=== PATIENT | female | born 1955 | race Caucasian/White ===

== ENCOUNTER 2016-08-24 17:21 | Inpatient (IN) ==
--- NOTE | 2016-08-24 17:34 | Emergency Department Note ---
Disposition Clinical Impression: Cellulitis Disposition: Admitted As Inpatient Condition: Fair Referrals: NO,PCP [Non-Partnered Physician] - Forms: ED Satisfaction Letter General Adult HPI - General Chief complaint: ED Extremity Injury, Lower Stated complaint: lower extremity pain Time Seen by Provider: 08/24/16 17:26 Source: patient Limitations: no limitations Nursing Notes Reviewed: Yes Vital Signs Reviewed: Yes - History of Present Illness HPI Narrative: Ms. Edmonds, a 60-year-old female, presents from home via EMS with chief complaint of increasing bilateral lower extremity with worsening cellulitis. Originally noted by home health nurse who is managing her bilateral lower extremities for the same. Home health nurse called the patient's aviation safety technician who advised she come into the emergency department. Patient is currently on Keflex states 6 for bilateral lower extremity cellulitis which is not improved her symptoms as well as acyclovir for shingles outbreak on patient's forehead. PMH: Hypertension, hyperlipidemia, diabetes, morbid obesity, previous MRSA cellulitis, bilateral lower extremity venous stasis. Cath Lab: Dr. Whitfield Pain Scale: 4 - Related Data Previous Rx's Medication Instructions Recorded Clindamycin HCl [Cleocin HCl] 300 mg PO Q6HR #56 capsule 11/24/14 Acyclovir [Zovirax] 400 mg PO TID #60 capsule 04/06/16 Erythromycin OPTH Oint 1 appl LEFT EYE Q6HR #1 tube 04/06/16 Allergies Allergy/AdvReac Type Severity Reaction Status Date / Time sulfamethoxazole Allergy Rash Verified 04/06/16 12:47 [From Bactrim] trimethoprim [From Bactrim] Allergy Rash Verified 04/06/16 12:47 celecoxib [From Celebrex] AdvReac Gastrointestinal Verified 04/06/16 12:47 Upset Penicillins AdvReac Swelling Verified 04/06/16 12:47 of the Eye trazodone AdvReac Fainting Verified 04/06/16 12:47 Serazone AdvReac Swelling Uncoded 11/24/14 06:39 of Lip/Tongue/Throat All systems ED: reviewed and negative except as stated. Constitutional: Denies: fever, chills Cardiovascular: Denies: chest pain, palpitations Respiratory: Denies: cough, dyspnea Gastrointestinal: Denies: abdominal pain, nausea, vomiting, diarrhea, constipation Genitourinary: Denies: dysuria Integumentary: Reports: rash, lesions. Denies: pruritus Past Medical History - Past Medical History Medical history: Reports: atrial fibrillation, diabetes, hyperlipidemia, hypertension, other Surgical history: Reports: appendectomy, cholecystectomy, hysterectomy Psychiatric history: Reports: depression, prior suicide attempt, previous psychiatric hospitalization - Social History Smoking Status: Never smoker Smokeless Tobacco Status: No Alcohol use: Reports: none Drug use: Reports: none Physical Exam Vital signs reviewed General: Patient is alert, oriented, and in no acute distress. HEENT: No facial asymmetry. Head is normocephalic and atraumatic. Cardiovascular: Heart regular rate and rhythm without clicks, rubs, gallops, or murmurs. No JVD. PMI nondisplaced. Respiratory: Symmetric chest rise with poor respiratory effort. Bilateral breath sounds are clear without wheezing, crackles, or rhonchi. Abdomen: Morbidly obese. Bowel sounds present normoactive x-4 quadrants. Abdomen is soft, nondistended, and nontender. Unable to assess organomegaly given patient's body habitus. Integument: Evidence of shingles patient's mid forehead. Psych: Patient's affect is appropriate for situation. - General Limitations: no limitations General appearance: alert, in no apparent distress Course Course Narrative: Patient failed outpatient antibiotics. We will begin him. Vancomycin. Vital signs stable and afebrile. Leukocytosis. Mild elevation in ESR. Patient has been accepted by Dr. Aly for continued IV antibiotics. Vital Signs Temperature 98.6 F 08/24/16 17:24 Pulse Rate 78 08/24/16 17:24 Respiratory Rate 22 08/24/16 17:24 Blood Pressure 129/57 08/24/16 17:24 O2 Sat by Pulse Oximetry 93 08/24/16 17:24 Temperature 98.6 F 08/24/16 17:24 Pulse Rate 70 08/24/16 18:25 Respiratory Rate 22 08/24/16 18:25 Blood Pressure 125/59 08/24/16 18:25 O2 Sat by Pulse Oximetry 90 08/24/16 18:42 Oxygen Delivery Oxygen Delivery Room Air Medical Decision Making - Lab Data Result diagrams: 08/24/16 18:10 08/24/16 18:10 Lab Results 08/24/16 08/24/16 08/24/16 Range/Units 18:10 18:10 18:10 WBC 10.7 (4.3-11.1) K/mcL RBC 4.51 (3.82-4.97) M/mcL Hgb 12.1 (11.5-15.4) g/dL Hct 39.7 (35.3-44.9) % MCV 88.0 (83.0-100.0) fL MCH 26.8 L (28.0-33.3) pg MCHC 30.5 L (31.6-35.5) g/dL RDW 14.1 (11.5-14.5) % Plt Count 204 (140-400) K/mcL MPV 11.8 (9.4-12.4) fL Immature Gran % 0.7 (0-4) % Seg Neutrophils % 81.0 % Lymphocytes % 10.5 % Monocytes % 5.5 % Eosinophils % 2.1 % Basophils % 0.2 % Neutrophils # 8.7 (1.6-8.9) K/mcL Lymphocytes # 1.1 (0.6-4.6) K/mcL Monocytes # 0.6 (0.0-1.3) K/mcL Eosinophils # 0.2 (0.0-0.6) K/mcL Basophils # 0.0 (0.0-0.2) K/mcL ESR 41 H (0-15) mm/hr Sodium 139 (136-145) mEq/L Potassium 4.0 (3.5-4.5) mEq/L Chloride 104 (98-109) mEq/L Carbon Dioxide 27 (19-29) mEq/L BUN 14 (7-20) mg/dL Creatinine 0.88 (0.57-1.11) mg/dL Est GFR ( Amer) > 60 (> 60) Est GFR (Non-Af Amer) > 60 (> 60) BUN/Creatinine Ratio 16 (6-26) Glucose 127 H (70-99) mg/dL Calculated Osmolality 290 (280-300) Calcium 9.1 (8.6-10.8) mg/dL
--- NOTE | 2016-08-24 17:34 | Emergency Department Note ---
Disposition Clinical Impression: Cellulitis Qualifiers: Site of cellulitis: extremity Site of cellulitis of extremity: lower extremity Laterality: unspecified laterality Qualified Code(s): L03.119 - Cellulitis of unspecified part of limb Disposition: Admitted As Inpatient Condition: Fair Referrals: NO,PCP [Non-Partnered Physician] - Forms: ED Satisfaction Letter General Adult HPI - General Chief complaint: ED Extremity Problem,Nontraumatic Stated complaint: lower extremity pain Time Seen by Provider: 08/24/16 17:26 Source: patient Limitations: no limitations Nursing Notes Reviewed: Yes Vital Signs Reviewed: Yes - History of Present Illness Pain Scale: 4 - Related Data Previous Rx's Medication Instructions Recorded Clindamycin HCl [Cleocin HCl] 300 mg PO Q6HR #56 capsule 11/24/14 Acyclovir [Zovirax] 400 mg PO TID #60 capsule 04/06/16 Erythromycin OPTH Oint 1 appl LEFT EYE Q6HR #1 tube 04/06/16 Allergies Allergy/AdvReac Type Severity Reaction Status Date / Time sulfamethoxazole Allergy Rash Verified 04/06/16 12:47 [From Bactrim] trimethoprim [From Bactrim] Allergy Rash Verified 04/06/16 12:47 celecoxib [From Celebrex] AdvReac Gastrointestinal Verified 04/06/16 12:47 Upset Penicillins AdvReac Swelling Verified 04/06/16 12:47 of the Eye trazodone AdvReac Fainting Verified 04/06/16 12:47 Serazone AdvReac Swelling Uncoded 11/24/14 06:39 of Lip/Tongue/Throat Past Medical History - Past Medical History Medical history: Reports: atrial fibrillation, diabetes, hyperlipidemia, hypertension, other Surgical history: Reports: appendectomy, cholecystectomy, hysterectomy Psychiatric history: Reports: depression, prior suicide attempt, previous psychiatric hospitalization - Social History Smoking Status: Never smoker Smokeless Tobacco Status: No Alcohol use: Reports: none Drug use: Reports: none Physical Exam - General Limitations: no limitations General appearance: alert, in no apparent distress Course Vital Signs Temperature 98.6 F 08/24/16 17:24 Pulse Rate 78 08/24/16 17:24 Respiratory Rate 22 08/24/16 17:24 Blood Pressure 129/57 08/24/16 17:24 O2 Sat by Pulse Oximetry 93 08/24/16 17:24 Temperature 98.6 F 08/24/16 17:24 Pulse Rate 70 08/24/16 18:25 Respiratory Rate 22 08/24/16 18:25 Blood Pressure 125/59 08/24/16 18:25 O2 Sat by Pulse Oximetry 94 08/24/16 18:25 Oxygen Delivery Oxygen Delivery Room Air Medical Decision Making - MDM Narrative Medical decision making narrative: I examined this patient and my medical decision-making was reviewed with the NUTRITION AIDES TEACHER/PA/Advanced Practice Nurse/Resident Physician. I agree with the documented findings, disposition and treatment plan as described except to the extent set forth below. The patient was seen and evaluated by myself and Dr. Arrington, I agree with his evaluation and management plan, I supervised the care of the patient doubts today. Patient presents with lower extremity cellulitis bilaterally. She started Keflex6. Without much change. She also been seen by dermatology. I do not see any biopsies from this area listed in the medical record at this point. No fevers at home. She has also had shingles above her left eye which is getting improved and does not involve the eye itself. Check labs sedimentation rate place an IV in her she may need IV antibiotics and admission. She is in agreement with this plan. 1835 hrs.: Patient's labs are back. She is tolerating the vancomycin well. Regarding get her admitted since she has failed outpatient therapy. She can be seen by hospitalist service if they need to consult dermatology they can that she seen dermatology here in the past. Patient's agreement with this plan. Impression is lower extremity cellulitis versus inflammatory dermatitis with history of same. Failed outpatient treatment of antibiotics. - Lab Data Result diagrams: 08/24/16 18:10 08/24/16 18:10 Lab Results 08/24/16 08/24/16 08/24/16 Range/Units 18:10 18:10 18:10 WBC 10.7 (4.3-11.1) K/mcL RBC 4.51 (3.82-4.97) M/mcL Hgb 12.1 (11.5-15.4) g/dL Hct 39.7 (35.3-44.9) % MCV 88.0 (83.0-100.0) fL MCH 26.8 L (28.0-33.3) pg MCHC 30.5 L (31.6-35.5) g/dL RDW 14.1 (11.5-14.5) % Plt Count 204 (140-400) K/mcL MPV 11.8 (9.4-12.4) fL Immature Gran % 0.7 (0-4) % Seg Neutrophils % 81.0 % Lymphocytes % 10.5 % Monocytes % 5.5 % Eosinophils % 2.1 % Basophils % 0.2 % Neutrophils # 8.7 (1.6-8.9) K/mcL Lymphocytes # 1.1 (0.6-4.6) K/mcL Monocytes # 0.6 (0.0-1.3) K/mcL Eosinophils # 0.2 (0.0-0.6) K/mcL Basophils # 0.0 (0.0-0.2) K/mcL ESR 41 H (0-15) mm/hr Sodium 139 (136-145) mEq/L Potassium 4.0 (3.5-4.5) mEq/L Chloride 104 (98-109) mEq/L Carbon Dioxide 27 (19-29) mEq/L BUN 14 (7-20) mg/dL Creatinine 0.88 (0.57-1.11) mg/dL Est GFR ( Amer) > 60 (> 60) Est GFR (Non-Af Amer) > 60 (> 60) BUN/Creatinine Ratio 16 (6-26) Glucose 127 H (70-99) mg/dL Calculated Osmolality 290 (280-300) Calcium 9.1 (8.6-10.8) mg/dL
[2016-08-24 18:22] LABS: Basophils % 0.2 %; Eosinophils # 0.2 K/mcL (0.0-0.6); Eosinophils % 2.1 %; Hematocrit 39.7 % (35.3-44.9); Hemoglobin 12.1 g/dL (11.5-15.4); Immature Granulocytes % 0.7 % (0-4); Lymphocytes # 1.1 K/mcL (0.6-4.6); Lymphocytes % 10.5 %; Mean Corpuscular HGB Conc 30.5 g/dL (31.6-35.5); Mean Corpuscular Hemoglobin 26.8 pg (28.0-33.3); Mean Platelet Volume 11.8 fL (9.4-12.4); Monocytes # 0.6 K/mcL (0.0-1.3); Monocytes % 5.5 %; Neutrophils # 8.7 K/mcL (1.6-8.9); Platelet Count 204 K/mcL (140-400); Red Blood Count 4.51 M/mcL (3.82-4.97); Red Cell Distribution Width 14.1 % (11.5-14.5)
[2016-08-24] MEDS ORDERED: Vancomycin 2,000 MG in D5% in Water 500 ML IVPB ONE (18:28)
[2016-08-24 18:30] LABS: BUN/Creatinine Ratio 16 (6-26); Blood Urea Nitrogen 14 mg/dL (7-20); Calcium 9.1 mg/dL (8.6-10.8); Carbon Dioxide 27 mEq/L (19-29); Chloride 104 mEq/L (98-109); Glucose 127 mg/dL (70-99); Osmolality,Calculated 290 (280-300); Sodium 139 mEq/L (136-145); eGFR For African Americans > 60 (> 60); eGFR For Non-African Americans > 60 (> 60)
[2016-08-24] MEDS ORDERED: Vancomycin 2,000 MG in D5% in Water 500 ML IVPB SCH (19:00)
--- NOTE | 2016-08-24 19:56 | Event Note ---
Date of Encounter: 08/24/16 Time of Encounter: 19:54 Patient seen and examined with biomedical equipment tech. Cellulitis of both lower extremities and panniculus with failed outpatient oral antibiotic therapy (6 days of Keflex). She has prior history of MRSA infection. Start vancomycin and Zosyn. Blood and wound cultures. She has cellulitis of the panniculus with notable induration. I will get a contrasted CT scan of the abdomen and pelvis to look for abscess formation
[2016-08-24] MEDS ORDERED: Naloxone 0.4 MG/ML INJ IVP PRN (20:23)
--- NOTE | 2016-08-24 20:34 | Internal Med History&Physical ---
Date of Encounter: 08/24/16 Time of Encounter: 20:27 Assessment and Plan (1) Cellulitis Current visit: Yes Status: Acute Patient has evidence of cellulitis on her bilateral upper extremities as well as her pannus. She failed outpatient therapy with a week of Keflex. We will outline her areas of cellulitis. Initiate antibiotic therapy with vancomycin and Zosyn. Does have a penicillin allergy but is listed as swelling of her right eye associated. Anaphylactic reaction. We will continue to monitor reaction. Blood cultures have been drawn. Qualifiers: Site of cellulitis: extremity Site of cellulitis of extremity: lower extremity Laterality: unspecified laterality Qualified Code(s): L03.119 - Cellulitis of unspecified part of limb (2) Panniculitis Current visit: Yes Status: Acute Patient has cellulitis with an overlying healing lesions on her pannus. There is no drainage or bleeding. Will treat with antibiotics as discussed above. We will obtain a CT scan of the abdomen to rule out abscess. (3) Type 2 diabetes mellitus Current visit: Yes Status: Acute Blood sugar slightly elevated on presentation. Hold oral antidiabetic medications. We will institute low-dose sliding scale and adjust based on sugars. Qualifiers: Diabetes mellitus complication status: with unspecified complications Diabetes mellitus intermediate designer insulin use: without fci use Qualified Code( s): E11.8 - Type 2 diabetes mellitus with unspecified complications (4) Bipolar disorder Current visit: Yes Status: Acute Stable to time. Continue lithium. Qualifiers: Active/Remission status: in full remission Most recent bipolar episode type : most recent episode unspecified type Qualified Code(s): F31.70 - Bipolar disorder, currently in remission, most recent episode unspecified (5) Depression Current visit: Yes Status: Acute Stable. Continue Zoloft. Qualifiers: Depression Type: unspecified Qualified Code(s): F32.9 - Major depressive disorder, single episode, unspecified (6) Hypothyroidism Current visit: Yes Status: Acute Stable. Continue Synthroid. 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 She is on acyclovir 800 mg 4 times a day. We will continue this. Patient is treated for postherpetic neuralgia with hydrocodone as well as gabapentin. Continue home medications. 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 Continue home blood pressure medications. Qualifiers: Hypertension type: essential hypertension Qualified Code(s): I10 - Essential (primary) hypertension (9) Chronic venous insufficiency Current visit: Yes Status: Acute Ongoing for years. No evidence of overlying cellulitis at the site of her chronic venous insufficiency. Continue pentoxifylline. (10) Hyperlipidemia Current visit: Yes Status: Acute Continue statin. Qualifiers: Hyperlipidemia type: unspecified Qualified Code(s): E78.5 - Hyperlipidemia , unspecified (11) DVT prophylaxis Current visit: Yes Status: Acute Heparin 5000 units subcutaneous twice a day. Internal Medicine - H&P: HPI Chief complaint: Lower extremity erythema Admitted From: Emergency Dept Plans for Post Hospital Care: Home History of present illness: Ms. Asif is a 60 year old female with history of chronic venous stasis and cellulitis presents with lower extremity erythema. Patient states she has had dark discoloration of her lower extremity for years but over the last several weeks she had a new onset of redness of her upper thighs and her pannus. Patient reports this is painful. She denies any discharge or bleeding from this area. She denies any trauma to the area or breaks in skin of her lower extremity. She does have a dry crusted lesion on her pannus. She reports subjective fevers and chills but has not measured. She denies any chest pain, shortness of breath, nausea, vomiting. Patient states that she has had loose stools for years, there is been no change in her bowel habits. Past Med Surg Social Fam HX - Past Medical History Medical history: atrial fibrillation, diabetes, hyperlipidemia, hypertension, other Psychiatric history: depression, prior suicide attempt, previous psychiatric hospitalization - Past Surgical History Surgical History: appendectomy, cholecystectomy, hysterectomy, thyroidectomy - Social History Smoking Status: Never smoker Smokeless Tobacco Status: No Alcohol use: none Drug use: none - Family History Father Hx Family Cardiac Disorders: Yes Hx Family Endocrine Disorder: Yes Internal Medicine - H&P: Meds Acyclovir [Zovirax] 800 mg PO QID 08/24/16 [History] Cholestyramine (with Sugar) [Cholestyramine Bulk Powder] 2 scoop PO DAILY [History] Gabapentin [Neurontin] 600 mg PO TID 08/24/16 [History] HYDROcodone/Acet 5/325 mg [Pinon 5-325 mg] 1 - 2 tab PO DAILY PRN 08/24/16 [ History] Levothyroxine Sodium 50 mcg PO DAILY 08/24/16 [History] Levothyroxine Sodium [Levo-T] 200 mcg PO DAILY 08/24/16 [History] [place] Carbonate 300 mg PO DAILY 08/24/16 [History] Losartan Potassium [Cozaar] 50 mg PO DAILY 08/24/16 [History] Naproxen Sodium [Aleve] 220 mg PO BID 08/24/16 [History] Nystatin POWDER [Nystop] 1 appl TP BID 08/24/16 [History] Pantoprazole Sodium 40 mg PO DAILY 08/24/16 [History] Pentoxifylline [TRENtal] 400 mg PO HS 08/24/16 [History] Pentoxifylline [TRENtal] 800 mg PO DAILY 08/24/16 [History] Pravastatin Sodium [Pravachol] 40 mg PO DAILY 08/24/16 [History] Saxagliptin HCl [Onglyza] 5 mg PO DAILY 08/24/16 [History] Sertraline [Zoloft] 200 mg PO DAILY 08/24/16 [History] Verapamil HCl [Verapamil ER] 240 mg PO DAILY 08/24/16 [History] cephALEXin [Cephalexin] 500 mg PO BID 08/24/16 [History] Allergies sulfamethoxazole [From Bactrim] Allergy (Verified 04/06/16 12:47) Rash trimethoprim [From Bactrim] Allergy (Verified 04/06/16 12:47) Rash celecoxib [From Celebrex] Adverse Reaction (Verified 04/06/16 12:47) Gastrointestinal Upset Penicillins Adverse Reaction (Verified 04/06/16 12:47) Swelling of the Eye trazodone Adverse Reaction (Verified 04/06/16 12:47) Fainting Serazone Adverse Reaction (Uncoded 11/24/14 06:39) Swelling of Lip/Tongue/Throat All Systems PM: A 10-system review of systems was performed and is negative for pertinent findings except as documented above in the HPI. - Constitutional Constitutional: chills, fever(s) - EENT Eyes: blurry vision Nose, mouth and throat: no sinus pain, no sinus pressure, no sore throat - Cardiovascular Cardiovascular ROS IM: no chest pain, no dyspnea, no syncope - Respiratory Respiratory: no cough, no chest congestion, no excessive phlegm production, no change in phlegm color - Gastrointestinal Gastrointestinal: loose stools, no abdominal pain, no change in bowel habits, no nausea, no vomiting - Genitourinary Genitourinary: breast skin changes, no dysuria, no urinary frequency, no urinary hesitancy, no urinary incontinence, no urinary urgency - Musculoskeletal Musculoskeletal ROS IM: no numbness, no tingling - Integumentary Integumentary IM: erythema, non-healing lesions, skin ulcer, sores - Neurological Neurological ROS: no dizziness, no frequent falls, no headache(s), no numbness, no tingling - Constitutional Vitals: Temp Pulse Resp BP Pulse Ox 98.2 F 66 18 120/56 92 08/24/16 20:08 08/24/16 20:08 08/24/16 20:08 08/24/16 20:08 08/24/16 20:08 General appearance: Present: A&O X 3, morbidly obese, pleasant, no acute distress - Head Head exam: Present: atraumatic, normal inspection, normocephalic - Eye Eye exam: Present: EOMI. Absent: PERRL Additional comments: Patient's left pupil is fixed and dilated. She states that this is been ongoing for the last several months and she has been diagnosed with shingles. The right pupil is not dilated, and reactive to light. - ENT ENT exam: Present: mucous membranes moist - Respiratory Respiratory exam: Present: CTAB. Absent: rales, rhonchi, wheezes - Cardiovascular Cardiovascular exam: Present: RRR. Absent: gallop, rubs, systolic murmur, tachycardia - GI/Abdominal GI/Abdominal exam: Present: normal bowel sounds, soft. Absent: distended, tenderness - Extremities Exam Extremities exam: Present: pedal edema (trace), warm. Absent: tenderness - Neurological Exam Neurological exam: Present: alert, CN II-XII intact, oriented X3, no focal deficits - Skin Additional comments: Patient has well demarcated erythema of the upper inner thighs. There are no breaks in the skin, drainage or bleeding noted. Patient also has erythema of her pannus as well as a dry healing lesion that is not weeping or draining. Patient also has dry healing lesions on her left breast. There is no underlying mass. Internal Med - H&P Results - Labs CBC & Chem 7: 08/24/16 18:10 08/24/16 18:10
[2016-08-24] MEDS ORDERED: Vancomycin 2,000 MG in D5% in Water 250 ML IVPB SCH (21:00)
[2016-08-24] MEDS ORDERED: 0.9 % Sodium Chloride 500 ML IVC ONE (21:51)
[2016-08-24] MEDS ORDERED: D5% in Water 1,000 ML IVC PRN (22:29)
[2016-08-24] MEDS ORDERED: Dextrose Gel 15 GM PO PRN ×2 (22:29)
[2016-08-24] MEDS ORDERED: *HR* Dextrose 50 % in Water (Syg) 50 ML SYRINGE IVP PRN (22:29)
[2016-08-24] MEDS: Acyclovir 200 MG CAPSULE PO SCH (23:06)
[2016-08-24] MEDS: Gabapentin 300 MG CAPSULE PO SCH (23:06)
[2016-08-24] MEDS ORDERED: Lithium Carbonate ER 300 MG TABLET.ER PO SCH (23:45)
[2016-08-25] MEDS: Lithium Oral Soln 300 MG/5 ML UDC PO SCH ×2 (00:29→21:06)
[2016-08-25] MEDS: Piperacillin/Tazobactam 3.375 GM in D5% in Water (Mini-Bag+) 100 ML IVPB SCH ×4 (00:29→23:29)
[2016-08-25] MEDS: Nystatin POWDER 30 GM BOTTLE TP SCH ×3 (00:30→21:07)
[2016-08-25 04:50] LABS: Basophils % 0.3 %; Eosinophils # 0.2 K/mcL (0.0-0.6); Eosinophils % 2.1 %; Hematocrit 37.4 % (35.3-44.9); Hemoglobin 11.3 g/dL (11.5-15.4); Immature Granulocytes % 1.2 % (0-4); Lymphocytes # 1.3 K/mcL (0.6-4.6); Lymphocytes % 11.9 %; Mean Corpuscular HGB Conc 30.2 g/dL (31.6-35.5); Mean Corpuscular Hemoglobin 26.4 pg (28.0-33.3); Mean Corpuscular Volume 87.4 fL (83.0-100.0); Mean Platelet Volume 11.7 fL (9.4-12.4); Monocytes # 0.8 K/mcL (0.0-1.3); Monocytes % 6.8 %; Neutrophils # 8.5 K/mcL (1.6-8.9); Platelet Count 198 K/mcL (140-400); Red Blood Count 4.28 M/mcL (3.82-4.97); Red Cell Distribution Width 14.3 % (11.5-14.5); Segmented Neutrophils % 77.7 %
[2016-08-25 04:56] LABS: INR 1.2; Prothrombin Time 12.7 Seconds (9.4-12.1)
[2016-08-25 05:07] LABS: BUN/Creatinine Ratio 15 (6-26); Blood Urea Nitrogen 13 mg/dL (7-20); Calcium 8.5 mg/dL (8.6-10.8); Carbon Dioxide 24 mEq/L (19-29); Chloride 105 mEq/L (98-109); Glucose 144 mg/dL (70-99); Magnesium 1.8 mg/dL (1.6-2.6); Osmolality,Calculated 287 (280-300); Potassium 3.9 mEq/L (3.5-4.5); Sodium 137 mEq/L (136-145); eGFR For African Americans > 60 (> 60); eGFR For Non-African Americans > 60 (> 60)
[2016-08-25] MEDS: Vancomycin 2,000 MG in D5% in Water 500 ML IVPB SCH ×2 (05:20→17:30)
[2016-08-25] MEDS: *HR* Heparin 5,000 UNIT/ML VIAL SQ SCH ×2 (05:21→17:41)
[2016-08-25] MEDS: Acyclovir 200 MG CAPSULE PO SCH ×4 (07:44→21:07)
[2016-08-25] MEDS: Gabapentin 300 MG CAPSULE PO SCH ×3 (07:44→21:06)
[2016-08-25] MEDS: Verapamil ER (24 HR) 240 MG TABLET.ER PO SCH (07:44)
[2016-08-25] MEDS: Insulin LISPRO 300 UNITS/3 ML VIAL SQ SCH ×4 (07:48→20:51)
[2016-08-25] MEDS: Cholestyramine 4 GM POWD.PACK PO SCH (07:49)
[2016-08-25] MEDS: *HR* HYDROcodone/Acet 5/325 mg TABLET PO PRN ×2 (09:56→23:01)
--- NOTE | 2016-08-25 12:07 | Internal Med Progress Note ---
Date of Encounter: 08/25/16 Time of Encounter: 09:30 - Assessment and plan (1) Cellulitis Current Visit: Yes Status: Acute Assessment and plan: Cellulitis noted to bilateral lower extremities and panniculus. Erythema has receded back from pen markings from yesterday. We will continue vancomycin and Zosyn. Abdominal CT unremarkable. Wound culture unremarkable. OT and PT have been brought on board. Wound is also on board. Clinically, she is improving, we will continue to monitor. Qualifiers: Site of cellulitis: extremity Site of cellulitis of extremity: lower extremity Laterality: unspecified laterality Qualified Code(s): L03.119 - Cellulitis of unspecified part of limb (2) Panniculitis Current Visit: Yes Status: Acute (3) Acute respiratory failure Current Visit: Yes Status: Acute Assessment and plan: Patient requiring supplemental oxygenation, is not on oxygen at home. She denies shortness of breath above her norm. Unclear reasoning as to why she is requiring oxygen, will obtain chest x-ray. Possible obesity hypoventilation syndrome, but will rule out acute processes (4) Generalized weakness Current Visit: Yes Status: Acute Assessment and plan: OT and PT have been brought on board. (5) Type 2 diabetes mellitus Current Visit: Yes Status: Chronic Assessment and plan: Controlled with a recent A1c of 5.8%. Continue sliding scale while admitted. 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 Contact precautions. 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 At home, patient is on verapamil 240 mg daily and 50 mg of losartan daily, have been continued. We will continue to trend Qualifiers: Hypertension type: essential hypertension Qualified Code(s): I10 - Essential (primary) hypertension (10) Chronic venous insufficiency Current Visit: Yes Status: Chronic (11) DVT prophylaxis Current Visit: Yes Status: Acute Assessment and plan: Subcutaneous heparin (12) Morbid obesity with BMI of 60.0-69.9, adult Current Visit: Yes Status: Chronic - Subjective Interval history: Patient seen and examined. On examination, patient is sitting upright in bed watching television. Patient stating she is feeling better however continues to have pain where her shingles is located on her left eye and left top part of her scalp. Patient stating her lower extremity pain has improved. She denies shortness of breath above her norm. She is endorsing a normal appetite. - Constitutional Vitals: Temp Pulse Resp BP Pulse Ox 98.6 F 55 16 144/60 94 08/25/16 11:25 08/25/16 11:25 08/25/16 11:25 08/25/16 11:25 08/25/16 11:25 General appearance: Present: A&O X 3, morbidly obese, pleasant, no acute distress, answers questions appropriately - Head Head exam: Present: atraumatic, normocephalic - Eye Eye exam: Present: PERRL, conjuntiva pink, sclera anicteric Pupils: Present: PERRL - Neck Neck exam general surgery: Present: supple, trachea midline. Absent: lymphadenopathy - Respiratory Respiratory exam: Present: decreased breath sounds. Absent: accessory muscle use, rales, respiratory distress, rhonchi, wheezes - Cardiovascular Cardiovascular exam: Present: RRR, +S1, +S2. Absent: diastolic murmur, gallop, rubs, systolic murmur - GI/Abdominal GI/Abdominal exam: Present: distended, normal bowel sounds, soft, no peritoneal signs. Absent: tenderness - Extremities Exam Extremities exam: Present: pedal edema, warm, radial pulses palpable and symetrical. Absent: calf tenderness, cyanotic - Neurological Exam Neurological exam: Present: alert, CN II-XII intact, oriented X3, no focal deficits, strengths equal and symetr throughout. Absent: pronater drift, facial droop, speech deficit - Skin Skin exam: Present: dry, intact, pallor, warm - Expanded Skin Exam Type of lesion: Present: abscess Distribution of rash: Present: abdomen Description of rash: Present: crusting, discharge, erythematous, indurated, swelling, tenderness. Absent: fluctuant - Other Additional findings: Vesicular lesion superior to left eye Internal Medicine: Result - Labs CBC & Chem 7: 08/25/16 04:27 08/25/16 04:27 - ABG Interpretation ABG results: PT/INR, D-dimer PT 12.7 Seconds (9.4-12.1) H 08/25/16 04:27 Consult Discharge Plan - Plan Referrals: Corina Lynch MD [Primary Care Provider] -
[2016-08-25] MEDS: Fluticasone Propionate Nasal 50 MCG/SPRAY BOTTLE NS SCH (23:01)
[2016-08-26 05:56] LABS: Basophils % 0.2 %; Eosinophils # 0.3 K/mcL (0.0-0.6); Eosinophils % 3.3 %; Hematocrit 34.9 % (35.3-44.9); Hemoglobin 10.5 g/dL (11.5-15.4); Immature Granulocytes % 0.3 % (0-4); Lymphocytes % 11.6 %; Mean Corpuscular HGB Conc 30.1 g/dL (31.6-35.5); Mean Corpuscular Hemoglobin 26.5 pg (28.0-33.3); Mean Corpuscular Volume 88.1 fL (83.0-100.0); Mean Platelet Volume 12.2 fL (9.4-12.4); Monocytes # 0.5 K/mcL (0.0-1.3); Monocytes % 6.1 %; Neutrophils # 6.7 K/mcL (1.6-8.9); Platelet Count 178 K/mcL (140-400); Red Blood Count 3.96 M/mcL (3.82-4.97); Red Cell Distribution Width 14.1 % (11.5-14.5); Segmented Neutrophils % 78.5 %
[2016-08-26 06:10] LABS: BUN/Creatinine Ratio 13 (6-26); Blood Urea Nitrogen 11 mg/dL (7-20); Calcium 8.4 mg/dL (8.6-10.8); Carbon Dioxide 27 mEq/L (19-29); Chloride 105 mEq/L (98-109); Glucose 143 mg/dL (70-99); Osmolality,Calculated 288 (280-300); Potassium 4.1 mEq/L (3.5-4.5); Sodium 138 mEq/L (136-145); eGFR For African Americans > 60 (> 60); eGFR For Non-African Americans > 60 (> 60)
[2016-08-26] MEDS: *HR* Heparin 5,000 UNIT/ML VIAL SQ SCH ×2 (06:41→18:40)
[2016-08-26] MEDS: Vancomycin 2,000 MG in D5% in Water 500 ML IVPB SCH (06:50)
[2016-08-26] MEDS: Acyclovir 200 MG CAPSULE PO SCH ×4 (08:50→20:09)
[2016-08-26] MEDS: Cholestyramine 4 GM POWD.PACK PO SCH (08:50)
[2016-08-26] MEDS: Gabapentin 300 MG CAPSULE PO SCH ×3 (08:51→20:09)
[2016-08-26] MEDS: Verapamil ER (24 HR) 240 MG TABLET.ER PO SCH (08:51)
[2016-08-26] MEDS: Furosemide 40 MG/4 ML VIAL IVP SCH ×2 (08:51→17:00)
[2016-08-26] MEDS: Piperacillin/Tazobactam 3.375 GM in D5% in Water (Mini-Bag+) 100 ML IVPB SCH ×3 (08:52→22:55)
[2016-08-26] MEDS: Nystatin POWDER 30 GM BOTTLE TP SCH ×2 (08:52→20:20)
[2016-08-26] MEDS: Fluticasone Propionate Nasal 50 MCG/SPRAY BOTTLE NS SCH (08:53)
[2016-08-26] MEDS: Insulin LISPRO 300 UNITS/3 ML VIAL SQ SCH ×4 (08:53→21:18)
[2016-08-26] MEDS: *HR* HYDROcodone/Acet 5/325 mg TABLET PO PRN ×2 (13:05→23:02)
--- NOTE | 2016-08-26 16:02 | Internal Med Progress Note ---
Date of Encounter: 08/26/16 Time of Encounter: 11:15 - Assessment and plan (1) Acute respiratory failure Current Visit: Yes Status: Acute Assessment and plan: secondary to pulmonary edema, OHS/PATRICIO. CXR shows pulmonary vascular congestion, low lung volumes and atelectasis. Patient is requiring 4L of oxygen via NC. she reports chronic shortness of breath at exertion. Continue IV lasix bid, nebuizations and fluid restriction. Qualifiers: Respiratory failure complication: unspecified whether with hypoxia or hypercapnia Qualified Code(s): J96.00 - Acute respiratory failure, unspecified whether with hypoxia or hypercapnia (2) Cellulitis Current Visit: Yes Status: Acute Assessment and plan: BLE Cellulitis and panniculus. CTAP shows no acute process. Wound culture growing GPC. Slowly improving. continue IV vancomycin and Zosyn. Qualifiers: Site of cellulitis: extremity Site of cellulitis of extremity: lower extremity Laterality: unspecified laterality Qualified Code(s): L03.119 - Cellulitis of unspecified part of limb (3) Generalized weakness Current Visit: Yes Status: Acute Assessment and plan: OT and PT consulted (4) Hypertension Current Visit: Yes Status: Chronic Assessment and plan: Controlled. At home, patient is on verapamil 240 mg daily and 50 mg of losartan daily, have been continued. Qualifiers: Hypertension type: essential hypertension Qualified Code(s): I10 - Essential (primary) hypertension (5) Hypothyroidism Current Visit: Yes Status: Chronic Assessment and plan: TSH elevated 2 months ago however free T4 was normal, follow-up outpatient Qualifiers: Hypothyroidism type: unspecified Qualified Code(s): E03.9 - Hypothyroidism , unspecified (6) Type 2 diabetes mellitus Current Visit: Yes Status: Chronic Assessment and plan: adequate accucheck. recent A1c of 5.8%. Continue diabetic diet and sliding scale while admitted. Qualifiers: Diabetes mellitus complication status: with unspecified complications Diabetes mellitus fdc insulin use: without fdc use Qualified Code( s): E11.8 - Type 2 diabetes mellitus with unspecified complications (7) Morbid obesity with BMI of 60.0-69.9, adult Current Visit: Yes Status: Chronic Assessment and plan: bmi 65. outpatient weight loss program. (8) Chronic venous insufficiency Current Visit: Yes Status: Chronic - Subjective Interval history: patient reports shortness of breath at minimal exertion. she also has mild pain in LE. - Constitutional Vitals: Temp Pulse Resp BP Pulse Ox 97.5 F L 64 17 115/70 95 08/26/16 15:16 08/26/16 15:16 08/26/16 15:16 08/26/16 15:16 08/26/16 15:16 General appearance: Present: cooperative, A&O X 3, morbidly obese, pleasant, no acute distress, answers questions appropriately - Respiratory Respiratory exam: Present: decreased breath sounds, rhonchi - Cardiovascular Cardiovascular exam: Present: distant heart sounds - GI/Abdominal GI/Abdominal exam: Present: normal bowel sounds, soft. Absent: distended, tenderness - Extremities Exam Extremities exam: Present: pedal edema (1+ Le edema) - Neurological Exam Neurological exam: Present: alert, oriented X3, no focal deficits. Absent: facial droop, speech deficit - Skin Skin exam: Present: rash (abdominal pannicultis) Internal Medicine: Result - Labs CBC & Chem 7: 08/26/16 05:13 08/26/16 05:13 Labs: Short CBC 08/26/16 Range/Units 05:13 WBC 8.6 (4.3-11.1) K/mcL Hgb 10.5 L (11.5-15.4) g/dL Hct 34.9 L (35.3-44.9) % Plt Count 178 (140-400) K/mcL Neutrophils # 6.7 (1.6-8.9) K/mcL BMP 08/26/16 05:13 Sodium 138 Potassium 4.1 Chloride 105 Carbon Dioxide 27 BUN 11 Creatinine 0.82 Glucose 143 H Calcium 8.4 L - ABG Interpretation ABG results: PT/INR, D-dimer PT 12.7 Seconds (9.4-12.1) H 08/25/16 04:27 - Impressions Impressions Chest X-Ray 08/25/16 12:14 IMPRESSION: Low lung volumes. Pulmonary vascular congestion and nonspecific opacities in the parahilar and lung bases bilaterally, atelectasis and/or edema. D/ / 08/25/2016 15:52:35 Glory Crowley MD / harpreet Interpreting Provider: Glory Crowley MD Consult Discharge Plan - Plan Referrals: Corina Lynch MD [Primary Care Provider] - 09/01/16 11:15 am
[2016-08-26] MEDS: Vancomycin 1,250 MG in D5% in Water 250 ML IVPB SCH (18:39)
[2016-08-26] MEDS: Lithium Oral Soln 300 MG/5 ML UDC PO SCH (20:09)
[2016-08-26] MEDS ORDERED: Perflutren Lipid Microsphere 1.3 ML in 0.9 % Sodium Chloride 8.7 ML IVP ONE (21:32)
[2016-08-27] MEDS: Vancomycin 1,250 MG in D5% in Water 250 ML IVPB SCH ×2 (05:26→18:10)
[2016-08-27] MEDS: *HR* Heparin 5,000 UNIT/ML VIAL SQ SCH ×2 (05:27→18:13)
[2016-08-27 06:53] LABS: Basophils % 0.3 %; Eosinophils # 0.3 K/mcL (0.0-0.6); Eosinophils % 2.9 %; Hematocrit 34.4 % (35.3-44.9); Hemoglobin 10.6 g/dL (11.5-15.4); Immature Granulocytes % 0.4 % (0-4); Lymphocytes # 0.9 K/mcL (0.6-4.6); Lymphocytes % 9.5 %; Mean Corpuscular HGB Conc 30.8 g/dL (31.6-35.5); Mean Corpuscular Volume 87.8 fL (83.0-100.0); Monocytes # 0.6 K/mcL (0.0-1.3); Monocytes % 6.5 %; Neutrophils # 7.7 K/mcL (1.6-8.9); Platelet Count 175 K/mcL (140-400); Red Blood Count 3.92 M/mcL (3.82-4.97); Red Cell Distribution Width 13.9 % (11.5-14.5); Segmented Neutrophils % 80.4 %
[2016-08-27 07:31] LABS: BUN/Creatinine Ratio 11 (6-26); Blood Urea Nitrogen 10 mg/dL (7-20); Calcium 8.3 mg/dL (8.6-10.8); Carbon Dioxide 31 mEq/L (19-29); Chloride 99 mEq/L (98-109); Glucose 171 mg/dL (70-99); Magnesium 1.9 mg/dL (1.6-2.6); Osmolality,Calculated 291 (280-300); Potassium 3.6 mEq/L (3.5-4.5); Sodium 139 mEq/L (136-145); eGFR For African Americans > 60 (> 60); eGFR For Non-African Americans > 60 (> 60)
[2016-08-27] MEDS: *HR* HYDROcodone/Acet 5/325 mg TABLET PO PRN ×2 (09:21→18:10)
[2016-08-27] MEDS: Verapamil ER (24 HR) 240 MG TABLET.ER PO SCH (09:22)
[2016-08-27] MEDS: Furosemide 40 MG/4 ML VIAL IVP SCH ×2 (09:22→18:10)
[2016-08-27] MEDS: Gabapentin 300 MG CAPSULE PO SCH ×3 (09:22→21:33)
[2016-08-27] MEDS: Fluticasone Propionate Nasal 50 MCG/SPRAY BOTTLE NS SCH (09:22)
[2016-08-27] MEDS: Acyclovir 200 MG CAPSULE PO SCH ×4 (09:22→21:33)
[2016-08-27] MEDS: Nystatin POWDER 30 GM BOTTLE TP SCH ×2 (09:22→21:33)
[2016-08-27] MEDS: Insulin LISPRO 300 UNITS/3 ML VIAL SQ SCH ×4 (09:23→21:33)
[2016-08-27] MEDS: Cholestyramine 4 GM POWD.PACK PO SCH (09:23)
[2016-08-27] MEDS: Piperacillin/Tazobactam 3.375 GM in D5% in Water (Mini-Bag+) 100 ML IVPB SCH (09:23)
--- NOTE | 2016-08-27 10:48 | ECHO - Doppler Report ---
Echo with Imaging Enhancement Agent Name: Jayne Asif Date of Study: 08/26/2016 Date: 1955 Ht: 66.0 in Medical Record#: [id number] Age: 60 Wt: 405.0 lb Gender: Female BSA: 2.7 Order #: [id number] Location: [facility] Room #: [id number] Reading Physician: Jessie Payne DO Program Aide: Abbie Paul Ordering Physician: Sanjuana Holt MD Primary Physician: Corina Lynch MD Indications: Pulmonary edema Impressions: LVEF 60%. Normal left ventricular size and systolic function. There is evidence of mild diastolic dysfunction of the left ventricle. Mildly dilated RV with normal function. Mild tricuspid regurgitation. At least mild pulmonary hypertension by TR gradient. IVC is not well visualized. Left Ventricular Wall Motion: Rest Echo Findings All wall segments showed normal motion. Findings: Study Quality * Technically sub-optimal due to body habitus. ECG Findings * Normal sinus rhythm. Left Ventricle * LVEF 60%. * Normal LV chamber size, wall thickness and function. * Mild left ventricular diastolic dysfunction. * Definity echo contrast was used. Aorta * Normally sized aortic root. Left Atrium * Normal left atrial size. Mitral Valve * Normal mitral valve structure. * No mitral stenosis. * No mitral regurgitation. Aortic Valve * No aortic regurgitation. * Trileaflet aortic valve. * Normal aortic valve structure. * No aortic stenosis. Tricuspid Valve * Tricuspid valve not well visualized. * Mild tricuspid regurgitation. Pulmonic Valve * Pulmonic valve is not well visualized. * No pulmonic stenosis. * No pulmonic regurgitation. Pulmonary Artery * Pulmonary artery not well visualized. Right Atrium * Normal right atrial size. Interatrial Septum * Interatrial septum not well evaluated. IVC * The IVC is not well evaluated. Pericardium * There is no pericardial effusion present. Right Ventricle * Mildly dilated with normal function. History Hypertension Diabetes Hypercholesteremia Family History of CAD 10/20/2011 a Previous Echo was performed. Contrast: Definity 1.3 ml in 8.7 ml of saline 2 ml. Measurements: BP: 121/ 54 2D Normal Values RVIDd: 4.00 cm <2.7 cm IVSd: 1.20 cm 0.6 - 1.0 cm LVIDd: 5.00 cm 3.7 - 5.6 cm LVPWd: 1.30 cm 0.6 - 1.1 cm LVIDs: 3.40 cm 1.5 - 3.6 cm AO: 2.80 cm < 4.0 cm LA: 4.00 cm 2.0 - 4.0cm %FS: 32.00 cm >25 % LA volume: 44 Mitral Valve Peak E:1.47 m/sec Peak A:1.12 m/sec E/A Ratio:1.3 Tricuspid Valve TV Regurg Peak Grad: 35.00mmHg TV Regurg Peak Javier: 2.97m/sec Updated by Jessie Payne on 08/27/2016 10:43:05 AM electronically signed on 08/27/2016 10:44:04 AM with status of Final Wall [employer] [place]: 1=Normal, 2=Hypokinesis, 3=Akinesis, 4=Dyskinesis, 5=Aneurysmal, 6=Hyperkinetic, X=Not Visualized (Blank)=Missing
--- NOTE | 2016-08-27 17:11 | Internal Med Progress Note ---
Date of Encounter: 08/27/16 Time of Encounter: 15:00 - Assessment and plan (1) Acute respiratory failure Current Visit: Yes Status: Acute Assessment and plan: secondary to pulmonary edema, OHS/PATRICIO. CXR shows pulmonary vascular congestion, low lung volumes and atelectasis. Patient is requiring 4L of oxygen via NC. she reports chronic shortness of breath at exertion. Slowly improving. Continue IV lasix bid, nebuizations and fluid restriction. Qualifiers: Respiratory failure complication: unspecified whether with hypoxia or hypercapnia Qualified Code(s): J96.00 - Acute respiratory failure, unspecified whether with hypoxia or hypercapnia (2) Cellulitis Current Visit: Yes Status: Acute Assessment and plan: BLE Cellulitis and panniculus. CTAP shows no acute process. Wound culture grew MRSA susceptible to vancomycin and tetracycline. Slowly improving. continue IV vancomycin. Qualifiers: Site of cellulitis: extremity Site of cellulitis of extremity: lower extremity Laterality: unspecified laterality Qualified Code(s): L03.119 - Cellulitis of unspecified part of limb (3) Generalized weakness Current Visit: Yes Status: Acute Assessment and plan: OT and PT consulted (4) Hypertension Current Visit: Yes Status: Chronic Assessment and plan: Controlled. At home, patient is on verapamil 240 mg daily and 50 mg of losartan daily, have been continued. Qualifiers: Hypertension type: essential hypertension Qualified Code(s): I10 - Essential (primary) hypertension (5) Hypothyroidism Current Visit: Yes Status: Chronic Assessment and plan: TSH elevated 2 months ago however free T4 was normal, follow-up outpatient Qualifiers: Hypothyroidism type: unspecified Qualified Code(s): E03.9 - Hypothyroidism , unspecified (6) Type 2 diabetes mellitus Current Visit: Yes Status: Chronic Assessment and plan: adequate accucheck. recent A1c of 5.8%. Continue diabetic diet and sliding scale while admitted. Qualifiers: Diabetes mellitus complication status: with unspecified complications Diabetes mellitus fpc insulin use: without fpc use Qualified Code( s): E11.8 - Type 2 diabetes mellitus with unspecified complications (7) Morbid obesity with BMI of 60.0-69.9, adult Current Visit: Yes Status: Chronic Assessment and plan: bmi 65. outpatient weight loss program. (8) Chronic venous insufficiency Current Visit: Yes Status: Chronic - Subjective Interval history: patient denies any suicidal ideation or attempt. she reports that she had suicidal thoughts in the past but not now. She was started on antidepressants and is doing well. - Constitutional Vitals: Temp Pulse Resp BP Pulse Ox 98.7 F 65 18 116/61 92 08/27/16 15:06 08/27/16 15:06 08/27/16 15:06 08/27/16 15:06 08/27/16 15:06 General appearance: Present: cooperative, A&O X 3, morbidly obese, pleasant, no acute distress, answers questions appropriately - Respiratory Respiratory exam: Present: decreased breath sounds, rhonchi - Cardiovascular Cardiovascular exam: Present: RRR - GI/Abdominal GI/Abdominal exam: Present: normal bowel sounds, soft. Absent: distended, tenderness - Extremities Exam Extremities exam: Present: pedal edema - Neurological Exam Neurological exam: Present: alert, oriented X3. Absent: facial droop, speech deficit Internal Medicine: Result - Labs CBC & Chem 7: 08/27/16 06:18 08/27/16 06:18 Labs: Short CBC 08/27/16 Range/Units 06:18 WBC 9.6 (4.3-11.1) K/mcL Hgb 10.6 L (11.5-15.4) g/dL Hct 34.4 L (35.3-44.9) % Plt Count 175 (140-400) K/mcL Neutrophils # 7.7 (1.6-8.9) K/mcL BMP 08/27/16 06:18 Sodium 139 Potassium 3.6 Chloride 99 Carbon Dioxide 31 H BUN 10 Creatinine 0.88 Glucose 171 H Calcium 8.3 L - ABG Interpretation ABG results: PT/INR, D-dimer PT 12.7 Seconds (9.4-12.1) H 08/25/16 04:27 Consult Discharge Plan - Plan Referrals: Corina Lynch MD [Primary Care Provider] - 09/01/16 11:15 am
[2016-08-27] MEDS: Lithium Oral Soln 300 MG/5 ML UDC PO SCH (21:33)
[2016-08-28] MEDS: *HR* HYDROcodone/Acet 5/325 mg TABLET PO PRN ×2 (01:35→22:29)
[2016-08-28] MEDS: Vancomycin 1,250 MG in D5% in Water 250 ML IVPB SCH ×2 (06:02→19:49)
[2016-08-28] MEDS: *HR* Heparin 5,000 UNIT/ML VIAL SQ SCH ×2 (06:02→18:00)
[2016-08-28 06:13] LABS: Basophils % 0.3 %; Eosinophils # 0.3 K/mcL (0.0-0.6); Hematocrit 36.6 % (35.3-44.9); Hemoglobin 11.4 g/dL (11.5-15.4); Immature Granulocytes % 0.2 % (0-4); Lymphocytes # 1.2 K/mcL (0.6-4.6); Lymphocytes % 13.3 %; Mean Corpuscular HGB Conc 31.1 g/dL (31.6-35.5); Mean Corpuscular Volume 86.7 fL (83.0-100.0); Mean Platelet Volume 11.6 fL (9.4-12.4); Monocytes # 0.6 K/mcL (0.0-1.3); Monocytes % 7.1 %; Neutrophils # 6.7 K/mcL (1.6-8.9); Platelet Count 175 K/mcL (140-400); Red Blood Count 4.22 M/mcL (3.82-4.97); Red Cell Distribution Width 13.8 % (11.5-14.5); Segmented Neutrophils % 76.1 %
[2016-08-28 06:28] LABS: BUN/Creatinine Ratio 10 (6-26); Blood Urea Nitrogen 8 mg/dL (7-20); Calcium 8.6 mg/dL (8.6-10.8); Carbon Dioxide 35 mEq/L (19-29); Chloride 98 mEq/L (98-109); Glucose 139 mg/dL (70-99); Magnesium 1.6 mg/dL (1.6-2.6); Osmolality,Calculated 295 (280-300); Potassium 2.9 mEq/L (3.5-4.5); Sodium 142 mEq/L (136-145); eGFR For African Americans > 60 (> 60); eGFR For Non-African Americans > 60 (> 60)
[2016-08-28] MEDS: Cholestyramine 4 GM POWD.PACK PO SCH (08:37)
[2016-08-28] MEDS: Acyclovir 200 MG CAPSULE PO SCH (08:38)
[2016-08-28] MEDS: Furosemide 40 MG/4 ML VIAL IVP SCH ×2 (08:39→16:49)
[2016-08-28] MEDS: Gabapentin 300 MG CAPSULE PO SCH ×3 (08:39→22:28)
[2016-08-28] MEDS: Fluticasone Propionate Nasal 50 MCG/SPRAY BOTTLE NS SCH (08:40)
[2016-08-28] MEDS: Nystatin POWDER 30 GM BOTTLE TP SCH ×2 (08:40→22:32)
[2016-08-28] MEDS: Verapamil ER (24 HR) 240 MG TABLET.ER PO SCH (08:40)
[2016-08-28] MEDS: Insulin LISPRO 300 UNITS/3 ML VIAL SQ SCH ×4 (08:48→22:32)
[2016-08-28] MEDS ORDERED: Potassium Chloride 40 MEQ, Lidocaine 1% 2 ML in D5% in Water 500 ML IVPB STA (15:47)
[2016-08-28] MEDS ORDERED: Magnesium Sulfate 1 GM in D5% in Water 100 ML IVPB ONE (15:51)
[2016-08-28] MEDS ORDERED: Potassium Chloride 20 MEQ, Lidocaine 1% 2 ML in D5% in Water 250 ML IVPB STA (15:52)
--- NOTE | 2016-08-28 17:10 | Discharge Summary ---
Date of Encounter: 08/28/16 Time of Encounter: 16:55 - Discharge Diagnosis (1) Acute respiratory failure Status: Acute Qualifiers: Respiratory failure complication: unspecified whether with hypoxia or hypercapnia Qualified Code(s): J96.00 - Acute respiratory failure, unspecified whether with hypoxia or hypercapnia (2) Cellulitis Status: Acute Qualifiers: Site of cellulitis: extremity Site of cellulitis of extremity: lower extremity Laterality: unspecified laterality Qualified Code(s): L03.119 - Cellulitis of unspecified part of limb (3) Generalized weakness Status: Acute (4) Hypertension Status: Chronic Qualifiers: Hypertension type: essential hypertension Qualified Code(s): I10 - Essential (primary) hypertension (5) Hypothyroidism Status: Chronic Qualifiers: Hypothyroidism type: unspecified Qualified Code(s): E03.9 - Hypothyroidism , unspecified (6) Type 2 diabetes mellitus Status: Chronic Qualifiers: Diabetes mellitus complication status: with unspecified complications Diabetes mellitus usp insulin use: without usp use Qualified Code( s): E11.8 - Type 2 diabetes mellitus with unspecified complications (7) Morbid obesity with BMI of 60.0-69.9, adult Status: Chronic (8) Chronic venous insufficiency Status: Chronic - Discharge Medications Prescriptions: HYDROcodone/Acet 5/325 mg [[place] 5-325 mg] 1 tab PO Q6HR PRN #14 tablet PRN Reason: Pain Vancomycin [Vancocin] 1,250 mg IV Q12HR 7 Days Furosemide [Lasix] 40 mg PO BID #60 tablet Home Medications: Cholestyramine (with Sugar) [Cholestyramine Bulk Powder] 2 scoop PO DAILY [History] Gabapentin [Neurontin] 600 mg PO TID 08/24/16 [History] HYDROcodone/Acet 5/325 mg [[place] 5-325 mg] 1 - 2 tab PO DAILY PRN 08/24/16 [ History] Levothyroxine Sodium 50 mcg PO DAILY 08/24/16 [History] Levothyroxine Sodium [Levo-T] 200 mcg PO DAILY 08/24/16 [History] [place] Carbonate 900 mg PO HS 08/24/16 [History] Nystatin POWDER [Nystop] 1 appl TP BID 08/24/16 [History] Pantoprazole Sodium 40 mg PO DAILY 08/24/16 [History] Saxagliptin HCl [Onglyza] 5 mg PO DAILY 08/24/16 [History] Sertraline [Zoloft] 200 mg PO DAILY 08/24/16 [History] Verapamil HCl [Verapamil ER] 240 mg PO DAILY 08/24/16 [History] Brimonidine 0.2% [Alphagan] 1 drop BOTH EYES TID 08/25/16 [History] Cyclopentolate 1 drop LEFT EYE DAILY 08/25/16 [History] L. Acidophilus/Pectin, [place] [Acidophilus [place]] 1 each PO DAILY 08/25/16 [ History] Ondansetron ODT [Zofran ODT] 4 mg SL Q8HR PRN 08/25/16 [History] hydrOXYzine HCl [Hydroxyzine HCl] 25 mg PO BID PRN 08/25/16 [History] Fluticasone Propionate Nasal [Flonase] 50 mcg NS DAILY bottle 08/28/16 [Rx] Furosemide [Lasix] 40 mg PO BID #60 tablet 08/28/16 [Rx] HYDROcodone/Acet 5/325 mg [[place] 5-325 mg] 1 tab PO Q6HR PRN #14 tablet [Rx] Losartan [Cozaar] 50 mg PO DAILY tablet 08/28/16 [Rx] Pentoxifylline [TRENtal] 400 mg PO TIDWM tablet.er 08/28/16 [Rx] Vancomycin [Vancocin] 1,250 mg IV Q12HR 7 Days 08/28/16 [Rx] Allergies/Adverse Reactions: Allergies sulfamethoxazole [From Bactrim] Allergy (Verified 08/25/16 09:36) Rash trimethoprim [From Bactrim] Allergy (Verified 08/25/16 09:36) Rash celecoxib [From Celebrex] Adverse Reaction (Verified 08/25/16 09:36) Gastrointestinal Upset Penicillins Adverse Reaction (Verified 08/25/16 09:36) Swelling of the Eye trazodone Adverse Reaction (Verified 08/25/16 09:36) Fainting Serazone Adverse Reaction (Uncoded 08/25/16 09:36) Swelling of Lip/Tongue/Throat Procedures/tests Complete & Pending: Procedures Performed prior 72 hours Category Date Time Status EV echocardiogram w enhance Routine Y 08/26/16 16:06 Completed Date of admission: 08/25/16 08:25 Primary care physician: Corina Lynch Consults: 08/25/16 11:59 Consult to Occupational Therapy [CONS] Routine Comment: Evaluate, develop and implement POC Reason for Consult: may need HH vs ECF- MO 65 Consult to Physical Therapy [CONS] Routine Comment: Evaluate, develop and implement POC Reason for Consult: may need HH vs ECF- MO 65 08/28/16 10:47 Consult to Invasive Line Access Team [CONS] Routine Reason for Consult: home antibiotics Line Type: EPIV - Patient Status Disposition: Transfer Inpatient Rehab Fac Condition: Good Functional capacity at discharge: uses cane/walker Overall status at discharge: patient is progressing back to baseline - Discharge Instructions Follow Up With: Corina Lynch MD [Primary Care Provider] - 09/01/16 11:15 am - Diet and Activity Activity: as per physical therapy, wear oxygen at all times (3 L NC) Diet: diabetic diet, low fat, low cholesterol, low salt diet Hospital course: Ms. Asif is a 60 year old female - Time Spent with Patient Total time spent providing and/or coordinating discharge services: - Constitutional Vitals: Temp Pulse Resp BP Pulse Ox 98.1 F 63 16 144/71 98 08/28/16 11:17 08/28/16 11:17 08/28/16 11:17 08/28/16 11:17 08/28/16 11:17 General appearance: Present: cooperative, A&O X 3, morbidly obese, pleasant, no acute distress, answers questions appropriately
--- NOTE | 2016-08-28 17:12 | Physician Discharge Referral ---
ExtendedCare Referral Info Transfer To: [facility] Provider in Charge: bryon Provider in Charge after Transfer: PCP Institutional Level of Care: Skilled - Diagnosis (1) Acute respiratory failure Status: Acute (2) Cellulitis Status: Acute (3) Generalized weakness Status: Acute (4) Hypertension Status: Chronic (5) Hypothyroidism Status: Chronic (6) Type 2 diabetes mellitus Status: Chronic (7) Morbid obesity with BMI of 60.0-69.9, adult Status: Chronic (8) Chronic venous insufficiency Status: Chronic - Transfer Medications Prescriptions: HYDROcodone/Acet 5/325 mg [[place] 5-325 mg] 1 tab PO Q6HR PRN #14 tablet PRN Reason: Pain Vancomycin [Vancocin] 1,250 mg IV Q12HR 7 Days Furosemide [Lasix] 40 mg PO BID #60 tablet Home Medications: Cholestyramine (with Sugar) [Cholestyramine Bulk Powder] 2 scoop PO DAILY [History] Gabapentin [Neurontin] 600 mg PO TID 08/24/16 [History] HYDROcodone/Acet 5/325 mg [[place] 5-325 mg] 1 - 2 tab PO DAILY PRN 08/24/16 [ History] Levothyroxine Sodium 50 mcg PO DAILY 08/24/16 [History] Levothyroxine Sodium [Levo-T] 200 mcg PO DAILY 08/24/16 [History] [place] Carbonate 900 mg PO HS 08/24/16 [History] Nystatin POWDER [Nystop] 1 appl TP BID 08/24/16 [History] Pantoprazole Sodium 40 mg PO DAILY 08/24/16 [History] Saxagliptin HCl [Onglyza] 5 mg PO DAILY 08/24/16 [History] Sertraline [Zoloft] 200 mg PO DAILY 08/24/16 [History] Verapamil HCl [Verapamil ER] 240 mg PO DAILY 08/24/16 [History] Brimonidine 0.2% [Alphagan] 1 drop BOTH EYES TID 08/25/16 [History] Cyclopentolate 1 drop LEFT EYE DAILY 08/25/16 [History] L. Acidophilus/Pectin, [place] [Acidophilus Caplet] 1 each PO DAILY 08/25/16 [ History] Ondansetron ODT [Zofran ODT] 4 mg SL Q8HR PRN 08/25/16 [History] hydrOXYzine HCl [Hydroxyzine HCl] 25 mg PO BID PRN 08/25/16 [History] Fluticasone Propionate Nasal [Flonase] 50 mcg NS DAILY bottle 08/28/16 [Rx] Furosemide [Lasix] 40 mg PO BID #60 tablet 08/28/16 [Rx] HYDROcodone/Acet 5/325 mg [[place] 5-325 mg] 1 tab PO Q6HR PRN #14 tablet [Rx] Losartan [Cozaar] 50 mg PO DAILY tablet 08/28/16 [Rx] Pentoxifylline [TRENtal] 400 mg PO TIDWM tablet.er 08/28/16 [Rx] Vancomycin [Vancocin] 1,250 mg IV Q12HR 7 Days 08/28/16 [Rx] Allergies/Adverse Reactions: Allergies sulfamethoxazole [From Bactrim] Allergy (Verified 08/25/16 09:36) Rash trimethoprim [From Bactrim] Allergy (Verified 08/25/16 09:36) Rash celecoxib [From Celebrex] Adverse Reaction (Verified 08/25/16 09:36) Gastrointestinal Upset Penicillins Adverse Reaction (Verified 08/25/16 09:36) Swelling of the Eye trazodone Adverse Reaction (Verified 08/25/16 09:36) Fainting Serazone Adverse Reaction (Uncoded 08/25/16 09:36) Swelling of Lip/Tongue/Throat - Respiratory Orders Oxygen / L per min (3 L NC) Smoking Cessation: Smoking cessation has been advised. For more information, call the [place] Tobacco Quit Line at 3-524-NQSO-NOW. - Lab Orders Lab Orders: Other (include drug levels w/frequency) (potassium and magnesium on 08/31/16) - Advance Directives Code Status: DNR-Arrest/Don't Intubate - Mobility Orders Ambulate - Rehabiliation Orders Rehab Potential: Fair Rehab Orders: Evaluation for Physical Therapy, Evaluation for Occupational Therapy - Diet Orders No Added Salt (CYNTHIA), Cardiac (fluid restriction 1.6 liters per day) CERTIFICATION: I certify that the transfer of the above named patient to an Extended Care Facility is necessary for the continuing treatment of the diagnosis listed. The above information is true and accurate reflection of patient's current condition. Confidential - Redisclosure prohibited without a patient's written consent.
--- NOTE | 2016-08-28 18:35 | Internal Med Progress Note ---
Date of Encounter: 08/28/16 Time of Encounter: 14:00 - Assessment and plan (1) Acute respiratory failure Current Visit: Yes Status: Acute Assessment and plan: secondary to pulmonary edema, OHS/PATRICIO. CXR shows pulmonary vascular congestion, low lung volumes and atelectasis. slowly improving, requiring 3L of oxygen via NC. Continue IV lasix bid, nebuizations and fluid restriction. Qualifiers: Respiratory failure complication: unspecified whether with hypoxia or hypercapnia Qualified Code(s): J96.00 - Acute respiratory failure, unspecified whether with hypoxia or hypercapnia (2) Cellulitis Current Visit: Yes Status: Acute Assessment and plan: BLE Cellulitis and panniculus. CTAP shows no acute process. Wound culture grew MRSA susceptible to vancomycin and tetracycline. Slowly improving. continue IV vancomycin. plan to dc to rehab when bed available. Qualifiers: Site of cellulitis: extremity Site of cellulitis of extremity: lower extremity Laterality: unspecified laterality Qualified Code(s): L03.119 - Cellulitis of unspecified part of limb (3) Generalized weakness Current Visit: Yes Status: Acute Assessment and plan: OT and PT consulted (4) Hypertension Current Visit: Yes Status: Chronic Assessment and plan: Controlled. At home, patient is on verapamil 240 mg daily and 50 mg of losartan daily, have been continued. Qualifiers: Hypertension type: essential hypertension Qualified Code(s): I10 - Essential (primary) hypertension (5) Hypothyroidism Current Visit: Yes Status: Chronic Assessment and plan: TSH elevated 2 months ago however free T4 was normal, follow-up outpatient Qualifiers: Hypothyroidism type: unspecified Qualified Code(s): E03.9 - Hypothyroidism , unspecified (6) Type 2 diabetes mellitus Current Visit: Yes Status: Chronic Assessment and plan: adequate accucheck. recent A1c of 5.8%. Continue diabetic diet and sliding scale while admitted. Qualifiers: Diabetes mellitus complication status: with unspecified complications Diabetes mellitus bed bug exterminator insulin use: without bed bug exterminator use Qualified Code( s): E11.8 - Type 2 diabetes mellitus with unspecified complications (7) Morbid obesity with BMI of 60.0-69.9, adult Current Visit: Yes Status: Chronic Assessment and plan: bmi 65. outpatient weight loss program. (8) Chronic venous insufficiency Current Visit: Yes Status: Chronic - Subjective Interval history: patient reports improved shortness of breath compared to admission. - Constitutional Vitals: Temp Pulse Resp BP Pulse Ox 98.1 F 63 16 144/71 98 08/28/16 11:17 08/28/16 11:17 08/28/16 11:17 08/28/16 11:17 08/28/16 11:17 General appearance: Present: cooperative, A&O X 3, morbidly obese, pleasant, no acute distress, answers questions appropriately - Respiratory Respiratory exam: Present: rhonchi - Cardiovascular Cardiovascular exam: Present: RRR - GI/Abdominal GI/Abdominal exam: Present: normal bowel sounds, soft. Absent: distended, tenderness - Neurological Exam Neurological exam: Present: alert, oriented X3. Absent: facial droop, speech deficit - Skin Skin exam: Present: erythema (LE erythmea bilaterally, improved compared to admission) Internal Medicine: Result - Labs CBC & Chem 7: 08/28/16 05:49 08/28/16 17:39 Labs: Short CBC 08/28/16 Range/Units 05:49 WBC 8.8 (4.3-11.1) K/mcL Hgb 11.4 L (11.5-15.4) g/dL Hct 36.6 (35.3-44.9) % Plt Count 175 (140-400) K/mcL Neutrophils # 6.7 (1.6-8.9) K/mcL BMP 08/28/16 08/28/16 05:49 17:39 Sodium 142 Potassium 2.9 L 3.2 L Chloride 98 Carbon Dioxide 35 H BUN 8 Creatinine 0.78 Glucose 139 H Calcium 8.6 - ABG Interpretation ABG results: PT/INR, D-dimer PT 12.7 Seconds (9.4-12.1) H 08/25/16 04:27 Consult Discharge Plan - Plan Referrals: Corina Lynch MD [Primary Care Provider] - 09/01/16 11:15 am Prescriptions: HYDROcodone/Acet 5/325 mg [[place] 5-325 mg] 1 tab PO Q6HR PRN #14 tablet PRN Reason: Pain Vancomycin [Vancocin] 1,250 mg IV Q12HR 7 Days Furosemide [Lasix] 40 mg PO BID #60 tablet
[2016-08-28] MEDS ORDERED: Ondansetron 4 MG/2 ML VIAL IVP ONE (19:37)
[2016-08-28] MEDS ORDERED: Ondansetron 4 MG/2 ML VIAL ONE (19:41)
[2016-08-28] MEDS ORDERED: Lithium Oral Soln 300 MG/5 ML UDC PO SCH (21:00)
[2016-08-29] MEDS: *HR* HYDROcodone/Acet 5/325 mg TABLET PO PRN (05:03)
[2016-08-29] MEDS: *HR* Heparin 5,000 UNIT/ML VIAL SQ SCH (05:04)
[2016-08-29] MEDS: Vancomycin 1,250 MG in D5% in Water 250 ML IVPB SCH (05:08)
[2016-08-29 06:49] VITALS: BP 137/66
[2016-08-29 08:45] LABS: BUN/Creatinine Ratio 10 (6-26); Blood Urea Nitrogen 8 mg/dL (7-20); Calcium 8.7 mg/dL (8.6-10.8); Carbon Dioxide 37 mEq/L (19-29); Chloride 98 mEq/L (98-109); Glucose 142 mg/dL (70-99); Magnesium 1.8 mg/dL (1.6-2.6); Osmolality,Calculated 295 (280-300); Potassium 3.3 mEq/L (3.5-4.5); Sodium 142 mEq/L (136-145); eGFR For African Americans > 60 (> 60); eGFR For Non-African Americans > 60 (> 60)
[2016-08-29] MEDS: Furosemide 40 MG/4 ML VIAL IVP SCH (08:57)
[2016-08-29] MEDS: Gabapentin 300 MG CAPSULE PO SCH (08:57)
[2016-08-29] MEDS: Verapamil ER (24 HR) 240 MG TABLET.ER PO SCH (08:57)
[2016-08-29] MEDS: Insulin LISPRO 300 UNITS/3 ML VIAL SQ SCH (08:58)
[2016-08-29] MEDS: Fluticasone Propionate Nasal 50 MCG/SPRAY BOTTLE NS SCH (08:58)
[2016-08-29] MEDS: Cholestyramine 4 GM POWD.PACK PO SCH (08:58)
[2016-08-29] MEDS: Nystatin POWDER 30 GM BOTTLE TP SCH (08:59)
--- NOTE | 2016-08-29 10:09 | Discharge Summary ---
Date of Encounter: 08/29/16 Time of Encounter: 10:07 - Discharge Diagnosis (1) Acute respiratory failure Priority: Primary Status: Acute Qualifiers: Respiratory failure complication: unspecified whether with hypoxia or hypercapnia Qualified Code(s): J96.00 - Acute respiratory failure, unspecified whether with hypoxia or hypercapnia (2) Cellulitis Priority: Primary Status: Acute Qualifiers: Site of cellulitis: extremity Site of cellulitis of extremity: lower extremity Laterality: unspecified laterality Qualified Code(s): L03.119 - Cellulitis of unspecified part of limb (3) Generalized weakness Priority: Primary Status: Acute (4) Hypertension Priority: Secondary Status: Chronic Qualifiers: Hypertension type: essential hypertension Qualified Code(s): I10 - Essential (primary) hypertension (5) Hypothyroidism Priority: Secondary Status: Chronic Qualifiers: Hypothyroidism type: unspecified Qualified Code(s): E03.9 - Hypothyroidism , unspecified (6) Type 2 diabetes mellitus Priority: Secondary Status: Chronic Qualifiers: Diabetes mellitus complication status: with unspecified complications Diabetes mellitus skilled nursing insulin use: without intermediate card tender use Qualified Code( s): E11.8 - Type 2 diabetes mellitus with unspecified complications (7) Morbid obesity with BMI of 60.0-69.9, adult Priority: Secondary Status: Chronic (8) Chronic venous insufficiency Priority: Secondary Status: Chronic - Discharge Medications Prescriptions: HYDROcodone/Acet 5/325 mg [[place] 5-325 mg] 1 tab PO Q6HR PRN #14 tablet PRN Reason: Pain Vancomycin [Vancocin] 1,250 mg IV Q12HR 7 Days Furosemide [Lasix] 40 mg PO BID #60 tablet Home Medications: Cholestyramine (with Sugar) [Cholestyramine Bulk Powder] 2 scoop PO DAILY [History] Gabapentin [Neurontin] 600 mg PO TID 08/24/16 [History] HYDROcodone/Acet 5/325 mg [[place] 5-325 mg] 1 - 2 tab PO DAILY PRN 08/24/16 [ History] Levothyroxine Sodium 50 mcg PO DAILY 08/24/16 [History] Levothyroxine Sodium [Levo-T] 200 mcg PO DAILY 08/24/16 [History] [place] Carbonate 900 mg PO HS 08/24/16 [History] Nystatin POWDER [Nystop] 1 appl TP BID 08/24/16 [History] Pantoprazole Sodium 40 mg PO DAILY 08/24/16 [History] Saxagliptin HCl [Onglyza] 5 mg PO DAILY 08/24/16 [History] Sertraline [Zoloft] 200 mg PO DAILY 08/24/16 [History] Verapamil HCl [Verapamil ER] 240 mg PO DAILY 08/24/16 [History] Brimonidine 0.2% [Alphagan] 1 drop BOTH EYES TID 08/25/16 [History] Cyclopentolate 1 drop LEFT EYE DAILY 08/25/16 [History] L. Acidophilus/Pectin, [place] [Acidophilus Caplet] 1 each PO DAILY 08/25/16 [ History] Ondansetron ODT [Zofran ODT] 4 mg SL Q8HR PRN 08/25/16 [History] hydrOXYzine HCl [Hydroxyzine HCl] 25 mg PO BID PRN 08/25/16 [History] Fluticasone Propionate Nasal [Flonase] 50 mcg NS DAILY bottle 08/28/16 [Rx] Furosemide [Lasix] 40 mg PO BID #60 tablet 08/28/16 [Rx] HYDROcodone/Acet 5/325 mg [[place] 5-325 mg] 1 tab PO Q6HR PRN #14 tablet [Rx] Losartan [Cozaar] 50 mg PO DAILY tablet 08/28/16 [Rx] Pentoxifylline [TRENtal] 400 mg PO TIDWM tablet.er 08/28/16 [Rx] Vancomycin [Vancocin] 1,250 mg IV Q12HR 7 Days 08/28/16 [Rx] Allergies/Adverse Reactions: Allergies sulfamethoxazole [From Bactrim] Allergy (Verified 08/25/16 09:36) Rash trimethoprim [From Bactrim] Allergy (Verified 08/25/16 09:36) Rash celecoxib [From Celebrex] Adverse Reaction (Verified 08/25/16 09:36) Gastrointestinal Upset Penicillins Adverse Reaction (Verified 08/25/16 09:36) Swelling of the Eye trazodone Adverse Reaction (Verified 08/25/16 09:36) Fainting Serazone Adverse Reaction (Uncoded 08/25/16 09:36) Swelling of Lip/Tongue/Throat Procedures/tests Complete & Pending: Procedures Performed prior 72 hours Category Date Time Status EV echocardiogram w enhance Routine Y 08/26/16 16:06 Completed Date of admission: 08/25/16 08:25 Primary care physician: Corina Lynch Consults: 08/25/16 11:59 Consult to Occupational Therapy [CONS] Routine Comment: Evaluate, develop and implement POC Reason for Consult: may need HH vs ECF- MO 65 Consult to Physical Therapy [CONS] Routine Comment: Evaluate, develop and implement POC Reason for Consult: may need HH vs ECF- MO 65 08/28/16 10:47 Consult to Invasive Line Access Team [CONS] Routine Reason for Consult: home antibiotics Line Type: EPIV - Patient Status Disposition: Transfer Inpatient Rehab Fac Condition: Good Functional capacity at discharge: uses cane/walker Overall status at discharge: patient is progressing back to baseline - Discharge Instructions Instructions: Cellulitis (DC), Hypothyroidism (DC), Chronic Hypertension (DC) Follow Up With: Corina Lynch MD [Primary Care Provider] - 09/01/16 11:15 am - Diet and Activity Activity: as per physical therapy, wear oxygen at all times (3L NC) Diet: diabetic diet, low fat, low cholesterol, low salt diet Interval History: Patient complains of mild pain on her toes. Hospital course: Ms. Asif is a 60 year old female with past medical history of hypertension, hypothyroidism, diabetes mellitus, morbid obesity, suspected OHS and PATRICIO who presented with a chief complaint of lower extremity erythema. She was admitted with diagnosis of bilateral lower extremity cellulitis and panniculitis and was started on empiric IV vancomycin. CT abdomen and pelvis shows no acute process. Wound culture grew MRSA susceptible to vancomycin and tetracycline. On admission, chest x-ray shows pulmonary vascular congestion and low lung volumes with atelectasis. She was started on IV Lasix, nebulizations and fluid restriction as well as oxygen supplementation. Patient was requiring 3 L of oxygen via nasal cannula. Patient improved clinically and she was doing physical therapy well. PLAN : IV vancomycin for 7 more days. Discharged to rehabilitation for physical therapy. - Time Spent with Patient Total time spent providing and/or coordinating discharge services: - Constitutional Vitals: Temp Pulse Resp BP Pulse Ox 98.1 F 70 16 137/66 94 08/29/16 06:40 08/29/16 06:40 08/29/16 06:40 08/29/16 06:40 08/29/16 09:23 General appearance: Present: cooperative, A&O X 3, morbidly obese, pleasant, no acute distress, answers questions appropriately
[2016-08-29] MEDS ORDERED: Aminoglycoside Consult 1 EACH MC ONE (10:45)
== END 2016-08-29 10:46 | DRG 602 ==
LOC: EMEROO 17:21 → 3BNU 17:21 → SUATTDRO 19:01 → 3BNU 19:21 → SUATTDRO 08-25 08:25 → 3BNU 08-27 19:54
PROVIDERS: ADMIT Hospitalist; ATTEND Internal Medicine

== ENCOUNTER 2017-09-02 16:07 | Inpatient (IN) ==
--- NOTE | 2017-09-02 17:52 | Emergency Department Note ---
Disposition Clinical Impression: Confusion, Weakness Pneumonia Qualifiers: Pneumonia type: due to unspecified organism Laterality: unspecified laterality Lung location: unspecified part of lung Qualified Code(s): J18.9 - Pneumonia, unspecified organism Disposition: Admitted As Inpatient Condition: Good Referrals: NONE,PCP [Non-Partnered Physician] - Forms: ED Satisfaction Letter, Work/School Release Time of Disposition: 20:34 Abdominal Pain HPI - General Chief Complaint: ED Abdominal Pain Stated Complaint: Weak, N/v Time Seen by Provider: 09/02/17 16:14 Source: patient, EMS Mode of arrival: EMS Limitations: no limitations Nursing Notes Reviewed: Yes Vital Signs Reviewed: Yes - History of Present Illness HPI Narrative: Patient presents emergency room for evaluation of generalized malaise, confusion , nausea and vomiting, abdominal pain. She was seen here earlier this morning and would not accommodate CT scan. She was discharged home in stable medical condition. The family is concerned and decided to bring her into the emergency room for evaluation. Patient has no new complaints or symptoms at this time. Pt Subjective Complaint: abdominal pain Onset (ago): day(s) Consistency: constant Location: diffuse Pain Severity: mild Pain Scale: 2 Quality: cramping Migration to: no migration Improves with: nothing Worsens with: nothing Associated symptoms: Reports: nausea, vomiting. Denies: diarrhea, fever, chills , constipation, dysuria, hematochezia, melena, hematuria Treatments prior to arrival: none - Related Data Home Medications Medication Instructions Recorded Confirmed Cholestyramine (with Sugar) 2 scoop PO DAILY 08/24/16 09/02/17 [Cholestyramine Bulk Powder] Gabapentin [Neurontin] 600 mg PO TID 08/24/16 09/02/17 Levothyroxine Sodium 50 mcg PO DAILY 08/24/16 09/02/17 Levothyroxine Sodium [Levo-T] 200 mcg PO DAILY 08/24/16 09/02/17 [place] Carbonate 900 mg PO HS 08/24/16 09/02/17 Nystatin POWDER [Nystop] 1 appl TP BID 08/24/16 09/02/17 Pantoprazole Sodium 40 mg PO DAILY 08/24/16 09/02/17 Saxagliptin HCl [Onglyza] 5 mg PO DAILY 08/24/16 09/02/17 Sertraline [Zoloft] 200 mg PO DAILY 08/24/16 09/02/17 Verapamil HCl [Verapamil ER] 240 mg PO DAILY 08/24/16 09/02/17 Brimonidine 0.2% [Alphagan] 1 drop BOTH EYES TID 08/25/16 09/02/17 Cyclopentolate 1 drop LEFT EYE DAILY 08/25/16 09/02/17 L. Acidophilus/Pectin, [place] 1 each PO DAILY 08/25/16 09/02/17 [Acidophilus Caplet] hydrOXYzine HCl [Hydroxyzine HCl] 25 mg PO BID PRN 08/25/16 09/02/17 ARIPiprazole [Abilify] 2 mg PO DAILY 09/02/17 09/02/17 Acyclovir [Zovirax] 800 mg PO BID 09/02/17 09/02/17 HYDROcodone/Acet 7.5/325 mg [[place] 1 tab PO Q6H 09/02/17 09/02/17 7.5-325 mg] Pravastatin Sodium [Pravachol] 40 mg PO HS 09/02/17 09/02/17 Repaglinide [Prandin] 1 mg PO DAILY 09/02/17 09/02/17 Previous Rx's Medication Instructions Recorded Fluticasone Propionate Nasal 50 mcg NS DAILY bottle 08/28/16 [Flonase] Furosemide [Lasix] 40 mg PO BID #60 tablet 08/28/16 Losartan [Cozaar] 50 mg PO DAILY tablet 08/28/16 Pentoxifylline [TRENtal] 400 mg PO TIDWM tablet.er 08/28/16 Dicyclomine [Bentyl] 10 mg PO QID #20 capsule 09/02/17 Ondansetron ODT [Zofran ODT] 4 mg SL Q6HR #20 tab.rapdis 09/02/17 Allergies Allergy/AdvReac Type Severity Reaction Status Date / Time sulfamethoxazole Allergy Rash Verified 09/02/17 20:27 [From Bactrim] trimethoprim [From Bactrim] Allergy Rash Verified 09/02/17 20:27 celecoxib [From Celebrex] AdvReac Gastrointestinal Verified 09/02/17 20:27 Upset Penicillins AdvReac Swelling Verified 09/02/17 20:27 of the Eye trazodone AdvReac Fainting Verified 09/02/17 20:27 Serazone AdvReac Swelling Uncoded 09/02/17 20:27 of Lip/Tongue/Throat All systems ED: reviewed and negative except as stated. Review of Systems: As Per HPI Constitutional: Reports: weakness. Denies: fever, chills Cardiovascular: Reports: dyspnea on exertion, orthopnea, edema. Denies: chest pain, palpitations Respiratory: Reports: dyspnea. Denies: cough, wheezes, hemoptysis, sputum production Gastrointestinal: Reports: abdominal pain, nausea, vomiting. Denies: diarrhea, constipation Genitourinary: Denies: dysuria, frequency Musculoskeletal: Denies: back pain, neck pain Neurological: Denies: headache Psychiatric: Denies: anxiety, depression Endocrine: Denies: fatigue Abdominal Pain PMH - Past Medical History Medical history: Reports: atrial fibrillation, diabetes, hyperlipidemia, hypertension, other Female Surgical History: Reports: other Psychiatric history: Reports: depression, prior suicide attempt, previous psychiatric hospitalization - Social History Smoking status: Never smoker Alcohol use: Reports: none Drug use: Reports: none Physical Exam - General Limitations: no limitations General appearance: alert - Head Head exam: atraumatic, normocephalic, normal inspection - ENT ENT exam: normal exam, normal oropharynx, mucous membranes moist - Neck Neck exam: Present: normal inspection. Absent: meningismus, lymphadenopathy - Chest Chest inspection: Present: normal inspection, symmetric chest wall rise. Absent : tenderness - Respiratory Respiratory exam: Present: respiratory distress, accessory muscle use. Absent: wheezes, stridor - Cardiovascular Cardiovascular exam: Present: regular rate, normal rhythm, normal heart sounds - Abdominal Exam Abdominal exam: Present: soft, Non-Tender, normal bowel sounds. Absent: distention, guarding, rebound, rigidity, Thacker's sign, Rovsing's sign, tenderness at McBurney's Point - Extremities Exam Extremities exam: Present: normal capillary refill, pedal edema. Absent: tenderness - Neurological Exam Neurological exam: Present: alert, oriented X3, CN II-XII intact - Skin Skin exam: Present: warm, dry, intact, normal color Course Course Narrative: Patient seen and examined the time of arrival by EMS. See history of present illness. 61-year-old female who is chronically disabled secondary to morbid obesity presents to the emergency room for evaluation of nausea vomiting and abdominal pain. Patient was just seen and evaluated this morning and referred on having CT imaging of the abdomen completed she said that she could not lie flat. She was symptomatically treated and discharged home. After arrival back to the house the family called and said the patient needed to be evaluated again and sent her back to the emergency room. After reviewing the chart from previous, the patient was sent here initially for nausea vomiting and a fever. Patient did not have any abnormal vital signs or findings on physical exam here. She does have a slightly elevated white blood cell count with neutrophilia based on the initial evaluation. The remainder the labs appear to be at baseline. Hemoglobin is slightly less than normal but she denies any active bleeding or other symptoms this time. Patient has not fallen or injured herself at this point. Currently she is denying chest pain shortness of breath headache vision changes. She has intermittent nausea and vomiting but no diarrhea. Denies any fevers or chills. Denies any trauma or injury. Denies any new medications or changes in her medication regimen at this time. Patient again is morbidly obese. Head is atraumatic pupils are equal and reactive oropharynx is patent lungs are diminished bilaterally most likely secondary to truncal obesity and dependent chest wall. Abdomen is soft she does have significant adipose tissue. She does not have any guarding or rigidity. Lower extremities are reviewed. Patient is unable to control the bed at this time review the posterior aspect of the back in about out. She does not have a visible signs of lesions on the extremities at this time. Pulses are intact in the bilateral lower extremities. Patient does move her extremities and the upper distribution with appropriate purpose. She answers questions appropriately and does not appear to be in any specific distress. She does appear to be slightly somnolent but denies any other complaints or issues at this time. Disposition will be completed. Review the labs shows findings discussed above. CT of the head chest and abdomen will be ordered at this time. Patient will be placed on BiPAP to help with her breathing issues when she lies flat. No other acute findings noted during the previous evaluation. Disposition pending the workup - Reevaluation(s) Reevaluation #1: CT imaging of the head chest and abdomen do not show any acute pathology. There is potential for pneumonia but the patient has not had any productive cough or sputum. Patient was brought in again today for confusion and acting differently for the family as well as the nursing staff that takes care of her. Patient will be admitted secondary to these complaints. Patient has been alert and following commands throughout the treatment course. Patient has had some increased work of breathing and requiring oxygen prior to coming in. Patient does use oxygen intermittently at home. Antibiotic regimen will be started here as a single dose of antibiotic to cover for potential pneumonia. One blood culture will be drawn. Patient will be admitted. See detailed documentation of these conversations. Hospitalist Dr. Sutherland and I reviewed the case. He understands the context the story and is accommodating for admission this time for observation and repeat evaluation. Patient otherwise is not having acute neurologic deficits visualized at this time. Patient has been slightly somnolent while here but does not show any acute signs of toxidrome decompensation or concern for neurologic deficits. She will be observed here in the emergency room until admission processes admitted Time: 20:32 Vital Signs Temperature 98.1 F 09/02/17 16:14 Pulse Rate 61 09/02/17 16:14 Respiratory Rate 16 09/02/17 16:14 Blood Pressure 169/87 09/02/17 16:14 O2 Sat by Pulse Oximetry 96 09/02/17 16:14 Temperature 98.1 F 09/02/17 16:14 Pulse Rate 67 09/02/17 20:08 Respiratory Rate 20 09/02/17 20:08 Blood Pressure 131/75 09/02/17 20:08 O2 Sat by Pulse Oximetry 98 09/02/17 20:08 Oxygen Delivery Oxygen Delivery Simple Mask Abdominal Pain - MDM Narrative Medical decision making narrative: Abdominal pain, nausea, vomiting - Medical Records Medical records reviewed: Yes I reviewed the patient's medical records. - Lab Data Lab results reviewed: Yes I reviewed the patient's lab results. Lab Results 09/02/17 09/02/17 09/02/17 Range/Units 16:39 18:06 18:06 Lactic Acid 1.2 (0.5-2.2) mmol/L Troponin I < 0.03 (< 0.04) ng/mL B-Natriuretic Peptide 139 H (Less than 100) pg/mL - Radiology Data Radiology results reviewed: Yes I reviewed the patient's radiology results. CT imaging of the head chest and abdomen have only pertinent positive finding of possible pneumonia versus low lung volumes - EKG Data EKG attestation: Yes I reviewed and interpreted this EKG. EKG results narrative: EKG shows sinus bradycardia. Ventricular rate of 59. [place] interval 1:30. QRS duration 106. QTC of 445. [place] appears to be slightly leftward deviated. No acute signs of WPW or Brugada syndrome. Amplitude is low in comparison to the patient's body habitus. Compared to EKG in 03/03/17 with no acute changes.
[2017-09-02] MEDS ORDERED: Levofloxacin 750 MG/150 ML 750 MG/150 ML BAG IVPB ONE (20:34)
[2017-09-02] MEDS ORDERED: Naloxone 0.4 MG/ML INJ IVP PRN (21:41)
[2017-09-02] MEDS ORDERED: Acetaminophen 325 MG TABLET PO PRN (21:41)
[2017-09-02] MEDS ORDERED: hydrOXYzine pamoate 25 MG CAPSULE PO PRN (21:51)
[2017-09-02] MEDS ORDERED: *HR* Dextrose 50 % in Water (Syg) 50 ML SYRINGE IVP PRN (21:57)
[2017-09-02] MEDS ORDERED: Dextrose Gel 15 GM/37.5 ML TUBE PO PRN ×2 (21:57)
[2017-09-02] MEDS ORDERED: D5% in Water 1,000 ML IVC PRN (21:57)
--- NOTE | 2017-09-02 23:03 | Internal Med History&Physical ---
Date of Encounter: 09/02/17 Time of Encounter: 20:00 Internal Medicine - H&P: HPI Chief complaint: Shortness of breath Admitted From: Home Plans for Post Hospital Care: Home History of present illness: Ms. Asif is a 61 year old female present to ER for shortness of breath, nausea , vomiting, and diarrhea for about 3 days. Past medical history is significant for morbid obesity on home BiPAP, diabetes, hypertension, hyperlipidemia, hypothyroidism. Patient said she started to have nausea, vomiting, and diarrhea for about 3 days. With mild abdominal pain. The vomiting are stomach content, no blood or coffee ground fluid in it. The diarrhea is watery, no blood in it. Patient denies a fever. He has a mild cough. Patient has increased the source of breath. The family send patient here because she is more lethargic and mild confused. In the emergency room, CT head, chest, and abdomen has been done. CT chest shows possible pulmonary edema or infiltrate. Otherwise, all the CT tests unremarkable. Patient was placed on BiPAP and started Levaquin for possible pneumonia by ER. Patient was admitted for further management. Past Med Surg Social Fam HX - Past Medical History Medical history: atrial fibrillation, diabetes, hyperlipidemia, hypertension, other Psychiatric history: depression, prior suicide attempt, previous psychiatric hospitalization - Past Surgical History Surgical History: appendectomy, cholecystectomy, hysterectomy, thyroidectomy - Social History Smoking Status: Never smoker Smokeless Tobacco Status: No Alcohol use: none Drug use: none - Family History Father Hx Family Cardiac Disorders: Yes Hx Family Endocrine Disorder: Yes Internal Medicine - H&P: Meds Cholestyramine (with Sugar) [Cholestyramine Bulk Powder] 2 scoop PO DAILY [History] Gabapentin [Neurontin] 600 mg PO TID 08/24/16 [History] Levothyroxine Sodium 50 mcg PO DAILY 08/24/16 [History] Levothyroxine Sodium [Levo-T] 200 mcg PO DAILY 08/24/16 [History] [place] Carbonate 900 mg PO HS 08/24/16 [History] Nystatin POWDER [Nystop] 1 appl TP BID 08/24/16 [History] Pantoprazole Sodium 40 mg PO DAILY 08/24/16 [History] Saxagliptin HCl [Onglyza] 5 mg PO DAILY 08/24/16 [History] Sertraline [Zoloft] 200 mg PO DAILY 08/24/16 [History] Verapamil HCl [Verapamil ER] 240 mg PO DAILY 08/24/16 [History] Brimonidine 0.2% [Alph[place]] 1 drop BOTH EYES TID 08/25/16 [History] Cyclopentolate 1 drop LEFT EYE DAILY 08/25/16 [History] L. Acidophilus/Pectin, [place] [Acidophilus Caplet] 1 each PO DAILY 08/25/16 [ History] hydrOXYzine HCl [Hydroxyzine HCl] 25 mg PO BID PRN 08/25/16 [History] Fluticasone Propionate Nasal [Flonase] 50 mcg NS DAILY bottle 08/28/16 [Rx] Furosemide [Lasix] 40 mg PO BID #60 tablet 08/28/16 [Rx] Losartan [Cozaar] 50 mg PO DAILY tablet 08/28/16 [Rx] Pentoxifylline [TRENtal] 400 mg PO TIDWM tablet.er 08/28/16 [Rx] ARIPiprazole [Abilify] 2 mg PO DAILY 09/02/17 [History] Acyclovir [Zovirax] 800 mg PO BID 09/02/17 [History] Dicyclomine [Bentyl] 10 mg PO QID #20 capsule 09/02/17 [Rx] HYDROcodone/Acet 7.5/325 mg [[place] 7.5-325 mg] 1 tab PO Q6H 09/02/17 [History] Ondansetron ODT [Zofran ODT] 4 mg SL Q6HR #20 tab.rapdis 09/02/17 [Rx] Pravastatin Sodium [Pravachol] 40 mg PO HS 09/02/17 [History] Repaglinide [Prandin] 1 mg PO DAILY 09/02/17 [History] 3 Allergy/AdvReac Type Severity Reaction Status Date / Time sulfamethoxazole Allergy Rash Verified 09/02/17 20:27 [From Bactrim] trimethoprim [From Bactrim] Allergy Rash Verified 09/02/17 20:27 celecoxib [From Celebrex] AdvReac Gastrointestinal Verified 09/02/17 20:27 Upset Penicillins AdvReac Swelling Verified 09/02/17 20:27 of the Eye trazodone AdvReac Fainting Verified 09/02/17 20:27 Serazone AdvReac Swelling Uncoded 09/02/17 20:27 of Lip/Tongue/Throat All Systems PM: A 10-system review of systems was performed and is negative for pertinent findings except as documented above in the HPI. - Constitutional Vitals: Temp Pulse Resp BP Pulse Ox 98.1 F 60 20 144/72 97 09/02/17 16:14 09/02/17 22:53 09/02/17 22:53 09/02/17 22:53 09/02/17 22:53 General appearance: Present: A&O X 3, morbidly obese, no acute distress, answers questions appropriately - Head Head exam: Present: atraumatic, normocephalic - Eye Eye exam: Present: PERRL, conjuntiva pink, sclera anicteric Pupils: Present: PERRL Additional comments: Left eye conjunctiva redness - Neck Neck exam general surgery: Present: supple, trachea midline. Absent: lymphadenopathy - Respiratory Respiratory exam: Present: CTAB. Absent: accessory muscle use, rales, rhonchi, wheezes - Cardiovascular Cardiovascular exam: Present: RRR, +S1, +S2. Absent: diastolic murmur, gallop, rubs, systolic murmur - GI/Abdominal GI/Abdominal exam: Present: normal bowel sounds, soft, no peritoneal signs. Absent: distended, tenderness - Extremities Exam Extremities exam: Present: warm, radial pulses palpable and symmetrical. Absent : calf tenderness, cyanotic, pedal edema - Neurological Exam Neurological exam: Present: CN II-XII intact, oriented X3, no focal deficits. Absent: pronater drift, facial droop, speech deficit - Skin Skin exam: Present: dry, intact - Assessment and plan (1) Type 2 diabetes mellitus Current Visit: No Status: Chronic Assessment and plan: We will cover patient with sliding scale insulin. 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 Check lithium level in a.m. Qualifiers: Active/Remission status: in full remission Most recent bipolar episode type : most recent episode unspecified type Qualified Code(s): F31.70 - Bipolar disorder, currently in remission, most recent episode unspecified (3) Hypothyroidism Current Visit: No Status: Chronic Assessment and plan: Continue home medications Qualifiers: Hypothyroidism type: unspecified Qualified Code(s): E03.9 - Hypothyroidism , unspecified (4) Hypertension Current Visit: No Status: Chronic Assessment and plan: Continue home medications and closely monitor BP Qualifiers: Hypertension type: essential hypertension Qualified Code(s): I10 - Essential (primary) hypertension (5) DVT prophylaxis Current Visit: No Status: Acute Assessment and plan: Heparin subcutaneously (6) Nausea & vomiting Current Visit: No Status: Acute Assessment and plan: Patient has nausea, vomiting, and diarrhea. Abdominal exam is benign. Abdominal CT is unremarkable. Consider viral gastroenteritis. - Symptomatic treatment as needed - GI stool panel - Clear liquid diet, Supportive treatment Qualifiers: Vomiting type: unspecified Vomiting Intractability: non-intractable Qualified Code(s): R11.2 - Nausea with vomiting, unspecified (7) Pneumonia Current Visit: Yes Status: Acute Assessment and plan: Suspected community acquired pneumonia as patient has mild leukocytosis, mild nonproductive cough, and CT shows possible pneumonia. - Levaquin IV started by ER, will continue - Follow up blood culture Qualifiers: Pneumonia type: due to Pneumococcus Laterality: unspecified laterality Lung location: unspecified part of lung Qualified Code(s): J13 - Pneumonia due to Streptococcus pneumoniae (8) Conjunctivitis Current Visit: Yes Status: Acute Assessment and plan: Left side conjunctivitis, probably bacterial, will start Cipro eye drop. Qualifiers: Conjunctivitis type: acute Acute conjunctivitis type: unspecified Laterality: left Qualified Code(s): H10.32 - Unspecified acute conjunctivitis , left eye (9) Morbid obesity Current Visit: Yes Status: Acute Assessment and plan: Need the lifestyle modification. Continue BiPAP during night. - Time Spent With Patient Total time spent is greater than 50% in coordination of care (as documented) at patient's floor/unit and/or counseling patient: 40 minutes Greater than 35 minutes
[2017-09-03] MEDS: Ciprofloxacin OPTH Soln 2.5 ML BOTTLE LEFT EYE SCH ×5 (00:03→19:05)
[2017-09-03] MEDS: Cyclopentolate 2 ML BOTTLE LEFT EYE SCH ×2 (00:05→10:49)
[2017-09-03] MEDS: Fluticasone Propionate Nasal 50 MCG/SPRAY BOTTLE NS SCH ×2 (00:07→10:53)
[2017-09-03] MEDS: *HR* Heparin 5,000 UNIT/ML VIAL SQ SCH ×3 (00:08→19:04)
[2017-09-03] MEDS: *HR* HYDROcodone/Acet 7.5/325 mg TABLET PO SCH ×3 (00:08→05:54)
[2017-09-03 05:34] LABS: Basophils % 0.2 %; Mean Corpuscular Volume 78.7 fL (83.0-100.0); Red Cell Distribution Width 17.2 % (11.5-14.5)
[2017-09-03 05:36] LABS: Eosinophils # 0.2 K/mcL (0.0-0.6); Eosinophils % 1.1 %; Hematocrit 33.3 % (35.3-44.9); Hemoglobin 10.1 g/dL (11.5-15.4); Immature Granulocytes % 0.4 % (0-4); Lymphocytes % 7.6 %; Mean Corpuscular HGB Conc 30.3 g/dL (31.6-35.5); Mean Corpuscular Hemoglobin 23.9 pg (28.0-33.3); Monocytes # 0.9 K/mcL (0.0-1.3); Monocytes % 6.4 %; Neutrophils # 11.4 K/mcL (1.6-8.9); Platelet Count 212 K/mcL (140-400); Red Blood Count 4.23 M/mcL (3.82-4.97); Segmented Neutrophils % 84.3 %
[2017-09-03 05:56] LABS: BUN/Creatinine Ratio 13 (6-26); Blood Urea Nitrogen 10 mg/dL (8-23); Carbon Dioxide 31 mEq/L (23-29); Chloride 103 mEq/L (98-107); Glucose 154 mg/dL (70-105); Magnesium 1.9 mg/dL (1.6-2.6); Osmolality,Calculated 292 (280-300); Potassium 3.8 mEq/L (3.5-5.1); Sodium 140 mEq/L (136-145); Troponin I < 0.03 ng/mL (< 0.04); eGFR For African Americans > 60 (> 60); eGFR For Non-African Americans > 60 (> 60)
[2017-09-03] MEDS: Ondansetron 4 MG/2 ML VIAL IVP PRN (06:18)
[2017-09-03] MEDS: Insulin LISPRO 300 UNITS/3 ML VIAL SQ SCH ×3 (07:30→18:24)
[2017-09-03] MEDS: Nystatin POWDER 30 GM BOTTLE TP SCH (07:30)
[2017-09-03] MEDS ORDERED: Furosemide 40 MG TABLET PO SCH (09:00)
[2017-09-03] MEDS: Gabapentin 300 MG CAPSULE PO SCH ×2 (10:47→19:04)
[2017-09-03] MEDS: ARIPiprazole 2 MG TABLET PO SCH (10:47)
[2017-09-03] MEDS: Lactobacillus 1 EACH CAP.SPRINK PO SCH (10:48)
[2017-09-03] MEDS: Furosemide 40 MG TABLET PO SCH ×2 (10:48→19:04)
[2017-09-03] MEDS: Verapamil ER (24 HR) 240 MG TABLET.ER PO SCH (10:57)
[2017-09-03] MEDS: *HR* HYDROcodone/Acet 7.5/325 mg TABLET PO PRN (10:59)
[2017-09-03 13:41] LABS: Adenovirus F 40/41 PCR Not detected (Not detect); Astrovirus PCR Not detected (Not detect); C.difficile Toxin A/B by PCR Not detected (Not detect); Campylobacter by PCR Not detected (Not detect); Cryptosporidium by PCR Not detected (Not detect); Cyclospora cayetanensis PCR Not detected (Not detect); E. coli O157 by PCR Not detected (Not detect); Entamoeba histolytica PCR Not detected (Not detect); Enteroaggregative E.coli(EAEC) Not detected (Not detect); Enteropathogenic E.coli(EPEC) Not detected (Not detect); Enterotoxigenic E.coli (ETEC) Not detected (Not detect); Giardia lamblia PCR Not detected (Not detect); Norovirus GI/GII PCR Not detected (Not detect); Plesiomonas shigelloides PCR Not detected (Not detect); Rotavirus A PCR Not detected (Not detect); Salmonella PCR Not detected (Not detect); Sapovirus PCR Not detected (Not detect); Shig/EnteroinvasiveE coli EIEC Not detected (Not detect); Shigalike tox-prod E coli STEC Not detected (Not detect); Vibrio PCR Not detected (Not detect); Vibrio cholerae PCR Not detected (Not detect); Yersinia enterocolitica PCR Not detected (Not detect)
[2017-09-03] MEDS ORDERED: Levofloxacin 750 MG/150 ML 750 MG/150 ML BAG IVPB SCH (18:00)
--- NOTE | 2017-09-03 19:17 | Internal Med Progress Note ---
Date of Encounter: 09/03/17 Time of Encounter: 11:00 - Assessment and plan (1) Pneumonia Current Visit: Yes Status: Ruled-out Assessment and plan: Imaging negative for any infiltrates and patient without any upper respiratory symptoms therefore IV Levaquin discontinued. Qualifiers: Pneumonia type: due to Pneumococcus Laterality: unspecified laterality Lung location: unspecified part of lung Qualified Code(s): J13 - Pneumonia due to Streptococcus pneumoniae (2) Type 2 diabetes mellitus Current Visit: No Status: Chronic Assessment and plan: We will cover patient with sliding scale insulin. 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 Check lithium level in a.m. Qualifiers: Active/Remission status: in full remission Most recent bipolar episode type : most recent episode unspecified type Qualified Code(s): F31.70 - Bipolar disorder, currently in remission, most recent episode unspecified (4) Hypothyroidism Current Visit: No Status: Chronic Assessment and plan: Continue home medications Qualifiers: Hypothyroidism type: unspecified Qualified Code(s): E03.9 - Hypothyroidism , unspecified (5) Hypertension Current Visit: No Status: Chronic Assessment and plan: Continue home medications and closely monitor BP Qualifiers: Hypertension type: essential hypertension Qualified Code(s): I10 - Essential (primary) hypertension (6) DVT prophylaxis Current Visit: No Status: Acute Assessment and plan: Heparin subcutaneously (7) Nausea & vomiting Current Visit: No Status: Inactive Assessment and plan: Patient has nausea, vomiting, and diarrhea. Abdominal CT is unremarkable. GI stool panel pending Qualifiers: Vomiting type: unspecified Vomiting Intractability: non-intractable Qualified Code(s): R11.2 - Nausea with vomiting, unspecified (8) Morbid obesity Current Visit: Yes Status: Acute Assessment and plan: Need the lifestyle modification. Continue BiPAP during night. - Time Spent With Patient Total time spent is greater than 50% in coordination of care (as documented) at patient's floor/unit and/or counseling patient: - Subjective Interval history: Patient alert and oriented 3 this morning - Constitutional Vitals: Temp Pulse Resp BP Pulse Ox 98.8 F 70 20 158/88 95 09/03/17 15:57 09/03/17 15:57 09/03/17 15:57 09/03/17 15:57 09/03/17 15:57 General appearance: Present: A&O X 3, morbidly obese, no acute distress, answers questions appropriately - Respiratory Respiratory exam: Present: CTAB. Absent: accessory muscle use, rales, rhonchi, wheezes - Cardiovascular Cardiovascular exam: Present: RRR, +S1, +S2. Absent: diastolic murmur, gallop, rubs, systolic murmur Internal Medicine: Result - Labs CBC & Chem 7: 09/03/17 05:06 09/03/17 05:06 Labs: Short CBC 09/03/17 Range/Units 05:06 WBC 13.5 H (4.3-11.1) K/mcL Hgb 10.1 L (11.5-15.4) g/dL Hct 33.3 L (35.3-44.9) % Plt Count 212 (140-400) K/mcL Neutrophils # 11.4 H (1.6-8.9) K/mcL BMP 09/03/17 05:06 Sodium 140 Potassium 3.8 Chloride 103 Carbon Dioxide 31 H BUN 10 Creatinine 0.78 Glucose 154 H Calcium 9.0 Cardiac Enzymes 09/03/17 Range/Units 05:06 Troponin I < 0.03 (< 0.04) ng/mL Consult Discharge Plan - Plan Referrals: Corina Lynch MD [Primary Care Provider] - 09/14/17 11:15 am (Please follow up as schedule...)
[2017-09-04] MEDS: Gabapentin 300 MG CAPSULE PO SCH ×4 (00:26→20:49)
[2017-09-04] MEDS: Lithium Carbonate 300 MG CAPSULE PO SCH ×2 (00:26→20:49)
[2017-09-04] MEDS: Insulin LISPRO 300 UNITS/3 ML VIAL SQ SCH ×5 (00:27→22:49)
[2017-09-04] MEDS: Ciprofloxacin OPTH Soln 2.5 ML BOTTLE LEFT EYE SCH ×7 (00:30→20:46)
[2017-09-04] MEDS: Nystatin POWDER 30 GM BOTTLE TP SCH ×3 (00:36→20:54)
[2017-09-04] MEDS: *HR* Heparin 5,000 UNIT/ML VIAL SQ SCH ×3 (00:43→16:43)
--- NOTE | 2017-09-04 08:18 | Electrocardiograph Report ---
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
[2017-09-04] MEDS: Lactobacillus 1 EACH CAP.SPRINK PO SCH (09:58)
[2017-09-04] MEDS: ARIPiprazole 2 MG TABLET PO SCH (09:58)
[2017-09-04] MEDS: Verapamil ER (24 HR) 240 MG TABLET.ER PO SCH (09:58)
[2017-09-04] MEDS: Furosemide 40 MG TABLET PO SCH ×2 (09:58→17:23)
[2017-09-04] MEDS: Fluticasone Propionate Nasal 50 MCG/SPRAY BOTTLE NS SCH (10:00)
[2017-09-04] MEDS: Cyclopentolate 2 ML BOTTLE LEFT EYE SCH (10:00)
[2017-09-04 10:01] LABS: Basophils % 0.2 %; Eosinophils # 0.4 K/mcL (0.0-0.6); Eosinophils % 3.4 %; Hematocrit 36.8 % (35.3-44.9); Immature Granulocytes % 0.5 % (0-4); Lymphocytes # 1.1 K/mcL (0.6-4.6); Lymphocytes % 8.3 %; Mean Corpuscular HGB Conc 29.9 g/dL (31.6-35.5); Mean Corpuscular Volume 80.2 fL (83.0-100.0); Mean Platelet Volume 11.2 fL (9.4-12.4); Monocytes # 0.7 K/mcL (0.0-1.3); Monocytes % 5.4 %; Neutrophils # 10.4 K/mcL (1.6-8.9); Platelet Count 192 K/mcL (140-400); Red Blood Count 4.59 M/mcL (3.82-4.97); Red Cell Distribution Width 17.1 % (11.5-14.5); Segmented Neutrophils % 82.2 %
[2017-09-04 10:16] LABS: BUN/Creatinine Ratio 9 (6-26); Blood Urea Nitrogen 9 mg/dL (8-23); Calcium 8.7 mg/dL (8.6-10.3); Carbon Dioxide 35 mEq/L (23-29); Chloride 101 mEq/L (98-107); Glucose 153 mg/dL (70-105); Osmolality,Calculated 296 (280-300); Potassium 3.4 mEq/L (3.5-5.1); Sodium 142 mEq/L (136-145); eGFR For African Americans > 60 (> 60); eGFR For Non-African Americans 59 (> 60)
[2017-09-04] MEDS: *HR* HYDROcodone/Acet 7.5/325 mg TABLET PO PRN (16:43)
--- NOTE | 2017-09-04 18:38 | Internal Med Progress Note ---
Date of Encounter: 09/04/17 Time of Encounter: 11:00 - Assessment and plan (1) Gastroenteritis Current Visit: Yes Status: Acute Assessment and plan: Patient still with some episodes of diarrhea secondary to viral gastroenteritis has GI panel negative Supportive care (2) Pneumonia Current Visit: Yes Status: Ruled-out Assessment and plan: Imaging negative for any infiltrates and patient without any upper respiratory symptoms therefore IV Levaquin discontinued. Qualifiers: Pneumonia type: due to Pneumococcus Laterality: unspecified laterality Lung location: unspecified part of lung Qualified Code(s): J13 - Pneumonia due to Streptococcus pneumoniae (3) Type 2 diabetes mellitus Current Visit: No Status: Chronic Assessment and plan: We will cover patient with sliding scale insulin. Qualifiers: Diabetes mellitus tank terminal gauger insulin use: without tank terminal gauger use Diabetes mellitus complication status: with unspecified complications Qualified Code(s) : E11.8 - Type 2 diabetes mellitus with unspecified complications (4) Bipolar disorder Current Visit: No Status: Chronic Assessment and plan: Continue home medications. Check lithium level in a.m. Qualifiers: Active/Remission status: in full remission Most recent bipolar episode type : most recent episode unspecified type Qualified Code(s): F31.70 - Bipolar disorder, currently in remission, most recent episode unspecified (5) Hypothyroidism Current Visit: No Status: Chronic Assessment and plan: Continue home medications Qualifiers: Hypothyroidism type: unspecified Qualified Code(s): E03.9 - Hypothyroidism , unspecified (6) Hypertension Current Visit: No Status: Chronic Assessment and plan: Continue home medications and closely monitor BP Qualifiers: Hypertension type: essential hypertension Qualified Code(s): I10 - Essential (primary) hypertension (7) DVT prophylaxis Current Visit: No Status: Acute Assessment and plan: Heparin subcutaneously (8) Morbid obesity Current Visit: Yes Status: Acute Assessment and plan: Need the lifestyle modification. Continue BiPAP during night. (9) Goals of care, counseling/discussion Current Visit: Yes Status: Acute Assessment and plan: Awaiting placement for correction facility per physical therapist recommendations - Time Spent With Patient Total time spent is greater than 50% in coordination of care (as documented) at patient's floor/unit and/or counseling patient: - Subjective Interval history: Patient with some episodes of diarrhea secondary to viral gastroenteritis; GI panel negative Awaiting placement for correction facility per physical therapist recommendations - Constitutional Vitals: Temp Pulse Resp BP Pulse Ox 98.9 F 57 18 145/53 94 09/04/17 15:15 09/04/17 15:15 09/04/17 15:15 09/04/17 15:15 09/04/17 15:15 General appearance: Present: A&O X 3, morbidly obese, no acute distress, answers questions appropriately - Respiratory Respiratory exam: Present: CTAB. Absent: accessory muscle use, rales, rhonchi, wheezes - Cardiovascular Cardiovascular exam: Present: RRR, +S1, +S2. Absent: diastolic murmur, gallop, rubs, systolic murmur Internal Medicine: Result - Labs CBC & Chem 7: 09/04/17 09:43 09/04/17 09:43 Labs: Short CBC 09/04/17 Range/Units 09:43 WBC 12.7 H (4.3-11.1) K/mcL Hgb 11.0 L (11.5-15.4) g/dL Hct 36.8 (35.3-44.9) % Plt Count 192 (140-400) K/mcL Neutrophils # 10.4 H (1.6-8.9) K/mcL BMP 09/04/17 09:43 Sodium 142 Potassium 3.4 L Chloride 101 Carbon Dioxide 35 H BUN 9 Creatinine 0.96 Glucose 153 H Calcium 8.7 Consult Discharge Plan - Plan Referrals: Corina Lynch MD [Primary Care Provider] - 09/14/17 11:15 am (Please follow up as schedule...)
[2017-09-05] MEDS: *HR* Heparin 5,000 UNIT/ML VIAL SQ SCH ×3 (00:36→17:11)
[2017-09-05] MEDS: Ciprofloxacin OPTH Soln 2.5 ML BOTTLE LEFT EYE SCH ×6 (00:36→22:42)
[2017-09-05] MEDS: *HR* HYDROcodone/Acet 7.5/325 mg TABLET PO PRN (00:36)
[2017-09-05 09:03] LABS: Basophils % 0.1 %; Eosinophils # 0.5 K/mcL (0.0-0.6); Eosinophils % 4.2 %; Hematocrit 35.2 % (35.3-44.9); Hemoglobin 10.4 g/dL (11.5-15.4); Immature Granulocytes % 0.5 % (0-4); Lymphocytes % 8.7 %; Mean Corpuscular HGB Conc 29.5 g/dL (31.6-35.5); Mean Corpuscular Hemoglobin 23.9 pg (28.0-33.3); Mean Corpuscular Volume 80.9 fL (83.0-100.0); Mean Platelet Volume 11.5 fL (9.4-12.4); Monocytes # 0.7 K/mcL (0.0-1.3); Monocytes % 6.5 %; Neutrophils # 8.7 K/mcL (1.6-8.9); Platelet Count 186 K/mcL (140-400); Red Blood Count 4.35 M/mcL (3.82-4.97); Red Cell Distribution Width 16.9 % (11.5-14.5)
[2017-09-05] MEDS: Gabapentin 300 MG CAPSULE PO SCH ×3 (09:23→22:43)
[2017-09-05] MEDS: Furosemide 40 MG TABLET PO SCH ×2 (09:23→17:11)
[2017-09-05] MEDS: Lactobacillus 1 EACH CAP.SPRINK PO SCH (09:23)
[2017-09-05] MEDS: ARIPiprazole 2 MG TABLET PO SCH (09:23)
[2017-09-05 09:24] LABS: BUN/Creatinine Ratio 10 (6-26); Blood Urea Nitrogen 10 mg/dL (8-23); Calcium 8.5 mg/dL (8.6-10.3); Carbon Dioxide 36 mEq/L (23-29); Chloride 101 mEq/L (98-107); Glucose 144 mg/dL (70-105); Osmolality,Calculated 294 (280-300); Sodium 141 mEq/L (136-145); eGFR For African Americans > 60 (> 60); eGFR For Non-African Americans 55 (> 60)
[2017-09-05] MEDS: Nystatin POWDER 30 GM BOTTLE TP SCH ×2 (09:24→22:44)
[2017-09-05] MEDS: Verapamil ER (24 HR) 240 MG TABLET.ER PO SCH (09:24)
[2017-09-05] MEDS: Fluticasone Propionate Nasal 50 MCG/SPRAY BOTTLE NS SCH (09:25)
[2017-09-05] MEDS: Cyclopentolate 2 ML BOTTLE LEFT EYE SCH (09:25)
[2017-09-05] MEDS: Insulin LISPRO 300 UNITS/3 ML VIAL SQ SCH ×4 (09:26→22:15)
[2017-09-05 09:28] LABS: Anisocytosis 2+ (Not Present); Hypochromasia Present (Not Present); Microcytosis Present (Not Present); Platelet Estimate Normal (Normal)
[2017-09-05 09:31] LABS: Potassium 3.3 mEq/L (3.5-5.1)
--- NOTE | 2017-09-05 17:50 | Internal Med Progress Note ---
Date of Encounter: 09/05/17 Time of Encounter: 11:00 - Assessment and plan (1) Gastroenteritis Current Visit: Yes Status: Acute Assessment and plan: Patient still with some episodes of diarrhea secondary to viral gastroenteritis has GI panel negative Supportive care (2) Pneumonia Current Visit: Yes Status: Ruled-out Assessment and plan: Imaging negative for any infiltrates and patient without any upper respiratory symptoms therefore IV Levaquin discontinued. Qualifiers: Pneumonia type: due to Pneumococcus Laterality: unspecified laterality Lung location: unspecified part of lung Qualified Code(s): J13 - Pneumonia due to Streptococcus pneumoniae (3) Type 2 diabetes mellitus Current Visit: No Status: Chronic Assessment and plan: We will cover patient with sliding scale insulin. Qualifiers: Diabetes mellitus computer terminal operator insulin use: without computer terminal operator use Diabetes mellitus complication status: with unspecified complications Qualified Code(s) : E11.8 - Type 2 diabetes mellitus with unspecified complications (4) Bipolar disorder Current Visit: No Status: Chronic Assessment and plan: Continue home medications. Check lithium level in a.m. Qualifiers: Active/Remission status: in full remission Most recent bipolar episode type : most recent episode unspecified type Qualified Code(s): F31.70 - Bipolar disorder, currently in remission, most recent episode unspecified (5) Hypothyroidism Current Visit: No Status: Chronic Assessment and plan: Continue home medications Qualifiers: Hypothyroidism type: unspecified Qualified Code(s): E03.9 - Hypothyroidism , unspecified (6) Hypertension Current Visit: No Status: Chronic Assessment and plan: Continue home medications and closely monitor BP Qualifiers: Hypertension type: essential hypertension Qualified Code(s): I10 - Essential (primary) hypertension (7) DVT prophylaxis Current Visit: No Status: Acute (8) Morbid obesity Current Visit: Yes Status: Acute Assessment and plan: Need the lifestyle modification. Continue BiPAP during night. (9) Goals of care, counseling/discussion Current Visit: Yes Status: Acute Assessment and plan: Awaiting placement for snf facility per physical therapist recommendations - Time Spent With Patient Total time spent is greater than 50% in coordination of care (as documented) at patient's floor/unit and/or counseling patient: - Subjective Interval history: Patient with some episodes of diarrhea secondary to viral gastroenteritis; GI panel negative Awaiting placement for snf facility per physical therapist recommendations - Constitutional Vitals: Temp Pulse Resp BP Pulse Ox 98.3 F 57 17 120/66 96 09/05/17 16:19 09/05/17 16:19 09/05/17 16:19 09/05/17 16:19 09/05/17 16:19 General appearance: Present: A&O X 3, morbidly obese, no acute distress, answers questions appropriately - Respiratory Respiratory exam: Present: CTAB. Absent: accessory muscle use, rales, rhonchi, wheezes - Cardiovascular Cardiovascular exam: Present: RRR, +S1, +S2. Absent: diastolic murmur, gallop, rubs, systolic murmur Internal Medicine: Result - Labs CBC & Chem 7: 09/05/17 08:31 09/05/17 08:31 Labs: Short CBC 09/05/17 Range/Units 08:31 WBC 10.9 (4.3-11.1) K/mcL Hgb 10.4 L (11.5-15.4) g/dL Hct 35.2 L (35.3-44.9) % Plt Count 186 (140-400) K/mcL Neutrophils # 8.7 (1.6-8.9) K/mcL BMP 09/05/17 08:31 Sodium 141 Potassium 3.3 L Chloride 101 Carbon Dioxide 36 H BUN 10 Creatinine 1.02 Glucose 144 H Calcium 8.5 L Consult Discharge Plan - Plan Referrals: Corina Lynch MD [Primary Care Provider] - 09/14/17 11:15 am (Please follow up as schedule...)
[2017-09-05] MEDS: Lithium Carbonate 300 MG CAPSULE PO SCH (22:44)
[2017-09-06] MEDS: *HR* Heparin 5,000 UNIT/ML VIAL SQ SCH ×3 (00:59→16:53)
[2017-09-06] MEDS: Ciprofloxacin OPTH Soln 2.5 ML BOTTLE LEFT EYE SCH ×6 (01:00→22:04)
[2017-09-06 09:10] LABS: Basophils % 0.2 %; Immature Granulocytes % 0.5 % (0-4)
[2017-09-06 09:11] LABS: Eosinophils # 0.4 K/mcL (0.0-0.6); Eosinophils % 3.9 %; Hematocrit 37.7 % (35.3-44.9); Hemoglobin 10.6 g/dL (11.5-15.4); Lymphocytes # 0.9 K/mcL (0.6-4.6); Lymphocytes % 8.9 %; Mean Corpuscular HGB Conc 28.1 g/dL (31.6-35.5); Mean Corpuscular Hemoglobin 22.8 pg (28.0-33.3); Mean Corpuscular Volume 81.3 fL (83.0-100.0); Mean Platelet Volume 12.5 fL (9.4-12.4); Monocytes # 0.6 K/mcL (0.0-1.3); Monocytes % 6.3 %; Neutrophils # 8.1 K/mcL (1.6-8.9); Platelet Count 186 K/mcL (140-400); Red Blood Count 4.64 M/mcL (3.82-4.97); Red Cell Distribution Width 17.2 % (11.5-14.5); Segmented Neutrophils % 80.2 %
[2017-09-06] MEDS: Insulin LISPRO 300 UNITS/3 ML VIAL SQ SCH ×4 (09:17→22:01)
[2017-09-06] MEDS: Verapamil ER (24 HR) 240 MG TABLET.ER PO SCH (09:23)
[2017-09-06] MEDS: ARIPiprazole 2 MG TABLET PO SCH (09:23)
[2017-09-06] MEDS: Lactobacillus 1 EACH CAP.SPRINK PO SCH (09:23)
[2017-09-06] MEDS: Gabapentin 300 MG CAPSULE PO SCH ×3 (09:23→21:59)
[2017-09-06] MEDS: Furosemide 40 MG TABLET PO SCH ×2 (09:24→16:53)
[2017-09-06] MEDS: Cyclopentolate 2 ML BOTTLE LEFT EYE SCH (09:25)
[2017-09-06] MEDS: Nystatin POWDER 30 GM BOTTLE TP SCH ×2 (09:25→22:02)
[2017-09-06] MEDS: Fluticasone Propionate Nasal 50 MCG/SPRAY BOTTLE NS SCH (09:25)
[2017-09-06 09:37] LABS: Hypochromasia Present (Not Present); Platelet Estimate Normal (Normal)
[2017-09-06 09:57] LABS: BUN/Creatinine Ratio 10 (6-26); Blood Urea Nitrogen 9 mg/dL (8-23); Calcium 8.5 mg/dL (8.6-10.3); Carbon Dioxide 39 mEq/L (23-29); Chloride 98 mEq/L (98-107); Glucose 129 mg/dL (70-105); Osmolality,Calculated 296 (280-300); Potassium 3.3 mEq/L (3.5-5.1); Sodium 143 mEq/L (136-145); eGFR For African Americans > 60 (> 60); eGFR For Non-African Americans > 60 (> 60)
[2017-09-06] MEDS ORDERED: Methyl Salicylate/Menthol 28 GM TUBE TP PRN (14:19)
--- NOTE | 2017-09-06 18:27 | Internal Med Progress Note ---
Date of Encounter: 09/06/17 Time of Encounter: 11:00 - Assessment and plan (1) Gastroenteritis Current Visit: Yes Status: Acute Assessment and plan: Patient still with some episodes of diarrhea secondary to viral gastroenteritis has GI panel negative Imodium given today; supportive care (2) Pneumonia Current Visit: Yes Status: Ruled-out Assessment and plan: Imaging negative for any infiltrates and patient without any upper respiratory symptoms therefore IV Levaquin discontinued. Qualifiers: Pneumonia type: due to Pneumococcus Laterality: unspecified laterality Lung location: unspecified part of lung Qualified Code(s): J13 - Pneumonia due to Streptococcus pneumoniae (3) Type 2 diabetes mellitus Current Visit: No Status: Chronic Assessment and plan: We will cover patient with sliding scale insulin. Qualifiers: Diabetes mellitus longterm insulin use: without long term care administrator use Diabetes mellitus complication status: with unspecified complications Qualified Code(s) : E11.8 - Type 2 diabetes mellitus with unspecified complications (4) Bipolar disorder Current Visit: No Status: Chronic Assessment and plan: Continue home medications. Check lithium level in a.m. Qualifiers: Active/Remission status: in full remission Most recent bipolar episode type : most recent episode unspecified type Qualified Code(s): F31.70 - Bipolar disorder, currently in remission, most recent episode unspecified (5) Hypothyroidism Current Visit: No Status: Chronic Assessment and plan: Continue home medications Qualifiers: Hypothyroidism type: unspecified Qualified Code(s): E03.9 - Hypothyroidism , unspecified (6) Hypertension Current Visit: No Status: Chronic Assessment and plan: Continue home medications and closely monitor BP Qualifiers: Hypertension type: essential hypertension Qualified Code(s): I10 - Essential (primary) hypertension (7) DVT prophylaxis Current Visit: No Status: Acute Assessment and plan: Heparin subcutaneously (8) Morbid obesity Current Visit: Yes Status: Acute Assessment and plan: Need the lifestyle modification. Continue BiPAP during night. (9) Goals of care, counseling/discussion Current Visit: Yes Status: Acute Assessment and plan: Awaiting placement for snf facility per physical therapist recommendations - Time Spent With Patient Total time spent is greater than 50% in coordination of care (as documented) at patient's floor/unit and/or counseling patient: - Subjective Interval history: Patient with some episodes of diarrhea secondary to viral gastroenteritis; GI panel negative Awaiting placement for snf facility per physical therapist recommendations - Constitutional Vitals: Temp Pulse Resp BP Pulse Ox 99.2 F 64 20 118/60 95 09/06/17 16:38 09/06/17 16:38 09/06/17 16:38 09/06/17 16:38 09/06/17 16:38 General appearance: Present: A&O X 3, morbidly obese, no acute distress, answers questions appropriately - Cardiovascular Cardiovascular exam: Present: RRR, +S1, +S2. Absent: diastolic murmur, gallop, rubs, systolic murmur - GI/Abdominal GI/Abdominal exam: Present: normal bowel sounds, soft, no peritoneal signs. Absent: distended, tenderness Internal Medicine: Result - Labs CBC & Chem 7: 09/06/17 08:20 09/06/17 08:20 Labs: Short CBC 09/06/17 Range/Units 08:20 WBC 10.1 (4.3-11.1) K/mcL Hgb 10.6 L (11.5-15.4) g/dL Hct 37.7 (35.3-44.9) % Plt Count 186 (140-400) K/mcL Neutrophils # 8.1 (1.6-8.9) K/mcL BMP 09/06/17 08:20 Sodium 143 Potassium 3.3 L Chloride 98 Carbon Dioxide 39 H BUN 9 Creatinine 0.92 Glucose 129 H Calcium 8.5 L Consult Discharge Plan - Plan Referrals: Corina Lynch MD [Primary Care Provider] - 09/14/17 11:15 am (Please follow up as schedule...)
[2017-09-06] MEDS: Loperamide 1 MG/5 ML UDC PO PRN (21:59)
[2017-09-06] MEDS: Lithium Carbonate 300 MG CAPSULE PO SCH (21:59)
[2017-09-07] MEDS: Ciprofloxacin OPTH Soln 2.5 ML BOTTLE LEFT EYE SCH ×5 (00:36→15:13)
[2017-09-07] MEDS: *HR* Heparin 5,000 UNIT/ML VIAL SQ SCH ×3 (00:37→15:15)
[2017-09-07] MEDS: Insulin LISPRO 300 UNITS/3 ML VIAL SQ SCH ×3 (08:34→16:11)
[2017-09-07] MEDS: Furosemide 40 MG TABLET PO SCH ×2 (08:52→16:11)
[2017-09-07] MEDS: Verapamil ER (24 HR) 240 MG TABLET.ER PO SCH (08:52)
[2017-09-07] MEDS: Gabapentin 300 MG CAPSULE PO SCH ×2 (08:52→15:13)
[2017-09-07] MEDS: ARIPiprazole 2 MG TABLET PO SCH (08:53)
[2017-09-07] MEDS: Lactobacillus 1 EACH CAP.SPRINK PO SCH (08:53)
[2017-09-07] MEDS: Nystatin POWDER 30 GM BOTTLE TP SCH (08:56)
[2017-09-07] MEDS: Cyclopentolate 2 ML BOTTLE LEFT EYE SCH (09:00)
[2017-09-07] MEDS: Fluticasone Propionate Nasal 50 MCG/SPRAY BOTTLE NS SCH (09:00)
[2017-09-07] MEDS: Ondansetron 4 MG/2 ML VIAL IVP PRN ×2 (09:19→15:13)
[2017-09-07] MEDS: Loperamide 1 MG/5 ML UDC PO PRN (09:19)
--- NOTE | 2017-09-07 12:26 | Physician Discharge Referral ---
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 (6) Hypertension Priority: Secondary Status: Chronic (7) Chronic venous insufficiency Priority: Secondary Status: Chronic (8) Hyperlipidemia Status: Chronic (9) DVT prophylaxis Priority: Primary Status: Acute (10) Morbid obesity with BMI of 60.0-69.9, adult Priority: Secondary Status: Chronic (11) Conjunctivitis Priority: Secondary Status: Acute (12) Gastroenteritis Priority: Primary Status: Resolved (13) Goals of care, counseling/discussion Priority: Secondary Status: Acute - Transfer Medications Prescriptions: Loperamide [Imodium] 2 mg PO Q4HR PRN #10 capsule PRN Reason: Diarrhea Home Medications: Cholestyramine (with Sugar) [Cholestyramine Bulk Powder] 2 scoop PO DAILY [History] Gabapentin [Neurontin] 600 mg PO TID 08/24/16 [History] Levothyroxine Sodium 50 mcg PO DAILY 08/24/16 [History] Levothyroxine Sodium [Levo-T] 200 mcg PO DAILY 08/24/16 [History] [place] Carbonate 900 mg PO HS 08/24/16 [History] Nystatin POWDER [Nystop] 1 appl TP BID 08/24/16 [History] Pantoprazole Sodium 40 mg PO DAILY 08/24/16 [History] Saxagliptin HCl [Onglyza] 5 mg PO DAILY 08/24/16 [History] Sertraline [Zoloft] 200 mg PO DAILY 08/24/16 [History] Verapamil HCl [Verapamil ER] 240 mg PO DAILY 08/24/16 [History] Brimonidine 0.2% [Alphagan] 1 drop BOTH EYES TID 08/25/16 [History] Cyclopentolate 1 drop LEFT EYE DAILY 08/25/16 [History] L. Acidophilus/Pectin, [place] [Acidophilus Caplet] 1 each PO DAILY 08/25/16 [ History] hydrOXYzine HCl [Hydroxyzine HCl] 25 mg PO BID PRN 08/25/16 [History] Fluticasone Propionate Nasal [Flonase] 50 mcg NS DAILY bottle 08/28/16 [Rx] Furosemide [Lasix] 40 mg PO BID #60 tablet 08/28/16 [Rx] Losartan [Cozaar] 50 mg PO DAILY tablet 08/28/16 [Rx] Pentoxifylline [TRENtal] 400 mg PO TIDWM tablet.er 08/28/16 [Rx] ARIPiprazole [Abilify] 2 mg PO DAILY 09/02/17 [History] Acyclovir [Zovirax] 800 mg PO BID 09/02/17 [History] Dicyclomine [Bentyl] 10 mg PO QID #20 capsule 09/02/17 [Rx] HYDROcodone/Acet 7.5/325 mg [[place] 7.5-325 mg] 1 tab PO Q6H 09/02/17 [History] Ondansetron ODT [Zofran ODT] 4 mg SL Q6HR #20 tab.rapdis 09/02/17 [Rx] Pravastatin Sodium [Pravachol] 40 mg PO HS 09/02/17 [History] Repaglinide [Prandin] 1 mg PO DAILY 09/02/17 [History] Loperamide [Imodium] 1 mg PO QID PRN udc 09/07/17 [Rx] Loperamide [Imodium] 2 mg PO Q4HR PRN #10 capsule 09/07/17 [Rx] Allergies/Adverse Reactions: 3 Allergy/AdvReac Type Severity Reaction Status Date / Time sulfamethoxazole Allergy Rash Verified 09/02/17 20:27 [From Bactrim] trimethoprim [From Bactrim] Allergy Rash Verified 09/02/17 20:27 celecoxib [From Celebrex] AdvReac Gastrointestinal Verified 09/02/17 20:27 Upset Penicillins AdvReac Swelling Verified 09/02/17 20:27 of the Eye trazodone AdvReac Fainting Verified 09/02/17 20:27 Serazone AdvReac Swelling Uncoded 09/02/17 20:27 of Lip/Tongue/Throat - Respiratory Orders Smoking Cessation: Smoking cessation has been advised. For more information, call the [place] Tobacco Quit Line at 5-139-DJZO-NOW. - Advance Directives Code Status: Full Code - Diet Orders No Concentrated Sweets, Cardiac CERTIFICATION: I certify that the transfer of the above named patient to an Extended Care Facility is necessary for the continuing treatment of the diagnosis listed. The above information is true and accurate reflection of patient's current condition. Confidential - Redisclosure prohibited without a patient's written consent.
--- NOTE | 2017-09-07 12:30 | Discharge Summary ---
- NOTES TO OUTPATIENT PROVIDER Notes to Outpatient Provider: Imodium for gastroenteritis, supportive care Date of Encounter: 09/07/17 Time of Encounter: 12:27 - Discharge Diagnosis (1) Type 2 diabetes mellitus Priority: Secondary Status: Chronic Qualifiers: Diabetes mellitus [facility] insulin use: without superintendent terminal use Diabetes mellitus complication status: with unspecified complications Qualified Code(s) : E11.8 - Type 2 diabetes mellitus with unspecified complications (2) Bipolar disorder Priority: Secondary Status: Chronic Qualifiers: Active/Remission status: in full remission Most recent bipolar episode type : most recent episode unspecified type Qualified Code(s): F31.70 - Bipolar disorder, currently in remission, most recent episode unspecified (3) Depression Priority: Secondary Status: Chronic Qualifiers: Depression Type: unspecified Qualified Code(s): F32.9 - Major depressive disorder, single episode, unspecified (4) Hypothyroidism Priority: Secondary Status: Chronic Qualifiers: Hypothyroidism type: unspecified Qualified Code(s): E03.9 - Hypothyroidism , unspecified (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 Qualifiers: Herpes zoster complications: with ocular involvement Herpes zoster ocular complication detail: unspecified herpes zoster eye disease Qualified Code(s): 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, unspecified (6) Hypertension Priority: Secondary Status: Chronic Qualifiers: Hypertension type: essential hypertension Qualified Code(s): I10 - Essential (primary) hypertension (7) Chronic venous insufficiency Priority: Secondary Status: Chronic (8) Hyperlipidemia Priority: Secondary Status: Chronic Qualifiers: Hyperlipidemia type: unspecified Qualified Code(s): E78.5 - Hyperlipidemia , unspecified (9) DVT prophylaxis Priority: Primary Status: Resolved (10) Morbid obesity with BMI of 60.0-69.9, adult Priority: Secondary Status: Chronic (11) Conjunctivitis Priority: Secondary Status: Acute Qualifiers: Conjunctivitis type: acute Acute conjunctivitis type: unspecified Laterality: left Qualified Code(s): H10.32 - Unspecified acute conjunctivitis , left eye (12) Gastroenteritis Priority: Primary Status: Resolved (13) Goals of care, counseling/discussion Priority: Secondary Status: Acute Hospital course: Ms. Asif is a 61 year old female with multiple medical comorbidities was admitted for gastroenteritis, with mild hypokalemia. Stool workup was negative. There was an initial concern for possible pneumonia on admission this has been ruled out. Serial chest x-rays. Her chronic medical complaints and problems of diabetes mellitus, bipolar disorder, hypothyroidism and hypertension stable. She has been started on loperamide and supportive care, continued at the care home facility. Has no new complaints this morning and physical examination is unremarkable. 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 Discharge discussed with: patient, nurse, social work, case management - Time Spent with Patient Total time spent providing and/or coordinating discharge services: Greater than 30 minutes - Discharge Medications Prescriptions: Loperamide [Imodium] 2 mg PO Q4HR PRN #10 capsule PRN Reason: Diarrhea Home Medications: Cholestyramine (with Sugar) [Cholestyramine Bulk Powder] 2 scoop PO DAILY [History] Gabapentin [Neurontin] 600 mg PO TID 08/24/16 [History] Levothyroxine Sodium 50 mcg PO DAILY 08/24/16 [History] Levothyroxine Sodium [Levo-T] 200 mcg PO DAILY 08/24/16 [History] [place] Carbonate 900 mg PO HS 08/24/16 [History] Nystatin POWDER [Nystop] 1 appl TP BID 08/24/16 [History] Pantoprazole Sodium 40 mg PO DAILY 08/24/16 [History] Saxagliptin HCl [Onglyza] 5 mg PO DAILY 08/24/16 [History] Sertraline [Zoloft] 200 mg PO DAILY 08/24/16 [History] Verapamil HCl [Verapamil ER] 240 mg PO DAILY 08/24/16 [History] Brimonidine 0.2% [Alphagan] 1 drop BOTH EYES TID 08/25/16 [History] Cyclopentolate 1 drop LEFT EYE DAILY 08/25/16 [History] L. Acidophilus/Pectin, [place] [Acidophilus Caplet] 1 each PO DAILY 08/25/16 [ History] hydrOXYzine HCl [Hydroxyzine HCl] 25 mg PO BID PRN 08/25/16 [History] Fluticasone Propionate Nasal [Flonase] 50 mcg NS DAILY bottle 08/28/16 [Rx] Furosemide [Lasix] 40 mg PO BID #60 tablet 08/28/16 [Rx] Losartan [Cozaar] 50 mg PO DAILY tablet 08/28/16 [Rx] Pentoxifylline [TRENtal] 400 mg PO TIDWM tablet.er 08/28/16 [Rx] ARIPiprazole [Abilify] 2 mg PO DAILY 09/02/17 [History] Acyclovir [Zovirax] 800 mg PO BID 09/02/17 [History] Dicyclomine [Bentyl] 10 mg PO QID #20 capsule 09/02/17 [Rx] HYDROcodone/Acet 7.5/325 mg [[place] 7.5-325 mg] 1 tab PO Q6H 09/02/17 [History] Ondansetron ODT [Zofran ODT] 4 mg SL Q6HR #20 tab.rapdis 09/02/17 [Rx] Pravastatin Sodium [Pravachol] 40 mg PO HS 09/02/17 [History] Repaglinide [Prandin] 1 mg PO DAILY 09/02/17 [History] Loperamide [Imodium] 1 mg PO QID PRN udc 09/07/17 [Rx] Loperamide [Imodium] 2 mg PO Q4HR PRN #10 capsule 09/07/17 [Rx] Allergies/Adverse Reactions: 3 Allergy/AdvReac Type Severity Reaction Status Date / Time sulfamethoxazole Allergy Rash Verified 09/02/17 20:27 [From Bactrim] trimethoprim [From Bactrim] Allergy Rash Verified 09/02/17 20:27 celecoxib [From Celebrex] AdvReac Gastrointestinal Verified 09/02/17 20:27 Upset Penicillins AdvReac Swelling Verified 09/02/17 20:27 of the Eye trazodone AdvReac Fainting Verified 09/02/17 20:27 Serazone AdvReac Swelling Uncoded 09/02/17 20:27 of Lip/Tongue/Throat Date of admission: 09/02/17 22:19 Primary care physician: Corina Lynch Consults: 09/03/17 00:46 Consult to Scenery Builder [CONS] Routine Reason for SW Consult: lives at home alone, has home health, pt states no one has seen her in days 09/03/17 12:35 Consult to Occupational Therapy [CONS] Routine Comment: Evaluate, develop and implement POC Reason for Consult: poss need for ecf Does patient have active BEDREST order?: No Is patient medically & hemodynamically stable?: Yes Consult to Physical Therapy [CONS] Routine Comment: Evaluate, develop and implement POC Reason for Consult: poss need for ecf Does patient have active BEDREST order?: No Is patient medically & hemodynamically stable?: Yes 09/07/17 08:01 Consult to Scenery Builder [CONS] Routine Reason for SW Consult: Placement Discharging clinician: Andi Bryan Anticipated date of discharge: 09/07/17 - Constitutional Vitals: Temp Pulse Resp BP Pulse Ox 98.0 F 62 16 105/51 95 09/07/17 11:07 09/07/17 11:07 09/07/17 11:07 09/07/17 11:07 09/07/17 11:07 General appearance: Present: A&O X 3, morbidly obese, no acute distress, answers questions appropriately - Head Head exam: Present: atraumatic, normocephalic - Eye Additional comments: L eye with corneal ulcer, sequelae of herpes zooster - Neck Neck exam general surgery: Present: supple, trachea midline. Absent: lymphadenopathy - Respiratory Respiratory exam: Present: CTAB. Absent: accessory muscle use, rales, rhonchi, wheezes - Cardiovascular Cardiovascular exam: Present: RRR, +S1, +S2. Absent: diastolic murmur, gallop, rubs, systolic murmur - GI/Abdominal GI/Abdominal exam: Present: normal bowel sounds, soft, no peritoneal signs. Absent: distended, tenderness - Extremities Exam Additional comments: chronic venous stasis changes - Neurological Exam Neurological exam: Present: alert, CN II-XII intact, oriented X3, no focal deficits. Absent: pronater drift, facial droop, speech deficit - Skin Skin exam: Present: dry, intact - Patient Status Disposition: Transfer SNF Condition: Good Functional capacity at discharge: independent ambulation Overall status at discharge: patient is progressing back to baseline - Discharge Instructions Follow Up With: Corina Lynch MD [Primary Care Provider] - 09/14/17 11:15 am (Please follow up as schedule...) - Diet and Activity Activity: resume usual activities as tolerated Diet: low fat, low cholesterol, low salt diet
[2017-09-07 15:50] VITALS: BP 125/52
== END 2017-09-07 18:40 | DRG 392 ==
LOC: EMEROO 16:07 → 2ANU 16:07 → SUATTDRO 22:19 → 2ANU 23:10
PROVIDERS: ADMIT Internal Medicine; ATTEND Internal Medicine

== ENCOUNTER 2017-09-22 05:29 | Inpatient (IN) ==
--- NOTE | 2017-09-22 05:37 | Emergency Department Note ---
Disposition Clinical Impression: Shortness of breath Disposition: Still a Patient Condition: Good Referrals: Corina Lynch MD [Primary Care Provider] - Forms: ED Satisfaction Letter Time of Disposition: 06:41 SOB HPI - General Stated Complaint: SoB Time Seen by Provider: 09/22/17 05:32 Nursing Notes Reviewed: Yes Vital Signs Reviewed: Yes - History of Present Illness Pt Subjective Complaint: shortness of breath Onset (ago): minute(s) (90) Consistency/Duration: constant Associated symptoms: Denies: chest pain, fever, cough, wheezing, sputum production, lower extremity pain, diaphoresis, nausea/vomiting, abdominal pain Treatment prior to arrival: oxygen (via EMS) Cough present: No - Related Data Home Medications Medication Instructions Recorded Confirmed Cholestyramine (with Sugar) 2 scoop PO DAILY 08/24/16 09/02/17 [Cholestyramine Bulk Powder] Gabapentin [Neurontin] 600 mg PO TID 08/24/16 09/02/17 Levothyroxine Sodium 50 mcg PO DAILY 08/24/16 09/02/17 Levothyroxine Sodium [Levo-T] 200 mcg PO DAILY 08/24/16 09/02/17 [place] Carbonate 900 mg PO HS 08/24/16 09/02/17 Nystatin POWDER [Nystop] 1 appl TP BID 08/24/16 09/02/17 Pantoprazole Sodium 40 mg PO DAILY 08/24/16 09/02/17 Saxagliptin HCl [Onglyza] 5 mg PO DAILY 08/24/16 09/02/17 Sertraline [Zoloft] 200 mg PO DAILY 08/24/16 09/02/17 Verapamil HCl [Verapamil ER] 240 mg PO DAILY 08/24/16 09/02/17 Brimonidine 0.2% [Alphagan] 1 drop BOTH EYES TID 08/25/16 09/02/17 Cyclopentolate 1 drop LEFT EYE DAILY 08/25/16 09/02/17 L. Acidophilus/Pectin, Kelly 1 each PO DAILY 08/25/16 09/02/17 [Acidophilus Caplet] hydrOXYzine HCl [Hydroxyzine HCl] 25 mg PO BID PRN 08/25/16 09/02/17 ARIPiprazole [Abilify] 2 mg PO DAILY 09/02/17 09/02/17 Acyclovir [Zovirax] 800 mg PO BID 09/02/17 09/02/17 HYDROcodone/Acet 7.5/325 mg [Export 1 tab PO Q6H 09/02/17 09/02/17 7.5-325 mg] Pravastatin Sodium [Pravachol] 40 mg PO HS 09/02/17 09/02/17 Repaglinide [Prandin] 1 mg PO DAILY 09/02/17 09/02/17 Previous Rx's Medication Instructions Recorded Fluticasone Propionate Nasal 50 mcg NS DAILY bottle 08/28/16 [Flonase] Furosemide [Lasix] 40 mg PO BID #60 tablet 08/28/16 Losartan [Cozaar] 50 mg PO DAILY tablet 08/28/16 Pentoxifylline [TRENtal] 400 mg PO TIDWM tablet.er 08/28/16 Dicyclomine [Bentyl] 10 mg PO QID #20 capsule 09/02/17 Ondansetron ODT [Zofran ODT] 4 mg SL Q6HR #20 tab.rapdis 09/02/17 Ciprofloxacin OPTH Soln [Ciloxan 2 drop LEFT EYE Q4HR bottle 09/07/17 OPTH Soln] Loperamide [Imodium] 1 mg PO QID PRN udc 09/07/17 Loperamide [Imodium] 2 mg PO Q4HR PRN #10 capsule 09/07/17 Allergies Allergy/AdvReac Type Severity Reaction Status Date / Time sulfamethoxazole Allergy Rash Verified 09/02/17 20:27 [From Bactrim] trimethoprim [From Bactrim] Allergy Rash Verified 09/02/17 20:27 celecoxib [From Celebrex] AdvReac Gastrointestinal Verified 09/02/17 20:27 Upset Penicillins AdvReac Swelling Verified 09/02/17 20:27 of the Eye trazodone AdvReac Fainting Verified 09/02/17 20:27 Serazone AdvReac Swelling Uncoded 09/02/17 20:27 of Lip/Tongue/Throat All systems ED: reviewed and negative except as stated. Review of Systems: As Per HPI Constitutional: Denies: fever, chills Eyes: Denies: vision change ENT ED: Denies: throat pain Cardiovascular: Denies: chest pain, palpitations Respiratory: Reports: as per HPI. Denies: cough Gastrointestinal: Denies: abdominal pain Genitourinary: Denies: dysuria Musculoskeletal: Denies: back pain Integumentary: Denies: rash Neurological: Denies: headache Endocrine: Denies: fatigue Hematological/Lymphatic: Denies: easy bleeding Allergic/Immunologic: Denies: facial swelling Past Medical History - Past Medical History Medical history: Reports: atrial fibrillation, COPD, diabetes, hyperlipidemia, hypertension, other Surgical history: Reports: appendectomy, cholecystectomy, hysterectomy, thyroidectomy Psychiatric history: Reports: depression, prior suicide attempt, previous psychiatric hospitalization - Social History Smoking Status: Never smoker Smokeless Tobacco Status: No Alcohol use: Reports: none Drug use: Reports: none Physical Exam - General Limitations: no limitations General appearance: alert - Head Head exam: atraumatic, normocephalic - Eye Eye exam: Present: EOMI, conjunctival injection (left) - ENT ENT exam: normal oropharynx - Neck Neck exam: Present: full ROM - Chest Chest inspection: Present: symmetric chest wall rise - Respiratory Respiratory exam: Absent: respiratory distress, wheezes - Cardiovascular Cardiovascular exam: Present: regular rate, normal rhythm - Abdominal Exam Abdominal exam: Present: soft, Non-Tender - Extremities Exam Extremities exam: Absent: tenderness - Back Exam Back exam: Present: full ROM - Neurological Exam Neurological exam: Present: alert - Psychiatric Psychiatric exam: Present: normal affect, normal mood - Skin Skin exam: Present: warm, dry, intact, normal color. Absent: rash, cyanosis, diaphoresis Course Course Narrative: 61-year-old female nonsmoker who arrives via squad from [facility] with complaint of shortness of breath. [facility] reports that staff patient became short of breath approximately 90 minutes prior to her arrival here. Apparently there is a reported rolling out of bed as well, however patient denies any injury, pain, loss of consciousness or prolonged downtime. She describes being assisted back into her bed. [facility] reports that patient was placed on home O2 oxygen approximately 15 days ago, 3 L. Upon her arrival O2 sat was 90%, increased to 96% on 6 L mask oxygen. Patient denies any chest pain , fever, cough. - Reevaluation(s) Reevaluation #1: Due to shift change, care of this patient will be transferred to day shift provider Jesus Alberto Barth CNP, and likely daytime attending. Please see their documentation for additional details. Time: 06:26 Vital Signs Temperature 97.9 F 09/22/17 05:33 Pulse Rate 69 09/22/17 05:33 Respiratory Rate 20 09/22/17 05:33 Blood Pressure 131/75 09/22/17 05:33 O2 Sat by Pulse Oximetry 95 09/22/17 05:33 Temperature 97.9 F 09/22/17 05:33 Pulse Rate 69 09/22/17 05:33 Respiratory Rate 20 09/22/17 05:33 Blood Pressure 131/75 09/22/17 05:33 O2 Sat by Pulse Oximetry 95 09/22/17 05:33 Oxygen Delivery Oxygen Delivery Simple Mask Shortness of Breath/Dyspnea - Lab Data Lab results reviewed: Yes I reviewed the patient's lab results. Result diagrams: 09/22/17 05:58 09/22/17 05:58 Lab Results 09/22/17 09/22/17 09/22/17 Range/Units 05:58 05:58 05:58 WBC 10.8 (4.3-11.1) K/mcL RBC 4.77 (3.82-4.97) M/mcL Hgb 11.4 L (11.5-15.4) g/dL Hct 39.2 (35.3-44.9) % MCV 82.2 L (83.0-100.0) fL MCH 23.9 L (28.0-33.3) pg MCHC 29.1 L (31.6-35.5) g/dL RDW 18.2 H (11.5-14.5) % Plt Count 211 (140-400) K/mcL MPV 12.3 (9.4-12.4) fL Immature Gran % 0.4 (0-4) % Seg Neutrophils % 84.6 % Lymphocytes % 7.1 % Monocytes % 5.7 % Eosinophils % 2.0 % Basophils % 0.2 % Neutrophils # 9.1 H (1.6-8.9) K/mcL Lymphocytes # 0.8 (0.6-4.6) K/mcL Monocytes # 0.6 (0.0-1.3) K/mcL Eosinophils # 0.2 (0.0-0.6) K/mcL Basophils # 0.0 (0.0-0.2) K/mcL PT 12.0 (9.4-12.1) Seconds INR 1.1 Sample Site ABG pH (7.32-7.45) pH Units ABG pCO2 (35-45) mmHg ABG pO2 (85-104) mmHg ABG HCO3 (21-27) mEq/L ABG Total CO2 (20-26) mEq/L ABG O2 Saturation (95-98) % ABG Base Excess (-2 to 3) mEq/L Frederick Test O2 Delivery Device Inspired O2 (1-15=lpm [id number]=%) Sodium 141 (136-145) mEq/L Potassium 3.5 (3.5-5.1) mEq/L Chloride 103 (98-107) mEq/L Carbon Dioxide 32 H (23-29) mEq/L BUN 11 (8-23) mg/dL Creatinine 1.03 (0.60-1.20) mg/dL Est GFR ( Amer) > 60 (> 60) Est GFR (Non-Af Amer) 54 L (> 60) BUN/Creatinine Ratio 11 (6-26) Glucose 155 H (70-105) mg/dL Calculated Osmolality 295 (280-300) Lactic Acid (0.5-2.2) mmol/L Calcium 9.1 (8.6-10.3) mg/dL Total Bilirubin 0.4 (0.3-1.0) mg/dL Direct Bilirubin 0.1 (0.0-0.2) mg/dL Indirect Bilirubin 0.3 (0.0-1.2) mg/dL AST 12 L (13-39) Units/L ALT 13 (7-52) Units/L Alkaline Phosphatase 77 (34-104) Units/L Troponin I < 0.03 (< 0.04) ng/mL Serum Total Protein 6.5 (6.4-8.9) g/dL Albumin 4.0 (3.5-5.7) g/dL Globulin 2.5 (2.4-3.5) g/dL Albumin/Globulin Ratio 1.6 (1.1-2.2) 09/22/17 09/22/17 Range/Units 05:58 05:59 WBC (4.3-11.1) K/mcL RBC (3.82-4.97) M/mcL Hgb (11.5-15.4) g/dL Hct (35.3-44.9) % MCV (83.0-100.0) fL MCH (28.0-33.3) pg MCHC (31.6-35.5) g/dL RDW (11.5-14.5) % Plt Count (140-400) K/mcL MPV (9.4-12.4) fL Immature Gran % (0-4) % Seg Neutrophils % % Lymphocytes % % Monocytes % % Eosinophils % % Basophils % % Neutrophils # (1.6-8.9) K/mcL Lymphocytes # (0.6-4.6) K/mcL Monocytes # (0.0-1.3) K/mcL Eosinophils # (0.0-0.6) K/mcL Basophils # (0.0-0.2) K/mcL PT (9.4-12.1) Seconds INR Sample Site L Radial ABG pH 7.34 (7.32-7.45) pH Units ABG pCO2 66 H (35-45) mmHg ABG pO2 55 L (85-104) mmHg ABG HCO3 35 H (21-27) mEq/L ABG Total CO2 38 H (20-26) mEq/L ABG O2 Saturation 85 L (95-98) % ABG Base Excess 7 H (-2 to 3) mEq/L Frederick Test Positive O2 Delivery Device Cannula Inspired O2 3.0 (1-15=lpm [id number]=%) Sodium (136-145) mEq/L Potassium (3.5-5.1) mEq/L Chloride (98-107) mEq/L Carbon Dioxide (23-29) mEq/L BUN (8-23) mg/dL Creatinine (0.60-1.20) mg/dL Est GFR ( Amer) (> 60) Est GFR (Non-Af Amer) (> 60) BUN/Creatinine Ratio (6-26) Glucose (70-105) mg/dL Calculated Osmolality (280-300) Lactic Acid 1.2 (0.5-2.2) mmol/L Calcium (8.6-10.3) mg/dL Total Bilirubin (0.3-1.0) mg/dL Direct Bilirubin (0.0-0.2) mg/dL Indirect Bilirubin (0.0-1.2) mg/dL AST (13-39) Units/L ALT (7-52) Units/L Alkaline Phosphatase (34-104) Units/L Troponin I (< 0.04) ng/mL Serum Total Protein (6.4-8.9) g/dL Albumin (3.5-5.7) g/dL Globulin (2.4-3.5) g/dL Albumin/Globulin Ratio (1.1-2.2) - Radiology Data Radiology results reviewed: Yes I reviewed the patient's radiology results. - EKG Data EKG attestation: Yes I reviewed and interpreted this EKG. Attestation Statement - Attestation Attestation: I examined this patient and my medical decision-making was reviewed with the Resident Physician. I agree with the documented findings, disposition and treatment plan as described except to the extent set forth below. Findings consistent with fall and dyspnea. We will obtain trauma imaging as well as basic laboratory analyses and [place] as well as chest x-ray to rule out underlying pulmonary dysfunction. I do suspect there is a component of obesity hypoventilation syndrome but I do want exclude traumatic pathology as worsening her respiratory distress. She is not on anticoagulation. Final disposition will be pending results of blood gas, metabolic analyses as well as advanced imaging.
[2017-09-22 06:04] LABS: ABG Base Excess 7 mEq/L (-2 to 3); ABG HCO3 35 mEq/L (21-27); ABG Oxygen Saturation 85 % (95-98); ABG PCO2 66 mmHg (35-45); ABG PH 7.34 pH Units (7.32-7.45); ABG PO2 55 mmHg (85-104); ABG TCO2 38 mEq/L (20-26)
[2017-09-22 06:09] LABS: Basophils % 0.2 %; Eosinophils # 0.2 K/mcL (0.0-0.6); Hematocrit 39.2 % (35.3-44.9); Hemoglobin 11.4 g/dL (11.5-15.4); Immature Granulocytes % 0.4 % (0-4); Lymphocytes # 0.8 K/mcL (0.6-4.6); Lymphocytes % 7.1 %; Mean Corpuscular HGB Conc 29.1 g/dL (31.6-35.5); Mean Corpuscular Hemoglobin 23.9 pg (28.0-33.3); Mean Corpuscular Volume 82.2 fL (83.0-100.0); Mean Platelet Volume 12.3 fL (9.4-12.4); Monocytes # 0.6 K/mcL (0.0-1.3); Monocytes % 5.7 %; Neutrophils # 9.1 K/mcL (1.6-8.9); Platelet Count 211 K/mcL (140-400); Red Blood Count 4.77 M/mcL (3.82-4.97); Red Cell Distribution Width 18.2 % (11.5-14.5); Segmented Neutrophils % 84.6 %
[2017-09-22 06:28] LABS: INR 1.1
--- NOTE | 2017-09-22 06:34 | Emergency Department Note ---
Disposition Clinical Impression: COPD exacerbation Disposition: Admitted As Inpatient Condition: Fair Time of Disposition: 09:10 SOB HPI - General Chief Complaint: ED Fall Stated Complaint: SoB Time Seen by Provider: 09/22/17 05:32 Source: patient, EMS Limitations: no limitations Nursing Notes Reviewed: Yes Vital Signs Reviewed: Yes - History of Present Illness Pt Subjective Complaint: shortness of breath Associated symptoms: Denies: chest pain, fever, cough, wheezing, sputum production, lower extremity pain, diaphoresis, nausea/vomiting, abdominal pain Treatment prior to arrival: oxygen (via EMS) - Related Data Home Medications Medication Instructions Recorded Confirmed Cholestyramine (with Sugar) 2 scoop PO DAILY 08/24/16 09/22/17 [Cholestyramine Bulk Powder] Gabapentin [Neurontin] 600 mg PO TID 08/24/16 09/22/17 Drumright Carbonate 900 mg PO HS 08/24/16 09/22/17 Pantoprazole Sodium 40 mg PO DAILY 08/24/16 09/22/17 Saxagliptin HCl [Onglyza] 5 mg PO DAILY 08/24/16 09/22/17 Sertraline [Zoloft] 200 mg PO DAILY 08/24/16 09/22/17 Verapamil HCl [Verapamil ER] 240 mg PO DAILY 08/24/16 09/22/17 Brimonidine 0.2% [Alphagan] 1 drop BOTH EYES TID 08/25/16 09/22/17 L. Acidophilus/Pectin, [place] 1 each PO DAILY 08/25/16 09/22/17 [Acidophilus Caplet] hydrOXYzine HCl [Hydroxyzine HCl] 25 mg PO BID PRN 08/25/16 09/22/17 ARIPiprazole [Abilify] 2 mg PO DAILY 09/02/17 09/22/17 Acyclovir [Zovirax] 800 mg PO BID 09/02/17 09/22/17 Pravastatin Sodium [Pravachol] 40 mg PO HS 09/02/17 09/22/17 Repaglinide [Prandin] 1 mg PO DAILY 09/02/17 09/22/17 Hydrocodone/Acetaminophen 1 tab PO Q6H PRN 09/22/17 09/22/17 [Hydrocodone-Acetamin 7.5-300] Levothyroxine Sodium [Synthroid] 300 mcg PO DAILY 09/22/17 09/22/17 Loperamide [Imodium] 2 mg PO QID PRN 09/22/17 09/22/17 Previous Rx's Medication Instructions Recorded Fluticasone Propionate Nasal 50 mcg NS DAILY bottle 08/28/16 [Flonase] Furosemide [Lasix] 40 mg PO BID #60 tablet 08/28/16 Losartan [Cozaar] 50 mg PO DAILY tablet 08/28/16 Pentoxifylline [TRENtal] 400 mg PO TIDWM tablet.er 08/28/16 Dicyclomine [Bentyl] 10 mg PO QID #20 capsule 09/02/17 Ondansetron ODT [Zofran ODT] 4 mg SL Q6HR #20 tab.rapdis 09/02/17 Allergies Allergy/AdvReac Type Severity Reaction Status Date / Time sulfamethoxazole Allergy Rash Verified 09/22/17 08:16 [From Bactrim] trimethoprim [From Bactrim] Allergy Rash Verified 09/22/17 08:16 celecoxib [From Celebrex] AdvReac Gastrointestinal Verified 09/22/17 08:16 Upset Penicillins AdvReac Swelling Verified 09/22/17 08:16 of the Eye trazodone AdvReac Fainting Verified 09/22/17 08:16 Serazone AdvReac Swelling Uncoded 09/22/17 08:16 of Lip/Tongue/Throat Constitutional: Denies: fever, chills Eyes: Denies: vision change ENT ED: Denies: throat pain Cardiovascular: Denies: chest pain, palpitations Respiratory: Reports: as per HPI. Denies: cough Gastrointestinal: Denies: abdominal pain Genitourinary: Denies: dysuria Musculoskeletal: Denies: back pain Integumentary: Denies: rash Neurological: Denies: headache Endocrine: Denies: fatigue Hematological/Lymphatic: Denies: easy bleeding Allergic/Immunologic: Denies: facial swelling Past Medical History - Past Medical History Medical history: Reports: atrial fibrillation, COPD, diabetes, hyperlipidemia, hypertension, other Surgical history: Reports: appendectomy, cholecystectomy, hysterectomy, thyroidectomy Psychiatric history: Reports: depression, prior suicide attempt, previous psychiatric hospitalization - Social History Smoking Status: Never smoker Smokeless Tobacco Status: No Alcohol use: Reports: none Drug use: Reports: none Physical Exam - General Limitations: no limitations General appearance: alert Course Course Narrative: 0600: I have assumed care of this patient from [facility]UN[facility] Landon due to mid-level shift change. Please see Dipesh's documentation for care performed prior to my arrival. Briefly, this 61-year-old female arrives by EMS from an outside extended care facility with complaints of shortness of breath. Symptoms began approximately 90 minutes prior to arrival here. It was also reported that she rolled out of bed earlier this morning but denied any injury. The patient was noted to be saturating 90% on 3 L by nasal cannula. This increased to 96% on 6 L mask oxygen. Laboratory and CT workup pending at this time. 0850: I spoken with Dr. Marshall of the hospitalist services accepted the patient for admission for further observation and treatment. Vital Signs Temperature 97.9 F 09/22/17 05:33 Pulse Rate 69 09/22/17 05:33 Respiratory Rate 20 09/22/17 05:33 Blood Pressure 131/75 09/22/17 05:33 O2 Sat by Pulse Oximetry 95 09/22/17 05:33 Temperature 97.9 F 09/22/17 05:33 Pulse Rate 64 09/22/17 08:55 Respiratory Rate 18 09/22/17 08:55 Blood Pressure 153/77 09/22/17 08:55 O2 Sat by Pulse Oximetry 98 09/22/17 08:55 Oxygen Delivery Oxygen Delivery Room Air Shortness of Breath/Dyspnea - Medical Records Medical records reviewed: Yes I reviewed the patient's medical records. - Lab Data Lab results reviewed: Yes I reviewed the patient's lab results. Lab results narrative: Laboratory Last Values WBC 10.8 K/mcL (4.3-11.1) 09/22/17 05:58 RBC 4.77 M/mcL (3.82-4.97) 09/22/17 05:58 Hgb 11.4 g/dL (11.5-15.4) L 09/22/17 05:58 Hct 39.2 % (35.3-44.9) 09/22/17 05:58 MCV 82.2 fL (83.0-100.0) L 09/22/17 05:58 MCH 23.9 pg (28.0-33.3) L 09/22/17 05:58 MCHC 29.1 g/dL (31.6-35.5) L 09/22/17 05:58 RDW 18.2 % (11.5-14.5) H 09/22/17 05:58 Plt Count 211 K/mcL (140-400) 09/22/17 05:58 MPV 12.3 fL (9.4-12.4) 09/22/17 05:58 Immature Gran % 0.4 % (0-4) 09/22/17 05:58 Seg Neutrophils % 84.6 % 09/22/17 05:58 Lymphocytes % 7.1 % 09/22/17 05:58 Monocytes % 5.7 % 09/22/17 05:58 Eosinophils % 2.0 % 09/22/17 05:58 Basophils % 0.2 % 09/22/17 05:58 Neutrophils # 9.1 K/mcL (1.6-8.9) H 09/22/17 05:58 Lymphocytes # 0.8 K/mcL (0.6-4.6) 09/22/17 05:58 Monocytes # 0.6 K/mcL (0.0-1.3) 09/22/17 05:58 Eosinophils # 0.2 K/mcL (0.0-0.6) 09/22/17 05:58 Basophils # 0.0 K/mcL (0.0-0.2) 09/22/17 05:58 PT 12.0 Seconds (9.4-12.1) 09/22/17 05:58 INR 1.1 09/22/17 05:58 Sample Site L Radial 09/22/17 05:59 ABG pH 7.34 pH Units (7.32-7.45) 09/22/17 05:59 ABG pCO2 66 mmHg (35-45) H 09/22/17 05:59 ABG pO2 55 mmHg (85-104) L 09/22/17 05:59 ABG HCO3 35 mEq/L (21-27) H 09/22/17 05:59 ABG Total CO2 38 mEq/L (20-26) H 09/22/17 05:59 ABG O2 Saturation 85 % (95-98) L 09/22/17 05:59 ABG Base Excess 7 mEq/L (-2 to 3) H 09/22/17 05:59 Frederick Test Positive 09/22/17 05:59 O2 Delivery Device Cannula 09/22/17 05:59 Inspired O2 3.0 (1-15=lpm [id number]=%) 09/22/17 05:59 Sodium 141 mEq/L (136-145) 09/22/17 05:58 Potassium 3.5 mEq/L (3.5-5.1) 09/22/17 05:58 Chloride 103 mEq/L (98-107) 09/22/17 05:58 Carbon Dioxide 32 mEq/L (23-29) H 09/22/17 05:58 BUN 11 mg/dL (8-23) 09/22/17 05:58 Creatinine 1.03 mg/dL (0.60-1.20) 09/22/17 05:58 Est GFR ( Amer) > 60 (> 60) 09/22/17 05:58 Est GFR (Non-Af Amer) 54 (> 60) L 09/22/17 05:58 BUN/Creatinine Ratio 11 (6-26) 09/22/17 05:58 Glucose 155 mg/dL (70-105) H 09/22/17 05:58 Calculated Osmolality 295 (280-300) 09/22/17 05:58 Lactic Acid 1.3 mmol/L (0.5-2.2) 09/22/17 07:08 Calcium 9.1 mg/dL (8.6-10.3) 09/22/17 05:58 Total Bilirubin 0.4 mg/dL (0.3-1.0) 09/22/17 05:58 Direct Bilirubin 0.1 mg/dL (0.0-0.2) 09/22/17 05:58 Indirect Bilirubin 0.3 mg/dL (0.0-1.2) 09/22/17 05:58 AST 12 Units/L (13-39) L 09/22/17 05:58 ALT 13 Units/L (7-52) 09/22/17 05:58 Alkaline Phosphatase 77 Units/L (34-104) 09/22/17 05:58 Troponin I < 0.03 ng/mL (< 0.04) 09/22/17 05:58 B-Natriuretic Peptide 35 pg/mL (Less than 100) 09/22/17 05:58 Serum Total Protein 6.5 g/dL (6.4-8.9) 09/22/17 05:58 Albumin 4.0 g/dL (3.5-5.7) 09/22/17 05:58 Globulin 2.5 g/dL (2.4-3.5) 09/22/17 05:58 Albumin/Globulin Ratio 1.6 (1.1-2.2) 09/22/17 05:58 Result diagrams: 09/22/17 05:58 09/22/17 05:58 Lab Results 09/22/17 09/22/17 09/22/17 Range/Units 05:58 05:58 05:58 WBC 10.8 (4.3-11.1) K/mcL RBC 4.77 (3.82-4.97) M/mcL Hgb 11.4 L (11.5-15.4) g/dL Hct 39.2 (35.3-44.9) % MCV 82.2 L (83.0-100.0) fL MCH 23.9 L (28.0-33.3) pg MCHC 29.1 L (31.6-35.5) g/dL RDW 18.2 H (11.5-14.5) % Plt Count 211 (140-400) K/mcL MPV 12.3 (9.4-12.4) fL Immature Gran % 0.4 (0-4) % Seg Neutrophils % 84.6 % Lymphocytes % 7.1 % Monocytes % 5.7 % Eosinophils % 2.0 % Basophils % 0.2 % Neutrophils # 9.1 H (1.6-8.9) K/mcL Lymphocytes # 0.8 (0.6-4.6) K/mcL Monocytes # 0.6 (0.0-1.3) K/mcL Eosinophils # 0.2 (0.0-0.6) K/mcL Basophils # 0.0 (0.0-0.2) K/mcL PT 12.0 (9.4-12.1) Seconds INR 1.1 Sample Site ABG pH (7.32-7.45) pH Units ABG pCO2 (35-45) mmHg ABG pO2 (85-104) mmHg ABG HCO3 (21-27) mEq/L ABG Total CO2 (20-26) mEq/L ABG O2 Saturation (95-98) % ABG Base Excess (-2 to 3) mEq/L Frederick Test O2 Delivery Device Inspired O2 (1-15=lpm [id number]=%) Sodium 141 (136-145) mEq/L Potassium 3.5 (3.5-5.1) mEq/L Chloride 103 (98-107) mEq/L Carbon Dioxide 32 H (23-29) mEq/L BUN 11 (8-23) mg/dL Creatinine 1.03 (0.60-1.20) mg/dL Est GFR ( Amer) > 60 (> 60) Est GFR (Non-Af Amer) 54 L (> 60) BUN/Creatinine Ratio 11 (6-26) Glucose 155 H (70-105) mg/dL Calculated Osmolality 295 (280-300) Lactic Acid (0.5-2.2) mmol/L Calcium 9.1 (8.6-10.3) mg/dL Total Bilirubin 0.4 (0.3-1.0) mg/dL Direct Bilirubin 0.1 (0.0-0.2) mg/dL Indirect Bilirubin 0.3 (0.0-1.2) mg/dL AST 12 L (13-39) Units/L ALT 13 (7-52) Units/L Alkaline Phosphatase 77 (34-104) Units/L Troponin I < 0.03 (< 0.04) ng/mL B-Natriuretic Peptide (Less than 100) pg/mL Serum Total Protein 6.5 (6.4-8.9) g/dL Albumin 4.0 (3.5-5.7) g/dL Globulin 2.5 (2.4-3.5) g/dL Albumin/Globulin Ratio 1.6 (1.1-2.2) 09/22/17 09/22/17 09/22/17 Range/Units 05:58 05:58 05:59 WBC (4.3-11.1) K/mcL RBC (3.82-4.97) M/mcL Hgb (11.5-15.4) g/dL Hct (35.3-44.9) % MCV (83.0-100.0) fL MCH (28.0-33.3) pg MCHC (31.6-35.5) g/dL RDW (11.5-14.5) % Plt Count (140-400) K/mcL MPV (9.4-12.4) fL Immature Gran % (0-4) % Seg Neutrophils % % Lymphocytes % % Monocytes % % Eosinophils % % Basophils % % Neutrophils # (1.6-8.9) K/mcL Lymphocytes # (0.6-4.6) K/mcL Monocytes # (0.0-1.3) K/mcL Eosinophils # (0.0-0.6) K/mcL Basophils # (0.0-0.2) K/mcL PT (9.4-12.1) Seconds INR Sample Site L Radial ABG pH 7.34 (7.32-7.45) pH Units ABG pCO2 66 H (35-45) mmHg ABG pO2 55 L (85-104) mmHg ABG HCO3 35 H (21-27) mEq/L ABG Total CO2 38 H (20-26) mEq/L ABG O2 Saturation 85 L (95-98) % ABG Base Excess 7 H (-2 to 3) mEq/L [place] Test Positive O2 Delivery Device Cannula Inspired O2 3.0 (1-15=lpm be63-277=%) Sodium (136-145) mEq/L Potassium (3.5-5.1) mEq/L Chloride (98-107) mEq/L Carbon Dioxide (23-29) mEq/L BUN (8-23) mg/dL Creatinine (0.60-1.20) mg/dL Est GFR ( Amer) (> 60) Est GFR (Non-Af Amer) (> 60) BUN/Creatinine Ratio (6-26) Glucose (70-105) mg/dL Calculated Osmolality (280-300) Lactic Acid 1.2 (0.5-2.2) mmol/L Calcium (8.6-10.3) mg/dL Total Bilirubin (0.3-1.0) mg/dL Direct Bilirubin (0.0-0.2) mg/dL Indirect Bilirubin (0.0-1.2) mg/dL AST (13-39) Units/L ALT (7-52) Units/L Alkaline Phosphatase (34-104) Units/L Troponin I (< 0.04) ng/mL B-Natriuretic Peptide 35 (Less than 100) pg/mL Serum Total Protein (6.4-8.9) g/dL Albumin (3.5-5.7) g/dL Globulin (2.4-3.5) g/dL Albumin/Globulin Ratio (1.1-2.2) 09/22/17 Range/Units 07:08 WBC (4.3-11.1) K/mcL RBC (3.82-4.97) M/mcL Hgb (11.5-15.4) g/dL Hct (35.3-44.9) % MCV (83.0-100.0) fL MCH (28.0-33.3) pg MCHC (31.6-35.5) g/dL RDW (11.5-14.5) % Plt Count (140-400) K/mcL MPV (9.4-12.4) fL Immature Gran % (0-4) % Seg Neutrophils % % Lymphocytes % % Monocytes % % Eosinophils % % Basophils % % Neutrophils # (1.6-8.9) K/mcL Lymphocytes # (0.6-4.6) K/mcL Monocytes # (0.0-1.3) K/mcL Eosinophils # (0.0-0.6) K/mcL Basophils # (0.0-0.2) K/mcL PT (9.4-12.1) Seconds INR Sample Site ABG pH (7.32-7.45) pH Units ABG pCO2 (35-45) mmHg ABG pO2 (85-104) mmHg ABG HCO3 (21-27) mEq/L ABG Total CO2 (20-26) mEq/L ABG O2 Saturation (95-98) % ABG Base Excess (-2 to 3) mEq/L Frederick Test O2 Delivery Device Inspired O2 (1-15=lpm fs94-097=%) Sodium (136-145) mEq/L Potassium (3.5-5.1) mEq/L Chloride (98-107) mEq/L Carbon Dioxide (23-29) mEq/L BUN (8-23) mg/dL Creatinine (0.60-1.20) mg/dL Est GFR ( Amer) (> 60) Est GFR (Non-Af Amer) (> 60) BUN/Creatinine Ratio (6-26) Glucose (70-105) mg/dL Calculated Osmolality (280-300) Lactic Acid 1.3 (0.5-2.2) mmol/L Calcium (8.6-10.3) mg/dL Total Bilirubin (0.3-1.0) mg/dL Direct Bilirubin (0.0-0.2) mg/dL Indirect Bilirubin (0.0-1.2) mg/dL AST (13-39) Units/L ALT (7-52) Units/L Alkaline Phosphatase (34-104) Units/L Troponin I (< 0.04) ng/mL B-Natriuretic Peptide (Less than 100) pg/mL Serum Total Protein (6.4-8.9) g/dL Albumin (3.5-5.7) g/dL Globulin (2.4-3.5) g/dL Albumin/Globulin Ratio (1.1-2.2) - Radiology Data Radiology results reviewed: Yes I reviewed the patient's radiology results. Chest X-Ray 09/22/17 05:33 IMPRESSION: No acute disease. D/ / Tim Joaquin MD / Tim Joaquin MD Interpreting Provider: Tim Joaquin MD Head CT 09/22/17 05:33 IMPRESSION: Stable appearance of the brain with no acute intracranial abnormality. D/ / Onesimo Doss MD / Onesimo Doss MD Interpreting Provider: Onesimo Doss MD Cervical Spine CT 09/22/17 05:34 IMPRESSION: No acute abnormality of the cervical spine. D/ / Onesimo Doss MD / Onesimo Doss MD Interpreting Provider: Onesimo Doss MD Lumbar Spine CT 09/22/17 05:34 IMPRESSION: No acute traumatic injury of the thoracic or lumbar spine. Multilevel [id number] disc degenerative changes throughout the thoracic and lumbar spine. Grade 1 anterolisthesis of L5 on S1 likely secondary to hypertrophic facet arthritis. D/ : / 09/22/2017 07:35:50 Sukhjinder Pace MD / jean Interpreting Provider: Sukhjinder Pace MD Thoracic Spine CT 09/22/17 05:34 IMPRESSION: No acute traumatic injury of the thoracic or lumbar spine. Multilevel [id number] disc degenerative changes throughout the thoracic and lumbar spine. Grade 1 anterolisthesis of L5 on S1 likely secondary to hypertrophic facet arthritis. D/ : / 09/22/2017 07:35:50 Sukhjinder Pace MD / jean Interpreting Provider: Sukhjinder Pace MD
[2017-09-22 06:35] LABS: Alanine Aminotransferase 13 Units/L (7-52); Albumin/Globulin Ratio 1.6 (1.1-2.2); Alkaline Phosphatase 77 Units/L (34-104); Aspartate Amino Transferase 12 Units/L (13-39); BUN/Creatinine Ratio 11 (6-26); Bilirubin,Direct 0.1 mg/dL (0.0-0.2); Bilirubin,Indirect 0.3 mg/dL (0.0-1.2); Bilirubin,Total 0.4 mg/dL (0.3-1.0); Blood Urea Nitrogen 11 mg/dL (8-23); Calcium 9.1 mg/dL (8.6-10.3); Carbon Dioxide 32 mEq/L (23-29); Chloride 103 mEq/L (98-107); Globulin 2.5 g/dL (2.4-3.5); Glucose 155 mg/dL (70-105); Osmolality,Calculated 295 (280-300); Potassium 3.5 mEq/L (3.5-5.1); Sodium 141 mEq/L (136-145); Total Protein 6.5 g/dL (6.4-8.9); Troponin I < 0.03 ng/mL (< 0.04); eGFR For African Americans > 60 (> 60); eGFR For Non-African Americans 54 (> 60)
[2017-09-22] MEDS ORDERED: Ipratropium/Albuterol Neb 3 ML IH ONE (08:59)
[2017-09-22] MEDS ORDERED: methylPREDNISolone 125 MG/2 ML VIAL IVP ONE (08:59)
[2017-09-22] MEDS ORDERED: Albuterol 2.5 MG/3 ML NEBULIZER IH PRN (09:24)
[2017-09-22] MEDS ORDERED: D5% in Water 1,000 ML IVC PRN (09:35)
[2017-09-22] MEDS ORDERED: Dextrose Gel 15 GM/37.5 ML TUBE PO PRN ×2 (09:35)
[2017-09-22] MEDS ORDERED: *HR* Dextrose 50 % in Water (Syg) 50 ML SYRINGE IVP PRN (09:35)
[2017-09-22] MEDS ORDERED: Naloxone 0.4 MG/ML INJ IVP PRN (09:53)
[2017-09-22 10:36] LABS: Estimated Average Glucose 140 mg/dl; Hemoglobin A1C 6.5 %
[2017-09-22] MEDS: Ipratropium/Albuterol Neb 3 ML IH SCH ×3 (10:41→21:38)
[2017-09-22] MEDS: Loratadine 10 MG TABLET PO SCH (11:05)
[2017-09-22] MEDS: ARIPiprazole 2 MG TABLET PO SCH (11:05)
[2017-09-22] MEDS: Verapamil ER (24 HR) 240 MG TABLET.ER PO SCH (11:56)
[2017-09-22] MEDS: Furosemide 40 MG TABLET PO SCH ×2 (11:56→16:58)
[2017-09-22] MEDS: *HR* HYDROcodone/Acet 5/325 mg TABLET PO PRN (11:56)
[2017-09-22] MEDS: Lactobacillus 1 EACH CAP.SPRINK PO SCH (11:57)
[2017-09-22] MEDS: Gabapentin 300 MG CAPSULE PO SCH ×2 (11:57→20:09)
[2017-09-22] MEDS: Insulin LISPRO 300 UNITS/3 ML VIAL SQ SCH ×3 (12:00→20:35)
[2017-09-22] MEDS: Cholestyramine 4 GM POWD.PACK PO SCH (12:09)
[2017-09-22] MEDS: Fluticasone Propionate Nasal 50 MCG/SPRAY BOTTLE NS SCH (13:04)
--- NOTE | 2017-09-22 14:00 | Internal Med History&Physical ---
Date of Encounter: 09/22/17 Time of Encounter: 09:17 Internal Medicine - H&P: HPI Chief complaint: "Difficulty breathing" Admitted From: Emergency Dept Plans for Post Hospital Care: Transfer Alf Facility History of present illness: Ms. Asif is a 61 year old female who presented to ED from [facility] after a fall. Her chief complaint was "difficulty breathing." She states that she was placed on supplemental oxygen about 3 months ago by her PCP, but she does not know why. She was experiencing intermittent SOB during this time. She does have PATRICIO and wears CPAP at night. She state that lately she was on continuous 3L by NC at [facility]. She denies any history of asthma, COPD, or CHF. ED physician and chart review shows diagnosis of COPD in chart. She is a non-smoker. She was recently hospitalized here 2 weeks ago for gastroenteritis and herpetic conjunctivitis. She states that she does not take any breathing medications at home. She denies any fever, chills, chest pain, nausea, vomiting, abdominal pain, changes in bladder, or changes in bowels. Upon arrival to ED, she was placed on 6L by oxymask. By the time of my interview, she was down to 4L by NC. Initial ABG showed pH 7.34, pCO@ of 66, and pO2 of 55. She was not in any respiratory distress. She states that SOB was improved. She wants something to eat. CXR showed no acute cardiopulmonary process. All other imaging was negative for fractures or other injuries from her fall. She was given 1 dose of solumedrol 125 mg IV and 1 duoneb treatment. Past Med Surg Social Fam HX - Past Medical History Attestation: Yes The following information was validated with the patient. Source: patient Medical history: atrial fibrillation, COPD, diabetes, hyperlipidemia, hypertension, other Additional medical history: diverticulosts pulmonary edema chronic small airway disease cardiomegaly Psychiatric history: depression, prior suicide attempt, previous psychiatric hospitalization - Past Surgical History Surgical History: appendectomy, cholecystectomy, hysterectomy, thyroidectomy Additional surgical history: tennis elbow - Social History Smoking Status: Never smoker Smokeless Tobacco Status: No Alcohol use: none Drug use: none - Family History Father Hx Family Cardiac Disorders: Yes Hx Family Endocrine Disorder: Yes - Additional Family History Additional family history: Family history reviewed with patient. Internal Medicine - H&P: Meds Cholestyramine (with Sugar) [Cholestyramine Bulk Powder] 2 scoop PO DAILY [History] Gabapentin [Neurontin] 600 mg PO TID 08/24/16 [History] Catharine Carbonate 900 mg PO HS 08/24/16 [History] Pantoprazole Sodium 40 mg PO DAILY 08/24/16 [History] Saxagliptin HCl [Onglyza] 5 mg PO DAILY 08/24/16 [History] Sertraline [Zoloft] 200 mg PO DAILY 08/24/16 [History] Verapamil HCl [Verapamil ER] 240 mg PO DAILY 08/24/16 [History] Brimonidine 0.2% [Alphagan] 1 drop BOTH EYES TID 08/25/16 [History] L. Acidophilus/Pectin, [place] [Acidophilus Caplet] 1 each PO DAILY 08/25/16 [ History] hydrOXYzine HCl [Hydroxyzine HCl] 25 mg PO BID PRN 08/25/16 [History] Fluticasone Propionate Nasal [Flonase] 50 mcg NS DAILY bottle 08/28/16 [Rx] Furosemide [Lasix] 40 mg PO BID #60 tablet 08/28/16 [Rx] Losartan [Cozaar] 50 mg PO DAILY tablet 08/28/16 [Rx] Pentoxifylline [TRENtal] 400 mg PO TIDWM tablet.er 08/28/16 [Rx] ARIPiprazole [Abilify] 2 mg PO DAILY 09/02/17 [History] Acyclovir [Zovirax] 800 mg PO BID 09/02/17 [History] Dicyclomine [Bentyl] 10 mg PO QID #20 capsule 09/02/17 [Rx] Ondansetron ODT [Zofran ODT] 4 mg SL Q6HR #20 tab.rapdis 09/02/17 [Rx] Pravastatin Sodium [Pravachol] 40 mg PO HS 09/02/17 [History] Repaglinide [Prandin] 1 mg PO DAILY 09/02/17 [History] Hydrocodone/Acetaminophen [Hydrocodone-Acetamin 7.5-300] 1 tab PO Q6H PRN [History] Levothyroxine Sodium [Synthroid] 300 mcg PO DAILY 09/22/17 [History] Loperamide [Imodium] 2 mg PO QID PRN 09/22/17 [History] 3 Allergy/AdvReac Type Severity Reaction Status Date / Time sulfamethoxazole Allergy Rash Verified 09/22/17 08:16 [From Bactrim] trimethoprim [From Bactrim] Allergy Rash Verified 09/22/17 08:16 celecoxib [From Celebrex] AdvReac Gastrointestinal Verified 09/22/17 08:16 Upset Penicillins AdvReac Swelling Verified 09/22/17 08:16 of the Eye trazodone AdvReac Fainting Verified 09/22/17 08:16 Serazone AdvReac Swelling Uncoded 09/22/17 08:16 of Lip/Tongue/Throat All Systems PM: A 10-system review of systems was performed and is negative for pertinent findings except as documented above in the HPI. - Constitutional Vitals: Temp Pulse Resp BP Pulse Ox 98.8 F 74 20 116/63 94 09/22/17 11:52 09/22/17 11:52 09/22/17 11:52 09/22/17 11:52 09/22/17 11:52 General appearance: Present: cooperative, A&O X 3, morbidly obese, pleasant, no acute distress, answers questions appropriately - Head Head exam: Present: atraumatic, normal inspection, normocephalic - Eye Eye exam: Present: EOMI, PERRL. Absent: conjunctival injection, nystagmus, scleral icterus - ENT ENT exam: Present: mucous membranes moist, normal external ear exam, normal oropharynx - Neck Neck exam general surgery: Present: supple, trachea midline. Absent: lymphadenopathy, tenderness, thyromegaly - Respiratory Respiratory exam: Present: CTAB. Absent: accessory muscle use, rales, rhonchi, wheezes Additional comments: Normal WOB - Cardiovascular Cardiovascular exam: Present: RRR, +S1, +S2. Absent: diastolic murmur, gallop, rubs, systolic murmur Additional comments: Trace BLE edema with chronic venous insufficiency skin changes - GI/Abdominal GI/Abdominal exam: Present: normal bowel sounds, soft. Absent: distended, hepatomegaly, mass, splenomegaly, tenderness - Neurological Exam Neurological exam: Present: alert, CN II-XII intact, oriented X3, no focal deficits, strengths equal and symetr throughout. Absent: motor sensory deficit , facial droop, speech deficit - Psychiatric Psychiatric exam: Present: normal affect, normal mood. Absent: agitated, anxious, depressed - Skin Skin exam: Present: dry, intact, warm. Absent: cyanosis, rash Internal Med - H&P Results - Labs CBC & Chem 7: 09/22/17 05:58 09/22/17 05:58 - Assessment and plan (1) COPD exacerbation Current Visit: Yes Status: Acute Assessment and plan: Admit as inpatient with telemetry. Continue supplemental O2 and wean to home 3L NC as tolerated. Continue scheduled duonebs and albuterol nebs PRN SOB. Continue solumedrol 40 mg IV Q8H; taper with improvement. (2) Acute respiratory failure Current Visit: Yes Status: Acute Assessment and plan: Management as per above. Qualifiers: Respiratory failure complication: unspecified whether with hypoxia or hypercapnia Qualified Code(s): J96.00 - Acute respiratory failure, unspecified whether with hypoxia or hypercapnia (3) Bipolar disorder Current Visit: Yes Status: Chronic Assessment and plan: Continue home medications. Qualifiers: Active/Remission status: in full remission Most recent bipolar episode type : most recent episode unspecified type Qualified Code(s): F31.70 - Bipolar disorder, currently in remission, most recent episode unspecified (4) Chronic venous insufficiency Current Visit: Yes Status: Chronic Assessment and plan: Continue home medications. (5) Herpes zoster Current Visit: Yes Status: Chronic Assessment and plan: Recent hospitalization with herpetic conjunctivitis. Complete outpatient course of acyclovir. 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 Qualifiers: Hyperlipidemia type: unspecified Qualified Code(s): E78.5 - Hyperlipidemia , unspecified (7) Hypertension Current Visit: Yes Status: Chronic Assessment and plan: Continue home medications. Qualifiers: Hypertension type: essential hypertension Qualified Code(s): I10 - Essential (primary) hypertension (8) Hypothyroidism Current Visit: Yes Status: Chronic Assessment and plan: Continue home medications. Qualifiers: Hypothyroidism type: unspecified Qualified Code(s): E03.9 - Hypothyroidism , unspecified (9) Morbid obesity with BMI of 60.0-69.9, adult Current Visit: No Status: Chronic Assessment and plan: Counselled on lifestyle modifications. (10) Type 2 diabetes mellitus Current Visit: Yes Status: Chronic Assessment and plan: Start accuchecks and SSI QID AC/HS. Qualifiers: Diabetes mellitus manager long term care insulin use: without chcf use Diabetes mellitus complication status: with unspecified complications Qualified Code(s) : E11.8 - Type 2 diabetes mellitus with unspecified complications (11) Obesity hypoventilation syndrome Current Visit: Yes Status: Chronic Assessment and plan: Counselled on lifestyle modifications. (12) PATRICIO (obstructive sleep apnea) Current Visit: Yes Status: Chronic Assessment and plan: Continue CPAP at home settings QHS. (13) DVT prophylaxis Current Visit: Yes Status: Acute Assessment and plan: Start lovenox 40 mg SQ QD and SCDs. - Time Spent With Patient Total time spent is greater than 50% in coordination of care (as documented) at patient's floor/unit and/or counseling patient: less than 15 minutes
--- NOTE | 2017-09-22 16:44 | Electrocardiograph Report ---
[facility] Test Date: 2017-09-22 Pat Name: Jayne Asif Department: 103 Room: 3B36 Gender: F A R Collections Rep: DAVID : [id number] Requested By: Felix Feng Order Number: [id number] Reading MD: Benjamin Guerra Measurements Intervals [place] Rate: 65 P: 35 NV: 185 QRS: -6 QRSD: 97 T: 70 QT: 412 QTc: 423 Interpretive Statements SINUS RHYTHM Electronically Signed On 09-22-2017 16:43:17 EDT by Benjamin Guerra
[2017-09-22] MEDS: MethylPREDNISolone 40 MG/ML VIAL IVP SCH (16:57)
[2017-09-22] MEDS: Lithium Carbonate 300 MG CAPSULE PO SCH (20:09)
[2017-09-22] MEDS: Ondansetron 4 MG/2 ML VIAL IVP PRN (21:23)
[2017-09-23] MEDS: MethylPREDNISolone 40 MG/ML VIAL IVP SCH ×3 (00:03→16:03)
[2017-09-23] MEDS: Ipratropium/Albuterol Neb 3 ML IH SCH ×4 (03:34→22:16)
[2017-09-23] MEDS: Acetaminophen 325 MG TABLET PO PRN (05:18)
[2017-09-23] MEDS: *HR* Enoxaparin 40 MG/0.4 ML SYRINGE SQ SCH (05:20)
[2017-09-23 07:18] LABS: Basophils % 0.1 %; Hematocrit 37.1 % (35.3-44.9); Hemoglobin 10.8 g/dL (11.5-15.4); Immature Granulocytes % 0.9 % (0-4); Lymphocytes # 0.3 K/mcL (0.6-4.6); Lymphocytes % 3.2 %; Mean Corpuscular HGB Conc 29.1 g/dL (31.6-35.5); Mean Corpuscular Hemoglobin 23.6 pg (28.0-33.3); Mean Corpuscular Volume 81.2 fL (83.0-100.0); Mean Platelet Volume 12.6 fL (9.4-12.4); Monocytes # 0.2 K/mcL (0.0-1.3); Monocytes % 2.7 %; Neutrophils # 7.9 K/mcL (1.6-8.9); Platelet Count 224 K/mcL (140-400); Red Blood Count 4.57 M/mcL (3.82-4.97); Red Cell Distribution Width 18.2 % (11.5-14.5); Segmented Neutrophils % 93.1 %
[2017-09-23 07:32] LABS: BUN/Creatinine Ratio 13 (6-26); Blood Urea Nitrogen 14 mg/dL (8-23); Calcium 9.3 mg/dL (8.6-10.3); Carbon Dioxide 30 mEq/L (23-29); Chloride 102 mEq/L (98-107); Glucose 256 mg/dL (70-105); Osmolality,Calculated 299 (280-300); Potassium 3.7 mEq/L (3.5-5.1); Sodium 140 mEq/L (136-145); eGFR For African Americans > 60 (> 60); eGFR For Non-African Americans 52 (> 60)
[2017-09-23] MEDS: Cholestyramine 4 GM POWD.PACK PO SCH (08:49)
[2017-09-23] MEDS: Fluticasone Propionate Nasal 50 MCG/SPRAY BOTTLE NS SCH (08:49)
[2017-09-23] MEDS: Lactobacillus 1 EACH CAP.SPRINK PO SCH (08:50)
[2017-09-23] MEDS: Furosemide 40 MG TABLET PO SCH ×2 (08:50→17:32)
[2017-09-23] MEDS: Verapamil ER (24 HR) 240 MG TABLET.ER PO SCH (08:50)
[2017-09-23] MEDS: ARIPiprazole 2 MG TABLET PO SCH (08:50)
[2017-09-23] MEDS: Insulin LISPRO 300 UNITS/3 ML VIAL SQ SCH ×4 (08:50→21:15)
[2017-09-23] MEDS: Gabapentin 300 MG CAPSULE PO SCH ×3 (08:50→21:14)
[2017-09-23] MEDS: Loratadine 10 MG TABLET PO SCH (08:50)
--- NOTE | 2017-09-23 09:15 | Internal Med Progress Note ---
Date of Encounter: 09/23/17 Time of Encounter: 09:13 - Assessment and plan (1) COPD exacerbation Current Visit: Yes Status: Acute Assessment and plan: Presented with cc of difficulty breathing History of chronic respiratory failure, dependent on oxygen supplementation at 3 L NC Had an increased and O2 support requirements due to dyspnea, ABG shows hypercapnia and hypoxia, acute exacerbation of COPD Reports respiratory distress is improving this morning however is still having exertional dyspnea above baseline Continue respiratory support, goal is to titrate oxygen to baseline 3 L NC; maintain SPO2 greater than 90% Continue IV steroids and bronchodilators Consider changing to oral steroids tomorrow depending on patient's respiratory status History of PATRICIO, patient wears BiPAP at night, continue BiPAP at at bedtime (2) Acute respiratory failure Current Visit: Yes Status: Acute Assessment and plan: Acute on chronic respiratory failure Management as per above. Qualifiers: Respiratory failure complication: unspecified whether with hypoxia or hypercapnia Qualified Code(s): J96.00 - Acute respiratory failure, unspecified whether with hypoxia or hypercapnia (3) Obesity hypoventilation syndrome Current Visit: Yes Status: Chronic Assessment and plan: Discussed lifestyle modifications and weight loss (4) PATRICIO (obstructive sleep apnea) Current Visit: Yes Status: Chronic Assessment and plan: See above (5) Type 2 diabetes mellitus Current Visit: Yes Status: Chronic Assessment and plan: History of DM 2, today's hemoglobin A1c 6.5 takes prandin and onglyza at home; on hold while inpatient On [facility], remains hyperglycemic add prandial coverage Qualifiers: Diabetes mellitus shelter insulin use: without shelter use Diabetes mellitus complication status: with unspecified complications Qualified Code(s) : E11.8 - Type 2 diabetes mellitus with unspecified complications (6) Bipolar disorder Current Visit: Yes Status: Chronic Assessment and plan: Continue bipolar meds Qualifiers: Active/Remission status: in full remission Most recent bipolar episode type : most recent episode unspecified type Qualified Code(s): F31.70 - Bipolar disorder, currently in remission, most recent episode unspecified (7) Hypothyroidism Current Visit: Yes Status: Chronic Assessment and plan: Continue synthroid Qualifiers: Hypothyroidism type: unspecified Qualified Code(s): E03.9 - Hypothyroidism , unspecified (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, unspecified (9) Hypertension Current Visit: Yes Status: Chronic Assessment and plan: stable, anti-HTN meds Qualifiers: Hypertension type: essential hypertension Qualified Code(s): I10 - Essential (primary) hypertension (10) Hyperlipidemia Current Visit: Yes Status: Chronic Assessment and plan: Continue lipitor Qualifiers: Hyperlipidemia type: unspecified Qualified Code(s): E78.5 - Hyperlipidemia , unspecified (11) Morbid obesity with BMI of 60.0-69.9, adult Current Visit: No Status: Chronic Assessment and plan: see above (12) DVT prophylaxis Current Visit: Yes Status: Acute Assessment and plan: lovenox, SCDs. - Time Spent With Patient Total time spent is greater than 50% in coordination of care (as documented) at patient's floor/unit and/or counseling patient: Greater than 35 minutes - Subjective Interval history: Patient seen and examined at bedside today. No acute changes overnight. Reports that her breathing is improving but she still remains a little more short of breath with exertion than at her baseline. - Constitutional Vitals: Temp Pulse Resp BP Pulse Ox 98.8 F 59 17 132/67 94 09/23/17 08:09 09/23/17 08:09 09/23/17 08:09 09/23/17 08:09 09/23/17 08:09 General appearance: Present: cooperative, A&O X 3, morbidly obese, pleasant, no acute distress, answers questions appropriately - Head Head exam: Present: atraumatic, normocephalic - Eye Eye exam: Present: PERRL, conjuntiva pink, sclera anicteric Pupils: Present: PERRL - Neck Neck exam general surgery: Present: supple, trachea midline. Absent: lymphadenopathy - Respiratory Respiratory exam: Present: decreased breath sounds, CTAB, wheezes (Fine expiratory wheezes). Absent: accessory muscle use, rales, rhonchi - Cardiovascular Cardiovascular exam: Present: RRR, +S1, +S2. Absent: diastolic murmur, gallop, rubs, systolic murmur - GI/Abdominal GI/Abdominal exam: Present: normal bowel sounds, soft, no peritoneal signs. Absent: distended, tenderness - Extremities Exam Extremities exam: Present: warm, radial pulses palpable and symmetrical. Absent : calf tenderness, cyanotic, pedal edema - Neurological Exam Neurological exam: Present: CN II-XII intact, oriented X3, no focal deficits. Absent: pronater drift, facial droop, speech deficit - Skin Skin exam: Present: dry, intact Internal Medicine: Result - Labs CBC & Chem 7: 09/23/17 06:36 09/23/17 06:36 Labs: Short CBC 09/23/17 Range/Units 06:36 WBC 8.5 (4.3-11.1) K/mcL Hgb 10.8 L (11.5-15.4) g/dL Hct 37.1 (35.3-44.9) % Plt Count 224 (140-400) K/mcL Neutrophils # 7.9 (1.6-8.9) K/mcL BMP 09/23/17 06:36 Sodium 140 Potassium 3.7 Chloride 102 Carbon Dioxide 30 H BUN 14 Creatinine 1.08 Glucose 256 H Calcium 9.3 - ABG Interpretation ABG results: ABG ABG pH 7.34 pH Units (7.32-7.45) 09/22/17 05:59 ABG pCO2 66 mmHg (35-45) H 09/22/17 05:59 ABG pO2 55 mmHg (85-104) L 09/22/17 05:59 ABG O2 Saturation 85 % (95-98) L 09/22/17 05:59 PT/INR, D-dimer PT 12.0 Seconds (9.4-12.1) 09/22/17 05:58 Consult Discharge Plan - Plan Referrals: Corina Lynch MD [Primary Care Provider] -
[2017-09-23] MEDS: *HR* HYDROcodone/Acet 5/325 mg TABLET PO PRN (15:26)
[2017-09-23] MEDS ORDERED: Insulin DETEMIR 100 UNIT/ML X5UNITS SQ SCH (21:00)
[2017-09-23] MEDS: Lithium Carbonate 300 MG CAPSULE PO SCH (21:13)
[2017-09-23] MEDS: Ondansetron 4 MG/2 ML VIAL IVP PRN (22:26)
[2017-09-24] MEDS: MethylPREDNISolone 40 MG/ML VIAL IVP SCH ×2 (02:33→08:52)
[2017-09-24] MEDS: Acetaminophen 325 MG TABLET PO PRN (02:37)
[2017-09-24] MEDS: Ipratropium/Albuterol Neb 3 ML IH SCH ×2 (03:59→10:29)
[2017-09-24] MEDS: *HR* Enoxaparin 40 MG/0.4 ML SYRINGE SQ SCH (05:49)
[2017-09-24 07:46] VITALS: BP 121/67
[2017-09-24] MEDS: Loratadine 10 MG TABLET PO SCH (08:51)
[2017-09-24] MEDS: Furosemide 40 MG TABLET PO SCH (08:51)
[2017-09-24] MEDS: ARIPiprazole 2 MG TABLET PO SCH (08:51)
[2017-09-24] MEDS: Lactobacillus 1 EACH CAP.SPRINK PO SCH (08:51)
[2017-09-24] MEDS: Verapamil ER (24 HR) 240 MG TABLET.ER PO SCH (08:51)
[2017-09-24] MEDS: Fluticasone Propionate Nasal 50 MCG/SPRAY BOTTLE NS SCH (08:52)
[2017-09-24] MEDS: Cholestyramine 4 GM POWD.PACK PO SCH (08:52)
[2017-09-24] MEDS: Gabapentin 300 MG CAPSULE PO SCH (08:52)
[2017-09-24] MEDS: Insulin LISPRO 300 UNITS/3 ML VIAL SQ SCH ×2 (08:53→12:24)
--- NOTE | 2017-09-24 09:56 | Discharge Summary ---
Date of Encounter: 09/24/17 Time of Encounter: 09:54 - Discharge Diagnosis (1) COPD exacerbation Priority: Primary Status: Acute Assessment and Plan: Presented with CC of difficulty breathing, 2/2 acute exacerbation of COPD Acute on chronic respiratory failure with hypoxia and hypercapnia History of chronic respiratory failure, dependent on oxygen supplementation at 2 L NC; CPAP at at bedtime Patient is at [facility] and has not been wearing her CPAP at night which likely caused the acute on chronic respiratory failure with hypoxia and hypercapnia Respiratory status has continued to improve, patient now on baseline oxygen and tolerating well without dyspnea Lungs are clear/diminished AP and L Oral steroid burst at d/c x5 days History of PATRICIO, patient wears BiPAP at night, continue BiPAP at at bedtime Patient will be discharged today, in stable condition. [facility]. She has been instructed to follow-up with PCP within 1 week of discharge. Also, she is instructed to return to the ED should shortness of breath return or worsen. Additionally, she has been informed that it is imperative she wears her CPAP at night. She has been given a prescription for CPAP based off prior settings. [facility] aware of need for CPAP at night. (2) Acute respiratory failure Priority: Secondary Status: Acute Assessment and Plan: Acute on chronic respiratory failure Management as per above 08/24/17 Qualifiers: Respiratory failure complication: unspecified whether with hypoxia or hypercapnia Qualified Code(s): J96.00 - Acute respiratory failure, unspecified whether with hypoxia or hypercapnia (3) Obesity hypoventilation syndrome Priority: Secondary Status: Chronic Assessment and Plan: Discussed lifestyle modifications and weight loss verbailizes understanding, denies any further needs or questions (4) PATRICIO (obstructive sleep apnea) Priority: Secondary Status: Chronic Assessment and Plan: h/o PATRICIO, suppsed to wear CPAP at HS CPAP machine has not been available at [facility] resume CPAP at , Rx given prior to d/c (5) Type 2 diabetes mellitus Priority: Secondary Status: Chronic Assessment and Plan: History of DM 2,hemoglobin A1c 6.5 takes prandin and onglyza at home; cont. 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 Diabetes mellitus complication status: with unspecified complications Qualified Code(s) : E11.8 - Type 2 diabetes mellitus with unspecified complications (6) Bipolar disorder Priority: Secondary Status: Chronic Assessment and Plan: Continue bipolar meds bat dc Qualifiers: Active/Remission status: in full remission Most recent bipolar episode type : most recent episode unspecified type Qualified Code(s): F31.70 - Bipolar disorder, currently in remission, most recent episode unspecified (7) Hypothyroidism Priority: Secondary Status: Chronic Assessment and Plan: Continue synthroid at dc Qualifiers: Hypothyroidism type: unspecified Qualified Code(s): E03.9 - Hypothyroidism , unspecified (8) Herpes zoster Priority: Secondary Status: Chronic Assessment and Plan: Recent hospitalization with herpetic conjunctivitis. 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 anti-HTN meds Qualifiers: Hypertension type: essential hypertension Qualified Code(s): I10 - Essential (primary) hypertension (10) Hyperlipidemia Priority: Secondary Status: Chronic Assessment and Plan: Continue lipitor 09/24/17 Qualifiers: Hyperlipidemia type: unspecified Qualified Code(s): E78.5 - Hyperlipidemia , unspecified (11) Morbid obesity with BMI of 60.0-69.9, adult Priority: Secondary Status: Chronic Assessment and Plan: see above Hospital course: Ms. Asif is a 61 year old female Please see assessment and plan for hospital course Discharge discussed with: patient, family, nurse, case management - Time Spent with Patient Total time spent providing and/or coordinating discharge services: Less than 30 minutes - Discharge Medications Home Medications: Cholestyramine (with Sugar) [Cholestyramine Bulk Powder] 2 scoop PO DAILY [History] Gabapentin [Neurontin] 600 mg PO TID 08/24/16 [History] [place] Carbonate 900 mg PO HS 08/24/16 [History] Pantoprazole Sodium 40 mg PO DAILY 08/24/16 [History] Saxagliptin HCl [Onglyza] 5 mg PO DAILY 08/24/16 [History] Sertraline [Zoloft] 200 mg PO DAILY 08/24/16 [History] Verapamil HCl [Verapamil ER] 240 mg PO DAILY 08/24/16 [History] Brimonidine 0.2% [Alphagan] 1 drop BOTH EYES TID 08/25/16 [History] L. Acidophilus/Pectin, [place] [Acidophilus Caplet] 1 each PO DAILY 08/25/16 [ History] hydrOXYzine HCl [Hydroxyzine HCl] 25 mg PO BID PRN 08/25/16 [History] Fluticasone Propionate Nasal [Flonase] 50 mcg NS DAILY bottle 08/28/16 [Rx] Furosemide [Lasix] 40 mg PO BID #60 tablet 08/28/16 [Rx] Losartan [Cozaar] 50 mg PO DAILY tablet 08/28/16 [Rx] Pentoxifylline [TRENtal] 400 mg PO TIDWM tablet.er 08/28/16 [Rx] ARIPiprazole [Abilify] 2 mg PO DAILY 09/02/17 [History] Acyclovir [Zovirax] 800 mg PO BID 09/02/17 [History] Dicyclomine [Bentyl] 10 mg PO QID #20 capsule 09/02/17 [Rx] Ondansetron ODT [Zofran ODT] 4 mg SL Q6HR #20 tab.rapdis 09/02/17 [Rx] Pravastatin Sodium [Pravachol] 40 mg PO HS 09/02/17 [History] Repaglinide [Prandin] 1 mg PO DAILY 09/02/17 [History] Hydrocodone/Acetaminophen [Hydrocodone-Acetamin 7.5-300] 1 tab PO Q6H PRN [History] Levothyroxine Sodium [Synthroid] 300 mcg PO DAILY 09/22/17 [History] Loperamide [Imodium] 2 mg PO QID PRN 09/22/17 [History] Albuterol Sulfate [Albuterol Inhaler] 2 puff IH Q4HR PRN 30 Days #1 hfa.aer.ad 09/24/17 [Rx] predniSONE [PredniSONE] 40 mg PO DAILY 5 Days #5 tablet 09/24/17 [Rx] Allergies/Adverse Reactions: 3 Allergy/AdvReac Type Severity Reaction Status Date / Time sulfamethoxazole Allergy Rash Verified 09/22/17 08:16 [From Bactrim] trimethoprim [From Bactrim] Allergy Rash Verified 09/22/17 08:16 celecoxib [From Celebrex] AdvReac Gastrointestinal Verified 09/22/17 08:16 Upset Penicillins AdvReac Swelling Verified 09/22/17 08:16 of the Eye trazodone AdvReac Fainting Verified 09/22/17 08:16 Serazone AdvReac Swelling Uncoded 09/22/17 08:16 of Lip/Tongue/Throat Date of admission: 09/22/17 12:42 Primary care physician: Corina Lynch Consults: 09/23/17 08:12 Consult to Nurse Navigator [CONS] Routine Comment: COPD Discharging clinician: Gopal Jung Anticipated date of discharge: 09/24/17 - Constitutional Vitals: Temp Pulse Resp BP Pulse Ox 98.8 F 76 20 121/67 93 09/24/17 07:45 09/24/17 07:45 09/24/17 07:45 09/24/17 07:45 09/24/17 07:45 General appearance: Present: cooperative, A&O X 3, morbidly obese, pleasant, no acute distress, answers questions appropriately - Head Head exam: Present: atraumatic, normocephalic - Eye Eye exam: Present: PERRL, conjuntiva pink, sclera anicteric Pupils: Present: PERRL - Neck Neck exam general surgery: Present: supple, trachea midline. Absent: lymphadenopathy - Respiratory Respiratory exam: Present: CTAB. Absent: accessory muscle use, rales, rhonchi, wheezes - Cardiovascular Cardiovascular exam: Present: RRR, +S1, +S2. Absent: diastolic murmur, gallop, rubs, systolic murmur - GI/Abdominal GI/Abdominal exam: Present: normal bowel sounds, soft, no peritoneal signs. Absent: distended, tenderness - Extremities Exam Extremities exam: Present: warm, radial pulses palpable and symmetrical. Absent : calf tenderness, cyanotic, pedal edema - Neurological Exam Neurological exam: Present: CN II-XII intact, oriented X3, no focal deficits. Absent: pronater drift, facial droop, speech deficit - Skin Skin exam: Present: dry, intact - Patient Status Disposition: Transfer SNF Condition: Fair Functional capacity at discharge: uses cane/walker Overall status at discharge: patient is progressing back to baseline - Discharge Instructions Instructions: Chronic Obstructive Pulmonary Disease (DC), Acute Respiratory Distress Syndrome (DC) Follow Up With: Corina Lynch MD [Primary Care Provider] - (our office will call you with an appointment ) - Diet and Activity Activity: ambulate only with your walker, increase activity as tolerated, resume usual activities as tolerated, wear oxygen at all times, wear oxygen at night Diet: advance to your usual diet, diabetic diet, low fat, low cholesterol, other (calorie restricted [phone] [place] diabetic/heart healthy diet) - VTE Documentation of Mechanical Device: Intermittent pneumatic compression device
--- NOTE | 2017-09-24 10:22 | Physician Discharge Referral ---
ExtendedCare Referral Info Transfer To: [facility] Provider in Charge after Transfer: PCP, Other (facility provider) Institutional Level of Care: Skilled - Diagnosis (1) COPD exacerbation Priority: Primary Status: Acute (2) Acute respiratory failure Priority: Primary Status: Acute (3) Obesity hypoventilation syndrome Priority: Secondary Status: Chronic (4) PATRICIO (obstructive sleep apnea) Priority: Secondary Status: Chronic (5) Type 2 diabetes mellitus Priority: Secondary Status: Chronic (6) Bipolar disorder Priority: Secondary Status: Chronic (7) Hypothyroidism Priority: Secondary Status: Chronic (8) Herpes zoster Priority: Secondary Status: Chronic (9) Hypertension Priority: Secondary Status: Chronic (10) Hyperlipidemia Priority: Secondary Status: Chronic (11) Morbid obesity with BMI of 60.0-69.9, adult Priority: Secondary Status: Chronic Prognosis: Fair Aware of Diagnosis: Patient, Family Aware of Prognosis: Patient, Family - Transfer Medications Prescriptions: Albuterol Sulfate [Albuterol Inhaler] 2 puff IH Q4HR PRN 30 Days #1 hfa.aer.ad PRN Reason: Shortness Of Breath predniSONE [PredniSONE] 40 mg PO DAILY 5 Days #5 tablet Home Medications: Cholestyramine (with Sugar) [Cholestyramine Bulk Powder] 2 scoop PO DAILY [History] Gabapentin [Neurontin] 600 mg PO TID 08/24/16 [History] [place] Carbonate 900 mg PO HS 08/24/16 [History] Pantoprazole Sodium 40 mg PO DAILY 08/24/16 [History] Saxagliptin HCl [Onglyza] 5 mg PO DAILY 08/24/16 [History] Sertraline [Zoloft] 200 mg PO DAILY 08/24/16 [History] Verapamil HCl [Verapamil ER] 240 mg PO DAILY 08/24/16 [History] Brimonidine 0.2% [Alphagan] 1 drop BOTH EYES TID 08/25/16 [History] L. Acidophilus/Pectin, [place] [Acidophilus Caplet] 1 each PO DAILY 08/25/16 [ History] hydrOXYzine HCl [Hydroxyzine HCl] 25 mg PO BID PRN 08/25/16 [History] Fluticasone Propionate Nasal [Flonase] 50 mcg NS DAILY bottle 08/28/16 [Rx] Furosemide [Lasix] 40 mg PO BID #60 tablet 08/28/16 [Rx] Losartan [Cozaar] 50 mg PO DAILY tablet 08/28/16 [Rx] Pentoxifylline [TRENtal] 400 mg PO TIDWM tablet.er 08/28/16 [Rx] ARIPiprazole [Abilify] 2 mg PO DAILY 09/02/17 [History] Acyclovir [Zovirax] 800 mg PO BID 09/02/17 [History] Dicyclomine [Bentyl] 10 mg PO QID #20 capsule 09/02/17 [Rx] Ondansetron ODT [Zofran ODT] 4 mg SL Q6HR #20 tab.rapdis 09/02/17 [Rx] Pravastatin Sodium [Pravachol] 40 mg PO HS 09/02/17 [History] Repaglinide [Prandin] 1 mg PO DAILY 09/02/17 [History] Hydrocodone/Acetaminophen [Hydrocodone-Acetamin 7.5-300] 1 tab PO Q6H PRN [History] Levothyroxine Sodium [Synthroid] 300 mcg PO DAILY 09/22/17 [History] Loperamide [Imodium] 2 mg PO QID PRN 09/22/17 [History] Albuterol Sulfate [Albuterol Inhaler] 2 puff IH Q4HR PRN 30 Days #1 hfa.aer.ad 09/24/17 [Rx] predniSONE [PredniSONE] 40 mg PO DAILY 5 Days #5 tablet 09/24/17 [Rx] Allergies/Adverse Reactions: 3 Allergy/AdvReac Type Severity Reaction Status Date / Time sulfamethoxazole Allergy Rash Verified 09/22/17 08:16 [From Bactrim] trimethoprim [From Bactrim] Allergy Rash Verified 09/22/17 08:16 celecoxib [From Celebrex] AdvReac Gastrointestinal Verified 09/22/17 08:16 Upset Penicillins AdvReac Swelling Verified 09/22/17 08:16 of the Eye trazodone AdvReac Fainting Verified 09/22/17 08:16 Serazone AdvReac Swelling Uncoded 09/22/17 08:16 of Lip/Tongue/Throat - Respiratory Orders Oxygen / L per min (2.5-3 LPM continuous O2 support) Smoking Cessation: Smoking cessation has been advised. For more information, call the [place] Tobacco Quit Line at 1-096-IYJP-NOW. - Advance Directives Code Status: Full Code - Mobility Orders Ambulate (Assistive devices with walker and) - Rehabiliation Orders Rehab Potential: Fair Rehab Orders: Evaluation for Physical Therapy, Evaluation for Occupational Therapy - Diet Orders Cardiac (/diabetic diet) CERTIFICATION: I certify that the transfer of the above named patient to an Extended Care Facility is necessary for the continuing treatment of the diagnosis listed. The above information is true and accurate reflection of patient's current condition. Confidential - Redisclosure prohibited without a patient's written consent.
== END 2017-09-24 13:27 | DRG 190 ==
LOC: 2SOUTHHOLD 05:29 → EMEROO 05:29 → 2SOUTHHOLD 09:00 → 3BNU 11:35
PROVIDERS: ADMIT Family Medicine; ATTEND Family Medicine

== ENCOUNTER 2017-10-22 06:10 | Inpatient (IN) ==
[2017-10-22] MEDS ORDERED: Isovue-370 500 ML INFUS..BTL IV ONE (06:17)
--- NOTE | 2017-10-22 06:20 | Emergency Department Note ---
START Narrative - START START: I examined this patient and my medical decision-making was reviewed with the Resident Physician. I agree with the documented findings, disposition and treatment plan as described except to the extent set forth below. Patient presents with concern for hypoxia and poor tolerance for BiPAP. Patient is actually tolerating nasal cannula and is following commands and is appropriate as well as hemodynamically stable on arrival. No obvious wheezing. We will obtain blood gas, CT scan of the chest given new hypoxic respiratory failure. Disposition will be pending advanced imaging and laboratory analyses.
--- NOTE | 2017-10-22 06:30 | Emergency Department Note ---
Disposition Clinical Impression: Hypercapnic respiratory failure Qualifiers: Chronicity: acute Qualified Code(s): J96.02 - Acute respiratory failure with hypercapnia Disposition: Still a Patient Condition: Fair Forms: ED Satisfaction Letter SOB HPI - General Chief Complaint: ED Shortness of Breath/Dyspnea Stated Complaint: resp distress Time Seen by Provider: 10/22/17 06:17 Source: patient Mode of arrival: EMS Limitations: no limitations Nursing Notes Reviewed: Yes Vital Signs Reviewed: Yes - History of Present Illness 62-year-old female history of COPD who presents to the ER from nursing facility with a chief complaint of shortness of breath. Patient reports her shortness of breath started a few weeks ago. She does not wear oxygen usually but has been wearing it rather continuously over the last day. States that she was on 2 L there. EMS reports when they arrived that she was hypoxic into the mid 80s. The patient was placed on BiPAP but did not tolerate that well. She presents on 4 L nasal cannula satting in the mid 90s. She denies any recent illnesses. No fevers, cough, chest pain. No nausea vomiting or diarrhea. She is currently being treated via a PICC line for cellulitis. Pt Subjective Complaint: shortness of breath Onset (ago): week(s) Severity: moderate Consistency/Duration: constant Improves with: oxygen Worsens with: nothing Known history of: COPD Associated symptoms: Reports: denies other symptoms Treatment prior to arrival: oxygen Cough present: No Sputum production: No - Related Data Home oxygen amount: 2 liters Home Medications Medication Instructions Recorded Confirmed Cholestyramine (with Sugar) 2 scoop PO DAILY 08/24/16 09/22/17 [Cholestyramine Bulk Powder] Gabapentin [Neurontin] 600 mg PO TID 08/24/16 09/22/17 [place] Carbonate 900 mg PO HS 08/24/16 09/22/17 Pantoprazole Sodium 40 mg PO DAILY 08/24/16 09/22/17 Saxagliptin HCl [Onglyza] 5 mg PO DAILY 08/24/16 09/22/17 Sertraline [Zoloft] 200 mg PO DAILY 08/24/16 09/22/17 Verapamil HCl [Verapamil ER] 240 mg PO DAILY 08/24/16 09/22/17 Brimonidine 0.2% [Alphagan] 1 drop BOTH EYES TID 08/25/16 09/22/17 L. Acidophilus/Pectin, Naplate 1 each PO DAILY 08/25/16 09/22/17 [Acidophilus Caplet] hydrOXYzine HCl [Hydroxyzine HCl] 25 mg PO BID PRN 08/25/16 09/22/17 ARIPiprazole [Abilify] 2 mg PO DAILY 09/02/17 09/22/17 Acyclovir [Zovirax] 800 mg PO BID 09/02/17 09/22/17 Pravastatin Sodium [Pravachol] 40 mg PO HS 09/02/17 09/22/17 Repaglinide [Prandin] 1 mg PO DAILY 09/02/17 09/22/17 Hydrocodone/Acetaminophen 1 tab PO Q6H PRN 09/22/17 09/22/17 [Hydrocodone-Acetamin 7.5-300] Levothyroxine Sodium [Synthroid] 300 mcg PO DAILY 09/22/17 09/22/17 Loperamide [Imodium] 2 mg PO QID PRN 09/22/17 09/22/17 Previous Rx's Medication Instructions Recorded Fluticasone Propionate Nasal 50 mcg NS DAILY bottle 08/28/16 [Flonase] Furosemide [Lasix] 40 mg PO BID #60 tablet 08/28/16 Losartan [Cozaar] 50 mg PO DAILY tablet 08/28/16 Pentoxifylline [TRENtal] 400 mg PO TIDWM tablet.er 08/28/16 Dicyclomine [Bentyl] 10 mg PO QID #20 capsule 09/02/17 Ondansetron ODT [Zofran ODT] 4 mg SL Q6HR #20 tab.rapdis 09/02/17 Albuterol Sulfate [Albuterol 2 puff IH Q4HR PRN 30 Days #1 09/24/17 Inhaler] hfa.aer.ad predniSONE [PredniSONE] 40 mg PO DAILY 5 Days #5 tablet 09/24/17 Allergies Allergy/AdvReac Type Severity Reaction Status Date / Time sulfamethoxazole Allergy Rash Verified 09/22/17 08:16 [From Bactrim] trimethoprim [From Bactrim] Allergy Rash Verified 09/22/17 08:16 celecoxib [From Celebrex] AdvReac Gastrointestinal Verified 09/22/17 08:16 Upset Penicillins AdvReac Swelling Verified 09/22/17 08:16 of the Eye trazodone AdvReac Fainting Verified 09/22/17 08:16 Serazone AdvReac Swelling Uncoded 09/22/17 08:16 of Lip/Tongue/Throat All systems ED: reviewed and negative except as stated. Constitutional: Denies: fever Cardiovascular: Denies: chest pain Respiratory: Reports: dyspnea. Denies: cough Gastrointestinal: Denies: abdominal pain, nausea, vomiting, diarrhea Past Medical History - Past Medical History Attestation: Yes The following information was validated with the patient. Source: patient Medical history: Reports: atrial fibrillation, COPD, diabetes, hyperlipidemia, hypertension, other Surgical history: Reports: appendectomy, cholecystectomy, hysterectomy, thyroidectomy Psychiatric history: Reports: depression, prior suicide attempt, previous psychiatric hospitalization - Social History Smoking Status: Never smoker Smokeless Tobacco Status: No Alcohol use: Reports: none Drug use: Reports: none Physical Exam - General Limitations: no limitations General appearance: alert, in no apparent distress - Head Head exam: atraumatic, normocephalic - Eye Eye exam: Present: normal appearance - ENT ENT exam: normal exam - Neck Neck exam: Present: normal inspection - Chest Chest inspection: Present: normal inspection, symmetric chest wall rise - Respiratory Respiratory exam: Present: other (Diminished breath sounds bilaterally) - Cardiovascular Cardiovascular exam: Present: regular rate, normal rhythm, normal heart sounds - Abdominal Exam Abdominal exam: Present: soft, Non-Tender. Absent: tenderness, distention, guarding, rigidity - Extremities Exam Extremities exam: Present: normal inspection, full ROM - Expanded Upper Extremity Exam Shoulder exam: Present: normal inspection, full ROM Arm exam: Present: normal inspection, full ROM Elbow exam: Present: normal inspection, full ROM Forearm/Wrist exam: Present: normal inspection, full ROM Hand exam: Present: normal inspection, full ROM - Expanded Lower Extremity Exam Hip/Pelvis exam: Present: normal inspection, full ROM Upper leg exam: Present: normal inspection, full ROM Knee exam: Present: normal inspection, full ROM Lower leg exam: Present: normal inspection, full ROM, swelling, other (Venous stasis changes to the bilateral lower extremities) Ankle exam: Present: normal inspection, full ROM Foot/toe exam: Present: normal inspection, full ROM - Neurological Exam Neurological exam: Present: other (Alert, mentating appropriately. Answers questions appropriate.) - Skin Skin exam: Present: warm, dry Course Course Narrative: Patient seen and examined. Satting in the 90s on 4 L. Appears in no distress. Plan for EKG as well as CTA of the chest, labs and likely admission for acute on chronic respiratory failure. - Reevaluation(s) Reevaluation #1: ABG demonstrates hypercapnic respiratory acidosis. Plan to attempt BiPAP again. Vital Signs Temperature 98.1 F 10/22/17 06:14 Pulse Rate 69 10/22/17 06:14 Respiratory Rate 28 10/22/17 06:14 Blood Pressure 119/64 10/22/17 06:14 O2 Sat by Pulse Oximetry 96 10/22/17 06:14 Temperature 98.1 F 10/22/17 06:14 Pulse Rate 69 10/22/17 06:14 Respiratory Rate 28 10/22/17 06:14 Blood Pressure 119/64 10/22/17 06:14 O2 Sat by Pulse Oximetry 96 10/22/17 06:14 Oxygen Delivery Oxygen Delivery Nasal Cannula Shortness of Breath/Dyspnea - MDM Narrative Medical decision making narrative: 62-year-old female with hypercapnic respiratory failure requiring BiPAP intervention. EKG without ischemic findings. Initially hypoxic improved on [address] angiography ordered at time of sign out today shift team. - Lab Data Lab results reviewed: Yes I reviewed the patient's lab results. Lab Results 10/22/17 Range/Units 06:32 VBG pH 7.28 L (7.32-7.42) pH Units VBG pCO2 71 H* (41-51) mmHg VBG pO2 91 H (25-50) mmHg VBG HCO3 34 H (21-27) mEq/L Person Notif of Gillian IBARRA - EKG Data EKG attestation: Yes I reviewed and interpreted this EKG. EKG results narrative: EKG demonstrates sinus rhythm with rate of 62 bpm. Normal axis. IVCD with QRS duration of 121. Normal R-wave progression. No gross ST elevations or depressions. No acute ischemic findings. S.B.A.R. - S.B.A.R. Situation: Demographics, MOA Background: Presenting Complaint, Relevant PMH, Meds, & Allergies Assessment: Vital Signs, Course and respsone to treatment, Exam Concerns, Patient/Family Expectation, Pertinant Lab Results Recommendation: Barrier(s) to disposition, Recommendation based on pending studies, treatments, or consults S.B.A.R. Report Given to: Dr. Yoon
[2017-10-22 06:36] LABS: VBG HCO3 34 mEq/L (21-27); VBG PCO2 71 mmHg (41-51); VBG PH 7.28 pH Units (7.32-7.42); VBG PO2 91 mmHg (25-50)
[2017-10-22 06:47] LABS: Basophils % 0.2 %; Eosinophils # 0.3 K/mcL (0.0-0.6); Eosinophils % 2.1 %; Hematocrit 34.1 % (35.3-44.9); Hemoglobin 10.3 g/dL (11.5-15.4); Lymphocytes # 0.7 K/mcL (0.6-4.6); Lymphocytes % 5.1 %; Mean Corpuscular HGB Conc 30.2 g/dL (31.6-35.5); Mean Corpuscular Volume 82.8 fL (83.0-100.0); Mean Platelet Volume 12.5 fL (9.4-12.4); Monocytes # 0.6 K/mcL (0.0-1.3); Monocytes % 4.8 %; Neutrophils # 11.5 K/mcL (1.6-8.9); Platelet Count 192 K/mcL (140-400); Red Blood Count 4.12 M/mcL (3.82-4.97); Red Cell Distribution Width 19.3 % (11.5-14.5); Segmented Neutrophils % 86.8 %
[2017-10-22 06:54] LABS: INR 1.2
[2017-10-22 06:55] LABS: BUN/Creatinine Ratio 8 (6-26); Blood Urea Nitrogen 10 mg/dL (8-23); Calcium 9.4 mg/dL (8.6-10.3); Carbon Dioxide 31 mEq/L (23-29); Chloride 103 mEq/L (98-107); Glucose 175 mg/dL (70-105); Osmolality,Calculated 291 (280-300); Potassium 3.3 mEq/L (3.5-5.1); Sodium 139 mEq/L (136-145); Troponin I < 0.03 ng/mL (< 0.04); eGFR For African Americans 50 (> 60); eGFR For Non-African Americans 41 (> 60)
[2017-10-22] MEDS ORDERED: 0.9 % Sodium Chloride 500 ML IVC ONE ×2 (07:10→12:09)
--- NOTE | 2017-10-22 07:27 | Emergency Department Note ---
Disposition Clinical Impression: Obesity hypoventilation syndrome, COPD exacerbation Hypercapnic respiratory failure Qualifiers: Chronicity: acute Qualified Code(s): J96.02 - Acute respiratory failure with hypercapnia Disposition: Admitted As Inpatient Condition: Fair Referrals: Corina Lynch MD [Primary Care Provider] - Forms: ED Satisfaction Letter Time of Disposition: 09:52 General Adult HPI - General Chief complaint: ED Shortness of Breath/Dyspnea Stated complaint: resp distress Time Seen by Provider: 10/22/17 06:17 Source: patient Mode of arrival: EMS Limitations: no limitations - History of Present Illness Pain Scale: 0 - Related Data Home Medications Medication Instructions Recorded Confirmed Cholestyramine (with Sugar) 2 scoop PO DAILY 08/24/16 10/22/17 [Cholestyramine Bulk Powder] Gabapentin [Neurontin] 600 mg PO TID 08/24/16 10/22/17 [place] Carbonate 900 mg PO HS 08/24/16 10/22/17 Pantoprazole Sodium 40 mg PO DAILY 08/24/16 10/22/17 Saxagliptin HCl [Onglyza] 5 mg PO DAILY 08/24/16 10/22/17 Sertraline [Zoloft] 200 mg PO DAILY 08/24/16 10/22/17 Verapamil HCl [Verapamil ER] 240 mg PO DAILY 08/24/16 10/22/17 Brimonidine 0.2% [Alphagan] 1 drop BOTH EYES TID 08/25/16 10/22/17 L. Acidophilus/Pectin, [place] 1 each PO DAILY 08/25/16 10/22/17 [Acidophilus Caplet] ARIPiprazole [Abilify] 2 mg PO DAILY 09/02/17 10/22/17 Acyclovir [Zovirax] 800 mg PO BID 09/02/17 10/22/17 Pravastatin Sodium [Pravachol] 40 mg PO HS 09/02/17 10/22/17 Repaglinide [Prandin] 1 mg PO DAILY 09/02/17 10/22/17 Levothyroxine Sodium [Synthroid] 300 mcg PO DAILY 09/22/17 10/22/17 Loperamide [Imodium] 2 mg PO QID PRN 09/22/17 10/22/17 Fluticasone/Vilanterol [Breo 1 puff IH DAILY 10/22/17 10/22/17 Ellipta 200-25 Mcg INH] Levofloxacin 750 MG/150 ML 750 mg IVPB DAILY 10/22/17 10/22/17 [Levaquin Premix 750mg/150 mL] Melatonin [Melatin] 3 mg PO DAILY 10/22/17 10/22/17 Meloxicam [Mobic] 7.5 mg PO DAILY 10/22/17 10/22/17 Oxycodone HCl [Oxaydo] 5 - 10 mg PO Q4H PRN 10/22/17 10/22/17 Previous Rx's Medication Instructions Recorded Fluticasone Propionate Nasal 50 mcg NS DAILY bottle 08/28/16 [Flonase] Furosemide [Lasix] 40 mg PO BID #60 tablet 08/28/16 Losartan [Cozaar] 50 mg PO DAILY tablet 08/28/16 Pentoxifylline [TRENtal] 400 mg PO TIDWM tablet.er 08/28/16 Dicyclomine [Bentyl] 10 mg PO QID #20 capsule 09/02/17 Ondansetron ODT [Zofran ODT] 4 mg SL Q6HR #20 tab.rapdis 09/02/17 Albuterol Sulfate [Albuterol 2 puff IH Q4HR PRN 30 Days #1 09/24/17 Inhaler] hfa.aer.ad Allergies Allergy/AdvReac Type Severity Reaction Status Date / Time sulfamethoxazole Allergy Rash Verified 09/22/17 08:16 [From Bactrim] trimethoprim [From Bactrim] Allergy Rash Verified 09/22/17 08:16 celecoxib [From Celebrex] AdvReac Gastrointestinal Verified 09/22/17 08:16 Upset Penicillins AdvReac Swelling Verified 09/22/17 08:16 of the Eye trazodone AdvReac Fainting Verified 09/22/17 08:16 Serazone AdvReac Swelling Uncoded 09/22/17 08:16 of Lip/Tongue/Throat Constitutional: Denies: fever Cardiovascular: Denies: chest pain Respiratory: Reports: dyspnea. Denies: cough Gastrointestinal: Denies: abdominal pain, nausea, vomiting, diarrhea Past Medical History - Past Medical History Medical history: Reports: atrial fibrillation, COPD, diabetes, hyperlipidemia, hypertension, other Surgical history: Reports: appendectomy, cholecystectomy, hysterectomy, thyroidectomy Psychiatric history: Reports: depression, prior suicide attempt, previous psychiatric hospitalization - Social History Smoking Status: Never smoker Smokeless Tobacco Status: No Alcohol use: Reports: none Drug use: Reports: none Physical Exam - General Limitations: no limitations General appearance: alert, in no apparent distress Course - Reevaluation(s) Reevaluation #1: patient signed out from the nighttime team. presenting with shortness of breath and hypoxia. CT head and CTA Chest to r/o PE pending. Will also add on lactic acid. Time: 07:24 Reevaluation #2: Patient accepted for admission by Dr. Bryan. Patient's is here and states patient does have severe COPD and is on oxygen at all times. Would explain her hypercapnia. We had already given her a dose of steroids. She is more awake and alert and talking now. No PE or pneumonia on her chest CT. Suspecting she is probably chronically hypercapnic, but we will admit her to 2 N for continued therapy. Stable to admission. Time: 09:51 Vital Signs Temperature 98.1 F 10/22/17 06:14 Pulse Rate 69 10/22/17 06:14 Respiratory Rate 28 10/22/17 06:14 Blood Pressure 119/64 10/22/17 06:14 O2 Sat by Pulse Oximetry 96 10/22/17 06:14 Temperature 98.1 F 10/22/17 06:14 Pulse Rate 96 10/22/17 10:00 Respiratory Rate 18 10/22/17 10:00 Blood Pressure 85/43 10/22/17 10:00 O2 Sat by Pulse Oximetry 98 10/22/17 10:00 Oxygen Delivery Oxygen Delivery Room Air Medical Decision Making - Lab Data Result diagrams: 10/22/17 06:15 10/22/17 06:15 Lab Results 10/22/17 10/22/17 10/22/17 Range/Units 06:15 06:15 06:15 WBC 13.2 H (4.3-11.1) K/mcL RBC 4.12 (3.82-4.97) M/mcL Hgb 10.3 L (11.5-15.4) g/dL Hct 34.1 L (35.3-44.9) % MCV 82.8 L (83.0-100.0) fL MCH 25.0 L (28.0-33.3) pg MCHC 30.2 L (31.6-35.5) g/dL RDW 19.3 H (11.5-14.5) % Plt Count 192 (140-400) K/mcL MPV 12.5 H (9.4-12.4) fL Immature Gran % 1.0 (0-4) % Seg Neutrophils % 86.8 % Lymphocytes % 5.1 % Monocytes % 4.8 % Eosinophils % 2.1 % Basophils % 0.2 % Neutrophils # 11.5 H (1.6-8.9) K/mcL Lymphocytes # 0.7 (0.6-4.6) K/mcL Monocytes # 0.6 (0.0-1.3) K/mcL Eosinophils # 0.3 (0.0-0.6) K/mcL Basophils # 0.0 (0.0-0.2) K/mcL PT (9.4-12.1) Seconds INR VBG pH (7.32-7.42) pH Units VBG pCO2 (41-51) mmHg VBG pO2 (25-50) mmHg VBG HCO3 (21-27) mEq/L Sodium 139 (136-145) mEq/L Potassium 3.3 L (3.5-5.1) mEq/L Chloride 103 (98-107) mEq/L Carbon Dioxide 31 H (23-29) mEq/L BUN 10 (8-23) mg/dL Creatinine 1.31 H (0.60-1.20) mg/dL Est GFR ( Amer) 50 L (> 60) Est GFR (Non-Af Amer) 41 L (> 60) BUN/Creatinine Ratio 8 (6-26) Glucose 175 H (70-105) mg/dL Calculated Osmolality 291 (280-300) Lactic Acid (0.5-2.2) mmol/L Calcium 9.4 (8.6-10.3) mg/dL Troponin I < 0.03 (< 0.04) ng/mL B-Natriuretic Peptide 76 (Less than 100) pg/mL Urine Color (Yellow) Urine Clarity (Clear) Urine pH (5.0-8.0) pH Units Ur Specific [place] (1.010-1.025) Urine Protein (Neg-Trace) mg/dL Urine Glucose (UA) (Normal) mg/dL Urine Ketones (Negative) mg/dL Urine Blood (Negative) Urine Nitrite (Negative) Urine Bilirubin (Negative) Urine Urobilinogen (Normal) mg/dL Ur Leukocyte Esterase (Negative) Urine Microscopic RBC (0-3) per hpf Urine Microscopic WBC (0-3) per hpf Ur Squamous Epith Cells (None-Few) per lpf Urine Bacteria (None-Few) per hpf Hyaline Casts (None-Few) per lpf Ur Culture Indicated? (NO) Person Notif of Crit 10/22/17 10/22/17 10/22/17 Range/Units 06:15 06:32 08:06 WBC (4.3-11.1) K/mcL RBC (3.82-4.97) M/mcL Hgb (11.5-15.4) g/dL Hct (35.3-44.9) % MCV (83.0-100.0) fL MCH (28.0-33.3) pg MCHC (31.6-35.5) g/dL RDW (11.5-14.5) % Plt Count (140-400) K/mcL MPV (9.4-12.4) fL Immature Gran % (0-4) % Seg Neutrophils % % Lymphocytes % % Monocytes % % Eosinophils % % Basophils % % Neutrophils # (1.6-8.9) K/mcL Lymphocytes # (0.6-4.6) K/mcL Monocytes # (0.0-1.3) K/mcL Eosinophils # (0.0-0.6) K/mcL Basophils # (0.0-0.2) K/mcL PT 14.0 H (9.4-12.1) Seconds INR 1.2 VBG pH 7.28 L (7.32-7.42) pH Units VBG pCO2 71 H* (41-51) mmHg VBG pO2 91 H (25-50) mmHg VBG HCO3 34 H (21-27) mEq/L Sodium (136-145) mEq/L Potassium (3.5-5.1) mEq/L Chloride (98-107) mEq/L Carbon Dioxide (23-29) mEq/L BUN (8-23) mg/dL Creatinine (0.60-1.20) mg/dL Est GFR ( Amer) (> 60) Est GFR (Non-Af Amer) (> 60) BUN/Creatinine Ratio (6-26) Glucose (70-105) mg/dL Calculated Osmolality (280-300) Lactic Acid 1.1 (0.5-2.2) mmol/L Calcium (8.6-10.3) mg/dL Troponin I (< 0.04) ng/mL B-Natriuretic Peptide (Less than 100) pg/mL Urine Color (Yellow) Urine Clarity (Clear) Urine pH (5.0-8.0) pH Units Ur Specific [place] (1.010-1.025) Urine Protein (Neg-Trace) mg/dL Urine Glucose (UA) (Normal) mg/dL Urine Ketones (Negative) mg/dL Urine Blood (Negative) Urine Nitrite (Negative) Urine Bilirubin (Negative) Urine Urobilinogen (Normal) mg/dL Ur Leukocyte Esterase (Negative) Urine Microscopic RBC (0-3) per hpf Urine Microscopic WBC (0-3) per hpf Ur Squamous Epith Cells (None-Few) per lpf Urine Bacteria (None-Few) per hpf Hyaline Casts (None-Few) per lpf Ur Culture Indicated? (NO) Person Notif of Gillian IBARRA 10/22/17 10/22/17 Range/Units 09:10 09:15 WBC (4.3-11.1) K/mcL RBC (3.82-4.97) M/mcL Hgb (11.5-15.4) g/dL Hct (35.3-44.9) % MCV (83.0-100.0) fL MCH (28.0-33.3) pg MCHC (31.6-35.5) g/dL RDW (11.5-14.5) % Plt Count (140-400) K/mcL MPV (9.4-12.4) fL Immature Gran % (0-4) % Seg Neutrophils % % Lymphocytes % % Monocytes % % Eosinophils % % Basophils % % Neutrophils # (1.6-8.9) K/mcL Lymphocytes # (0.6-4.6) K/mcL Monocytes # (0.0-1.3) K/mcL Eosinophils # (0.0-0.6) K/mcL Basophils # (0.0-0.2) K/mcL PT (9.4-12.1) Seconds INR VBG pH 7.28 L (7.32-7.42) pH Units VBG pCO2 70 H* (41-51) mmHg VBG pO2 95 H (25-50) mmHg VBG HCO3 33 H (21-27) mEq/L Sodium (136-145) mEq/L Potassium (3.5-5.1) mEq/L Chloride (98-107) mEq/L Carbon Dioxide (23-29) mEq/L BUN (8-23) mg/dL Creatinine (0.60-1.20) mg/dL Est GFR ( Amer) (> 60) Est GFR (Non-Af Amer) (> 60) BUN/Creatinine Ratio (6-26) Glucose (70-105) mg/dL Calculated Osmolality (280-300) Lactic Acid (0.5-2.2) mmol/L Calcium (8.6-10.3) mg/dL Troponin I (< 0.04) ng/mL B-Natriuretic Peptide (Less than 100) pg/mL Urine Color Yellow (Yellow) Urine Clarity Clear (Clear) Urine pH 6.5 (5.0-8.0) pH Units Ur Specific [place] > 1.030 H (1.010-1.025) Urine Protein Trace (Neg-Trace) mg/dL Urine Glucose (UA) Normal (Normal) mg/dL Urine Ketones Negative (Negative) mg/dL Urine Blood Negative (Negative) Urine Nitrite Negative (Negative) Urine Bilirubin Negative (Negative) Urine Urobilinogen Normal (Normal) mg/dL Ur Leukocyte Esterase Negative (Negative) Urine Microscopic RBC 3-5 H (0-3) per hpf Urine Microscopic WBC 0-3 (0-3) per hpf Ur Squamous Epith Cells Moderate H (None-Few) per lpf Urine Bacteria None Seen (None-Few) per hpf Hyaline Casts None Seen (None-Few) per lpf Ur Culture Indicated? NO (NO) Person Notif of Crit dr yoon Attestation Statement - Attestation Attestation: I, Ubaldo Wells DO, examined this patient [id number] and my medical decision-making was reviewed with Dr. Celestino Yoon, Resident Physician. I agree with the documented findings, disposition and treatment plan as described except to the extent set forth below. Please see my progress notes for details.
[2017-10-22] MEDS ORDERED: methylPREDNISolone 125 MG/2 ML VIAL IVP ONE (08:10)
--- NOTE | 2017-10-22 08:31 | Emergency Department Note ---
Disposition Clinical Impression: Obesity hypoventilation syndrome, COPD exacerbation Hypercapnic respiratory failure Qualifiers: Chronicity: acute Qualified Code(s): J96.02 - Acute respiratory failure with hypercapnia Disposition: Admitted As Inpatient Condition: Fair Referrals: Corina Lynch MD [Primary Care Provider] - Forms: ED Satisfaction Letter Time of Disposition: 10:03 General Adult HPI - General Chief complaint: ED Shortness of Breath/Dyspnea Stated complaint: resp distress Time Seen by Provider: 10/22/17 06:17 Source: patient Mode of arrival: EMS Limitations: no limitations - History of Present Illness Pain Scale: 0 - Related Data Home Medications Medication Instructions Recorded Confirmed Cholestyramine (with Sugar) 2 scoop PO DAILY 08/24/16 10/22/17 [Cholestyramine Bulk Powder] Gabapentin [Neurontin] 600 mg PO TID 08/24/16 10/22/17 [place] Carbonate 900 mg PO HS 08/24/16 10/22/17 Pantoprazole Sodium 40 mg PO DAILY 08/24/16 10/22/17 Saxagliptin HCl [Onglyza] 5 mg PO DAILY 08/24/16 10/22/17 Sertraline [Zoloft] 200 mg PO DAILY 08/24/16 10/22/17 Verapamil HCl [Verapamil ER] 240 mg PO DAILY 08/24/16 10/22/17 Brimonidine 0.2% [Alphagan] 1 drop BOTH EYES TID 08/25/16 10/22/17 L. Acidophilus/Pectin, [place] 1 each PO DAILY 08/25/16 10/22/17 [Acidophilus Caplet] ARIPiprazole [Abilify] 2 mg PO DAILY 09/02/17 10/22/17 Acyclovir [Zovirax] 800 mg PO BID 09/02/17 10/22/17 Pravastatin Sodium [Pravachol] 40 mg PO HS 09/02/17 10/22/17 Repaglinide [Prandin] 1 mg PO DAILY 09/02/17 10/22/17 Levothyroxine Sodium [Synthroid] 300 mcg PO DAILY 09/22/17 10/22/17 Loperamide [Imodium] 2 mg PO QID PRN 09/22/17 10/22/17 Fluticasone/Vilanterol [Breo 1 puff IH DAILY 10/22/17 10/22/17 Ellipta 200-25 Mcg INH] Levofloxacin 750 MG/150 ML 750 mg IVPB DAILY 10/22/17 10/22/17 [Levaquin Premix 750mg/150 mL] Melatonin [Melatin] 3 mg PO DAILY 10/22/17 10/22/17 Meloxicam [Mobic] 7.5 mg PO DAILY 10/22/17 10/22/17 Oxycodone HCl [Oxaydo] 5 - 10 mg PO Q4H PRN 10/22/17 10/22/17 Previous Rx's Medication Instructions Recorded Fluticasone Propionate Nasal 50 mcg NS DAILY bottle 08/28/16 [Flonase] Furosemide [Lasix] 40 mg PO BID #60 tablet 08/28/16 Losartan [Cozaar] 50 mg PO DAILY tablet 08/28/16 Pentoxifylline [TRENtal] 400 mg PO TIDWM tablet.er 08/28/16 Dicyclomine [Bentyl] 10 mg PO QID #20 capsule 09/02/17 Ondansetron ODT [Zofran ODT] 4 mg SL Q6HR #20 tab.rapdis 09/02/17 Albuterol Sulfate [Albuterol 2 puff IH Q4HR PRN 30 Days #1 09/24/17 Inhaler] hfa.aer.ad Allergies Allergy/AdvReac Type Severity Reaction Status Date / Time sulfamethoxazole Allergy Rash Verified 09/22/17 08:16 [From Bactrim] trimethoprim [From Bactrim] Allergy Rash Verified 09/22/17 08:16 celecoxib [From Celebrex] AdvReac Gastrointestinal Verified 09/22/17 08:16 Upset Penicillins AdvReac Swelling Verified 09/22/17 08:16 of the Eye trazodone AdvReac Fainting Verified 09/22/17 08:16 Serazone AdvReac Swelling Uncoded 09/22/17 08:16 of Lip/Tongue/Throat Constitutional: Denies: fever Cardiovascular: Denies: chest pain Respiratory: Reports: dyspnea. Denies: cough Gastrointestinal: Denies: abdominal pain, nausea, vomiting, diarrhea Past Medical History - Past Medical History Medical history: Reports: atrial fibrillation, COPD, diabetes, hyperlipidemia, hypertension, other Surgical history: Reports: appendectomy, cholecystectomy, hysterectomy, thyroidectomy Psychiatric history: Reports: depression, prior suicide attempt, previous psychiatric hospitalization - Social History Smoking Status: Never smoker Smokeless Tobacco Status: No Alcohol use: Reports: none Drug use: Reports: none Physical Exam - General Limitations: no limitations General appearance: alert, in no apparent distress Course Vital Signs Temperature 98.1 F 10/22/17 06:14 Pulse Rate 69 10/22/17 06:14 Respiratory Rate 28 10/22/17 06:14 Blood Pressure 119/64 10/22/17 06:14 O2 Sat by Pulse Oximetry 96 10/22/17 06:14 Temperature 98.1 F 10/22/17 06:14 Pulse Rate 73 10/22/17 09:28 Respiratory Rate 13 10/22/17 09:28 Blood Pressure 113/49 10/22/17 09:28 O2 Sat by Pulse Oximetry 100 10/22/17 09:28 Oxygen Delivery Oxygen Delivery Bipap Medical Decision Making - Lab Data Result diagrams: 10/22/17 06:15 10/22/17 06:15 Lab Results 10/22/17 10/22/17 10/22/17 Range/Units 06:15 06:15 06:15 WBC 13.2 H (4.3-11.1) K/mcL RBC 4.12 (3.82-4.97) M/mcL Hgb 10.3 L (11.5-15.4) g/dL Hct 34.1 L (35.3-44.9) % MCV 82.8 L (83.0-100.0) fL MCH 25.0 L (28.0-33.3) pg MCHC 30.2 L (31.6-35.5) g/dL RDW 19.3 H (11.5-14.5) % Plt Count 192 (140-400) K/mcL MPV 12.5 H (9.4-12.4) fL Immature Gran % 1.0 (0-4) % Seg Neutrophils % 86.8 % Lymphocytes % 5.1 % Monocytes % 4.8 % Eosinophils % 2.1 % Basophils % 0.2 % Neutrophils # 11.5 H (1.6-8.9) K/mcL Lymphocytes # 0.7 (0.6-4.6) K/mcL Monocytes # 0.6 (0.0-1.3) K/mcL Eosinophils # 0.3 (0.0-0.6) K/mcL Basophils # 0.0 (0.0-0.2) K/mcL PT (9.4-12.1) Seconds INR VBG pH (7.32-7.42) pH Units VBG pCO2 (41-51) mmHg VBG pO2 (25-50) mmHg VBG HCO3 (21-27) mEq/L Sodium 139 (136-145) mEq/L Potassium 3.3 L (3.5-5.1) mEq/L Chloride 103 (98-107) mEq/L Carbon Dioxide 31 H (23-29) mEq/L BUN 10 (8-23) mg/dL Creatinine 1.31 H (0.60-1.20) mg/dL Est GFR ( Amer) 50 L (> 60) Est GFR (Non-Af Amer) 41 L (> 60) BUN/Creatinine Ratio 8 (6-26) Glucose 175 H (70-105) mg/dL Calculated Osmolality 291 (280-300) Lactic Acid (0.5-2.2) mmol/L Calcium 9.4 (8.6-10.3) mg/dL Troponin I < 0.03 (< 0.04) ng/mL B-Natriuretic Peptide 76 (Less than 100) pg/mL Urine Color (Yellow) Urine Clarity (Clear) Urine pH (5.0-8.0) pH Units Ur Specific [place] (1.010-1.025) Urine Protein (Neg-Trace) mg/dL Urine Glucose (UA) (Normal) mg/dL Urine Ketones (Negative) mg/dL Urine Blood (Negative) Urine Nitrite (Negative) Urine Bilirubin (Negative) Urine Urobilinogen (Normal) mg/dL Ur Leukocyte Esterase (Negative) Urine Microscopic RBC (0-3) per hpf Urine Microscopic WBC (0-3) per hpf Ur Squamous Epith Cells (None-Few) per lpf Urine Bacteria (None-Few) per hpf Hyaline Casts (None-Few) per lpf Ur Culture Indicated? (NO) Person Notif of Crit 10/22/17 10/22/17 10/22/17 Range/Units 06:15 06:32 08:06 WBC (4.3-11.1) K/mcL RBC (3.82-4.97) M/mcL Hgb (11.5-15.4) g/dL Hct (35.3-44.9) % MCV (83.0-100.0) fL MCH (28.0-33.3) pg MCHC (31.6-35.5) g/dL RDW (11.5-14.5) % Plt Count (140-400) K/mcL MPV (9.4-12.4) fL Immature Gran % (0-4) % Seg Neutrophils % % Lymphocytes % % Monocytes % % Eosinophils % % Basophils % % Neutrophils # (1.6-8.9) K/mcL Lymphocytes # (0.6-4.6) K/mcL Monocytes # (0.0-1.3) K/mcL Eosinophils # (0.0-0.6) K/mcL Basophils # (0.0-0.2) K/mcL PT 14.0 H (9.4-12.1) Seconds INR 1.2 VBG pH 7.28 L (7.32-7.42) pH Units VBG pCO2 71 H* (41-51) mmHg VBG pO2 91 H (25-50) mmHg VBG HCO3 34 H (21-27) mEq/L Sodium (136-145) mEq/L Potassium (3.5-5.1) mEq/L Chloride (98-107) mEq/L Carbon Dioxide (23-29) mEq/L BUN (8-23) mg/dL Creatinine (0.60-1.20) mg/dL Est GFR ( Amer) (> 60) Est GFR (Non-Af Amer) (> 60) BUN/Creatinine Ratio (6-26) Glucose (70-105) mg/dL Calculated Osmolality (280-300) Lactic Acid 1.1 (0.5-2.2) mmol/L Calcium (8.6-10.3) mg/dL Troponin I (< 0.04) ng/mL B-Natriuretic Peptide (Less than 100) pg/mL Urine Color (Yellow) Urine Clarity (Clear) Urine pH (5.0-8.0) pH Units Ur Specific [place] (1.010-1.025) Urine Protein (Neg-Trace) mg/dL Urine Glucose (UA) (Normal) mg/dL Urine Ketones (Negative) mg/dL Urine Blood (Negative) Urine Nitrite (Negative) Urine Bilirubin (Negative) Urine Urobilinogen (Normal) mg/dL Ur Leukocyte Esterase (Negative) Urine Microscopic RBC (0-3) per hpf Urine Microscopic WBC (0-3) per hpf Ur Squamous Epith Cells (None-Few) per lpf Urine Bacteria (None-Few) per hpf Hyaline Casts (None-Few) per lpf Ur Culture Indicated? (NO) Person Notif of Gillian IBARRA 10/22/17 10/22/17 Range/Units 09:10 09:15 WBC (4.3-11.1) K/mcL RBC (3.82-4.97) M/mcL Hgb (11.5-15.4) g/dL Hct (35.3-44.9) % MCV (83.0-100.0) fL MCH (28.0-33.3) pg MCHC (31.6-35.5) g/dL RDW (11.5-14.5) % Plt Count (140-400) K/mcL MPV (9.4-12.4) fL Immature Gran % (0-4) % Seg Neutrophils % % Lymphocytes % % Monocytes % % Eosinophils % % Basophils % % Neutrophils # (1.6-8.9) K/mcL Lymphocytes # (0.6-4.6) K/mcL Monocytes # (0.0-1.3) K/mcL Eosinophils # (0.0-0.6) K/mcL Basophils # (0.0-0.2) K/mcL PT (9.4-12.1) Seconds INR VBG pH 7.28 L (7.32-7.42) pH Units VBG pCO2 70 H* (41-51) mmHg VBG pO2 95 H (25-50) mmHg VBG HCO3 33 H (21-27) mEq/L Sodium (136-145) mEq/L Potassium (3.5-5.1) mEq/L Chloride (98-107) mEq/L Carbon Dioxide (23-29) mEq/L BUN (8-23) mg/dL Creatinine (0.60-1.20) mg/dL Est GFR ( Amer) (> 60) Est GFR (Non-Af Amer) (> 60) BUN/Creatinine Ratio (6-26) Glucose (70-105) mg/dL Calculated Osmolality (280-300) Lactic Acid (0.5-2.2) mmol/L Calcium (8.6-10.3) mg/dL Troponin I (< 0.04) ng/mL B-Natriuretic Peptide (Less than 100) pg/mL Urine Color Yellow (Yellow) Urine Clarity Clear (Clear) Urine pH 6.5 (5.0-8.0) pH Units Ur Specific [place] > 1.030 H (1.010-1.025) Urine Protein Trace (Neg-Trace) mg/dL Urine Glucose (UA) Normal (Normal) mg/dL Urine Ketones Negative (Negative) mg/dL Urine Blood Negative (Negative) Urine Nitrite Negative (Negative) Urine Bilirubin Negative (Negative) Urine Urobilinogen Normal (Normal) mg/dL Ur Leukocyte Esterase Negative (Negative) Urine Microscopic RBC 3-5 H (0-3) per hpf Urine Microscopic WBC 0-3 (0-3) per hpf Ur Squamous Epith Cells Moderate H (None-Few) per lpf Urine Bacteria None Seen (None-Few) per hpf Hyaline Casts None Seen (None-Few) per lpf Ur Culture Indicated? NO (NO) Person Notif of Crit dr yoon Attestation Statement - Attestation Attestation: I, Ubaldo Wells DO, examined this patient [id number] and my medical decision-making was reviewed with (Dr. Celestino Yoon, Resident Physician. I agree with the documented findings, disposition and treatment plan as described except to the extent set forth below. Please see my progress notes for details. 62-year-old female presents to the emergency room for evaluation of increased work of breathing shortness of breath and hypoxia. Patient is a [facility] resident. She therefore other chronic disabilities. She has never had respiratory related issues before. Patient signed out from the nighttime physicians after initial evaluation the medical intervention were started. Patient labs ABG and BiPAP applied immediately on arrival. When in and reevaluated based on presentation her lungs do appear to be clear. She is awake and follows commands appropriately and does answer questions. She says that she feels better after the BiPAP was applied. She denies any recent illnesses fevers or chills chest pain headache vision changes nausea vomiting or diarrhea. Her main complaint is the shortness of breath that woke her from sleep. Patient's ABG does show slight acidemia with what appears to be compensated respiratory acidosis. Patient will have detailed workup looking for infectious etiology as well as pulmonary emboli considering her history. EKG and labs reviewed from the initial workup. Disposition will mostly be admission for symptomatic hypoxia and respiratory distress. We will continue to monitor his treatment course is established and completed. See detailed documentation of previous physical exam as well as a repeat physical exam here in the emergency room. Otherwise patient is stable despite having complaints respiratory related illness in distress. See detailed documentation of the physical exam, medical intervention, medical decision-making and disposition in the resident physician's note. No critical care provider the patient's treatment course at this time. 0900 No focal consolidations noted on the CT angiography the chest. CT the head is unremarkable this time. Patient does have an elevated white blood cell count with stable hemoglobin. Platelet count is also stable at this time. A lecture light appear to be within the normal range for this patient. Symptomatic control is being completed this time repeat VBG and admission process will be established. 1000 Patient was discussed with the hospitals. No other recommendations issues at this time. Patient will be admitted for hypercapnic respiratory related issues consistent with COPD and truncal obesity. Patient is otherwise comfortable following commands the bedside answering questions appropriately. We will continue to monitor in emergency room until about established.
[2017-10-22 09:19] LABS: VBG HCO3 33 mEq/L (21-27); VBG PCO2 70 mmHg (41-51); VBG PH 7.28 pH Units (7.32-7.42); VBG PO2 95 mmHg (25-50)
[2017-10-22 09:21] LABS: Bilirubin,Urine Negative (Negative); Blood,Urine Negative (Negative); Clarity,Urine Clear (Clear); Color,Urine Yellow (Yellow); Glucose,Urine (UA) Normal (Normal); Ketones,Urine Negative (Negative); Leukocyte Esterase,Urine Negative (Negative); Nitrite,Urine Negative (Negative); PH,Urine 6.5 pH Units (5.0-8.0); Protein,Urine Trace mg/dL (Neg-Trace); Specific Gravity,Urine > 1.030 (1.010-1.025); Urobilinogen,Urine Normal (Normal)
[2017-10-22 09:24] LABS: Bacteria,Urine None Seen per hpf (None-Few); Hyaline Casts,Urine None Seen per lpf (None-Few); Squamous Epithelial Cell,Urine Moderate per lpf (None-Few); WBC,Urine 0-3 per hpf (0-3)
[2017-10-22] MEDS ORDERED: Naloxone 0.4 MG/ML INJ IVP PRN (10:07)
[2017-10-22] MEDS ORDERED: *HR* Dextrose 50 % in Water (Syg) 50 ML SYRINGE IVP PRN (10:12)
[2017-10-22] MEDS ORDERED: Dextrose Gel 15 GM/37.5 ML TUBE PO PRN ×2 (10:12)
[2017-10-22] MEDS ORDERED: D5% in Water 1,000 ML IVC PRN (10:12)
[2017-10-22] MEDS ORDERED: Furosemide 40 MG TABLET PO SCH (10:15)
--- NOTE | 2017-10-22 10:15 | Internal Med History&Physical ---
Date of Encounter: 10/22/17 Time of Encounter: 10:30 Internal Medicine - H&P: HPI Chief complaint: Shortness of breath Admitted From: Long-term Nursing Facility Plans for Post Hospital Care: Transfer Detention Facility History of present illness: Ms. Asif is a 62 year old female with past medical history of COPD, chronic hypoxic and hypercapnic respiratory failure was recently discharged earlier in the month after being managed for COPD exacerbation. At that time, social work evaluation showed BiPAP was made available at the correction facility. She represented to the ER with complaints of one week history of shortness of breath. She also reports she has been needing O2 more than during the nighttime as prescribed. She denies cough, fever, chills. She denies chest pain or palpitations. She denies nausea vomiting or diarrhea. She denies any sick contacts at [facility], or recent travels. She does endorse not wearing her BiPAP or CPAP every night due to issues with her mask. On presentation to the emergency room, she was found to be hypercapnic, with PCO2 and venous gas 71. She was placed on BiPAP and presented for admission to the hospital. On evaluation, she is awake alert and oriented, in no form of distress. She has additional medical history of PATRICIO/OHS, type 2 diabetes mellitus, bipolar disorder, depression, hypothryoidism, chronic venous stasis, herpes zoster She is also being currentlt managed for RLE cellulitis with levaquin from SNF, due to complete treatment 10/24. She is full code Work up in ER significant for leukocytosis and hypercapnea, renal function showed dehydration with worsening of cr compared to previous value during last admission chest imaging including CTA is unremarkable Past Med Surg Social Fam HX - Past Medical History Medical history: atrial fibrillation, COPD, diabetes, hyperlipidemia, hypertension, other Additional medical history: diverticulosts pulmonary edema chronic small airway disease cardiomegaly Psychiatric history: depression, prior suicide attempt, previous psychiatric hospitalization - Past Surgical History Surgical History: appendectomy, cholecystectomy, hysterectomy, thyroidectomy Additional surgical history: tennis elbow - Social History Smoking Status: Never smoker Smokeless Tobacco Status: No Alcohol use: none Drug use: none - Family History Father Hx Family Cardiac Disorders: Yes Hx Family Endocrine Disorder: Yes Internal Medicine - H&P: Meds Cholestyramine (with Sugar) [Cholestyramine Bulk Powder] 2 scoop PO DAILY [History] Gabapentin [Neurontin] 600 mg PO TID 08/24/16 [History] [place] Carbonate 900 mg PO HS 08/24/16 [History] Pantoprazole Sodium 40 mg PO DAILY 08/24/16 [History] Saxagliptin HCl [Onglyza] 5 mg PO DAILY 08/24/16 [History] Sertraline [Zoloft] 200 mg PO DAILY 08/24/16 [History] Verapamil HCl [Verapamil ER] 240 mg PO DAILY 08/24/16 [History] Brimonidine 0.2% [Alphagan] 1 drop BOTH EYES TID 08/25/16 [History] L. Acidophilus/Pectin, [place] [Acidophilus Caplet] 1 each PO DAILY 08/25/16 [ History] Fluticasone Propionate Nasal [Flonase] 50 mcg NS DAILY bottle 08/28/16 [Rx] Furosemide [Lasix] 40 mg PO BID #60 tablet 08/28/16 [Rx] Losartan [Cozaar] 50 mg PO DAILY tablet 08/28/16 [Rx] Pentoxifylline [TRENtal] 400 mg PO TIDWM tablet.er 08/28/16 [Rx] ARIPiprazole [Abilify] 2 mg PO DAILY 09/02/17 [History] Acyclovir [Zovirax] 800 mg PO BID 09/02/17 [History] Dicyclomine [Bentyl] 10 mg PO QID #20 capsule 09/02/17 [Rx] Ondansetron ODT [Zofran ODT] 4 mg SL Q6HR #20 tab.rapdis 09/02/17 [Rx] Pravastatin Sodium [Pravachol] 40 mg PO HS 09/02/17 [History] Repaglinide [Prandin] 1 mg PO DAILY 09/02/17 [History] Levothyroxine Sodium [Synthroid] 300 mcg PO DAILY 09/22/17 [History] Loperamide [Imodium] 2 mg PO QID PRN 09/22/17 [History] Albuterol Sulfate [Albuterol Inhaler] 2 puff IH Q4HR PRN 30 Days #1 hfa.aer.ad 09/24/17 [Rx] Fluticasone/Vilanterol [Breo Ellipta 200-25 Mcg INH] 1 puff IH DAILY 10/22/17 [ History] Levofloxacin 750 MG/150 ML [Levaquin Premix 750mg/150 mL] 750 mg IVPB DAILY [History] Melatonin [Melatin] 3 mg PO DAILY 10/22/17 [History] Meloxicam [Mobic] 7.5 mg PO DAILY 10/22/17 [History] Oxycodone HCl [Oxaydo] 5 - 10 mg PO Q4H PRN 10/22/17 [History] 3 Allergy/AdvReac Type Severity Reaction Status Date / Time sulfamethoxazole Allergy Rash Verified 09/22/17 08:16 [From Bactrim] trimethoprim [From Bactrim] Allergy Rash Verified 09/22/17 08:16 celecoxib [From Celebrex] AdvReac Gastrointestinal Verified 09/22/17 08:16 Upset Penicillins AdvReac Swelling Verified 09/22/17 08:16 of the Eye trazodone AdvReac Fainting Verified 09/22/17 08:16 Serazone AdvReac Swelling Uncoded 09/22/17 08:16 of Lip/Tongue/Throat All Systems PM: A 10-system review of systems was performed and is negative for pertinent findings except as documented above in the HPI. - Constitutional Constitutional: as per HPI - EENT Eyes: as per HPI Ears: as per HPI Nose, mouth and throat: as per HPI - Cardiovascular Cardiovascular ROS IM: as per HPI - Respiratory Respiratory: as per HPI - Gastrointestinal Gastrointestinal: as per HPI - Genitourinary Genitourinary: as per HPI - Musculoskeletal Musculoskeletal ROS IM: as per HPI - Integumentary Integumentary IM: as per HPI - Neurological Neurological ROS: as per HPI - Hematologic/Lymphatic Hematologic/Lymphatic: as per HPI - Constitutional Vitals: Temp Pulse Resp BP Pulse Ox 98.1 F 73 13 113/49 100 10/22/17 06:14 10/22/17 09:28 10/22/17 09:28 10/22/17 09:28 10/22/17 09:28 General appearance: Present: A&O X 3, morbidly obese, pleasant, no acute distress - Head Head exam: Present: atraumatic, normocephalic - Eye Eye exam: Present: PERRL, conjuntiva pink, sclera anicteric Pupils: Present: PERRL - Neck Neck exam general surgery: Present: supple, trachea midline. Absent: lymphadenopathy - Respiratory Respiratory exam: Present: CTAB. Absent: accessory muscle use, rales, rhonchi, wheezes - Cardiovascular Cardiovascular exam: Present: RRR, +S1, +S2. Absent: diastolic murmur, gallop, rubs, systolic murmur - GI/Abdominal GI/Abdominal exam: Present: normal bowel sounds, soft, no peritoneal signs. Absent: distended, tenderness Additional comments: morbidly obese, slighlty inflammed pannus - Extremities Exam Extremities exam: Present: pedal edema, warm, radial pulses palpable and symmetrical. Absent: calf tenderness, cyanotic Additional comments: chronic venous stasis with superimposed cellulitis on RLE, RLE >>>LLE, piting pedal edema - Neurological Exam Neurological exam: Present: alert, CN II-XII intact, oriented X3, no focal deficits. Absent: pronater drift, facial droop, speech deficit - Skin Skin exam: Present: dry Internal Med - H&P Results - Labs CBC & Chem 7: 10/22/17 06:15 10/22/17 06:15 - Assessment and plan (1) Acute on chronic respiratory failure with hypoxia and hypercapnia Current Visit: Yes Status: Acute Assessment and plan: continue support with BIPAP Check VBG in 4 hrs and a.m Compliance reinforced (2) COPD exacerbation Current Visit: Yes Status: Acute Assessment and plan: continue duonebs, prednisone, BiPAP Chest imaging with no PNA or PE has been on IV levaquin for cellulitis, continue same (3) Bipolar disorder Current Visit: Yes Status: Chronic Assessment and plan: continue home meds Qualifiers: Active/Remission status: remission status unspecified Qualified Code(s): F31.9 - Bipolar disorder, unspecified (4) Cellulitis Current Visit: Yes Status: Acute Assessment and plan: continue levaquin through 10/24 Qualifiers: Site of cellulitis: extremity Site of cellulitis of extremity: lower extremity Laterality: unspecified laterality Qualified Code(s): L03.119 - Cellulitis of unspecified part of limb (5) Chronic venous insufficiency Current Visit: Yes Status: Chronic Assessment and plan: chronic, stable (6) Herpes zoster Current Visit: Yes Status: Chronic Assessment and plan: continue home meds Qualifiers: Herpes zoster complications: without complications Qualified Code(s): B02.9 - Zoster without complications (7) Hyperlipidemia Current Visit: Yes Status: Chronic Assessment and plan: continue home meds Qualifiers: Hyperlipidemia type: unspecified Qualified Code(s): E78.5 - Hyperlipidemia , unspecified (8) Hypertension Current Visit: Yes Status: Chronic Assessment and plan: continue home meds Qualifiers: Hypertension type: essential hypertension Qualified Code(s): I10 - Essential (primary) hypertension (9) Hypothyroidism Current Visit: Yes Status: Chronic Assessment and plan: continue synthroid Qualifiers: Hypothyroidism type: unspecified Qualified Code(s): E03.9 - Hypothyroidism , unspecified (10) Morbid obesity Current Visit: Yes Status: Chronic Assessment and plan: encourage weight loss (11) Obesity hypoventilation syndrome Current Visit: Yes Status: Chronic (12) PATRICIO (obstructive sleep apnea) Current Visit: Yes Status: Chronic Assessment and plan: BiPAP for now CPAP at night upon discharge (13) Type 2 diabetes mellitus Current Visit: Yes Status: Chronic Assessment and plan: basal and sliding scale insulin FS ACHS ADA diet 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: 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
[2017-10-22 13:19] LABS: VBG HCO3 35 mEq/L (21-27); VBG PCO2 78 mmHg (41-51); VBG PH 7.26 pH Units (7.32-7.42); VBG PO2 75 mmHg (25-50)
[2017-10-22] MEDS: Ondansetron ODT 4 MG TAB.RAPDIS SL SCH ×3 (13:47→23:51)
[2017-10-22] MEDS: Verapamil ER (24 HR) 240 MG TABLET.ER PO SCH (13:49)
[2017-10-22] MEDS: ARIPiprazole 2 MG TABLET PO SCH (13:50)
[2017-10-22] MEDS: Cholestyramine 4 GM POWD.PACK PO SCH ×2 (13:53→15:39)
[2017-10-22] MEDS: Ipratropium/Albuterol Neb 3 ML IH SCH ×2 (15:30→22:46)
[2017-10-22] MEDS: Gabapentin 300 MG CAPSULE PO SCH ×2 (15:39→20:16)
[2017-10-22] MEDS: Insulin LISPRO 300 UNITS/3 ML VIAL SQ SCH ×2 (15:50→18:05)
--- NOTE | 2017-10-22 18:16 | Electrocardiograph Report ---
[place] [id number] Test Date: 2017-10-22 Pat Name: Jayne Asif Department: 104 Room: 2N10 Gender: F Security Control Room Officer: : 1955 Requested By: Aidan Salcedo Order Number: [id number] Reading MD: Garfield Cheng Measurements Intervals [place] Rate: 63 P: 44 AK: 184 QRS: -20 QRSD: 121 T: 44 QT: 462 QTc: 470 Interpretive Statements SINUS RHYTHM MODERATE INTRAVENTRICULAR CONDUCTION DELAY Electronically Signed On 10-22-2017 18:14:45 EDT by Garfield Cheng
[2017-10-22] MEDS: Insulin DETEMIR 100 UNIT/ML X5UNITS SQ SCH (20:18)
[2017-10-22] MEDS: Lithium Carbonate ER 300 MG TABLET.ER PO SCH (20:19)
[2017-10-22] MEDS: *HR* OxyCODONE Immed Rel 5 MG TABLET PO PRN (23:51)
[2017-10-23] MEDS: Melatonin 3 MG TABLET PO SCH ×2 (00:53→20:36)
[2017-10-23 01:32] LABS: VBG HCO3 33 mEq/L (21-27); VBG PCO2 59 mmHg (41-51); VBG PH 7.36 pH Units (7.32-7.42); VBG PO2 189 mmHg (25-50)
[2017-10-23 01:32] LABS: Basophils % 0.2 %; Hemoglobin 10.1 g/dL (11.5-15.4); Immature Granulocytes % 1.1 % (0-4); Lymphocytes # 0.5 K/mcL (0.6-4.6); Lymphocytes % 4.4 %; Mean Corpuscular HGB Conc 30.6 g/dL (31.6-35.5); Mean Corpuscular Hemoglobin 25.1 pg (28.0-33.3); Mean Corpuscular Volume 81.9 fL (83.0-100.0); Mean Platelet Volume 12.3 fL (9.4-12.4); Monocytes # 0.5 K/mcL (0.0-1.3); Neutrophils # 11.2 K/mcL (1.6-8.9); Platelet Count 212 K/mcL (140-400); Red Blood Count 4.03 M/mcL (3.82-4.97); Red Cell Distribution Width 19.3 % (11.5-14.5); Segmented Neutrophils % 90.3 %
[2017-10-23 01:54] LABS: Calcium 9.4 mg/dL (8.6-10.3); Potassium 3.6 mEq/L (3.5-5.1)
[2017-10-23] MEDS ORDERED: Haloperidol Lactate 5 MG/ML VIAL IVP ONE ×2 (02:33→21:15)
[2017-10-23 03:43] LABS: Magnesium 2.5 mg/dL (1.6-2.6)
[2017-10-23] MEDS: Ipratropium/Albuterol Neb 3 ML IH SCH ×4 (04:11→21:33)
[2017-10-23] MEDS ORDERED: *HR* Enoxaparin 30 MG/0.3 ML SYRINGE SQ SCH (06:00)
[2017-10-23] MEDS: Lactobacillus 1 EACH CAP.SPRINK PO SCH (09:20)
[2017-10-23] MEDS: predniSONE 20 MG TABLET PO SCH (09:20)
[2017-10-23] MEDS: Ondansetron ODT 4 MG TAB.RAPDIS SL SCH ×3 (09:20→17:18)
[2017-10-23] MEDS: ARIPiprazole 2 MG TABLET PO SCH (09:20)
[2017-10-23] MEDS: Verapamil ER (24 HR) 240 MG TABLET.ER PO SCH (09:21)
[2017-10-23] MEDS: Gabapentin 300 MG CAPSULE PO SCH ×3 (09:21→20:35)
[2017-10-23] MEDS: Fluticasone Propionate Nasal 50 MCG/SPRAY BOTTLE NS SCH (09:22)
[2017-10-23] MEDS: Insulin LISPRO 300 UNITS/3 ML VIAL SQ SCH ×5 (09:22→17:19)
[2017-10-23] MEDS ORDERED: Albuterol 2.5 MG/3 ML NEBULIZER IH PRN (10:34)
[2017-10-23] MEDS: Acetylcysteine 10% 2 ML INHSOL IH SCH ×3 (11:00→21:33)
--- NOTE | 2017-10-23 11:03 | Internal Med Progress Note ---
Date of Encounter: 10/23/17 Time of Encounter: 11:01 - Assessment and plan (1) Acute on chronic respiratory failure with hypoxia and hypercapnia Current Visit: Yes Status: Acute Assessment and plan: Improving. Likely secondary to BiPAP non-compliance and mild COPD exacerbation. Currently on 2L NC, which is home rate. Continue BiPAP QHS. Recheck ABG tomorrow AM. If respiratory status remains stable today, plan for discharge back to [facility] tomorrow. Will transfer out of step down unit as patient is stable at this time. (2) COPD exacerbation Current Visit: Yes Status: Acute Assessment and plan: Continue duonebs, prednisone, and supplemental oxygen. Continue BiPAP QHS. Continue levaquin as per below. Add claritin, guaifenesin, mucomyst inhaled, and chest PT. Turn/cough/deep breathe. Up to chair TID with assistance. Incentive spirometer. (3) Dehydration Current Visit: Yes Status: Acute Assessment and plan: Unchanged. Does not currently meet criteria for LILY given last BMP. Continue to hold home lasix. Hydrate very gently with IV NS at 50 ml/hr today. Recheck BMP in AM. (4) Cellulitis Current Visit: Yes Status: Acute Assessment and plan: Continue levaquin through 10/24/17. Qualifiers: Site of cellulitis: extremity Site of cellulitis of extremity: lower extremity Laterality: unspecified laterality Qualified Code(s): L03.119 - Cellulitis of unspecified part of limb (5) Type 2 diabetes mellitus Current Visit: Yes Status: Chronic Assessment and plan: Continue accuchecks and low dose SSI QID AC/HS. Continue home basal bolus regimen. 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 Qualifiers: Active/Remission status: remission status unspecified Qualified Code(s): F31.9 - Bipolar disorder, unspecified (7) Hypothyroidism Current Visit: Yes Status: Chronic Assessment and plan: Continue home medications. Qualifiers: Hypothyroidism type: unspecified Qualified Code(s): E03.9 - Hypothyroidism , unspecified (8) Herpes zoster Current Visit: Yes Status: Chronic Assessment and plan: Continue home medications. Qualifiers: Herpes zoster complications: without complications Qualified Code(s): B02.9 - Zoster without complications (9) Hypertension Current Visit: Yes Status: Chronic Assessment and plan: Continue home medications. Qualifiers: Hypertension type: essential hypertension Qualified Code(s): I10 - Essential (primary) hypertension (10) Chronic venous insufficiency Current Visit: Yes Status: Chronic Assessment and plan: Chronic and stable. Treating superimposed cellulitis as per above. (11) Hyperlipidemia Current Visit: Yes Status: Chronic Assessment and plan: Continue home medications. Qualifiers: Hyperlipidemia type: unspecified Qualified Code(s): E78.5 - Hyperlipidemia , unspecified (12) Morbid obesity Current Visit: Yes Status: Chronic Assessment and plan: Counselled on lifestyle modifications. (13) Obesity hypoventilation syndrome Current Visit: Yes Status: Chronic (14) PATRICIO (obstructive sleep apnea) Current Visit: Yes Status: Chronic Assessment and plan: Continue BiPAP QHS. (15) DVT prophylaxis Current Visit: Yes Status: Acute Assessment and plan: Continue SQ lovenox. - Time Spent With Patient Total time spent is greater than 50% in coordination of care (as documented) at patient's floor/unit and/or counseling patient: less than 15 minutes - Subjective Interval history: Patient required haldol last night for some agitation. She is doing "ok" this morning. She states that she is "scared." She states that breathing is "better." She denies fever, chills, chest pain, nausea, vomiting, or abdominal pain. She has no other complaints at this time. - Constitutional Vitals: Temp Pulse Resp BP Pulse Ox 98.9 F 84 18 123/56 95 10/23/17 07:04 10/23/17 05:05 10/23/17 10:21 10/23/17 07:04 10/23/17 10:21 General appearance: Present: cooperative, A&O X 3, morbidly obese, pleasant, no acute distress - Respiratory Respiratory exam: Absent: accessory muscle use, rales, rhonchi, wheezes Additional comments: Normal WOB, coarse breath sounds bilaterally - Cardiovascular Cardiovascular exam: Present: RRR, +S1, +S2. Absent: diastolic murmur, gallop, rubs, systolic murmur Additional comments: 1+ BLE edema - GI/Abdominal GI/Abdominal exam: Present: normal bowel sounds, soft. Absent: distended, hepatomegaly, mass, splenomegaly, tenderness - Psychiatric Psychiatric exam: Present: normal affect, normal mood. Absent: agitated, anxious, depressed - Skin Skin exam: Present: dry, intact, warm. Absent: cyanosis Additional comments: Chronic venous stasis changes on BLE, with superimposed erythema on RLE Internal Medicine: Result - Labs CBC & Chem 7: 10/23/17 01:00 10/23/17 01:00 Labs: Short CBC 10/23/17 Range/Units 01:00 WBC 12.4 H (4.3-11.1) K/mcL Hgb 10.1 L (11.5-15.4) g/dL Hct 33.0 L (35.3-44.9) % Plt Count 212 (140-400) K/mcL Neutrophils # 11.2 H (1.6-8.9) K/mcL BMP 10/23/17 01:00 Sodium 140 Potassium 3.6 Chloride 104 Carbon Dioxide 31 H BUN 10 Creatinine 1.29 H Glucose 180 H Calcium 9.4 - ABG Interpretation ABG results: PT/INR, D-dimer PT 14.0 Seconds (9.4-12.1) H 10/22/17 06:15 Consult Discharge Plan - Plan Referrals: Corina Lynch MD [Primary Care Provider] - (Patient is from [facility] no PCP appointment needed)
[2017-10-23] MEDS ORDERED: 0.9 % Sodium Chloride 500 ML IVC ONE (11:04)
[2017-10-23] MEDS: 0.9 % Sodium Chloride 1,000 ML IVC SCH (12:48)
[2017-10-23] MEDS: *HR* OxyCODONE Immed Rel 5 MG TABLET PO PRN (12:48)
[2017-10-23] MEDS: Loratadine 10 MG TABLET PO SCH (12:48)
[2017-10-23] MEDS: Lithium Carbonate ER 300 MG TABLET.ER PO SCH (20:36)
[2017-10-23] MEDS: Insulin DETEMIR 100 UNIT/ML X5UNITS SQ SCH (20:38)
[2017-10-23] MEDS ORDERED: Insulin LISPRO 300 UNITS/3 ML VIAL SQ SCH (21:00)
[2017-10-24] MEDS: Ondansetron ODT 4 MG TAB.RAPDIS SL SCH ×3 (01:33→13:58)
[2017-10-24] MEDS: Ipratropium/Albuterol Neb 3 ML IH SCH ×2 (04:15→09:46)
[2017-10-24] MEDS: Acetylcysteine 10% 2 ML INHSOL IH SCH ×2 (04:15→09:46)
[2017-10-24 05:04] LABS: ABG Base Excess 8 mEq/L (-2 to 3); ABG HCO3 36 mEq/L (21-27); ABG Oxygen Saturation 99 % (95-98); ABG PCO2 63 mmHg (35-45); ABG PH 7.36 pH Units (7.32-7.45); ABG PO2 133 mmHg (85-104); ABG TCO2 38 mEq/L (20-26)
[2017-10-24] MEDS ORDERED: *HR* Enoxaparin 40 MG/0.4 ML SYRINGE SQ SCH (06:00)
[2017-10-24] MEDS: ARIPiprazole 2 MG TABLET PO SCH (06:34)
[2017-10-24] MEDS: predniSONE 20 MG TABLET PO SCH (06:35)
[2017-10-24] MEDS: Gabapentin 300 MG CAPSULE PO SCH (06:36)
[2017-10-24] MEDS: Lactobacillus 1 EACH CAP.SPRINK PO SCH (06:36)
[2017-10-24] MEDS: Loratadine 10 MG TABLET PO SCH (06:38)
[2017-10-24] MEDS: Verapamil ER (24 HR) 240 MG TABLET.ER PO SCH (06:39)
[2017-10-24] MEDS: Cholestyramine 4 GM POWD.PACK PO SCH (06:40)
[2017-10-24 08:08] LABS: Basophils % 0.1 %; Eosinophils # 0.1 K/mcL (0.0-0.6); Eosinophils % 0.4 %; Hematocrit 32.2 % (35.3-44.9); Hemoglobin 9.6 g/dL (11.5-15.4); Immature Granulocytes % 0.8 % (0-4); Lymphocytes % 7.2 %; Mean Corpuscular HGB Conc 29.8 g/dL (31.6-35.5); Mean Corpuscular Hemoglobin 24.9 pg (28.0-33.3); Mean Corpuscular Volume 83.4 fL (83.0-100.0); Monocytes # 0.9 K/mcL (0.0-1.3); Monocytes % 6.7 %; Neutrophils # 11.8 K/mcL (1.6-8.9); Platelet Count 179 K/mcL (140-400); Red Blood Count 3.86 M/mcL (3.82-4.97); Red Cell Distribution Width 19.7 % (11.5-14.5); Segmented Neutrophils % 84.8 %
[2017-10-24 08:22] LABS: Calcium 9.3 mg/dL (8.6-10.3); Potassium 3.6 mEq/L (3.5-5.1)
[2017-10-24] MEDS: Fluticasone Propionate Nasal 50 MCG/SPRAY BOTTLE NS SCH (08:55)
[2017-10-24] MEDS: Insulin LISPRO 300 UNITS/3 ML VIAL SQ SCH ×4 (08:57→14:03)
[2017-10-24] MEDS: 0.9 % Sodium Chloride 1,000 ML IVC SCH (08:58)
--- NOTE | 2017-10-24 09:59 | Discharge Summary ---
- NOTES TO OUTPATIENT PROVIDER Notes to Outpatient Provider: Follow up with ECF physician in 2-3 days after discharge. Recheck BMP and CBC at that time. Date of Encounter: 10/24/17 Time of Encounter: 09:52 - Discharge Diagnosis (1) Acute on chronic respiratory failure with hypoxia and hypercapnia Priority: Primary Status: Acute (2) COPD exacerbation Priority: Secondary Status: Acute (3) Dehydration Priority: Secondary Status: Acute (4) Cellulitis Priority: Secondary Status: Resolved Qualifiers: Site of cellulitis: extremity Site of cellulitis of extremity: lower extremity Laterality: unspecified laterality Qualified Code(s): L03.119 - Cellulitis of unspecified part of limb (5) Type 2 diabetes mellitus Priority: Secondary Status: Chronic Qualifiers: Diabetes mellitus group home insulin use: without equipment coordinator use Diabetes mellitus complication status: with unspecified complications Qualified Code(s) : E11.8 - Type 2 diabetes mellitus with unspecified complications (6) Bipolar disorder Priority: Secondary Status: Chronic Qualifiers: Active/Remission status: remission status unspecified Qualified Code(s): F31.9 - Bipolar disorder, unspecified (7) Hypothyroidism Priority: Secondary Status: Chronic Qualifiers: Hypothyroidism type: unspecified Qualified Code(s): E03.9 - Hypothyroidism , unspecified (8) Herpes zoster Priority: Secondary Status: Chronic Qualifiers: Herpes zoster complications: without complications Qualified Code(s): B02.9 - Zoster without complications (9) Hypertension Priority: Secondary Status: Chronic Qualifiers: Hypertension type: essential hypertension Qualified Code(s): I10 - Essential (primary) hypertension (10) Chronic venous insufficiency Priority: Secondary Status: Chronic (11) Hyperlipidemia Priority: Secondary Status: Chronic Qualifiers: Hyperlipidemia type: unspecified Qualified Code(s): E78.5 - Hyperlipidemia , unspecified (12) Morbid obesity Priority: Secondary Status: Chronic (13) Obesity hypoventilation syndrome Priority: Secondary Status: Chronic (14) PATRICIO (obstructive sleep apnea) Priority: Secondary Status: Chronic (15) DVT prophylaxis Priority: Secondary Status: Acute Hospital course: Ms. Asif is a 62 year old female admitted for acute on chronic respiratory failure likely secondary to BiPAP non-compliance and acute exacerbation of COPD. She was admitted to step down unit with telemetry. She was started on BiPAP QHS. She was started on scheduled duonebs and prednisone for acute exacerbation of COPD. She was continued on home levaquin for RLE cellulities ( last dose on day of discharge). Respiratory status improved and she was weaned to home 2L NC. Her respirations are back to her baseline today. She wants to go back to [facility] today. I counselled her on the importance of BiPAP compliance at night at [facility]. She voiced understanding. She will be discharged with a prednisone taper. She has completed full course of levaquin for RLE cellulitis, so this will be discontinued on discharge. She had mild dehydration and received IVF here; did not meet LILY criteria and creatinine improved. She will follow up with ECF physician in 2-3 days after discharge. Repeat BMP and CBC can be checked at that time. Patient has met maximum benefit of this hospitalization and will be discharged to [facility] in stable condition. Discharge discussed with: patient, nurse - Time Spent with Patient Total time spent providing and/or coordinating discharge services: Greater than 30 minutes - Discharge Medications Prescriptions: Gabapentin [Neurontin] 600 mg PO TID 4 Days #12 tablet Oxycodone HCl [Oxaydo] 5 mg PO Q4H PRN 4 Days #24 tablet.orl PRN Reason: Pain predniSONE [PredniSONE] See Taper PO DAILY 12 Days #30 tablet Home Medications: Cholestyramine (with Sugar) [Cholestyramine Bulk Powder] 2 scoop PO DAILY [History] [place] Carbonate 900 mg PO HS 08/24/16 [History] Pantoprazole Sodium 40 mg PO DAILY 08/24/16 [History] Saxagliptin HCl [Onglyza] 5 mg PO DAILY 08/24/16 [History] Sertraline [Zoloft] 200 mg PO DAILY 08/24/16 [History] Verapamil HCl [Verapamil ER] 240 mg PO DAILY 08/24/16 [History] Brimonidine 0.2% [Alphagan] 1 drop BOTH EYES TID 08/25/16 [History] L. Acidophilus/Pectin, [place] [Acidophilus Caplet] 1 each PO DAILY 08/25/16 [ History] Fluticasone Propionate Nasal [Flonase] 50 mcg NS DAILY bottle 08/28/16 [Rx] Furosemide [Lasix] 40 mg PO BID #60 tablet 08/28/16 [Rx] Losartan [Cozaar] 50 mg PO DAILY tablet 08/28/16 [Rx] Pentoxifylline [TRENtal] 400 mg PO TIDWM tablet.er 08/28/16 [Rx] ARIPiprazole [Abilify] 2 mg PO DAILY 09/02/17 [History] Acyclovir [Zovirax] 800 mg PO BID 09/02/17 [History] Dicyclomine [Bentyl] 10 mg PO QID #20 capsule 09/02/17 [Rx] Ondansetron ODT [Zofran ODT] 4 mg SL Q6HR #20 tab.rapdis 09/02/17 [Rx] Pravastatin Sodium [Pravachol] 40 mg PO HS 09/02/17 [History] Repaglinide [Prandin] 1 mg PO DAILY 09/02/17 [History] Levothyroxine Sodium [Synthroid] 300 mcg PO DAILY 09/22/17 [History] Loperamide [Imodium] 2 mg PO QID PRN 09/22/17 [History] Albuterol Sulfate [Albuterol Inhaler] 2 puff IH Q4HR PRN 30 Days #1 hfa.aer.ad 09/24/17 [Rx] Fluticasone/Vilanterol [Breo Ellipta 200-25 Mcg INH] 1 puff IH DAILY 10/22/17 [ History] Melatonin [Melatin] 3 mg PO DAILY 10/22/17 [History] Gabapentin [Neurontin] 600 mg PO TID 4 Days #12 tablet 10/24/17 [Rx] Oxycodone HCl [Oxaydo] 5 mg PO Q4H PRN 4 Days #24 tablet.orl 10/24/17 [Rx] predniSONE [PredniSONE] See Taper PO DAILY 12 Days #30 tablet 10/24/17 [Rx] Allergies/Adverse Reactions: 3 Allergy/AdvReac Type Severity Reaction Status Date / Time sulfamethoxazole Allergy Rash Verified 09/22/17 08:16 [From Bactrim] trimethoprim [From Bactrim] Allergy Rash Verified 09/22/17 08:16 celecoxib [From Celebrex] AdvReac Gastrointestinal Verified 09/22/17 08:16 Upset Penicillins AdvReac Swelling Verified 09/22/17 08:16 of the Eye trazodone AdvReac Fainting Verified 09/22/17 08:16 Serazone AdvReac Swelling Uncoded 09/22/17 08:16 of Lip/Tongue/Throat Date of admission: 10/23/17 07:43 Primary care physician: Corina Lynch Consults: 10/23/17 10:37 Consult to Respiratory Therapy [CONS] Routine Reason for Consult: Acute on Chronic Respiratory Failure, COPD Exacerbation Call Completed: No Discharging clinician: Colton Parada Anticipated date of discharge: 10/24/17 - Constitutional Vitals: Temp Pulse Resp BP Pulse Ox 98.5 F 70 20 122/62 95 10/24/17 07:04 10/24/17 07:04 10/24/17 07:04 10/24/17 07:04 10/24/17 07:04 General appearance: Present: cooperative, A&O X 3, morbidly obese, pleasant, no acute distress, answers questions appropriately - Respiratory Respiratory exam: Absent: accessory muscle use, rales, rhonchi, wheezes Additional comments: Normal WOB, coarse breath sounds bilaterally - Cardiovascular Cardiovascular exam: Present: RRR, +S1, +S2. Absent: diastolic murmur, gallop, rubs, systolic murmur Additional comments: Trace BLE edema - GI/Abdominal GI/Abdominal exam: Present: normal bowel sounds, soft. Absent: distended, hepatomegaly, mass, splenomegaly, tenderness - Psychiatric Psychiatric exam: Present: normal affect, normal mood. Absent: agitated, anxious, depressed - Skin Skin exam: Present: dry, intact, warm. Absent: cyanosis, rash Additional comments: Chronic venous stasis changes on BLE, minimal erythema of RLE - Patient Status Disposition: Transfer SNF Condition: Good Overall status at discharge: patient is progressing back to baseline - Discharge Instructions Follow Up With: Corina Lynch MD [Primary Care Provider] - (Patient is from [facility] no PCP appointment needed) Additional Instructions: Follow up with F physician in 2-3 days after discharge. Recheck BMP and CBC at that time. - Diet and Activity Activity: as per physical therapy, resume usual activities as tolerated, wear oxygen at all times, other (BiPAP QHS) Diet: diabetic diet, low fat, low cholesterol, low salt diet, other (Cardiac Diet)
--- NOTE | 2017-10-24 10:11 | Physician Discharge Referral ---
ExtendedCare Referral Info Transfer To: [facility] Provider in Charge after Transfer: Other (F Physician) Institutional Level of Care: Skilled - Diagnosis (1) Acute on chronic respiratory failure with hypoxia and hypercapnia Priority: Primary Status: Acute (2) COPD exacerbation Priority: Secondary Status: Acute (3) Dehydration Priority: Secondary Status: Acute (4) Cellulitis Priority: Secondary Status: Resolved (5) Type 2 diabetes mellitus Priority: Secondary Status: Chronic (6) Bipolar disorder Priority: Secondary Status: Chronic (7) Hypothyroidism Priority: Secondary Status: Chronic (8) Herpes zoster Priority: Secondary Status: Chronic (9) Hypertension Priority: Secondary Status: Chronic (10) Chronic venous insufficiency Priority: Secondary Status: Chronic (11) Hyperlipidemia Priority: Secondary Status: Chronic (12) Morbid obesity Priority: Secondary Status: Chronic (13) Obesity hypoventilation syndrome Priority: Secondary Status: Chronic (14) PATRICIO (obstructive sleep apnea) Priority: Secondary Status: Chronic (15) DVT prophylaxis Priority: Secondary Status: Acute Prognosis: Fair Aware of Diagnosis: Patient Aware of Prognosis: Patient - Transfer Medications Prescriptions: Gabapentin [Neurontin] 600 mg PO TID 4 Days #12 tablet Oxycodone HCl [Oxaydo] 5 mg PO Q4H PRN 4 Days #24 tablet.orl PRN Reason: Pain predniSONE [PredniSONE] See Taper PO DAILY 12 Days #30 tablet Home Medications: Cholestyramine (with Sugar) [Cholestyramine Bulk Powder] 2 scoop PO DAILY [History] [place] Carbonate 900 mg PO HS 08/24/16 [History] Pantoprazole Sodium 40 mg PO DAILY 08/24/16 [History] Saxagliptin HCl [Onglyza] 5 mg PO DAILY 08/24/16 [History] Sertraline [Zoloft] 200 mg PO DAILY 08/24/16 [History] Verapamil HCl [Verapamil ER] 240 mg PO DAILY 08/24/16 [History] Brimonidine 0.2% [Alphagan] 1 drop BOTH EYES TID 08/25/16 [History] L. Acidophilus/Pectin, [place] [Acidophilus Caplet] 1 each PO DAILY 08/25/16 [ History] Fluticasone Propionate Nasal [Flonase] 50 mcg NS DAILY bottle 08/28/16 [Rx] Furosemide [Lasix] 40 mg PO BID #60 tablet 08/28/16 [Rx] Losartan [Cozaar] 50 mg PO DAILY tablet 08/28/16 [Rx] Pentoxifylline [TRENtal] 400 mg PO TIDWM tablet.er 08/28/16 [Rx] ARIPiprazole [Abilify] 2 mg PO DAILY 09/02/17 [History] Acyclovir [Zovirax] 800 mg PO BID 09/02/17 [History] Dicyclomine [Bentyl] 10 mg PO QID #20 capsule 09/02/17 [Rx] Ondansetron ODT [Zofran ODT] 4 mg SL Q6HR #20 tab.rapdis 09/02/17 [Rx] Pravastatin Sodium [Pravachol] 40 mg PO HS 09/02/17 [History] Repaglinide [Prandin] 1 mg PO DAILY 09/02/17 [History] Levothyroxine Sodium [Synthroid] 300 mcg PO DAILY 09/22/17 [History] Loperamide [Imodium] 2 mg PO QID PRN 09/22/17 [History] Albuterol Sulfate [Albuterol Inhaler] 2 puff IH Q4HR PRN 30 Days #1 hfa.aer.ad 09/24/17 [Rx] Fluticasone/Vilanterol [Breo Ellipta 200-25 Mcg INH] 1 puff IH DAILY 10/22/17 [ History] Melatonin [Melatin] 3 mg PO DAILY 10/22/17 [History] Gabapentin [Neurontin] 600 mg PO TID 4 Days #12 tablet 10/24/17 [Rx] Oxycodone HCl [Oxaydo] 5 mg PO Q4H PRN 4 Days #24 tablet.orl 10/24/17 [Rx] predniSONE [PredniSONE] See Taper PO DAILY 12 Days #30 tablet 10/24/17 [Rx] Allergies/Adverse Reactions: 3 Allergy/AdvReac Type Severity Reaction Status Date / Time sulfamethoxazole Allergy Rash Verified 09/22/17 08:16 [From Bactrim] trimethoprim [From Bactrim] Allergy Rash Verified 09/22/17 08:16 celecoxib [From Celebrex] AdvReac Gastrointestinal Verified 09/22/17 08:16 Upset Penicillins AdvReac Swelling Verified 09/22/17 08:16 of the Eye trazodone AdvReac Fainting Verified 09/22/17 08:16 Serazone AdvReac Swelling Uncoded 09/22/17 08:16 of Lip/Tongue/Throat - Respiratory Orders Oxygen / L per min (2L NC Continuous) Smoking Cessation: Smoking cessation has been advised. For more information, call the [place] Tobacco Quit Line at 7-016-HULF-NOW. - Lab Orders Lab Orders: CBC (in 2-3 days after discharge), Other (include drug levels w/ frequency) (BMP in 2-3 days after discharge) - Advance Directives Code Status: Full Code - Mobility Orders Other (Per physical therapy) - Rehabiliation Orders Rehab Potential: Fair Rehab Orders: Evaluation for Physical Therapy, Evaluation for Occupational Therapy - Diet Orders No Added Salt (CYNTHIA), No Concentrated Sweets (Diabetic Diet), Cardiac CERTIFICATION: I certify that the transfer of the above named patient to an Extended Care Facility is necessary for the continuing treatment of the diagnosis listed. The above information is true and accurate reflection of patient's current condition. Confidential - Redisclosure prohibited without a patient's written consent.
[2017-10-24 11:30] VITALS: BP 112/62
== END 2017-10-24 14:18 | DRG 189 ==
LOC: EMEROO 06:10 → INTOOBSV 10:07 → 2NNU 10:07
PROVIDERS: ADMIT Internal Medicine; ATTEND Internal Medicine

== ENCOUNTER 2017-11-26 08:31 | Inpatient (IN) ==
[2017-11-26] MEDS ORDERED: 0.9 % Sodium Chloride 1,000 ML IVC ONE (08:47)
--- NOTE | 2017-11-26 08:50 | Emergency Department Note ---
Disposition Clinical Impression: Sepsis Qualifiers: Sepsis type: sepsis due to unspecified organism Qualified Code(s): A41.9 - Sepsis, unspecified organism Cellulitis Qualifiers: Site of cellulitis: extremity Site of cellulitis of extremity: lower extremity Laterality: left Qualified Code(s): L03.116 - Cellulitis of left lower limb Altered mental status Qualifiers: Altered mental status type: unspecified Qualified Code(s): R41.82 - Altered mental status, unspecified Diarrhea Qualifiers: Diarrhea type: unspecified type Qualified Code(s): R19.7 - Diarrhea, unspecified Disposition: Admitted As Inpatient General Adult HPI - General Stated complaint: Fall Time Seen by Provider: 11/26/17 08:32 Source: EMS Mode of arrival: EMS Limitations: no limitations Nursing Notes Reviewed: Yes Vital Signs Reviewed: Yes - History of Present Illness HPI Narrative: 62-year-old female with history of A. fib, diabetes, hypertension, COPD presents for evaluation for a fall. Patient was at a nursing facility when the patient was found face down on the ground. This appeared to be an unwitnessed fall. Patient states that she possibly did fall out of bed. Nursing staff noted the patient was difficult to arouse and was concerned that they could not find a pulse. When EMS arrived the patient was responsive. Patient does have some slurred speech which is not at her baseline. Unknown if the patient is on any blood thinning medications. Patient notes pain primarily in the bilateral knees. Denies any chest pain or shortness of breath. Denies any fevers or cough. EMS states the patient is typically on a couple liters of oxygen due to her COPD. Patient's prehospital glucose was unremarkable. Pain Scale: 10 - Related Data Home Medications Medication Instructions Recorded Confirmed Cholestyramine (with Sugar) 2 scoop PO DAILY 08/24/16 11/26/17 [Cholestyramine Bulk Powder] [place] Carbonate 900 mg PO HS 08/24/16 11/26/17 Pantoprazole Sodium 40 mg PO DAILY 08/24/16 11/26/17 Saxagliptin HCl [Onglyza] 5 mg PO DAILY 08/24/16 11/26/17 Sertraline [Zoloft] 200 mg PO DAILY 08/24/16 11/26/17 Verapamil HCl [Verapamil ER] 240 mg PO DAILY 08/24/16 11/26/17 Brimonidine 0.2% [Alphagan] 1 drop BOTH EYES TID 08/25/16 11/26/17 L. Acidophilus/Pectin, Jay 1 each PO DAILY 08/25/16 11/26/17 [Acidophilus Caplet] ARIPiprazole [Abilify] 2 mg PO DAILY 09/02/17 11/26/17 Acyclovir [Zovirax] 800 mg PO BID 09/02/17 11/26/17 Pravastatin Sodium [Pravachol] 40 mg PO HS 09/02/17 11/26/17 Repaglinide [Prandin] 1 mg PO DAILY 09/02/17 11/26/17 Levothyroxine Sodium [Synthroid] 300 mcg PO DAILY@0630 09/22/17 11/26/17 Loperamide [Imodium] 2 mg PO QID PRN 09/22/17 11/26/17 Fluticasone/Vilanterol [Breo 1 puff IH DAILY 10/22/17 11/26/17 Ellipta 200-25 Mcg INH] Melatonin [Melatin] 3 mg PO DAILY 10/22/17 11/26/17 Previous Rx's Medication Instructions Recorded Fluticasone Propionate Nasal 50 mcg NS DAILY bottle 08/28/16 [Flonase] Furosemide [Lasix] 40 mg PO BID #60 tablet 08/28/16 Losartan [Cozaar] 50 mg PO DAILY tablet 08/28/16 Pentoxifylline [TRENtal] 400 mg PO TIDWM tablet.er 08/28/16 Dicyclomine [Bentyl] 10 mg PO QID #20 capsule 09/02/17 Ondansetron ODT [Zofran ODT] 4 mg SL Q6HR #20 tab.rapdis 09/02/17 Albuterol Sulfate [Albuterol 2 puff IH Q4HR PRN 30 Days #1 09/24/17 Inhaler] hfa.[email or web address] Gabapentin [Neurontin] 600 mg PO TID 4 Days #12 tablet 10/24/17 Allergies Allergy/AdvReac Type Severity Reaction Status Date / Time sulfamethoxazole Allergy Rash Verified 09/22/17 08:16 [From Bactrim] trimethoprim [From Bactrim] Allergy Rash Verified 09/22/17 08:16 celecoxib [From Celebrex] AdvReac Gastrointestinal Verified 09/22/17 08:16 Upset Penicillins AdvReac Swelling Verified 09/22/17 08:16 of the Eye trazodone AdvReac Fainting Verified 09/22/17 08:16 Serazone AdvReac Swelling Uncoded 09/22/17 08:16 of Lip/Tongue/Throat All systems ED: reviewed and negative except as stated. Constitutional: Denies: fever Cardiovascular: Denies: chest pain Respiratory: Denies: cough, dyspnea Gastrointestinal: Denies: abdominal pain, nausea, vomiting Past Medical History - Past Medical History Source: patient, old records reviewed Medical history: Reports: atrial fibrillation, COPD, diabetes, hyperlipidemia, hypertension, other Surgical history: Reports: appendectomy, cholecystectomy, hysterectomy, thyroidectomy Psychiatric history: Reports: depression, prior suicide attempt, previous psychiatric hospitalization - Social History Smoking Status: Never smoker Smokeless Tobacco Status: No Alcohol use: Reports: none Drug use: Reports: none Physical Exam - General Limitations: no limitations General appearance: alert, in no apparent distress - Head Head exam: atraumatic, normocephalic, normal inspection - Eye Eye exam: Present: normal appearance, EOMI - ENT ENT exam: normal exam, mucous membranes moist, other (Lesion on the left nasal bridge) - Neck Neck exam: Present: normal inspection - Chest Chest inspection: Present: normal inspection, symmetric chest wall rise - Respiratory Respiratory exam: Present: other (Diffusely diminished lung sounds throughout). Absent: respiratory distress - Cardiovascular Cardiovascular exam: Present: regular rate, normal rhythm. Absent: systolic murmur - Abdominal Exam Abdominal exam: Present: soft, Non-Tender. Absent: guarding, rebound - Expanded Upper Extremity Exam Shoulder exam: Present: normal inspection Arm exam: Present: normal inspection Elbow exam: Present: normal inspection Forearm/Wrist exam: Present: normal inspection - Expanded Lower Extremity Exam Hip/Pelvis exam: Present: normal inspection. Absent: tenderness Lower leg exam: Present: other (Left lower extremity asymmetric swelling with mild erythema. Warmth. Neurovascular intact distally. Patient did have the right lower moya but he with Adaptic and pressure wrapped) Neurovascular/Tendon exam: Present: normal capillary refill. Absent: pulse deficit - Back Exam Back exam: Present: normal inspection - Neurological Exam Neurological exam: Present: alert, CN II-XII intact - Skin Skin exam: Present: warm, dry, intact, normal color Course Course Narrative: Patient seen and examined. Patient will get CT of the head and cervical spine to rule out any intracranial abnormality. Following that patient will get a septic workup concerns for possible cellulitis of the lower extremity. Disposition likely admission. - Reevaluation(s) Reevaluation #1: Patient's vitals are stable. Patient does have 1 loose bowel movement and did appear to be C. difficile. We will send for laboratory confirmation. CT scan abdomen pelvis pending. Patient does meet SIRS criteria likely sepsis. Patient was started on most appropriate antibiotics. Source could possibly be in the abdomen, chest or in the skin with evidence of cellulitis. Patient's lactate is normal. Patient does not require a 30 mL/kg bolus of fluid. Time: 11:00 Reevaluation #2: Patient is refusing to be cast. Instructions were given to the patient that we do need a urine sample and let us know when she has to use the urine. Time: 11:23 Vital Signs Temperature 98.6 F 11/26/17 08:38 Pulse Rate 62 11/26/17 08:38 Respiratory Rate 20 11/26/17 08:38 Blood Pressure 106/53 11/26/17 08:38 O2 Sat by Pulse Oximetry 94 11/26/17 08:38 Temperature 98.6 F 11/26/17 08:38 Pulse Rate 80 11/26/17 13:45 Respiratory Rate 16 11/26/17 13:45 Blood Pressure 116/63 11/26/17 13:45 O2 Sat by Pulse Oximetry 100 11/26/17 13:45 Oxygen Delivery Oxygen Delivery Nasal Cannula Medical Decision Making - [facility] Narrative Medical decision making narrative: 62-year-old female from nursing facility since for evaluation of unresponsiveness. Patient possibly had a fall was unwitnessed. Patient was found on the ground from her bed. On exam the patient does appear altered and slightly confused. Does have some mumbling of speech which is due per EMS. Patient glucose was unremarkable. Initial concerns for intracranial versus infectious etiology. Patient had a chest x-ray which showed mild cardiomegaly however patient was started on broad-spectrum antibiotics for initial concerns of possible pneumonia. Patient also has evidence of cellulitis of the left lower extremity with asymmetric swelling. Patient did get venous Dopplers of the lower moya is due to the asymmetric swelling and hx of immobility. Patient kidney function appears to be slightly worse. Patient did have a loose bowel movement in the ED with concern for C. difficile. Patient has have risk factors and C. difficile was sent. Patient will be admitted to the hospital service for further evaluation and monitoring. - Lab Data Lab results reviewed: Yes I reviewed the patient's lab results. Result diagrams: 11/26/17 09:15 18 09:15 Lab Results 11/26/17 11/26/17 11/26/17 Range/Units 09:15 09:15 09:15 WBC 16.7 H (4.3-11.1) K/mcL RBC 4.20 (3.82-4.97) M/mcL Hgb 10.7 L (11.5-15.4) g/dL Hct 34.9 L (35.3-44.9) % MCV 83.1 (83.0-100.0) fL MCH 25.5 L (28.0-33.3) pg MCHC 30.7 L (31.6-35.5) g/dL RDW 17.6 H (11.5-14.5) % Plt Count 235 (140-400) K/mcL MPV 11.4 (9.4-12.4) fL Immature Gran % 1.0 (0-4) % Seg Neutrophils % 88.2 % Lymphocytes % 5.3 % Monocytes % 4.3 % Eosinophils % 1.0 % Basophils % 0.2 % Neutrophils # 14.7 H (1.6-8.9) K/mcL Lymphocytes # 0.9 (0.6-4.6) K/mcL Monocytes # 0.7 (0.0-1.3) K/mcL Eosinophils # 0.2 (0.0-0.6) K/mcL Basophils # 0.0 (0.0-0.2) K/mcL PT 13.9 H (9.4-12.1) Seconds INR 1.2 APTT 27.4 (26.0-36.0) Seconds VBG pH (7.32-7.42) pH Units VBG pCO2 (41-51) mmHg VBG pO2 (25-50) mmHg VBG HCO3 (21-27) mEq/L Sodium 139 (136-145) mEq/L Potassium 2.9 L (3.5-5.1) mEq/L Chloride 104 (98-107) mEq/L Carbon Dioxide 29 (23-29) mEq/L BUN 16 (8-23) mg/dL Creatinine 1.38 H (0.60-1.20) mg/dL Est GFR ( Amer) 47 L (> 60) Est GFR (Non-Af Amer) 39 L (> 60) BUN/Creatinine Ratio 12 (6-26) Glucose 147 H (70-105) mg/dL Calculated Osmolality 292 (280-300) Lactic Acid (0.5-2.2) mmol/L Calcium 9.3 (8.6-10.3) mg/dL Phosphorus 4.0 (2.7-4.5) mg/dL Magnesium 2.3 (1.6-2.6) mg/dL Total Bilirubin 0.3 (0.3-1.0) mg/dL Direct Bilirubin 0.0 (0.0-0.2) mg/dL Indirect Bilirubin 0.3 (0.0-1.2) mg/dL AST 11 L (13-39) Units/L ALT 10 (7-52) Units/L Alkaline Phosphatase 90 (34-104) Units/L Troponin I < 0.03 (< 0.04) ng/mL B-Natriuretic Peptide (Less than 100) pg/mL Serum Total Protein 6.3 L (6.4-8.9) g/dL Albumin 3.6 (3.5-5.7) g/dL Globulin 2.7 (2.4-3.5) g/dL Albumin/Globulin Ratio 1.3 (1.1-2.2) Lipase 26 (11-82) Units/L 11/26/17 11/26/17 11/26/17 Range/Units 09:15 09:15 09:31 WBC (4.3-11.1) K/mcL RBC (3.82-4.97) M/mcL Hgb (11.5-15.4) g/dL Hct (35.3-44.9) % MCV (83.0-100.0) fL MCH (28.0-33.3) pg MCHC (31.6-35.5) g/dL RDW (11.5-14.5) % Plt Count (140-400) K/mcL MPV (9.4-12.4) fL Immature Gran % (0-4) % Seg Neutrophils % % Lymphocytes % % Monocytes % % Eosinophils % % Basophils % % Neutrophils # (1.6-8.9) K/mcL Lymphocytes # (0.6-4.6) K/mcL Monocytes # (0.0-1.3) K/mcL Eosinophils # (0.0-0.6) K/mcL Basophils # (0.0-0.2) K/mcL PT (9.4-12.1) Seconds INR APTT (26.0-36.0) Seconds VBG pH 7.31 L (7.32-7.42) pH Units VBG pCO2 62 H (41-51) mmHg VBG pO2 52 H (25-50) mmHg VBG HCO3 31 H (21-27) mEq/L Sodium (136-145) mEq/L Potassium (3.5-5.1) mEq/L Chloride (98-107) mEq/L Carbon Dioxide (23-29) mEq/L BUN (8-23) mg/dL Creatinine (0.60-1.20) mg/dL Est GFR ( Amer) (> 60) Est GFR (Non-Af Amer) (> 60) BUN/Creatinine Ratio (6-26) Glucose (70-105) mg/dL Calculated Osmolality (280-300) Lactic Acid 0.9 (0.5-2.2) mmol/L Calcium (8.6-10.3) mg/dL Phosphorus (2.7-4.5) mg/dL Magnesium (1.6-2.6) mg/dL Total Bilirubin (0.3-1.0) mg/dL Direct Bilirubin (0.0-0.2) mg/dL Indirect Bilirubin (0.0-1.2) mg/dL AST (13-39) Units/L ALT (7-52) Units/L Alkaline Phosphatase (34-104) Units/L Troponin I (< 0.04) ng/mL B-Natriuretic Peptide 52 (Less than 100) pg/mL Serum Total Protein (6.4-8.9) g/dL Albumin (3.5-5.7) g/dL Globulin (2.4-3.5) g/dL Albumin/Globulin Ratio (1.1-2.2) Lipase (11-82) Units/L - Radiology Data Radiology results reviewed: Yes I reviewed the patient's radiology results. Cervical Spine CT 11/26/17 08:46 IMPRESSION: 1. No acute fracture or subluxation. 2. Reversal of the cervical lordosis may be due to patient positioning muscle spasm. D/ / Bret Ontiveros MD / Bret Ontiveros MD Interpreting Provider: Bret Ontiveros MD Chest X-Ray 11/26/17 08:46 IMPRESSION: Mild congestive heart failure. D/ / 11/26/2017 09:35:01 Kamaljit Bridges MD / harpreet Interpreting Provider: Kamaljit Bridges MD Head CT 11/26/17 08:46 IMPRESSION: No acute intracranial abnormality. Motion artifact-limited exam. D/ / 11/26/2017 09:53:13 Ga Tamez MD / jean Interpreting Provider: Ga Tamez MD Knee X-Ray 11/26/17 08:46 IMPRESSION: No acute osseous abnormality. Significant osteoarthrosis. Small right knee joint effusion. D/ / Ga Tamez MD / Ga Tamez MD Interpreting Provider: Ga Tamez MD Cervical Spine CT 11/26/17 08:46 IMPRESSION: 1. No acute fracture or subluxation. 2. Reversal of the cervical lordosis may be due to patient positioning muscle spasm. D/ / Bret Ontiveros MD / Bret Ontiveros MD Interpreting Provider: Bret Ontiveros MD Chest X-Ray 11/26/17 08:46 IMPRESSION: Mild congestive heart failure. D/ / 11/26/2017 09:35:01 Kamaljit Bridges MD / harpreet Interpreting Provider: Kamaljit Bridges MD Head CT 11/26/17 08:46 IMPRESSION: No acute intracranial abnormality. Motion artifact-limited exam. D/ / 11/26/2017 09:53:13 Ga Tamez MD / jean Interpreting Provider: Ga Tamez MD Knee X-Ray 11/26/17 08:46 IMPRESSION: No acute osseous abnormality. Significant osteoarthrosis. Small right knee joint effusion. D/ / Ga Tamez MD / Ga Tamez MD Interpreting Provider: Ga Tamez MD Abdomen/Pelvis CT 11/26/17 10:06 IMPRESSION: 1. No acute abnormality seen in the abdomen or pelvis. 2. Status post cholecystectomy. 3. Status post appendectomy. 4. Again noted is infiltration of the fat within the pannus overlying the pelvis. No abnormal fluid collections. 5. Colonic diverticulosis without evidence for diverticulitis. No significant bowel wall thickening. D/ / 11/26/2017 13:55:45 Mateo Wallace MD / bcadebbie Interpreting Provider: Mateo Wallace MD - EKG Data EKG #1 EKG attestation: Yes I reviewed and interpreted this EKG. EKG shows normal: sinus rhythm Rate: normal Rhythm: NSR [place]/QRS: normal Interpretation: no acute changes, nonspecific ST-T wave changes S.B.A.R. - S.B.A.R. Situation: Demographics Background: Presenting Complaint Assessment: Vital Signs Recommendation: Barrier(s) to disposition, Recommendation based on pending studies, treatments, or consults [id number].[id number] Report Given to: Dr. Kishore Galdamez Repor Time: 13:30 Attestation Statement - Attestation Attestation: I, Ubaldo Wells DO, examined this patient [id number] and my medical decision-making was reviewed with Dr. Chris Zapata, Resident Physician. I agree with the documented findings, disposition and treatment plan as described except to the extent set forth below. Please see my progress notes for details.
[2017-11-26] MEDS ORDERED: Cefepime HCl 1,000 MG in Water for inj. (sterile) 20 ML 10 ML IVP ONE (09:30)
[2017-11-26 09:31] LABS: Basophils % 0.2 %; Eosinophils # 0.2 K/mcL (0.0-0.6); Hematocrit 34.9 % (35.3-44.9); Hemoglobin 10.7 g/dL (11.5-15.4); Lymphocytes # 0.9 K/mcL (0.6-4.6); Lymphocytes % 5.3 %; Mean Corpuscular HGB Conc 30.7 g/dL (31.6-35.5); Mean Corpuscular Hemoglobin 25.5 pg (28.0-33.3); Mean Corpuscular Volume 83.1 fL (83.0-100.0); Mean Platelet Volume 11.4 fL (9.4-12.4); Monocytes # 0.7 K/mcL (0.0-1.3); Monocytes % 4.3 %; Neutrophils # 14.7 K/mcL (1.6-8.9); Platelet Count 235 K/mcL (140-400); Red Cell Distribution Width 17.6 % (11.5-14.5); Segmented Neutrophils % 88.2 %
[2017-11-26 09:35] LABS: VBG HCO3 31 mEq/L (21-27); VBG PCO2 62 mmHg (41-51); VBG PH 7.31 pH Units (7.32-7.42); VBG PO2 52 mmHg (25-50)
[2017-11-26 09:37] LABS: INR 1.2; Prothrombin Time 13.9 Seconds (9.4-12.1)
[2017-11-26 09:39] LABS: Activated Partial Thrombo Time 27.4 Seconds (26.0-36.0)
[2017-11-26 09:49] LABS: Troponin I < 0.03 ng/mL (< 0.04)
[2017-11-26 09:54] LABS: Alanine Aminotransferase 10 Units/L (7-52); Albumin 3.6 g/dL (3.5-5.7); Albumin/Globulin Ratio 1.3 (1.1-2.2); Alkaline Phosphatase 90 Units/L (34-104); Aspartate Amino Transferase 11 Units/L (13-39); BUN/Creatinine Ratio 12 (6-26); Bilirubin,Indirect 0.3 mg/dL (0.0-1.2); Bilirubin,Total 0.3 mg/dL (0.3-1.0); Blood Urea Nitrogen 16 mg/dL (8-23); Calcium 9.3 mg/dL (8.6-10.3); Carbon Dioxide 29 mEq/L (23-29); Chloride 104 mEq/L (98-107); Globulin 2.7 g/dL (2.4-3.5); Glucose 147 mg/dL (70-105); Lipase 26 Units/L (11-82); Magnesium 2.3 mg/dL (1.6-2.6); Osmolality,Calculated 292 (280-300); Potassium 2.9 mEq/L (3.5-5.1); Sodium 139 mEq/L (136-145); Total Protein 6.3 g/dL (6.4-8.9); eGFR For Non-African Americans 39 (> 60)
[2017-11-26] MEDS ORDERED: Potassium Chloride 20 MEQ, Lidocaine 1% 2 ML in D5% in Water 250 ML IVPB ONE (10:17)
--- NOTE | 2017-11-26 10:58 | Emergency Department Note ---
Disposition Clinical Impression: Sepsis, Cellulitis, Altered mental status, Diarrhea Disposition: Admitted As Inpatient Condition: Fair Time of Disposition: 14:26 General Adult HPI - General Chief complaint: ED Fall Stated complaint: Fall Time Seen by Provider: 11/26/17 08:32 Source: EMS Mode of arrival: EMS Limitations: no limitations - History of Present Illness Pain Scale: 10 - Related Data Home Medications Medication Instructions Recorded Confirmed Cholestyramine (with Sugar) 2 scoop PO DAILY 08/24/16 11/26/17 [Cholestyramine Bulk Powder] [place] Carbonate 900 mg PO HS 08/24/16 11/26/17 Pantoprazole Sodium 40 mg PO DAILY 08/24/16 11/26/17 Saxagliptin HCl [Onglyza] 5 mg PO DAILY 08/24/16 11/26/17 Sertraline [Zoloft] 200 mg PO DAILY 08/24/16 11/26/17 Verapamil HCl [Verapamil ER] 240 mg PO DAILY 08/24/16 11/26/17 Brimonidine 0.2% [Alphagan] 1 drop BOTH EYES TID 08/25/16 11/26/17 L. Acidophilus/Pectin, [place] 1 each PO DAILY 08/25/16 11/26/17 [Acidophilus Caplet] ARIPiprazole [Abilify] 2 mg PO DAILY 09/02/17 11/26/17 Acyclovir [Zovirax] 800 mg PO BID 09/02/17 11/26/17 Pravastatin Sodium [Pravachol] 40 mg PO HS 09/02/17 11/26/17 Repaglinide [Prandin] 1 mg PO DAILY 09/02/17 11/26/17 Levothyroxine Sodium [Synthroid] 300 mcg PO DAILY 09/22/17 11/26/17 Loperamide [Imodium] 2 mg PO QID PRN 09/22/17 11/26/17 Fluticasone/Vilanterol [Breo 1 puff IH DAILY 10/22/17 11/26/17 Ellipta 200-25 Mcg INH] Melatonin [Melatin] 3 mg PO DAILY 10/22/17 11/26/17 Previous Rx's Medication Instructions Recorded Fluticasone Propionate Nasal 50 mcg NS DAILY bottle 08/28/16 [Flonase] Furosemide [Lasix] 40 mg PO BID #60 tablet 08/28/16 Losartan [Cozaar] 50 mg PO DAILY tablet 08/28/16 Pentoxifylline [TRENtal] 400 mg PO TIDWM tablet.er 08/28/16 Dicyclomine [Bentyl] 10 mg PO QID #20 capsule 09/02/17 Ondansetron ODT [Zofran ODT] 4 mg SL Q6HR #20 tab.rapdis 09/02/17 Albuterol Sulfate [Albuterol 2 puff IH Q4HR PRN 30 Days #1 09/24/17 Inhaler] hfa.aer.ad Gabapentin [Neurontin] 600 mg PO TID 4 Days #12 tablet 10/24/17 Allergies Allergy/AdvReac Type Severity Reaction Status Date / Time sulfamethoxazole Allergy Rash Verified 09/22/17 08:16 [From Bactrim] trimethoprim [From Bactrim] Allergy Rash Verified 09/22/17 08:16 celecoxib [From Celebrex] AdvReac Gastrointestinal Verified 09/22/17 08:16 Upset Penicillins AdvReac Swelling Verified 09/22/17 08:16 of the Eye trazodone AdvReac Fainting Verified 09/22/17 08:16 Serazone AdvReac Swelling Uncoded 09/22/17 08:16 of Lip/Tongue/Throat Constitutional: Denies: fever Cardiovascular: Denies: chest pain Respiratory: Denies: cough, dyspnea Gastrointestinal: Denies: abdominal pain, nausea, vomiting Past Medical History - Past Medical History Medical history: Reports: atrial fibrillation, COPD, diabetes, hyperlipidemia, hypertension, other Surgical history: Reports: appendectomy, cholecystectomy, hysterectomy, thyroidectomy Psychiatric history: Reports: depression, prior suicide attempt, previous psychiatric hospitalization - Social History Smoking Status: Never smoker Smokeless Tobacco Status: No Alcohol use: Reports: none Drug use: Reports: none Physical Exam - General Limitations: no limitations General appearance: alert, in no apparent distress Course Vital Signs Temperature 98.6 F 11/26/17 08:38 Pulse Rate 62 11/26/17 08:38 Respiratory Rate 20 11/26/17 08:38 Blood Pressure 106/53 11/26/17 08:38 O2 Sat by Pulse Oximetry 94 11/26/17 08:38 Temperature 98.6 F 11/26/17 08:38 Pulse Rate 80 11/26/17 13:45 Respiratory Rate 16 11/26/17 13:45 Blood Pressure 116/63 11/26/17 13:45 O2 Sat by Pulse Oximetry 100 11/26/17 13:45 Oxygen Delivery Oxygen Delivery Nasal Cannula Medical Decision Making - Lab Data Result diagrams: 11/26/17 09:15 11/26/17 09:15 Lab Results 11/26/17 11/26/17 11/26/17 Range/Units 09:15 09:15 09:15 WBC 16.7 H (4.3-11.1) K/mcL RBC 4.20 (3.82-4.97) M/mcL Hgb 10.7 L (11.5-15.4) g/dL Hct 34.9 L (35.3-44.9) % MCV 83.1 (83.0-100.0) fL MCH 25.5 L (28.0-33.3) pg MCHC 30.7 L (31.6-35.5) g/dL RDW 17.6 H (11.5-14.5) % Plt Count 235 (140-400) K/mcL MPV 11.4 (9.4-12.4) fL Immature Gran % 1.0 (0-4) % Seg Neutrophils % 88.2 % Lymphocytes % 5.3 % Monocytes % 4.3 % Eosinophils % 1.0 % Basophils % 0.2 % Neutrophils # 14.7 H (1.6-8.9) K/mcL Lymphocytes # 0.9 (0.6-4.6) K/mcL Monocytes # 0.7 (0.0-1.3) K/mcL Eosinophils # 0.2 (0.0-0.6) K/mcL Basophils # 0.0 (0.0-0.2) K/mcL PT 13.9 H (9.4-12.1) Seconds INR 1.2 APTT 27.4 (26.0-36.0) Seconds VBG pH (7.32-7.42) pH Units VBG pCO2 (41-51) mmHg VBG pO2 (25-50) mmHg VBG HCO3 (21-27) mEq/L Sodium 139 (136-145) mEq/L Potassium 2.9 L (3.5-5.1) mEq/L Chloride 104 (98-107) mEq/L Carbon Dioxide 29 (23-29) mEq/L BUN 16 (8-23) mg/dL Creatinine 1.38 H (0.60-1.20) mg/dL Est GFR ( Amer) 47 L (> 60) Est GFR (Non-Af Amer) 39 L (> 60) BUN/Creatinine Ratio 12 (6-26) Glucose 147 H (70-105) mg/dL Calculated Osmolality 292 (280-300) Lactic Acid (0.5-2.2) mmol/L Calcium 9.3 (8.6-10.3) mg/dL Phosphorus 4.0 (2.7-4.5) mg/dL Magnesium 2.3 (1.6-2.6) mg/dL Total Bilirubin 0.3 (0.3-1.0) mg/dL Direct Bilirubin 0.0 (0.0-0.2) mg/dL Indirect Bilirubin 0.3 (0.0-1.2) mg/dL AST 11 L (13-39) Units/L ALT 10 (7-52) Units/L Alkaline Phosphatase 90 (34-104) Units/L Troponin I < 0.03 (< 0.04) ng/mL B-Natriuretic Peptide (Less than 100) pg/mL Serum Total Protein 6.3 L (6.4-8.9) g/dL Albumin 3.6 (3.5-5.7) g/dL Globulin 2.7 (2.4-3.5) g/dL Albumin/Globulin Ratio 1.3 (1.1-2.2) Lipase 26 (11-82) Units/L 11/26/1718 11/26/17 Range/Units 09:15 09:15 09:31 WBC (4.3-11.1) K/mcL RBC (3.82-4.97) M/mcL Hgb (11.5-15.4) g/dL Hct (35.3-44.9) % MCV (83.0-100.0) fL MCH (28.0-33.3) pg MCHC (31.6-35.5) g/dL RDW (11.5-14.5) % Plt Count (140-400) K/mcL MPV (9.4-12.4) fL Immature Gran % (0-4) % Seg Neutrophils % % Lymphocytes % % Monocytes % % Eosinophils % % Basophils % % Neutrophils # (1.6-8.9) K/mcL Lymphocytes # (0.6-4.6) K/mcL Monocytes # (0.0-1.3) K/mcL Eosinophils # (0.0-0.6) K/mcL Basophils # (0.0-0.2) K/mcL PT (9.4-12.1) Seconds INR APTT (26.0-36.0) Seconds VBG pH 7.31 L (7.32-7.42) pH Units VBG pCO2 62 H (41-51) mmHg VBG pO2 52 H (25-50) mmHg VBG HCO3 31 H (21-27) mEq/L Sodium (136-145) mEq/L Potassium (3.5-5.1) mEq/L Chloride (98-107) mEq/L Carbon Dioxide (23-29) mEq/L BUN (8-23) mg/dL Creatinine (0.60-1.20) mg/dL Est GFR ( Amer) (> 60) Est GFR (Non-Af Amer) (> 60) BUN/Creatinine Ratio (6-26) Glucose (70-105) mg/dL Calculated Osmolality (280-300) Lactic Acid 0.9 (0.5-2.2) mmol/L Calcium (8.6-10.3) mg/dL Phosphorus (2.7-4.5) mg/dL Magnesium (1.6-2.6) mg/dL Total Bilirubin (0.3-1.0) mg/dL Direct Bilirubin (0.0-0.2) mg/dL Indirect Bilirubin (0.0-1.2) mg/dL AST (13-39) Units/L ALT (7-52) Units/L Alkaline Phosphatase (34-104) Units/L Troponin I (< 0.04) ng/mL B-Natriuretic Peptide 52 (Less than 100) pg/mL Serum Total Protein (6.4-8.9) g/dL Albumin (3.5-5.7) g/dL Globulin (2.4-3.5) g/dL Albumin/Globulin Ratio (1.1-2.2) Lipase (11-82) Units/L Attestation Statement - Attestation Attestation: I, Ubaldo Russell DO, examined this patient [id number] and my medical decision-making was reviewed with Dr. Chris Zapata, Resident Physician. I agree with the documented findings, disposition and treatment plan as described except to the extent set forth below. Please see my progress notes for details. 62-year-old female presents emergency room with complaint of confusion or altered mentation possible fall to halfway. Patient is sent in by the halfway staff. She initially refused transport to the local EMS providers and then the contracted providers were contacted [facility] emergency room. The patient was transported by that team to our facility for evaluation. On arrival here the patient is alert she is answering questions she was a little slow to respond to have some slurred speech. No visible signs of trauma to the head. She is denying chest pain shortness of breath headache vision changes nausea vomiting or diarrhea. Denies any fevers or chills. She does have a wound her right lower extremity based on the evaluation of the dressings are applied. She is morbidly obese appears to be bedbound. Patient does appear to answer questions appropriately and knows the time place and dates but does have some slurred speech. Because of the nature of the fall with an unknown etiology to the slurred speech patient is concerning for sepsis versus intracranial pathology including bleed versus stroke. CT the head will be ordered along with screening labs including blood cultures chest x-ray CBC chemistry troponin and lactic acid urinalysis BNP and then imaging modalities of the abdomen and lower extremities will be added on in conjunction. First dose of antibiotics will be started with concern for age And then disposition will be determined. Patient is stable at this time and does require further intervention management. Her lungs do appear to be diminished most likely secondary to body habitus per heart is regular. She has not had any course crackles or consolidation is noted on exam her abdomen is large with tenderness described diffusely on any aspect of palpation to the abdominal wall but does not appear to be distended or tympanic. Patient does have edema in the lower extremities as well as redness and what appears to be venous stasis presentation with concern for cellulitis in the right lower leg. Antibiotic regimen started blood cultures collected symptomatic control to be completed and admission process will be established. See detailed documentation of the physical exam, medical intervention, medical decision-making and disposition the resident physician's note. No critical care applied the patient's treatment course this time 1025 Patient does have an elevated white blood cell count neutrophilia. Her lactic acid is normal. The remainder of her labs appear to be at baseline. We are still waiting for urinalysis to be completed. Antibiotic regimen covering for being acquired pneumonia and urine were started at this time. Patient does meet sepsis criteria but does not appear to have septic shock. She does not require aggressive fluid resuscitation were trending of her lactic acid at this time. Sepsis was determined at 1025. Patient will have completion of the evaluation a CT imaging of the abdomen and expect to be admitted. 1125 Patient has stable labs. Antibiotic have given. CT imaging is pending of the abdomen. Patient is refusing to have urinalysis completed. Doppler studies have also been ordered. Admission process to be completed. 1300 Patient has been ready for admission since 1130. Hospitalist is been in a meeting and that timeframe and unable to call us back. We will continue to wait for admission process. Patient was reviewed and discussed with Dr. Novak. No other recommendations or concerns at this time. CT imaging abdomen is still pending. Urinalysis is been unable to be collected secondary to noncompliance from the patient. She does not want a catheter. Patient will be admitted to the hospital for definitive management. CT was resulted as negative for intra-abdominal pathology. Patient be admitted at this time.
[2017-11-26] MEDS ORDERED: MetroNIDAZOLE 500 MG/100 ML 500 MG/100 ML BAG IVPB ONE (11:11)
[2017-11-26] MEDS ORDERED: Naloxone 0.4 MG/ML INJ IVP PRN (13:51)
[2017-11-26] MEDS ORDERED: 0.9 % Sodium Chloride 1,000 ML IVC SCH (14:00)
[2017-11-26] MEDS ORDERED: *HR* Dextrose 50 % in Water (Syg) 50 ML SYRINGE IVP PRN (14:09)
[2017-11-26] MEDS ORDERED: Dextrose Gel 15 GM/37.5 ML TUBE PO PRN ×2 (14:09)
[2017-11-26] MEDS ORDERED: D5% in Water 1,000 ML IVC PRN (14:09)
[2017-11-26 15:06] LABS: Thyroid Stimulating Hormone 2.246 mcIU/mL (0.340-5.600)
--- NOTE | 2017-11-26 16:26 | Internal Med History&Physical ---
Date of Encounter: 11/26/17 Time of Encounter: 16:20 Internal Medicine - H&P: HPI Chief complaint: Altered mental status, lethargy and difficulty arousing today History of present illness: Ms. Asif is a 62 year old female with a pmh of diastolic cHF, diabetes, COPD , bipolar disorder presenting from the shelter today with complaints of fall, altered mental status and slurred speech today. Per family, patient has been a shelter resident for about 70 days due to recurrent falls. Per nursing facility patient was found face down on the ground and very difficult to arouse. When they were able to wake her up, they noted she had some slurred speech. Patient herself denies having flling down but notes she was very difficult to arouse today. she also complains of feeling lethargic , along with some coughing and shortness of breath. Admits to occasional slurred speech, denies fever or chills. She admits to some redness of her left leg In the ER, she was assessed with acute CVA vs infection and got a CT scan of her head and abdomen were done as well as she was started on antibiotics. Her labs came back with leukocytosis of 16. [place] levels were also elevated at 1.6 She is being admitted for further management for a possible CVA vs sepsis Past Med Surg Social Fam HX - Past Medical History Medical history: atrial fibrillation, COPD, diabetes, hyperlipidemia, hypertension, other Additional medical history: diverticulosts pulmonary edema chronic small airway disease cardiomegaly Psychiatric history: depression, prior suicide attempt, previous psychiatric hospitalization - Past Surgical History Surgical History: appendectomy, cholecystectomy, hysterectomy, thyroidectomy Additional surgical history: tennis elbow - Social History Smoking Status: Never smoker Smokeless Tobacco Status: No Alcohol use: none Drug use: none - Family History Father Hx Family Cardiac Disorders: Yes Hx Family Endocrine Disorder: Yes Internal Medicine - H&P: Meds Cholestyramine (with Sugar) [Cholestyramine Bulk Powder] 2 scoop PO DAILY [History] [place] Carbonate 900 mg PO HS 08/24/16 [History] Pantoprazole Sodium 40 mg PO DAILY 08/24/16 [History] Saxagliptin HCl [Onglyza] 5 mg PO DAILY 08/24/16 [History] Sertraline [Zoloft] 200 mg PO DAILY 08/24/16 [History] Verapamil HCl [Verapamil ER] 240 mg PO DAILY 08/24/16 [History] Brimonidine 0.2% [Alphagan] 1 drop BOTH EYES TID 08/25/16 [History] L. Acidophilus/Pectin, [place] [Acidophilus [place]] 1 each PO DAILY 08/25/16 [ History] Fluticasone Propionate Nasal [Flonase] 50 mcg NS DAILY bottle 08/28/16 [Rx] Furosemide [Lasix] 40 mg PO BID #60 tablet 08/28/16 [Rx] Losartan [Cozaar] 50 mg PO DAILY tablet 08/28/16 [Rx] Pentoxifylline [TRENtal] 400 mg PO TIDWM tablet.er 08/28/16 [Rx] ARIPiprazole [Abilify] 2 mg PO DAILY 09/02/17 [History] Acyclovir [Zovirax] 800 mg PO BID 09/02/17 [History] Dicyclomine [Bentyl] 10 mg PO QID #20 capsule 09/02/17 [Rx] Ondansetron ODT [Zofran ODT] 4 mg SL Q6HR #20 tab.rapdis 09/02/17 [Rx] Pravastatin Sodium [Pravachol] 40 mg PO HS 09/02/17 [History] Repaglinide [Prandin] 1 mg PO DAILY 09/02/17 [History] Levothyroxine Sodium [Synthroid] 300 mcg PO DAILY@0630 09/22/17 [History] Loperamide [Imodium] 2 mg PO QID PRN 09/22/17 [History] Albuterol Sulfate [Albuterol Inhaler] 2 puff IH Q4HR PRN 30 Days #1 hfa.aer.ad 09/24/17 [Rx] Fluticasone/Vilanterol [Breo Ellipta 200-25 Mcg INH] 1 puff IH DAILY 10/22/17 [ History] Melatonin [Melatin] 3 mg PO DAILY 10/22/17 [History] Gabapentin [Neurontin] 600 mg PO TID 4 Days #12 tablet 10/24/17 [Rx] 3 Allergy/AdvReac Type Severity Reaction Status Date / Time sulfamethoxazole Allergy Rash Verified 09/22/17 08:16 [From Bactrim] trimethoprim [From Bactrim] Allergy Rash Verified 09/22/17 08:16 celecoxib [From Celebrex] AdvReac Gastrointestinal Verified 09/22/17 08:16 Upset Penicillins AdvReac Swelling Verified 09/22/17 08:16 of the Eye trazodone AdvReac Fainting Verified 09/22/17 08:16 Serazone AdvReac Swelling Uncoded 09/22/17 08:16 of Lip/Tongue/Throat All Systems PM: A 10-system review of systems was performed and is negative for pertinent findings except as documented above in the HPI. - Constitutional Constitutional: no chills, no fever(s), no night sweats - EENT Eyes: no change in vision, no discharge, no pain, no photophobia Ears: no ear discharge, no ear pain, no tinnitus Nose, mouth and throat: no dysphagia, no nasal discharge, no neck pain, no sore throat - Cardiovascular Cardiovascular ROS IM: dyspnea, dyspnea on exertion, no chest pain, no diaphoresis, no lightheadedness, no palpitations, no syncope - Respiratory Respiratory: dyspnea, no cough, no wheezing, no excessive phlegm production - Gastrointestinal Gastrointestinal: no abdominal pain, no diarrhea, no hematemesis, no hematochezia, no melena, no nausea, no vomiting - Genitourinary Genitourinary: no change in urinary stream, no dysuria, no flank pain, no hematuria - Musculoskeletal Musculoskeletal ROS IM: no numbness, no tingling - Integumentary Integumentary IM: no rash, no unusual bruising - Neurological Neurological ROS: abnormal speech, confusion, no convulsions, no focal weakness , no numbness, no tingling, no tremor(s) - Hematologic/Lymphatic Hematologic/Lymphatic: no easy bruising - Constitutional Vitals: Temp Pulse Resp BP Pulse Ox 98.6 F 88 18 119/72 96 11/26/17 15:01 11/26/17 15:01 11/26/17 15:01 11/26/17 15:01 11/26/17 15:01 Exam: Morbidly obese, no acute distress. Alert and oriented. Lethargic and slow to respond to questions - Head Head exam: Present: atraumatic, normocephalic - Eye Eye exam: Present: PERRL, conjuntiva pink, sclera anicteric Pupils: Present: PERRL - Neck Neck exam general surgery: Present: supple, trachea midline. Absent: lymphadenopathy - Respiratory Respiratory exam: Present: CTAB. Absent: accessory muscle use, rales, rhonchi, wheezes - Cardiovascular Cardiovascular exam: Present: RRR, +S1, +S2. Absent: diastolic murmur, gallop, rubs, systolic murmur - GI/Abdominal GI/Abdominal exam: Present: normal bowel sounds, soft, no peritoneal signs. Absent: distended, tenderness - Extremities Exam Extremities exam: Present: warm, radial pulses palpable and symmetrical. Absent : calf tenderness, cyanotic, pedal edema Additional comments: redness and warmth of left lower extremity - Neurological Exam Neurological exam: Present: alert, CN II-XII intact, oriented X3, no focal deficits. Absent: pronater drift, facial droop, speech deficit - Skin Skin exam: Present: dry, intact Internal Med - H&P Results - Labs CBC & Chem 7: 11/26/17 09:15 11/26/17 09:15 - Assessment and plan (1) Acute metabolic encephalopathy Current Visit: Yes Status: Acute Assessment and plan: Acute metabolic encephalopathy with confusion at the shelter today. Differentials include acute CVA with slurred speech, infection from UTI vs Cellulitis and [place] toxicity. We will obtain MRI brain, start on aspirin and statin, CT head came back negative. Obtain blood cultures and urine studies to rule out UTI, WBC was 16.7, start on vanc and levaquin to cover UTI vs cellulitis. CXR showed mild vascular congestion Patient has been on high dose lithium for about 5 years. [place] levels came back at 1.6 with prolonged QRS. Will give IV fluids and Sodium bicarb and repeat lithium levels in 4hrs. Poison control contacted (2) Acute CVA (cerebrovascular accident) Current Visit: Yes Status: Acute Assessment and plan: See #1. Obtain MRI brain, continue aspirin and statin (3) [place] poisoning Current Visit: Yes Status: Acute Assessment and plan: See 31. Posion control contacted. IV fluids and sodium bicarb. Repeat lithium Qualifiers: Encounter type: initial encounter Qualified Code(s): T56.891A - Toxic effect of other metals, accidental (unintentional), initial encounter (4) Cellulitis Current Visit: Yes Status: Acute Assessment and plan: On vanc and levaquin Qualifiers: Site of cellulitis: extremity Site of cellulitis of extremity: lower extremity Laterality: left Qualified Code(s): L03.116 - Cellulitis of left lower limb (5) Sepsis Current Visit: Yes Status: Acute Assessment and plan: See #1 > WBC was 16.7. Will give IV fluids, obtain lactic acid. Continue antibiotics. Obtain blood cultures and urine cultures Qualifiers: Sepsis type: sepsis due to unspecified organism Qualified Code(s): A41.9 - Sepsis, unspecified organism (6) Bipolar disorder Current Visit: No Status: Chronic Assessment and plan: [place] on hold Qualifiers: Active/Remission status: remission status unspecified Qualified Code(s): F31.9 - Bipolar disorder, unspecified (7) Herpes zoster Current Visit: No Status: Chronic Assessment and plan: Continue acyclovir Qualifiers: Herpes zoster complications: without complications Qualified Code(s): B02.9 - Zoster without complications (8) Hypertension Current Visit: No Status: Chronic Assessment and plan: Continue verapamil Qualifiers: Hypertension type: essential hypertension Qualified Code(s): I10 - Essential (primary) hypertension (9) Hypothyroidism Current Visit: No Status: Chronic Assessment and plan: Continue levothyroxine Qualifiers: Hypothyroidism type: unspecified Qualified Code(s): E03.9 - Hypothyroidism , unspecified (10) Morbid obesity with BMI of 60.0-69.9, adult Current Visit: No Status: Chronic Assessment and plan: Diet and exercise (11) Type 2 diabetes mellitus Current Visit: No Status: Chronic Assessment and plan: Insulin as needed and oral hyperglycemic agents Qualifiers: Diabetes mellitus [facility]p insulin use: without intermediate school teacher use Diabetes mellitus complication status: with unspecified complications Qualified Code(s) : E11.8 - Type 2 diabetes mellitus with unspecified complications (12) Hypokalemia Current Visit: Yes Status: Acute Assessment and plan: Replaced (13) Acute kidney injury Current Visit: Yes Status: Acute Assessment and plan: Iv fluids (14) DVT prophylaxis Current Visit: No Status: Acute Assessment and plan: Heparin sc - Time Spent With Patient Total time spent is greater than 50% in coordination of care (as documented) at patient's floor/unit and/or counseling patient:
[2017-11-26] MEDS: Potassium Chloride Elixir 20 MEQ/15 ML UDC PO SCH ×2 (16:28→16:52)
[2017-11-26 16:30] LABS: Bilirubin,Urine Negative (Negative); Blood,Urine Negative (Negative); Clarity,Urine Cloudy (Clear); Color,Urine Yellow (Yellow); Glucose,Urine (UA) Normal (Normal); Ketones,Urine Negative (Negative); Leukocyte Esterase,Urine Negative (Negative); Nitrite,Urine Negative (Negative); PH,Urine 6.5 pH Units (5.0-8.0); Protein,Urine Negative (Neg-Trace); Specific Gravity,Urine 1.006 (1.010-1.025); Urobilinogen,Urine Normal (Normal)
[2017-11-26 16:34] LABS: Bacteria,Urine None Seen per hpf (None-Few); Hyaline Casts,Urine None Seen per lpf (None-Few); Squamous Epithelial Cell,Urine Many per lpf (None-Few); WBC,Urine 0-3 per hpf (0-3)
[2017-11-26] MEDS ORDERED: Aspirin 325 MG TABLET PO ONE (16:44)
[2017-11-26] MEDS: Insulin LISPRO 300 UNITS/3 ML VIAL SQ SCH (16:52)
[2017-11-26] MEDS: 0.9 % Sodium Chloride 1,000 ML IVC SCH (17:02)
[2017-11-26 17:32] LABS: Acetaminophen < 10 mcg/mL (10-20); Salicylate < 2.5 mg/dL (15.0-30.0)
[2017-11-26] MEDS ORDERED: Lithium Carbonate 300 MG CAPSULE PO SCH (21:00)
[2017-11-26] MEDS ORDERED: *HR* Promethazine 25 MG/ML VIAL IVP PRN (21:02)
[2017-11-26] MEDS ORDERED: *HR* LORazepam 2 MG/ML VIAL IVP ONE (22:30)
[2017-11-26] MEDS: Budesonide/Formoterol 160/4.5 1 PUFF INH IH SCH (22:57)
[2017-11-27] MEDS ORDERED: *HR* LORazepam 2 MG/ML VIAL IVP ONE ×3 (02:11→22:57)
[2017-11-27 05:45] LABS: ABG Base Excess 3 mEq/L (-2 to 3); ABG HCO3 29 mEq/L (21-27); ABG Oxygen Saturation 94 % (95-98); ABG PCO2 49 mmHg (35-45); ABG PH 7.38 pH Units (7.32-7.45); ABG PO2 74 mmHg (85-104); ABG TCO2 30 mEq/L (20-26)
[2017-11-27 06:09] LABS: Basophils % 0.3 %; Eosinophils # 0.2 K/mcL (0.0-0.6); Eosinophils % 1.2 %; Hematocrit 35.5 % (35.3-44.9); Hemoglobin 10.6 g/dL (11.5-15.4); Immature Granulocytes % 0.9 % (0-4); Lymphocytes # 0.8 K/mcL (0.6-4.6); Lymphocytes % 5.4 %; Mean Corpuscular HGB Conc 29.9 g/dL (31.6-35.5); Mean Corpuscular Hemoglobin 24.8 pg (28.0-33.3); Mean Corpuscular Volume 82.9 fL (83.0-100.0); Monocytes # 0.7 K/mcL (0.0-1.3); Neutrophils # 12.1 K/mcL (1.6-8.9); Platelet Count 236 K/mcL (140-400); Red Blood Count 4.28 M/mcL (3.82-4.97); Red Cell Distribution Width 17.7 % (11.5-14.5); Segmented Neutrophils % 87.2 %
[2017-11-27] MEDS: 0.9 % Sodium Chloride 1,000 ML IVC SCH ×2 (06:26→16:39)
[2017-11-27 06:32] LABS: BUN/Creatinine Ratio 10 (6-26); Blood Urea Nitrogen 10 mg/dL (8-23); Carbon Dioxide 26 mEq/L (23-29); Chloride 110 mEq/L (98-107); Glucose 163 mg/dL (70-105); Magnesium 2.2 mg/dL (1.6-2.6); Osmolality,Calculated 301 (280-300); Potassium 3.1 mEq/L (3.5-5.1); Sodium 144 mEq/L (136-145); eGFR For Non-African Americans 54 (> 60)
[2017-11-27] MEDS ORDERED: (Saxagliptin Hcl [Onglyza] 5 MG) PO SCH (09:00)
[2017-11-27] MEDS ORDERED: NON-FORMULARY MEDICATION 1 EACH EACH (Fluticasone/Vilanterol [Breo Ellipta 200-25 Mcg Inh] IH SCH (09:00)
[2017-11-27] MEDS ORDERED: Melatonin 3 MG TABLET PO SCH (09:00)
--- NOTE | 2017-11-27 09:05 | Internal Med Progress Note ---
Hospitalist Progress Note - Encounter Date of Encounter: 11/27/17 Time of Encounter: 09:00 - Exam Vitals: Temp Pulse Resp BP Pulse Ox 98.1 F 74 18 162/94 97 11/27/17 07:57 11/27/17 07:57 11/27/17 07:57 11/27/17 07:57 11/27/17 07:57 Exam: Morbidly obese, no acute distress. Alert and oriented. Lethargic and slow to respond to questions - Assessment and Plan (1) Acute metabolic encephalopathy Current Visit: Yes Status: Acute Assessment and Plan: Acute metabolic encephalopathy with confusion at the care home today. Differentials include acute CVA with slurred speech, infection from UTI vs Cellulitis and [place] toxicity. We will obtain MRI brain, start on aspirin and statin, CT head came back negative. Obtain blood cultures and urine studies to rule out UTI, WBC was 16.7, start on vanc and levaquin to cover UTI vs cellulitis. CXR showed mild vascular congestion Patient has been on high dose lithium for about 5 years. [place] levels came back at 1.6 with prolonged QRS. Will give IV fluids and Sodium bicarb and repeat lithium levels in 4hrs. Poison control contacted 11/27. Continue antibitoics, follow up MRI today. repeat lithium levels came back at 1.5 yesterday (2) Acute CVA (cerebrovascular accident) Current Visit: Yes Status: Acute Assessment and Plan: See #1. Obtain MRI brain, continue aspirin and statin (3) [place] poisoning Current Visit: Yes Status: Acute Assessment and Plan: See 31. Posion control contacted. IV fluids and sodium bicarb. Repeat lithium (4) Cellulitis Current Visit: Yes Status: Acute Assessment and Plan: On vanc and levaquin (5) Sepsis Current Visit: Yes Status: Acute Assessment and Plan: See #1 > WBC was 16.7. Will give IV fluids, obtain lactic acid. Continue antibiotics. Obtain blood cultures and urine cultures (6) Bipolar disorder Current Visit: No Status: Chronic Assessment and Plan: [place] on hold (7) Herpes zoster Current Visit: No Status: Chronic Assessment and Plan: Continue acyclovir (8) Hypertension Current Visit: No Status: Chronic Assessment and Plan: Continue verapamil (9) Hypothyroidism Current Visit: No Status: Chronic Assessment and Plan: Continue levothyroxine (10) Morbid obesity with BMI of 60.0-69.9, adult Current Visit: No Status: Chronic Assessment and Plan: Diet and exercise (11) Type 2 diabetes mellitus Current Visit: No Status: Chronic Assessment and Plan: Insulin as needed and oral hyperglycemic agents (12) Hypokalemia Current Visit: Yes Status: Acute Assessment and Plan: Replaced (13) Acute kidney injury Current Visit: Yes Status: Acute Assessment and Plan: Iv fluids (14) DVT prophylaxis Current Visit: No Status: Acute Assessment and Plan: Heparin sc - Time Spent with Patient Total time spent is greater than 50% in coordination of care (as documented) at patient's floor/unit and/or counseling patient: Internal Medicine: Result - Labs CBC & Chem 7: 11/27/17 05:30 11/27/17 05:30 Labs: Short CBC 11/27/17 Range/Units 05:30 WBC 13.9 H (4.3-11.1) K/mcL Hgb 10.6 L (11.5-15.4) g/dL Hct 35.5 (35.3-44.9) % Plt Count 236 (140-400) K/mcL Neutrophils # 12.1 H (1.6-8.9) K/mcL BMP 11/27/17 05:30 Sodium 144 Potassium 3.1 L Chloride 110 H Carbon Dioxide 26 BUN 10 Creatinine 1.04 Glucose 163 H Calcium 9.0 - ABG Interpretation ABG results: ABG ABG pH 7.38 pH Units (7.32-7.45) 11/27/17 05:38 ABG pCO2 49 mmHg (35-45) H 11/27/17 05:38 ABG pO2 74 mmHg (85-104) L 11/27/17 05:38 ABG O2 Saturation 94 % (95-98) L 11/27/17 05:38 PT/INR, D-dimer PT 13.9 Seconds (9.4-12.1) H 11/26/17 09:15 Consult Discharge Plan - Plan Referrals: Corina Lynch MD [Primary Care Provider] - (3) [place] poisoning Qualifiers: Encounter type: initial encounter Qualified Code(s): T56.891A - Toxic effect of other metals, accidental (unintentional), initial encounter (4) Cellulitis Qualifiers: Site of cellulitis: extremity Site of cellulitis of extremity: lower extremity Laterality: left Qualified Code(s): L03.116 - Cellulitis of left lower limb (5) Sepsis Qualifiers: Sepsis type: sepsis due to unspecified organism Qualified Code(s): A41.9 - Sepsis, unspecified organism (6) Bipolar disorder Qualifiers: Active/Remission status: remission status unspecified Qualified Code(s): F31.9 - Bipolar disorder, unspecified (7) Herpes zoster Qualifiers: Herpes zoster complications: without complications Qualified Code(s): B02.9 - Zoster without complications (8) Hypertension Qualifiers: Hypertension type: essential hypertension Qualified Code(s): I10 - Essential (primary) hypertension (9) Hypothyroidism Qualifiers: Hypothyroidism type: unspecified Qualified Code(s): E03.9 - Hypothyroidism, unspecified (11) Type 2 diabetes mellitus Qualifiers: 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
[2017-11-27] MEDS: Insulin LISPRO 300 UNITS/3 ML VIAL SQ SCH ×3 (09:40→16:39)
[2017-11-27] MEDS: ARIPiprazole 2 MG TABLET PO SCH (09:40)
[2017-11-27] MEDS: Verapamil ER (24 HR) 240 MG TABLET.ER PO SCH (09:41)
[2017-11-27] MEDS: Cholestyramine 4 GM POWD.PACK PO SCH (09:41)
[2017-11-27] MEDS: Lactobacillus 1 EACH CAP.SPRINK PO SCH (09:41)
[2017-11-27] MEDS: Fluticasone Propionate Nasal 50 MCG/SPRAY BOTTLE NS SCH (09:41)
[2017-11-27] MEDS: Aspirin 81 MG TAB.CHEW PO SCH (09:41)
[2017-11-27] MEDS: Budesonide/Formoterol 160/4.5 1 PUFF INH IH SCH ×2 (11:21→23:06)
[2017-11-27] MEDS ORDERED: Haloperidol Lactate 5 MG/ML VIAL IVP PRN (13:42)
[2017-11-27 14:44] LABS: Estimated Average Glucose 154 mg/dl
[2017-11-27] MEDS: Levofloxacin 750 MG/150 ML 750 MG/150 ML BAG IVPB SCH (15:31)
[2017-11-27 16:31] LABS: ABG Base Excess 4 mEq/L (-2 to 3); ABG HCO3 30 mEq/L (21-27); ABG Oxygen Saturation 96 % (95-98); ABG PCO2 47 mmHg (35-45); ABG PH 7.41 pH Units (7.32-7.45); ABG PO2 84 mmHg (85-104); ABG TCO2 31 mEq/L (20-26)
[2017-11-27] MEDS: *HR* Repaglinide 1 MG TABLET PO SCH (16:38)
[2017-11-27] MEDS: Haloperidol Lactate 5 MG/ML VIAL IM PRN (17:44)
[2017-11-27] MEDS ORDERED: diazePAM 10 MG/2 ML SYRINGE IVP STA (19:47)
[2017-11-27] MEDS: Melatonin 3 MG TABLET PO SCH (22:46)
[2017-11-28] MEDS: Haloperidol Lactate 5 MG/ML VIAL IM PRN ×2 (01:33→15:13)
[2017-11-28] MEDS ORDERED: Ziprasidone injection 20 MG/ML VIAL IM ONE (04:19)
[2017-11-28 07:21] LABS: Basophils % 0.1 %; Eosinophils # 0.1 K/mcL (0.0-0.6); Eosinophils % 0.9 %; Hematocrit 38.1 % (35.3-44.9); Hemoglobin 11.4 g/dL (11.5-15.4); Immature Granulocytes % 1.6 % (0-4); Immature Platelets 7.2 % (1.1-6.1); Lymphocytes # 0.9 K/mcL (0.6-4.6); Lymphocytes % 5.7 %; Mean Corpuscular HGB Conc 29.9 g/dL (31.6-35.5); Mean Corpuscular Hemoglobin 25.2 pg (28.0-33.3); Mean Corpuscular Volume 84.1 fL (83.0-100.0); Mean Platelet Volume 11.7 fL (9.4-12.4); Monocytes # 0.8 K/mcL (0.0-1.3); Neutrophils # 12.9 K/mcL (1.6-8.9); Platelet Count 233 K/mcL (140-400); Red Blood Count 4.53 M/mcL (3.82-4.97); Red Cell Distribution Width 17.8 % (11.5-14.5); Segmented Neutrophils % 86.7 %
[2017-11-28 07:36] LABS: BUN/Creatinine Ratio 7 (6-26); Blood Urea Nitrogen 7 mg/dL (8-23); Calcium 9.2 mg/dL (8.6-10.3); Carbon Dioxide 28 mEq/L (23-29); Chloride 111 mEq/L (98-107); Glucose 164 mg/dL (70-105); Magnesium 2.3 mg/dL (1.6-2.6); Osmolality,Calculated 306 (280-300); Phosphorous 2.8 mg/dL (2.7-4.5); Potassium 3.3 mEq/L (3.5-5.1); Sodium 147 mEq/L (136-145); eGFR For Non-African Americans 58 (> 60)
[2017-11-28] MEDS: Budesonide/Formoterol 160/4.5 1 PUFF INH IH SCH ×2 (07:40→20:25)
[2017-11-28] MEDS: Levofloxacin 750 MG/150 ML 750 MG/150 ML BAG IVPB SCH (08:28)
[2017-11-28] MEDS: Insulin LISPRO 300 UNITS/3 ML VIAL SQ SCH ×3 (08:41→16:00)
--- NOTE | 2017-11-28 10:04 | Internal Med Progress Note ---
Hospitalist Progress Note - Encounter Date of Encounter: 11/28/17 Time of Encounter: 10:00 - Exam Vitals: Temp Pulse Resp BP Pulse Ox 97.8 F 76 20 128/67 96 11/28/17 04:30 11/28/17 04:30 11/28/17 04:30 11/28/17 04:30 11/28/17 04:30 Exam: Gen. Morbidly obese, no acute distress. Alert and oriented. Lethargic and slow to respond to questions HEENT - NCAT, PERRLA, EOMI, hearing grossly intact, oropharynx benign CV - RRR, normal S1 and S2, no M/R/G, no BLE edema Resp - Normal WOB, CTAB, no W/R/R GI - Soft, NT/ND, no masses, normal bowel sounds, no HSP Skin - Warm, dry, no rashes/lesions/ulcers Psych - Normal mood and affect, no depression or anxiety - Assessment and Plan (1) Acute metabolic encephalopathy Current Visit: Yes Status: Acute Assessment and Plan: Acute metabolic encephalopathy with confusion at the half-way today. Differentials include acute CVA with slurred speech, infection from UTI vs Cellulitis and [place] toxicity. We will obtain MRI brain, start on aspirin and statin, CT head came back negative. Obtain blood cultures and urine studies to rule out UTI, WBC was 16.7, start on vanc and levaquin to cover UTI vs cellulitis. CXR showed mild vascular congestion Patient has been on high dose lithium for about 5 years. [place] levels came back at 1.6 with prolonged QRS. Will give IV fluids and Sodium bicarb and repeat lithium levels in 4hrs. Poison control contacted 11/28. Continue antibiotics. repeat lithium levels came back at 1.2. MRI showed no evidence of acute stroke (2) Acute CVA (cerebrovascular accident) Current Visit: Yes Status: Acute Assessment and Plan: See #1. Obtain MRI brain, continue aspirin and statin. MRI showed no evidence of stroke (3) [place] poisoning Current Visit: Yes Status: Acute Assessment and Plan: See 31. Posion control contacted. IV fluids and sodium bicarb. Repeat lithium levels came back at 1.2 after hydration. resolved (4) Cellulitis Current Visit: Yes Status: Acute Assessment and Plan: On vanc and levaquin (5) Sepsis Current Visit: Yes Status: Acute Assessment and Plan: See #1 > WBC was 16.7. Will give IV fluids, obtain lactic acid. Continue antibiotics. Obtain blood cultures and urine cultures. WBC trending down (6) Bipolar disorder Current Visit: No Status: Chronic Assessment and Plan: [place] on hold (7) Herpes zoster Current Visit: No Status: Chronic Assessment and Plan: Continue acyclovir (8) Hypertension Current Visit: No Status: Chronic Assessment and Plan: Continue verapamil (9) Hypothyroidism Current Visit: No Status: Chronic Assessment and Plan: Continue levothyroxine (10) Morbid obesity with BMI of 60.0-69.9, adult Current Visit: No Status: Chronic Assessment and Plan: Diet and exercise (11) Type 2 diabetes mellitus Current Visit: No Status: Chronic Assessment and Plan: Insulin as needed and oral hyperglycemic agents (12) Hypokalemia Current Visit: Yes Status: Acute Assessment and Plan: Replaced (13) Acute kidney injury Current Visit: Yes Status: Acute Assessment and Plan: Iv fluids (14) DVT prophylaxis Current Visit: No Status: Acute Assessment and Plan: Heparin sc - Time Spent with Patient Total time spent is greater than 50% in coordination of care (as documented) at patient's floor/unit and/or counseling patient: Internal Medicine: Result - Labs CBC & Chem 7: 11/28/17 06:52 11/28/17 06:52 Labs: Short CBC 11/28/17 Range/Units 06:52 WBC 14.9 H (4.3-11.1) K/mcL Hgb 11.4 L (11.5-15.4) g/dL Hct 38.1 (35.3-44.9) % Plt Count 233 (140-400) K/mcL Neutrophils # 12.9 H (1.6-8.9) K/mcL BMP 11/28/17 06:52 Sodium 147 H Potassium 3.3 L Chloride 111 H Carbon Dioxide 28 BUN 7 L Creatinine 0.97 Glucose 164 H Calcium 9.2 - ABG Interpretation ABG results: ABG ABG pH 7.41 pH Units (7.32-7.45) 11/27/17 16:28 ABG pCO2 47 mmHg (35-45) H 11/27/17 16:28 ABG pO2 84 mmHg (85-104) L 11/27/17 16:28 ABG O2 Saturation 96 % (95-98) 11/27/17 16:28 PT/INR, D-dimer PT 13.9 Seconds (9.4-12.1) H 11/26/17 09:15 - Impressions Impressions Chest X-Ray 11/27/17 07:50 IMPRESSION: Persistent findings of probable mild perihilar edema. D/ / 11/27/2017 11:53:52 Kamaljit Bridges MD / harpreet Interpreting Provider: Kamaljit Bridges MD Cervical Spine CT 11/27/17 12:05 IMPRESSION: Suboptimal evaluation of the mid to distal cervical spine, due to patient habitus and motion. Within these limitations, there is no displaced cervical spine fracture. D/ / 11/27/2017 13:41:19 Jennifer Samuels MD / harpreet Interpreting Provider: Jennifer Samuels MD Head CT 11/27/17 12:05 IMPRESSION: Motion degraded study. No acute intracranial abnormality. D/ / 11/27/2017 13:27:28 Jennifer Samuels MD / harpreet Interpreting Provider: Jennifer Samuels MD Hip/Pelvis X-Ray 11/27/17 12:05 IMPRESSION: Bilateral shoulders: Limited single-view evaluation without gross acute bony abnormality appreciated. No acute bony abnormality appreciated about the hips and pelvis. Recommend dedicated chest imaging to evaluate patchy opacity in the left upper lobe which may reflect airspace disease. D/ / Mitchell Sung MD / Mitchell Sung MD Interpreting Provider: Mitchell Sung MD Shoulder X-Ray 11/27/17 12:07 IMPRESSION: Bilateral shoulders: Limited single-view evaluation without gross acute bony abnormality appreciated. No acute bony abnormality appreciated about the hips and pelvis. Recommend dedicated chest imaging to evaluate patchy opacity in the left upper lobe which may reflect airspace disease. D/ / Mitchell Sung MD / Mitchell Sung MD Interpreting Provider: Mitchell Sung MD Shoulder X-Ray 11/27/17 12:07 IMPRESSION: Bilateral shoulders: Limited single-view evaluation without gross acute bony abnormality appreciated. No acute bony abnormality appreciated about the hips and pelvis. Recommend dedicated chest imaging to evaluate patchy opacity in the left upper lobe which may reflect airspace disease. D/ / Mitchell Sung MD / Mitchell Sung MD Interpreting Provider: Mitchell Sung MD - VTE Documentation of Mechanical Device: Venous foot pump, device Consult Discharge Plan - Plan Referrals: Corina Lynch MD [Primary Care Provider] - (3) [place] poisoning Qualifiers: Encounter type: initial encounter (4) Cellulitis Qualifiers: Site of cellulitis: extremity Site of cellulitis of extremity: lower extremity Laterality: left Qualified Code(s): L03.116 - Cellulitis of left lower limb (5) Sepsis Qualifiers: Sepsis type: sepsis due to unspecified organism Qualified Code(s): A41.9 - Sepsis, unspecified organism (6) Bipolar disorder Qualifiers: Active/Remission status: remission status unspecified Qualified Code(s): F31.9 - Bipolar disorder, unspecified (7) Herpes zoster Qualifiers: Herpes zoster complications: without complications Qualified Code(s): B02.9 - Zoster without complications (8) Hypertension Qualifiers: Hypertension type: essential hypertension Qualified Code(s): I10 - Essential (primary) hypertension (9) Hypothyroidism Qualifiers: Hypothyroidism type: unspecified Qualified Code(s): E03.9 - Hypothyroidism, unspecified (11) Type 2 diabetes mellitus Qualifiers: 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
[2017-11-28] MEDS ORDERED: *HR* OxyCODONE Immed Rel 5 MG TABLET PO PRN (14:13)
[2017-11-28] MEDS: D5% in 0.45% NACL 1,000 ML IVC SCH (14:27)
[2017-11-28] MEDS: Lactobacillus 1 EACH CAP.SPRINK PO SCH (15:14)
[2017-11-28] MEDS: Aspirin 81 MG TAB.CHEW PO SCH (15:14)
[2017-11-28] MEDS: Cholestyramine 4 GM POWD.PACK PO SCH (15:14)
[2017-11-28] MEDS: Verapamil ER (24 HR) 240 MG TABLET.ER PO SCH (15:14)
[2017-11-28] MEDS: ARIPiprazole 2 MG TABLET PO SCH (15:14)
[2017-11-28] MEDS: Fluticasone Propionate Nasal 50 MCG/SPRAY BOTTLE NS SCH (15:15)
[2017-11-28] MEDS: *HR* Repaglinide 1 MG TABLET PO SCH (15:15)
[2017-11-28] MEDS: Gabapentin 300 MG CAPSULE PO SCH ×2 (15:17→21:02)
[2017-11-28] MEDS: OXYCODONE Oral CONC 10 MG/0.5 ML ORAL.SYG SL PRN (20:46)
[2017-11-28] MEDS: Lithium Carbonate 300 MG CAPSULE PO SCH (21:02)
[2017-11-28] MEDS: Melatonin 3 MG TABLET PO SCH (21:02)
[2017-11-28] MEDS ORDERED: diazePAM 10 MG/2 ML SYRINGE IVP ONE (23:09)
[2017-11-29] MEDS: D5% in 0.45% NACL 1,000 ML IVC SCH (00:10)
[2017-11-29 05:01] LABS: Basophils % 0.1 %; Eosinophils # 0.2 K/mcL (0.0-0.6); Eosinophils % 1.1 %; Hematocrit 41.6 % (35.3-44.9); Hemoglobin 12.5 g/dL (11.5-15.4); Immature Granulocytes % 0.7 % (0-4); Lymphocytes # 0.8 K/mcL (0.6-4.6); Lymphocytes % 4.9 %; Mean Corpuscular Hemoglobin 25.2 pg (28.0-33.3); Mean Corpuscular Volume 83.9 fL (83.0-100.0); Mean Platelet Volume 11.7 fL (9.4-12.4); Monocytes # 0.8 K/mcL (0.0-1.3); Monocytes % 5.1 %; Neutrophils # 13.4 K/mcL (1.6-8.9); Platelet Count 262 K/mcL (140-400); Red Blood Count 4.96 M/mcL (3.82-4.97); Red Cell Distribution Width 17.8 % (11.5-14.5); Segmented Neutrophils % 88.1 %
[2017-11-29 05:18] LABS: BUN/Creatinine Ratio 6 (6-26); Blood Urea Nitrogen 6 mg/dL (8-23); Calcium 9.5 mg/dL (8.6-10.3); Carbon Dioxide 27 mEq/L (23-29); Chloride 114 mEq/L (98-107); Glucose 175 mg/dL (70-105); Magnesium 2.3 mg/dL (1.6-2.6); Osmolality,Calculated 310 (280-300); Phosphorous 2.6 mg/dL (2.7-4.5); Potassium 3.5 mEq/L (3.5-5.1); Sodium 149 mEq/L (136-145); eGFR For Non-African Americans > 60 (> 60)
[2017-11-29] MEDS: Haloperidol Lactate 5 MG/ML VIAL IM PRN ×2 (06:46→15:11)
[2017-11-29] MEDS: Budesonide/Formoterol 160/4.5 1 PUFF INH IH SCH ×2 (07:39→20:20)
[2017-11-29] MEDS: Insulin LISPRO 300 UNITS/3 ML VIAL SQ SCH ×3 (08:55→18:37)
[2017-11-29] MEDS: Levofloxacin 750 MG/150 ML 750 MG/150 ML BAG IVPB SCH (09:20)
[2017-11-29] MEDS: ARIPiprazole 2 MG TABLET PO SCH (10:23)
[2017-11-29] MEDS: Aspirin 81 MG TAB.CHEW PO SCH (10:24)
[2017-11-29] MEDS: Cholestyramine 4 GM POWD.PACK PO SCH (10:24)
[2017-11-29] MEDS: Gabapentin 300 MG CAPSULE PO SCH ×3 (10:24→22:47)
[2017-11-29] MEDS: Lactobacillus 1 EACH CAP.SPRINK PO SCH (10:24)
[2017-11-29] MEDS: *HR* Repaglinide 1 MG TABLET PO SCH (10:24)
[2017-11-29] MEDS: Verapamil ER (24 HR) 240 MG TABLET.ER PO SCH (10:24)
[2017-11-29] MEDS: Fluticasone Propionate Nasal 50 MCG/SPRAY BOTTLE NS SCH (10:24)
--- NOTE | 2017-11-29 10:34 | Internal Med Progress Note ---
Hospitalist Progress Note - Encounter Date of Encounter: 11/29/17 Time of Encounter: 10:30 - Subjective Interval History: No acute events overnight - Exam Vitals: Temp Pulse Resp BP Pulse Ox 98.6 F 66 22 177/78 97 11/29/17 08:55 11/29/17 08:55 11/29/17 08:55 11/29/17 08:55 11/29/17 08:55 Exam: Gen. Morbidly obese, no acute distress. Alert and oriented. Lethargic and slow to respond to questions HEENT - NCAT, PERRLA, EOMI, hearing grossly intact, oropharynx benign CV - RRR, normal S1 and S2, no M/R/G, no BLE edema Resp - Normal WOB, CTAB, no W/R/R GI - Soft, NT/ND, no masses, normal bowel sounds, no HSP Skin - Warm, dry, no rashes/lesions/ulcers Psych - Normal mood and affect, no depression or anxiety - Assessment and Plan (1) Acute metabolic encephalopathy Current Visit: Yes Status: Acute Assessment and Plan: Acute metabolic encephalopathy [facility]. Differentials include acute CVA with slurred speech, infection from UTI vs Cellulitis and [place] toxicity. We will obtain MRI brain, start on aspirin and statin, CT head came back negative. Obtain blood cultures and urine studies to rule out UTI, WBC was 16.7, start on vanc and levaquin to cover UTI vs cellulitis. CXR showed mild vascular congestion Patient has been on high dose lithium for about 5 years. [place] levels came back at 1.6 with prolonged QRS. Will give IV fluids and Sodium bicarb and repeat lithium levels in 4hrs. Poison control contacted 11/29. Continue antibiotics. repeat lithium levels came back at 1.2. MRI showed no evidence of acute stroke. Posion control recommend her lithium can be restarted. They also recommended a pain management urine drug screen which was requested and is a lab send out to evaluate for any other medication toxicities. Neurology has also been consulted and appreciate recs in light of persistent confusion and agitation. On haldol prn R/O meningitis. Patient is acutely confused and altered with persistent leukocytosis. Will broaden antibiotic regimen to Vanc, meropenem and acyclovir and add dexamethasone. ID and neuro recs appreciated (2) Acute and chronic respiratory failure with hypoxia Current Visit: Yes Status: Acute Assessment and Plan: Pt has noted epsiodes of apnea while asleep. she is mrbidly obese at 160kg and has COPD. She also likely has obesity hypoventilation syndrome and obstructive sleep apnea complicating her respiratory failure. She has no wheezing on exam and wasn't coughing on admission. When she's asleep, her sats drop to the mid 70s intermittently. She is on 3L O2 chronically. We will continue PRN nebs and place her on BiPAP as needed. Her ABG showed an improved co2 of 47 compared to her last admission when CO2 levels were in the 60s. Last sleep study showed severe Obstructive sleep apnea with hypersomnia. CT angio from a month ago negative for PE. Continue BIPAP/ CPAP as needed (3) Acute CVA (cerebrovascular accident) Current Visit: Yes Status: Acute Assessment and Plan: See #1. Obtain MRI brain, continue aspirin and statin. MRI showed no evidence of stroke (4) [place] poisoning Current Visit: Yes Status: Acute Assessment and Plan: See 31. Posion control contacted. IV fluids and sodium bicarb. Repeat lithium levels came back at 1.2 after hydration. resolved (5) Cellulitis Current Visit: Yes Status: Acute Assessment and Plan: On vanc and meropenem (6) Sepsis Current Visit: Yes Status: Acute Assessment and Plan: See #1 > WBC was 16.7. Will give IV fluids, obtain lactic acid. Continue antibiotics. Obtain blood cultures and urine cultures. WBC trending down (7) Bipolar disorder Current Visit: No Status: Chronic Assessment and Plan: [place] on hold (8) Herpes zoster Current Visit: No Status: Chronic Assessment and Plan: Continue acyclovir (9) Hypertension Current Visit: No Status: Chronic Assessment and Plan: Continue verapamil (10) Hypothyroidism Current Visit: No Status: Chronic Assessment and Plan: Continue levothyroxine (11) Morbid obesity with BMI of 60.0-69.9, adult Current Visit: No Status: Chronic Assessment and Plan: Diet and exercise (12) Type 2 diabetes mellitus Current Visit: No Status: Chronic Assessment and Plan: Insulin as needed and oral hyperglycemic agents (13) Hypernatremia Current Visit: Yes Status: Acute Assessment and Plan: On IV fluds with D5 free water. Monitor electolytes (14) Hypokalemia Current Visit: Yes Status: Acute Assessment and Plan: Replaced (15) Acute kidney injury Current Visit: Yes Status: Acute Assessment and Plan: Iv fluids (16) DVT prophylaxis Current Visit: No Status: Acute Assessment and Plan: Heparin sc - Time Spent with Patient Total time spent is greater than 50% in coordination of care (as documented) at patient's floor/unit and/or counseling patient: Internal Medicine: Result - Labs CBC & Chem 7: 11/29/17 04:15 11/29/17 04:15 Labs: Short CBC 11/29/17 Range/Units 04:15 WBC 15.3 H (4.3-11.1) K/mcL Hgb 12.5 (11.5-15.4) g/dL Hct 41.6 (35.3-44.9) % Plt Count 262 (140-400) K/mcL Neutrophils # 13.4 H (1.6-8.9) K/mcL BMP 11/29/17 04:15 Sodium 149 H Potassium 3.5 Chloride 114 H Carbon Dioxide 27 BUN 6 L Creatinine 0.94 Glucose 175 H Calcium 9.5 - ABG Interpretation ABG results: ABG ABG pH 7.41 pH Units (7.32-7.45) 11/27/17 16:28 ABG pCO2 47 mmHg (35-45) H 11/27/17 16:28 ABG pO2 84 mmHg (85-104) L 11/27/17 16:28 ABG O2 Saturation 96 % (95-98) 11/27/17 16:28 PT/INR, D-dimer PT 13.9 Seconds (9.4-12.1) H 11/26/17 09:15 - VTE Documentation of Mechanical Device: Venous foot pump, device Consult Discharge Plan - Plan Referrals: Corina Lynch MD [Primary Care Provider] - (4) [place] poisoning Qualifiers: Encounter type: initial encounter (5) Cellulitis Qualifiers: Site of cellulitis: extremity Site of cellulitis of extremity: lower extremity Laterality: left Qualified Code(s): L03.116 - Cellulitis of left lower limb (6) Sepsis Qualifiers: Sepsis type: sepsis due to unspecified organism Qualified Code(s): A41.9 - Sepsis, unspecified organism (7) Bipolar disorder Qualifiers: Active/Remission status: remission status unspecified Qualified Code(s): F31.9 - Bipolar disorder, unspecified (8) Herpes zoster Qualifiers: Herpes zoster complications: without complications Qualified Code(s): B02.9 - Zoster without complications (9) Hypertension Qualifiers: Hypertension type: essential hypertension Qualified Code(s): I10 - Essential (primary) hypertension (10) Hypothyroidism Qualifiers: Hypothyroidism type: unspecified Qualified Code(s): E03.9 - Hypothyroidism, unspecified (12) Type 2 diabetes mellitus Qualifiers: Diabetes mellitus usp insulin use: without usp use Diabetes mellitus complication status: with unspecified complications Qualified Code(s) : E11.8 - Type 2 diabetes mellitus with unspecified complications
[2017-11-29] MEDS ORDERED: Haloperidol Lactate 5 MG/ML VIAL IM ONE (10:37)
[2017-11-29] MEDS: *HR* Morphine 2 MG/ML SYRINGE IVP PRN ×2 (11:50→16:35)
[2017-11-29] MEDS: D5% in Water 1,000 ML IVC SCH (11:57)
--- NOTE | 2017-11-29 12:26 | Infectious Disease Consult ---
Date of Encounter: 11/29/17 Time of Encounter: 12:23 Assessment and Plan (1) Altered mental status Status: Acute Assessment and plan: etiology not clear secondary to polypharmacy vs medication withdrawl vs metabolic encephalopathy vs infectious vs other? No obvious infectious etiology noted. Patient does not have URI symptoms, no cough, no neck stiffness and no fever Keep in mind that she is on acyclovir for shingle? so VZV encephalitis is theoretically feasible Patient had an MRI which was negative. At this point I will check respiratory infectious panel, strep pneumo antigen and blood cultures 2. Ideally an LP should be done if patient can tolerate it. I spoke with the hospitalist team and I am not sure patient will be able to get an LP under the circumstances. She might need general anesthesia for that. We will await neurology's recommendations. Patient is already on acyclovir will dose adjusted to VZV encephalitis at 10 mg per KG every 8 hours. I will ask pharmacy to help with the dosing. Monitor kidney function closely while on acyclovir I do not believe the patient had bacterial meningitis based on the clinical picture and I will not start Rocephin, ampicillin and vancomycin. I spoke with Saira from pharmacy and she recommeds 750mg IV q8hrs (based on ideal body weight) Qualifiers: Altered mental status type: unspecified Qualified Code(s): R41.82 - Altered mental status, unspecified (2) Type 2 diabetes mellitus Status: Chronic Qualifiers: Diabetes mellitus superintendent container terminal insulin use: without fci use Diabetes mellitus complication status: with unspecified complications Qualified Code(s) : E11.8 - Type 2 diabetes mellitus with unspecified complications (3) Bipolar disorder Status: Chronic Qualifiers: Active/Remission status: remission status unspecified Qualified Code(s): F31.9 - Bipolar disorder, unspecified (4) Hypothyroidism Status: Chronic Qualifiers: Hypothyroidism type: unspecified Qualified Code(s): E03.9 - Hypothyroidism , unspecified (5) Chronic venous insufficiency Status: Chronic Assessment and plan: bilateral lower extremities no obvious cellulitis (6) Morbid obesity with BMI of 60.0-69.9, adult Status: Chronic (7) [place] poisoning Status: Acute Assessment and plan: resolved Qualifiers: Encounter type: initial encounter Injury intent: accidental or unintentional Qualified Code(s): T56.891A - Toxic effect of other metals, accidental (unintentional), initial encounter (8) Acute kidney injury Status: Acute Assessment and plan: resolved CrCl WNL Infectious Disease HPI - Data of Consult Patient: new to practice Consult date: 11/29/17 Requesting Physician: Leah Novak MD Primary Care Provider: Corina Lynch - Consult Narrative Reason for consult: altered mental status History of present illness: Ms. Asif is a 62 year old female Patient is 60-year-old woman who presented to [place] on 11/26 with altered mental status, lethargy and difficulty arousing, we are consulted on 11/29 for altered mental status concern for encephalitis versus meningitis. Patient is 60-year-old woman who is unable to give me any history so all information was taken from the medical records has an extensive past medical history including diastolic CHF, diabetes mellitus type 2, COPD, bipolar disorder, hypothyroidism and morbid obesity who [facility] was transferred to [place] for the altered mental status, lethargy and difficulty arousing. Patient has a brother who was interviewed on admission and apparently tells the hospitalist team that this has been going on for a few days prior to admission. Since admission, patient has been afebrile with MAXIMUM TEMPERATURE of 99.4, no tachycardia, 1 or 2 intermittent episodes of tachypnea. Her presenting WBC was 16.7 thousand with 80% neutrophils and no bands patient's BUN/creatinine was 16 and 1.38 respectively, LFTs were within normal limits. Patient had a urinalysis done on 11/26 which was nonrevealing for UTI. Patient also had a CT if PCR done on 11/26 and it came back negative. I am not sure about the exact details of why C. difficile was ordered because there is no mention of diarrhea on admission. Patient's lithium level was elevated at 1.5. A CT abdomen and pelvis was done which showed no acute abnormalities seen in the abdomen or pelvis. They also mentioned infiltration of the fat within the pannus overlying the pelvis. No abnormal fluid collection. MRI of the brain showed no acute process but patient had motion artifacts. CXR was also done and it noted persistent perihilar edema. Patient apparently had a fall and fall imaging was done and it revealed no subdural hematoma, no cervical or shoulder fracture. Patient continues to do worse clinically just moaning and groaning and not responding not following commands and not eating or taking her medications including her Synthroid, Abilify, Neurontin and Zoloft. We were asked to evaluate the patient and make sure she does not have meningitis. On further questioning and Nursing who was in the room, patient does not have any diarrhea. She does have an indwelling [place] with good output. Patient does not have any cough or sputum production. Patient does not have a decubitus ulcer. No obvious cellulitis. She does not have any central lines and has only one peripheral. CC: Leah Novak MD Past Med Surg Social Fam HX - Past Medical History Medical history: atrial fibrillation, COPD, diabetes, hyperlipidemia, hypertension, other Additional medical history: diverticulosts pulmonary edema chronic small airway disease cardiomegaly Psychiatric history: depression, prior suicide attempt, previous psychiatric hospitalization - Past Surgical History Surgical History: appendectomy, cholecystectomy, hysterectomy, thyroidectomy Additional surgical history: tennis elbow - Social History Smoking Status: Never smoker Smokeless Tobacco Status: No Alcohol use: none Drug use: none - Family History Father Hx Family Cardiac Disorders: Yes Hx Family Endocrine Disorder: Yes Infectious Disease-CN:Meds Cholestyramine (with Sugar) [Cholestyramine Bulk Powder] 2 scoop PO DAILY [History] [place] Carbonate 900 mg PO HS 08/24/16 [History] Pantoprazole Sodium 40 mg PO DAILY 08/24/16 [History] Saxagliptin HCl [Onglyza] 5 mg PO DAILY 08/24/16 [History] Sertraline [Zoloft] 200 mg PO DAILY 08/24/16 [History] Verapamil HCl [Verapamil ER] 240 mg PO DAILY 08/24/16 [History] Brimonidine 0.2% [Alphagan] 1 drop BOTH EYES TID 08/25/16 [History] L. Acidophilus/Pectin, [place] [Acidophilus Caplet] 1 each PO DAILY 08/25/16 [ History] Fluticasone Propionate Nasal [Flonase] 50 mcg NS DAILY bottle 08/28/16 [Rx] Furosemide [Lasix] 40 mg PO BID #60 tablet 08/28/16 [Rx] Losartan [Cozaar] 50 mg PO DAILY tablet 08/28/16 [Rx] Pentoxifylline [TRENtal] 400 mg PO TIDWM tablet.er 08/28/16 [Rx] ARIPiprazole [Abilify] 2 mg PO DAILY 09/02/17 [History] Acyclovir [Zovirax] 800 mg PO BID 09/02/17 [History] Dicyclomine [Bentyl] 10 mg PO QID #20 capsule 09/02/17 [Rx] Ondansetron ODT [Zofran ODT] 4 mg SL Q6HR #20 tab.rapdis 09/02/17 [Rx] Pravastatin Sodium [Pravachol] 40 mg PO HS 09/02/17 [History] Repaglinide [Prandin] 1 mg PO DAILY 09/02/17 [History] Levothyroxine Sodium [Synthroid] 300 mcg PO DAILY@0630 09/22/17 [History] Loperamide [Imodium] 2 mg PO QID PRN 09/22/17 [History] Albuterol Sulfate [Albuterol Inhaler] 2 puff IH Q4HR PRN 30 Days #1 hfa.aer.ad 09/24/17 [Rx] Fluticasone/Vilanterol [Breo Ellipta 200-25 Mcg INH] 1 puff IH DAILY 10/22/17 [ History] Melatonin [Melatin] 3 mg PO DAILY 10/22/17 [History] Gabapentin [Neurontin] 600 mg PO TID 4 Days #12 tablet 10/24/17 [Rx] 3 Allergy/AdvReac Type Severity Reaction Status Date / Time sulfamethoxazole Allergy Rash Verified 09/22/17 08:16 [From Bactrim] trimethoprim [From Bactrim] Allergy Rash Verified 09/22/17 08:16 celecoxib [From Celebrex] AdvReac Gastrointestinal Verified 09/22/17 08:16 Upset Penicillins AdvReac Swelling Verified 09/22/17 08:16 of the Eye trazodone AdvReac Fainting Verified 09/22/17 08:16 Serazone AdvReac Swelling Uncoded 09/22/17 08:16 of Lip/Tongue/Throat ROS unobtainable: due to mental status Exam - Constitutional Vitals: Temp Pulse Resp BP Pulse Ox 99.1 F 76 18 158/73 97 11/29/17 12:03 11/29/17 12:03 11/29/17 12:03 11/29/17 12:03 11/29/17 12:03 General appearance: mild distress, no febrile, no cooperative - Head Head exam: Present: atraumatic, normocephalic - Eye Eye exam: Present: EOMI, PERRL, sclera anicteric - ENT ENT exam: Present: mucous membranes dry Additional comments: no oral lesions - Neck Neck exam: Present: normal inspection. Absent: meningismus - Respiratory Additional comments: air sounds audible both lung velasquez - Cardiovascular Cardiovascular exam: Present: RRR, +S1, +S2. Absent: systolic murmur - GI/Abdominal Additional comments: morbidly obese, soft, no guarding. bowel sounds audible - Extremities Exam Additional comments: bilateral lower extremities venous stasis - Neurological Exam Neurological exam: Present: altered. Absent: alert, oriented X3 Additional comments: no facial droop, moving all 4 extremities, no asymmetry - Psychiatric Psychiatric exam: Present: agitated - Skin Additional comments: multiple bruises on upper extremities. Bilateral venous stasis. No obvious venous cellulitis Infectious Disease CN: Results - Labs CBC & Chem 7: 11/29/17 04:15 11/29/17 04:15 - VTE Documentation of Mechanical Device: Venous foot pump, device Consult Discharge Plan - Plan Referrals: Corina Lynch MD [Primary Care Provider] -
[2017-11-29] MEDS: MEROPENEM IVP SCH ×2 (12:41→18:11)
[2017-11-29] MEDS: WATER FOR INJ IVP SCH ×2 (12:41→18:11)
[2017-11-29] MEDS: Dexamethasone 10 MG/ML VIAL IVP SCH ×2 (12:42→18:40)
[2017-11-29] MEDS ORDERED: Levothyroxine Sodium 200 MCG VIAL IVP SCH (13:15)
[2017-11-29 14:39] LABS: Folate 13.6 ng/mL (3.0-16.0)
--- NOTE | 2017-11-29 15:10 | Neurology - Consult Note ---
<Levi Bonilla - Last Filed: 11/29/17 15:04> Date of Encounter: 11/29/17 Time of Encounter: 11:00 Assessment and Plan (1) Altered mental status Current Visit: Yes Status: Acute No clear etiology exists for her mental status. She is afebrile, and leukocytosis has been trending down. 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 She is longtime Li user and Li level initially minimally elevated and repeat down. She is currently on acyclovir as home med. Nothing acute was found on MRI brain. TSH was wnl, will order additional B12, folate, ammonia, lactic acid, and rpr. Could consider LP but do not think she would stay still to be able to do it bedside. Would probably need to be performed under anesthesia. ID consulted by primary service. Will await additional labs and discuss with primary team. Qualifiers: Altered mental status type: unspecified Qualified Code(s): R41.82 - Altered mental status, unspecified History of Present Illness Chief complaint: AMS HPI: Ms. Asif is a 62 year old female with pmh significant for afib, HTN, DM, HLD, bipolar, and hypothyroidism, and neurology was consulted for AMS. Hx is from medical record as she can not provide any hx. She had a fall at her nursing facility and was found face down and difficult to arouse. When she was up the staff noticed slurred speech and a decrease in her mental status on 11/26. Today , we were consulted and she will not open eyes to voice or answer questions, is moaning, groaning, has bilateral arms extended in front of her and constantly tapping her L foot. Sitter in the room said she has been the same since she entered the room at 6am. Past Med Surg Social Fam HX - Past Medical History Medical history: atrial fibrillation, COPD, diabetes, hyperlipidemia, hypertension, other Additional medical history: diverticulosts pulmonary edema chronic small airway disease cardiomegaly Psychiatric history: depression, prior suicide attempt, previous psychiatric hospitalization - Past Surgical History Surgical History: appendectomy, cholecystectomy, hysterectomy, thyroidectomy Additional surgical history: tennis elbow - Social History Smoking Status: Never smoker Smokeless Tobacco Status: No Alcohol use: none Drug use: none - Family History Father Hx Family Cardiac Disorders: Yes Hx Family Endocrine Disorder: Yes Medications and Allergies RX: Cholestyramine (with Sugar) [Cholestyramine Bulk Powder] 2 scoop PO DAILY [History] RX: [place] Carbonate 900 mg PO HS 08/24/16 [History] RX: Pantoprazole Sodium 40 mg PO DAILY 08/24/16 [History] RX: Saxagliptin HCl [Onglyza] 5 mg PO DAILY 08/24/16 [History] RX: Sertraline [Zoloft] 200 mg PO DAILY 08/24/16 [History] RX: Verapamil HCl [Verapamil ER] 240 mg PO DAILY 08/24/16 [History] RX: Brimonidine 0.2% [Alphagan] 1 drop BOTH EYES TID 08/25/16 [History] RX: L. Acidophilus/Pectin, [place] [Acidophilus Caplet] 1 each PO DAILY 08/25/16 [History] RX: Fluticasone Propionate Nasal [Flonase] 50 mcg NS DAILY bottle 08/28/16 [Rx] RX: Furosemide [Lasix] 40 mg PO BID #60 tablet 08/28/16 [Rx] RX: Losartan [Cozaar] 50 mg PO DAILY tablet 08/28/16 [Rx] RX: Pentoxifylline [TRENtal] 400 mg PO TIDWM tablet.er 08/28/16 [Rx] RX: ARIPiprazole [Abilify] 2 mg PO DAILY 09/02/17 [History] RX: Acyclovir [Zovirax] 800 mg PO BID 09/02/17 [History] RX: Dicyclomine [Bentyl] 10 mg PO QID #20 capsule 09/02/17 [Rx] RX: Ondansetron ODT [Zofran ODT] 4 mg SL Q6HR #20 tab.rapdis 09/02/17 [Rx] RX: Pravastatin Sodium [Pravachol] 40 mg PO HS 09/02/17 [History] RX: Repaglinide [Prandin] 1 mg PO DAILY 09/02/17 [History] RX: Levothyroxine Sodium [Synthroid] 300 mcg PO DAILY@0630 09/22/17 [History] RX: Loperamide [Imodium] 2 mg PO QID PRN 09/22/17 [History] RX: Albuterol Sulfate [Albuterol Inhaler] 2 puff IH Q4HR PRN 30 Days #1 hfa.aer.ad 09/24/17 [Rx] RX: Fluticasone/Vilanterol [Breo Ellipta 200-25 Mcg INH] 1 puff IH DAILY [History] RX: Melatonin [Melatin] 3 mg PO DAILY 10/22/17 [History] RX: Gabapentin [Neurontin] 600 mg PO TID 4 Days #12 tablet 10/24/17 [Rx] 3 Allergy/AdvReac Type Severity Reaction Status Date / Time sulfamethoxazole Allergy Rash Verified 09/22/17 08:16 [From Bactrim] trimethoprim [From Bactrim] Allergy Rash Verified 09/22/17 08:16 celecoxib [From Celebrex] AdvReac Gastrointestinal Verified 09/22/17 08:16 Upset Penicillins AdvReac Swelling Verified 09/22/17 08:16 of the Eye trazodone AdvReac Fainting Verified 09/22/17 08:16 Serazone AdvReac Swelling Uncoded 09/22/17 08:16 of Lip/Tongue/Throat ROS unobtainable: due to mental status All Systems: The remainder of the systems were reviewed and are negative Physical Examination - Vital Signs Vital Signs: Initial Vital Signs Temp Pulse Resp BP Pulse Ox 98.6 F 62 20 106/53 94 11/26/17 08:38 11/26/17 08:38 11/26/17 08:38 11/26/17 08:38 11/26/17 08:38 - Constitutional General appearance: uncomfortable (moaning, groaning, with bilateral arms extended in front of her and persistant L foot tapping. ) - Neurologic Mental Status Examination: does not follow commands, drowsy, delerious, agitated , opens eyes to noxious stimulation Results - Laboratory Findings CBC and BMP: 11/29/17 04:15 11/29/17 04:15 Abnormal lab findings: Abnormal lab results WBC 15.3 K/mcL (4.3-11.1) H 11/29/17 04:15 MCH 25.2 pg (28.0-33.3) L 11/29/17 04:15 MCHC 30.0 g/dL (31.6-35.5) L 11/29/17 04:15 RDW 17.8 % (11.5-14.5) H 11/29/17 04:15 Neutrophils # 13.4 K/mcL (1.6-8.9) H 11/29/17 04:15 Immature Plt Fraction 7.2 % (1.1-6.1) H 11/28/17 06:52 PT 13.9 Seconds (9.4-12.1) H 11/26/17 09:15 ABG pCO2 47 mmHg (35-45) H 11/27/17 16:28 ABG pO2 84 mmHg (85-104) L 11/27/17 16:28 ABG HCO3 30 mEq/L (21-27) H 11/27/17 16:28 ABG Total CO2 31 mEq/L (20-26) H 11/27/17 16:28 ABG Base Excess 4 mEq/L (-2 to 3) H 11/27/17 16:28 VBG pH 7.31 pH Units (7.32-7.42) L 11/26/17 09:31 VBG pCO2 62 mmHg (41-51) H 11/26/17 09:31 VBG pO2 52 mmHg (25-50) H 11/26/17 09:31 VBG HCO3 31 mEq/L (21-27) H 11/26/17 09:31 Sodium 149 mEq/L (136-145) H 11/29/17 04:15 Chloride 114 mEq/L (98-107) H 11/29/17 04:15 BUN 6 mg/dL (8-23) L 11/29/17 04:15 Glucose 175 mg/dL (70-105) H 11/29/17 04:15 POC Glucose 161 mg/dL (70-99) H 11/29/17 12:02 Hemoglobin A1c 7.0 % (-5.6) H 11/27/17 05:30 Calculated Osmolality 310 (280-300) H 11/29/17 04:15 Phosphorus 2.6 mg/dL (2.7-4.5) L 11/29/17 04:15 AST 11 Units/L (13-39) L 11/26/17 09:15 Serum Total Protein 6.3 g/dL (6.4-8.9) L 11/26/17 09:15 Vitamin B12 204 pg/mL (250-1100) L 11/29/17 13:30 Urine Clarity Cloudy (Clear) A 11/26/17 16:15 Ur Specific [place] 1.006 (1.010-1.025) L 11/26/17 16:15 Urine Microscopic RBC 3-5 per hpf (0-3) H 11/26/17 16:15 Ur Squamous Epith Cells Many per lpf (None-Few) H 11/26/17 16:15 Vancomycin Trough 24 mcg/mL (5-10) H 11/27/17 09:47 Salicylates < 2.5 mg/dL (15.0-30.0) L 11/26/17 16:44 Acetaminophen < 10 mcg/mL (10-20) L 11/26/17 16:44 Consult Discharge Plan - Plan Referrals: Corina Lynch MD [Primary Care Provider] - <Mateo Silva - Last Filed: 11/29/17 17:07> Date of Encounter: 11/29/17 Time of Encounter: 16:55 Assessment and Plan (1) Altered mental status Current Visit: Yes Status: Acute As of now I am unable to identify a specific neurologic etiology to explain this case. I see no evidence of cerebral infarct, there is no evidence to suspect a central nervous system infectious process. Her neck is supple. She is afebrile. Ammonia levels are normal, lactate is normal. AST and ALT are normal, we will therefore not likely dealing with neuroleptic malignant syndrome. Serotonin syndrome is also not likely. MRI scan of the brain revealed no evidence of temporal lobe enhancement. Perhaps we are dealing with medication effect. Chest x-ray was just obtained. The results are pending. I am doubtful of seizure activity. One could consider LP if there are not any other reasonable explanations. However ID has a low suspicion as well. Qualifiers: Altered mental status type: unspecified Qualified Code(s): R41.82 - Altered mental status, unspecified History of Present Illness HPI: Chart was reviewed, the patient was seen and examined independently. Case was discussed with Dr. Bonilla. I agree with his history as stated above. I did review the MRI scan of the brain which was negative for acute infarct or temporal lobe enhancement. She is unable to provide history she simply lays in bed and moans and shakes her foot. She does make eye contact momentarily but does not follow commands. Several blood tests are very been completed including blood gases which did not reveal a significantly elevated CO2. She has previously been treated for mental illness and takes a large number of medications. ROS unobtainable: due to mental status All Systems: The remainder of the systems were reviewed and are negative Physical Examination - Vital Signs Vital Signs: Initial Vital Signs Temp Pulse Resp BP Pulse Ox 98.6 F 62 20 106/53 94 11/26/17 08:38 11/26/17 08:38 11/26/17 08:38 11/26/17 08:38 11/26/17 08:38 - Constitutional General appearance: uncomfortable, other (Morbidly obese. Venous stasis on both legs.) - Neurologic Sensorimotor examination: intact Detailed motor examination: other (Equal tone in all 4 extremities. She does have some type of tremor of the left foot which I feel may be volitional.) Cranial nerve examination: PERRL, EOMI (Doll's eyes are intact.), corneal reflexes brisk symmetrically Results - Laboratory Findings CBC and BMP: 11/29/17 04:15 11/29/17 04:15 Abnormal lab findings: Abnormal lab results WBC 15.3 K/mcL (4.3-11.1) H 11/29/17 04:15 MCH 25.2 pg (28.0-33.3) L 11/29/17 04:15 MCHC 30.0 g/dL (31.6-35.5) L 11/29/17 04:15 RDW 17.8 % (11.5-14.5) H 11/29/17 04:15 Neutrophils # 13.4 K/mcL (1.6-8.9) H 11/29/17 04:15 Immature Plt Fraction 7.2 % (1.1-6.1) H 11/28/17 06:52 PT 13.9 Seconds (9.4-12.1) H 11/26/17 09:15 ABG pCO2 47 mmHg (35-45) H 11/27/17 16:28 ABG pO2 84 mmHg (85-104) L 11/27/17 16:28 ABG HCO3 30 mEq/L (21-27) H 11/27/17 16:28 ABG Total CO2 31 mEq/L (20-26) H 11/27/17 16:28 ABG Base Excess 4 mEq/L (-2 to 3) H 11/27/17 16:28 VBG pH 7.31 pH Units (7.32-7.42) L 11/26/17 09:31 VBG pCO2 62 mmHg (41-51) H 11/26/17 09:31 VBG pO2 52 mmHg (25-50) H 11/26/17 09:31 VBG HCO3 31 mEq/L (21-27) H 11/26/17 09:31 Sodium 149 mEq/L (136-145) H 11/29/17 04:15 Chloride 114 mEq/L (98-107) H 11/29/17 04:15 BUN 6 mg/dL (8-23) L 11/29/17 04:15 Glucose 175 mg/dL (70-105) H 11/29/17 04:15 POC Glucose 161 mg/dL (70-99) H 11/29/17 12:02 Hemoglobin A1c 7.0 % (-5.6) H 11/27/17 05:30 Calculated Osmolality 310 (280-300) H 11/29/17 04:15 Phosphorus 2.6 mg/dL (2.7-4.5) L 11/29/17 04:15 AST 11 Units/L (13-39) L 11/26/17 09:15 Serum Total Protein 6.3 g/dL (6.4-8.9) L 11/26/17 09:15 Vitamin B12 204 pg/mL (250-1100) L 11/29/17 13:30 Urine Clarity Cloudy (Clear) A 11/26/17 16:15 Ur Specific [place] 1.006 (1.010-1.025) L 11/26/17 16:15 Urine Microscopic RBC 3-5 per hpf (0-3) H 11/26/17 16:15 Ur Squamous Epith Cells Many per lpf (None-Few) H 11/26/17 16:15 Vancomycin Trough 24 mcg/mL (5-10) H 11/27/17 09:47 Salicylates < 2.5 mg/dL (15.0-30.0) L 11/26/17 16:44 Acetaminophen < 10 mcg/mL (10-20) L 11/26/17 16:44
[2017-11-29] MEDS ORDERED: D5 IVPB SCH (16:00)
[2017-11-29] MEDS ORDERED: ACYCLOVIR IVPB SCH (16:00)
[2017-11-29] MEDS ORDERED: WATER IVPB SCH (16:00)
[2017-11-29] MEDS: Acyclovir 750 MG in D5% in Water 250 ML IVPB SCH (16:01)
[2017-11-29] MEDS: Levothyroxine Sodium 200 MCG VIAL IVP SCH (18:12)
[2017-11-29] MEDS ORDERED: diazePAM 10 MG/2 ML SYRINGE IVP ONE (20:42)
[2017-11-29] MEDS ORDERED: Haloperidol Lactate 5 MG/ML VIAL IVP ONE (22:36)
[2017-11-29] MEDS ORDERED: Haloperidol Lactate 5 MG/ML VIAL ONE (22:38)
[2017-11-29] MEDS: Lithium Carbonate 300 MG CAPSULE PO SCH (22:46)
[2017-11-29] MEDS: Melatonin 3 MG TABLET PO SCH (22:47)
[2017-11-29 22:50] LABS: Adenovirus Not Detected (Not Detect); Bordetella Pertussis Not Detected (Not Detect); Chlamydophila pneumoniae Not Detected (Not Detect); Coronavirus 229E Not Detected (Not Detect); Coronavirus HKU1 Not Detected (Not Detect); Coronavirus NL63 Not Detected (Not Detect); Coronavirus OC43 Not Detected (Not Detect); Human Metapneumovirus Not Detected (Not Detect); Human Rhinovirus/Enterovirus Not Detected (Not Detect); Influenza A Subtype 2009 H1 Not Detected (Not Detect); Influenza A Untypeable Not Detected (Not Detect); Influenza B Not Detected (Not Detect); Mycoplasma pneumoniae Not Detected (Not Detect); Parainfluenza Virus 1 Not Detected (Not Detect); Parainfluenza Virus 2 Not Detected (Not Detect); Parainfluenza Virus 3 Not Detected (Not Detect); Parainfluenza Virus 4 Not Detected (Not Detect); Respiratory Syncytial Virus Not Detected (Not Detect)
[2017-11-30] MEDS ORDERED: diazePAM 10 MG/2 ML SYRINGE IVP ONE (00:05)
[2017-11-30] MEDS: Dexamethasone 10 MG/ML VIAL IVP SCH ×4 (00:38→21:30)
[2017-11-30] MEDS: WATER FOR INJ IVP SCH ×2 (00:40→08:51)
[2017-11-30] MEDS: MEROPENEM IVP SCH ×2 (00:40→08:51)
[2017-11-30] MEDS: Acyclovir 750 MG in D5% in Water 250 ML IVPB SCH ×3 (00:41→18:33)
[2017-11-30 04:27] LABS: Basophils % 0.1 %; Hematocrit 37.1 % (35.3-44.9); Hemoglobin 11.3 g/dL (11.5-15.4); Immature Granulocytes % 1.4 % (0-4); Lymphocytes # 0.4 K/mcL (0.6-4.6); Lymphocytes % 3.1 %; Mean Corpuscular HGB Conc 30.5 g/dL (31.6-35.5); Mean Corpuscular Hemoglobin 24.8 pg (28.0-33.3); Mean Corpuscular Volume 81.4 fL (83.0-100.0); Mean Platelet Volume 11.5 fL (9.4-12.4); Monocytes # 0.1 K/mcL (0.0-1.3); Monocytes % 0.9 %; Neutrophils # 10.6 K/mcL (1.6-8.9); Platelet Count 261 K/mcL (140-400); Red Blood Count 4.56 M/mcL (3.82-4.97); Red Cell Distribution Width 18.3 % (11.5-14.5); Segmented Neutrophils % 94.5 %
[2017-11-30 04:46] LABS: BUN/Creatinine Ratio 11 (6-26); Blood Urea Nitrogen 11 mg/dL (8-23); Calcium 9.4 mg/dL (8.6-10.3); Carbon Dioxide 21 mEq/L (23-29); Chloride 113 mEq/L (98-107); Glucose 232 mg/dL (70-105); Magnesium 2.4 mg/dL (1.6-2.6); Osmolality,Calculated 311 (280-300); Potassium 3.6 mEq/L (3.5-5.1); Sodium 147 mEq/L (136-145); eGFR For Non-African Americans 56 (> 60)
[2017-11-30] MEDS: OXYCODONE Oral CONC 10 MG/0.5 ML ORAL.SYG SL PRN ×3 (04:49→21:30)
[2017-11-30] MEDS: D5% in Water 1,000 ML IVC SCH (05:45)
[2017-11-30] MEDS: Budesonide/Formoterol 160/4.5 1 PUFF INH IH SCH ×2 (07:47→21:56)
[2017-11-30] MEDS: Haloperidol Lactate 5 MG/ML VIAL IM PRN (08:47)
[2017-11-30] MEDS: Insulin LISPRO 300 UNITS/3 ML VIAL SQ SCH ×3 (08:49→16:11)
[2017-11-30] MEDS: Aspirin 81 MG TAB.CHEW PO SCH (08:51)
[2017-11-30] MEDS: Lactobacillus 1 EACH CAP.SPRINK PO SCH (08:52)
[2017-11-30] MEDS: *HR* Repaglinide 1 MG TABLET PO SCH (08:52)
[2017-11-30] MEDS: Cholestyramine 4 GM POWD.PACK PO SCH (08:52)
[2017-11-30] MEDS: Verapamil ER (24 HR) 240 MG TABLET.ER PO SCH (08:52)
[2017-11-30] MEDS: Gabapentin 300 MG CAPSULE PO SCH ×3 (08:52→21:38)
[2017-11-30] MEDS: Fluticasone Propionate Nasal 50 MCG/SPRAY BOTTLE NS SCH (08:52)
[2017-11-30] MEDS: Levothyroxine Sodium 200 MCG VIAL IVP SCH (08:56)
--- NOTE | 2017-11-30 09:01 | Neurology Progress Note ---
Date of Encounter: 11/30/17 Time of Encounter: 08:58 Assessment and Plan (1) Altered mental status Current Visit: Yes Status: Acute Qualifiers: Altered mental status type: unspecified Qualified Code(s): R41.82 - Altered mental status, unspecified (2) Toxic metabolic encephalopathy Current Visit: Yes Status: Acute I remained doubtful of a primary central nervous system etiology for this presentation. Perhaps pneumonia should be considered. I will obtain another CT scan of the head to rule out evidence of infarction, we will also obtain an EEG. LP will certainly be difficult in this patient who is very large, and very agitated. She remains on IV acyclovir without improvement. Subjective Interval history: Chart reviewed, patient seen and examined. No clinical change from a neurologic perspective. Patient is very agitated, moaning loudly and persistently. Still moving her legs. Does not communicate verbally, does not make eye contact. She does have a slight axillary temp. Also chest x-ray revealed widening of the cardiac silhouette suggestive of worsening edema or infection. Patient is without nuchal rigidity. Likelihood of a primary central nervous system etiology for this picture I feel is low. Appears to be more toxic metabolic encephalopathy. Objective - Constitutional Vitals: Temp Pulse Resp BP Pulse Ox 99.5 F 85 18 146/81 96 11/30/17 07:02 11/30/17 07:02 11/30/17 07:02 11/30/17 07:02 11/30/17 07:02 - Neurological Exam Motor Examination: Present: other (Equal tone in all 4 extremities. She does have some type of tremor of the left foot which I feel may be volitional.) Mental Status Examination: Present: does not follow commands, drowsy, delerious , agitated, opens eyes to noxious stimulation Cranial nerve examination: Present: PERRL, EOMI (Doll's eyes are intact.), corneal reflexes brisk symmetrically - VTE Documentation of Mechanical Device: Intermittent pneumatic compression device Results - Laboratory Findings CBC and BMP: 11/30/17 03:59 11/30/17 03:59 Abnormal lab findings: Abnormal lab results WBC 11.2 K/mcL (4.3-11.1) H 11/30/17 03:59 Hgb 11.3 g/dL (11.5-15.4) L 11/30/17 03:59 MCV 81.4 fL (83.0-100.0) L 11/30/17 03:59 MCH 24.8 pg (28.0-33.3) L 11/30/17 03:59 MCHC 30.5 g/dL (31.6-35.5) L 11/30/17 03:59 RDW 18.3 % (11.5-14.5) H 11/30/17 03:59 Neutrophils # 10.6 K/mcL (1.6-8.9) H 11/30/17 03:59 Lymphocytes # 0.4 K/mcL (0.6-4.6) L 11/30/17 03:59 Immature Plt Fraction 7.2 % (1.1-6.1) H 11/28/17 06:52 PT 13.9 Seconds (9.4-12.1) H 11/26/17 09:15 ABG pCO2 47 mmHg (35-45) H 11/27/17 16:28 ABG pO2 84 mmHg (85-104) L 11/27/17 16:28 ABG HCO3 30 mEq/L (21-27) H 11/27/17 16:28 ABG Total CO2 31 mEq/L (20-26) H 11/27/17 16:28 ABG Base Excess 4 mEq/L (-2 to 3) H 11/27/17 16:28 VBG pH 7.31 pH Units (7.32-7.42) L 11/26/17 09:31 VBG pCO2 62 mmHg (41-51) H 11/26/17 09:31 VBG pO2 52 mmHg (25-50) H 11/26/17 09:31 VBG HCO3 31 mEq/L (21-27) H 11/26/17 09:31 Sodium 147 mEq/L (136-145) H 11/30/17 03:59 Chloride 113 mEq/L (98-107) H 11/30/17 03:59 Carbon Dioxide 21 mEq/L (23-29) L 11/30/17 03:59 Est GFR (Non-Af Amer) 56 (> 60) L 11/30/17 03:59 Glucose 232 mg/dL (70-105) H 11/30/17 03:59 POC Glucose 197 mg/dL (70-99) H 11/29/17 22:10 Hemoglobin A1c 7.0 % (-5.6) H 11/27/17 05:30 Calculated Osmolality 311 (280-300) H 11/30/17 03:59 AST 11 Units/L (13-39) L 11/26/17 09:15 Serum Total Protein 6.3 g/dL (6.4-8.9) L 11/26/17 09:15 Vitamin B12 204 pg/mL (250-1100) L 11/29/17 13:30 Urine Clarity Cloudy (Clear) A 11/26/17 16:15 Ur Specific [place] 1.006 (1.010-1.025) L 11/26/17 16:15 Urine Microscopic RBC 3-5 per hpf (0-3) H 11/26/17 16:15 Ur Squamous Epith Cells Many per lpf (None-Few) H 11/26/17 16:15 Vancomycin Trough 14 mcg/mL (5-10) H 11/30/17 07:51 Salicylates < 2.5 mg/dL (15.0-30.0) L 11/26/17 16:44 Acetaminophen < 10 mcg/mL (10-20) L 11/26/17 16:44 Consult Discharge Plan - Plan Referrals: Corina Lynch MD [Primary Care Provider] -
--- NOTE | 2017-11-30 10:04 | Internal Med Progress Note ---
Hospitalist Progress Note - Encounter Date of Encounter: 11/30/17 Time of Encounter: 10:02 - Subjective Interval History: Patient with history of chf, dm, copd, bipolar disorder, morbid obesity atrial fib NH resident admitted with confusion and lithium toxicity, cellulitis and possible sepsis. patient has been seen by neurology and ID and repaet ct of head planned again today. today patient just moaning and not responding nurse reports no new changes - Exam Vitals: Temp Pulse Resp BP Pulse Ox 99.5 F 85 18 146/81 96 11/30/17 07:02 11/30/17 07:02 11/30/17 07:02 11/30/17 07:02 11/30/17 07:02 Exam: Gen. Morbidly obese, no acute distress. Alert and oriented. Lethargic and slow to respond to questions HEENT - NCAT, PERRLA, EOMI, hearing grossly intact, oropharynx benign CV - RRR, normal S1 and S2, no M/R/G, no BLE edema Resp - Normal WOB, CTAB, no W/R/R GI - Soft, NT/ND, no masses, normal bowel sounds, no HSP Skin - Warm, dry, no rashes/lesions/ulcers Psych - Normal mood and affect, no depression or anxiety - Assessment and Plan (1) Cellulitis Current Visit: No Status: Resolved Assessment and Plan: patient has been on iv antibiotics and ID following (2) Type 2 diabetes mellitus Current Visit: No Status: Chronic Assessment and Plan: tinue sliding scale (3) Herpes zoster Current Visit: No Status: Chronic Assessment and Plan: no acute process continue treatment (4) Hypertension Current Visit: No Status: Chronic Assessment and Plan: well controlled (5) Hyperlipidemia Current Visit: No Status: Chronic Assessment and Plan: chronic (6) Morbid obesity Current Visit: No Status: Chronic (7) Altered mental status Current Visit: Yes Status: Acute Assessment and Plan: patient being seen by neurology repeat head ct planned today (8) Acute metabolic encephalopathy Current Visit: Yes Status: Acute (9) Heath poisoning Current Visit: Yes Status: Acute Assessment and Plan: resolved (10) Acute kidney injury Current Visit: Yes Status: Resolved Assessment and Plan: resolved - Time Spent with Patient Total time spent is greater than 50% in coordination of care (as documented) at patient's floor/unit and/or counseling patient: Internal Medicine: Result - Labs CBC & Chem 7: 11/30/17 03:59 11/30/17 03:59 Labs: Short CBC 11/30/17 Range/Units 03:59 WBC 11.2 H (4.3-11.1) K/mcL Hgb 11.3 L (11.5-15.4) g/dL Hct 37.1 (35.3-44.9) % Plt Count 261 (140-400) K/mcL Neutrophils # 10.6 H (1.6-8.9) K/mcL BMP 11/30/17 03:59 Sodium 147 H Potassium 3.6 Chloride 113 H Carbon Dioxide 21 L BUN 11 Creatinine 1.01 Glucose 232 H Calcium 9.4 - ABG Interpretation ABG results: ABG ABG pH 7.41 pH Units (7.32-7.45) 11/27/17 16:28 ABG pCO2 47 mmHg (35-45) H 11/27/17 16:28 ABG pO2 84 mmHg (85-104) L 11/27/17 16:28 ABG O2 Saturation 96 % (95-98) 11/27/17 16:28 PT/INR, D-dimer PT 13.9 Seconds (9.4-12.1) H 11/26/17 09:15 - Impressions Impressions Chest X-Ray 11/29/17 13:30 IMPRESSION: Worsening infection or edema. D/ / Alejandra Hernandez MD / Alejandra Hernandez MD Interpreting Provider: Alejandra Hernandez MD - VTE Documentation of Mechanical Device: Intermittent pneumatic compression device Consult Discharge Plan - Plan Referrals: Cornia Lynch MD [Primary Care Provider] - (1) Cellulitis Qualifiers: Site of cellulitis: extremity Site of cellulitis of extremity: lower extremity Laterality: unspecified laterality Qualified Code(s): L03.119 - Cellulitis of unspecified part of limb (2) Type 2 diabetes mellitus Qualifiers: Diabetes mellitus prison insulin use: without superintendent terminal use Diabetes mellitus complication status: with unspecified complications Qualified Code(s) : E11.8 - Type 2 diabetes mellitus with unspecified complications (3) Herpes zoster Qualifiers: Herpes zoster complications: without complications Qualified Code(s): B02.9 - Zoster without complications (4) Hypertension Qualifiers: Hypertension type: essential hypertension Qualified Code(s): I10 - Essential (primary) hypertension (5) Hyperlipidemia Qualifiers: Hyperlipidemia type: pure hypercholesterolemia Qualified Code(s): E78.00 - Pure hypercholesterolemia, unspecified; E78.0 - Pure hypercholesterolemia (7) Altered mental status Qualifiers: Altered mental status type: unspecified Qualified Code(s): R41.82 - Altered mental status, unspecified (9) Heath poisoning Qualifiers: Encounter type: initial encounter
--- NOTE | 2017-11-30 13:26 | Infectious Disease Progress No ---
Date of Encounter: 11/30/17 Time of Encounter: 13:20 - Assessment and Plan (1) Altered mental status Current Visit: Yes Status: Acute Etiology unclear: polypharmacy vs. medication withdrawal vs. metabolic encephalopathy vs. infectious vs. other. No obvious infectious etiology noted. Leukocytosis improving. Patient was on acyclovir prior to admission for possible shingles, so VZV encephalitis is theoretically feasible, although unlikely as she has not improved since starting Acyclovir. MRI of the brain was negative. CT of the head done today negative as well. RIP negative. UATs ordered, but not collected. Blood cultures drawn 11/26/17 are NGTD x 2 sets. Repeat blood cultures drawn 11/29/17 are pending x 2 sets. Ideally, an LP should be done, but I am not sure the patient will tolerate the procedure and it may require anesthesia. Neurology consulted and following. Appreciate recommendations. Continue acyclovir 10mg/kg Q8H. Continue Vancomycin IV. Pharmacy to dose. Goal trough ~15. Discontinue Meropenem. Start Cefepime 2 grams IV Q12H. Duration of treatment depends on the clinical picture. Monitor renal function and for drug toxicity and dose-adjust antibiotics. Qualifiers: Altered mental status type: unspecified Qualified Code(s): R41.82 - Altered mental status, unspecified (2) Pneumonia Current Visit: No Status: Ruled-out Location: Bilateral. Causative organism unclear. CXR completed 11/29/17 showed scattered parenchymal opacities most prominent centrally on the lung bases, consistent with worsening infection of edema. Due to the patient's mental status change, she is at risk for aspiration. Additionally, she is unable to provide any ROS information. RIP negative. Check S. pneumo and [place] UATs. Continue Vancomycin IV. Pharmacy to dose. Goal trough ~15. Discontinue Meropenem. Start Cefepime 2 grams IV Q12H. Start Flagyl 500mg IV TID. Duration of treatment depends on the clinical picture. Monitor renal function and for drug toxicity and dose-adjust antibiotics. Qualifiers: Pneumonia type: due to Pneumococcus Laterality: unspecified laterality Lung location: unspecified part of lung Qualified Code(s): J13 - Pneumonia due to Streptococcus pneumoniae (3) Cellulitis Current Visit: No Status: Acute Location: Abdominal wall. CT of the abdomen and pelvis completed infiltration of the fat within the pannus overlying the pelvis. Clinically, no evidence of cellulitis on exam. Continue antibiotics as above. Qualifiers: Site of cellulitis: extremity Site of cellulitis of extremity: lower extremity Laterality: unspecified laterality Qualified Code(s): L03.119 - Cellulitis of unspecified part of limb (4) Acute kidney injury Current Visit: Yes Status: Resolved Resolved. (5) Hart poisoning Current Visit: Yes Status: Resolved Resolved. Qualifiers: Encounter type: initial encounter Injury intent: undetermined intent Qualified Code(s): T56.894A - Toxic effect of other metals, undetermined, initial encounter (6) Bipolar disorder Current Visit: No Status: Chronic The patient has been without her medications for several days due to her AMS. Consider NG tube placement to assist allow for administration of her home medications. Qualifiers: Active/Remission status: remission status unspecified Qualified Code(s): F31.9 - Bipolar disorder, unspecified (7) Chronic venous insufficiency Current Visit: No Status: Chronic Location: BLE. No clinical evidence of cellulitis. (8) Hypothyroidism Current Visit: No Status: Chronic The patient has been without her medications for several days due to her AMS. Consider NG tube placement to assist allow for administration of her home medications or convert to IV. Qualifiers: Hypothyroidism type: unspecified Qualified Code(s): E03.9 - Hypothyroidism , unspecified (9) Morbid obesity Current Visit: No Status: Chronic (10) Type 2 diabetes mellitus Current Visit: No Status: Chronic Qualifiers: Diabetes mellitus ceo and president insulin use: without senior care use Diabetes mellitus complication status: with unspecified complications Qualified Code(s) : E11.8 - Type 2 diabetes mellitus with unspecified complications - Subjective Interval history: Patient seen and examined with nursing staff at the bedside. No acute events noted overnight. Per nursing staff, the patient continued to moan until about 15 minutes prior to my arrival. Patient just returned from CT scan. No new issues per nursing. No diarrhea. Thibodeaux catheter patent. Infect Dis PN-Objective Data - Labs CBC & Chem 7: 11/30/17 03:59 11/30/17 03:59 Labs: Laboratory Results - last 24 hr 11/28/17 11/29/17 11/29/17 19:51 08:53 12:02 WBC RBC Hgb Hct MCV MCH MCHC RDW Plt Count MPV Immature Gran % Seg Neutrophils % Lymphocytes % Monocytes % Eosinophils % Basophils % Neutrophils # Lymphocytes # Monocytes # Eosinophils # Basophils # Sodium Potassium Chloride Carbon Dioxide BUN Creatinine Est GFR ( Amer) Est GFR (Non-Af Amer) BUN/Creatinine Ratio Glucose POC Glucose 152 H 156 H 161 H Calculated Osmolality Lactic Acid Calcium Phosphorus Magnesium Ammonia Vitamin B12 Folate Vancomycin Trough T.pallidum Ab Interpret Chlamy pneumoniae PCR Adenovirus (PCR) B. pertussis DNA (PCR) B.parapertussis DNA PCR Coronavirus OC43 (PCR) Coronavirus HKU1 (PCR) Coronavirus 229E (PCR) Coronavirus NL63 (PCR) Human Metapneumovir PCR Influenza A (H1) PCR Influ A (H1N1/09) PCR Influenza A (H3) PCR Influenza A Untype (PCR) Influenza Type B (PCR) M.pneumoniae DNA (PCR) Parainfluenza 1 (PCR) Parainfluenza 2 (PCR) Parainfluenza 3 (PCR) Parainfluenza 4 (PCR) RSV (PCR) Entero/Rhino (PCR) 11/29/17 11/29/17 11/29/17 13:30 13:30 13:30 WBC RBC Hgb Hct MCV MCH MCHC RDW Plt Count MPV Immature Gran % Seg Neutrophils % Lymphocytes % Monocytes % Eosinophils % Basophils % Neutrophils # Lymphocytes # Monocytes # Eosinophils # Basophils # Sodium Potassium Chloride Carbon Dioxide BUN Creatinine Est GFR ( Amer) Est GFR (Non-Af Amer) BUN/Creatinine Ratio Glucose POC Glucose Calculated Osmolality Lactic Acid 0.8 Calcium Phosphorus Magnesium Ammonia 38 Vitamin B12 204 L Folate 13.6 Vancomycin Trough T.pallidum Ab Interpret Chlamy pneumoniae PCR Adenovirus (PCR) B. pertussis DNA (PCR) B.parapertussis DNA PCR Coronavirus OC43 (PCR) Coronavirus HKU1 (PCR) Coronavirus 229E (PCR) Coronavirus NL63 (PCR) Human Metapneumovir PCR Influenza A (H1) PCR Influ A (H1N1/09) PCR Influenza A (H3) PCR Influenza A Untype (PCR) Influenza Type B (PCR) M.pneumoniae DNA (PCR) Parainfluenza 1 (PCR) Parainfluenza 2 (PCR) Parainfluenza 3 (PCR) Parainfluenza 4 (PCR) RSV (PCR) Entero/Rhino (PCR) 11/29/17 11/29/17 11/29/17 13:30 16:49 18:01 WBC RBC Hgb Hct MCV MCH MCHC RDW Plt Count MPV Immature Gran % Seg Neutrophils % Lymphocytes % Monocytes % Eosinophils % Basophils % Neutrophils # Lymphocytes # Monocytes # Eosinophils # Basophils # Sodium Potassium Chloride Carbon Dioxide BUN Creatinine Est GFR ( Amer) Est GFR (Non-Af Amer) BUN/Creatinine Ratio Glucose POC Glucose 194 H Calculated Osmolality Lactic Acid Calcium Phosphorus Magnesium Ammonia Vitamin B12 Folate Vancomycin Trough T.pallidum Ab Interpret Negative Chlamy pneumoniae PCR Not Detected Adenovirus (PCR) Not Detected B. pertussis DNA (PCR) Not Detected B.parapertussis DNA PCR Not Detected Coronavirus OC43 (PCR) Not Detected Coronavirus HKU1 (PCR) Not Detected Coronavirus 229E (PCR) Not Detected Coronavirus NL63 (PCR) Not Detected Human Metapneumovir PCR Not Detected Influenza A (H1) PCR Not Detected Influ A (H1N1/09) PCR Not Detected Influenza A (H3) PCR Not Detected Influenza A Untype (PCR) Not Detected Influenza Type B (PCR) Not Detected M.pneumoniae DNA (PCR) Not Detected Parainfluenza 1 (PCR) Not Detected Parainfluenza 2 (PCR) Not Detected Parainfluenza 3 (PCR) Not Detected Parainfluenza 4 (PCR) Not Detected RSV (PCR) Not Detected Entero/Rhino (PCR) Not Detected 11/29/17 11/30/17 11/30/17 22:10 03:59 03:59 WBC 11.2 H RBC 4.56 Hgb 11.3 L Hct 37.1 MCV 81.4 L MCH 24.8 L MCHC 30.5 L RDW 18.3 H Plt Count 261 MPV 11.5 Immature Gran % 1.4 Seg Neutrophils % 94.5 Lymphocytes % 3.1 Monocytes % 0.9 Eosinophils % 0.0 Basophils % 0.1 Neutrophils # 10.6 H Lymphocytes # 0.4 L Monocytes # 0.1 Eosinophils # 0.0 Basophils # 0.0 Sodium 147 H Potassium 3.6 Chloride 113 H Carbon Dioxide 21 L BUN 11 Creatinine 1.01 Est GFR ( Amer) > 60 Est GFR (Non-Af Amer) 56 L BUN/Creatinine Ratio 11 Glucose 232 H POC Glucose 197 H Calculated Osmolality 311 H Lactic Acid Calcium 9.4 Phosphorus 3.0 Magnesium 2.4 Ammonia Vitamin B12 Folate Vancomycin Trough T.pallidum Ab Interpret Chlamy pneumoniae PCR Adenovirus (PCR) B. pertussis DNA (PCR) B.parapertussis DNA PCR Coronavirus OC43 (PCR) Coronavirus HKU1 (PCR) Coronavirus 229E (PCR) Coronavirus NL63 (PCR) Human Metapneumovir PCR Influenza A (H1) PCR Influ A (H1N1/09) PCR Influenza A (H3) PCR Influenza A Untype (PCR) Influenza Type B (PCR) M.pneumoniae DNA (PCR) Parainfluenza 1 (PCR) Parainfluenza 2 (PCR) Parainfluenza 3 (PCR) Parainfluenza 4 (PCR) RSV (PCR) Entero/Rhino (PCR) 11/30/17 07:51 WBC RBC Hgb Hct MCV MCH MCHC RDW Plt Count MPV Immature Gran % Seg Neutrophils % Lymphocytes % Monocytes % Eosinophils % Basophils % Neutrophils # Lymphocytes # Monocytes # Eosinophils # Basophils # Sodium Potassium Chloride Carbon Dioxide BUN Creatinine Est GFR ( Amer) Est GFR (Non-Af Amer) BUN/Creatinine Ratio Glucose POC Glucose Calculated Osmolality Lactic Acid Calcium Phosphorus Magnesium Ammonia Vitamin B12 Folate Vancomycin Trough 14 H T.pallidum Ab Interpret Chlamy pneumoniae PCR Adenovirus (PCR) B. pertussis DNA (PCR) B.parapertussis DNA PCR Coronavirus OC43 (PCR) Coronavirus HKU1 (PCR) Coronavirus 229E (PCR) Coronavirus NL63 (PCR) Human Metapneumovir PCR Influenza A (H1) PCR Influ A (H1N1/09) PCR Influenza A (H3) PCR Influenza A Untype (PCR) Influenza Type B (PCR) M.pneumoniae DNA (PCR) Parainfluenza 1 (PCR) Parainfluenza 2 (PCR) Parainfluenza 3 (PCR) Parainfluenza 4 (PCR) RSV (PCR) Entero/Rhino (PCR) Cultures: Cultures 11/29/17 13:40 Blood Culture - Preliminary Peripheral Venipuncture Culture is incubating and being continuously monitored for growth. Final report to follow. 11/29/17 13:40 Blood Culture - Preliminary Peripheral Venipuncture Culture is incubating and being continuously monitored for growth. Final report to follow. Serology 11/29/17 11/29/17 Range/Units 18:01 13:30 T.pallidum Ab Interpret Negative (NEGATIVE) Chlamy pneumoniae PCR Not Detected (Not Detect) Adenovirus (PCR) Not Detected (Not Detect) B. pertussis DNA (PCR) Not Detected (Not Detect) B.parapertussis DNA PCR Not Detected (Not Detect) Coronavirus OC43 (PCR) Not Detected (Not Detect) Coronavirus HKU1 (PCR) Not Detected (Not Detect) Coronavirus 229E (PCR) Not Detected (Not Detect) Coronavirus NL63 (PCR) Not Detected (Not Detect) Human Metapneumovir PCR Not Detected (Not Detect) Influenza A (H1) PCR Not Detected (Not Detect) Influ A (H1N1/09) PCR Not Detected (Not Detect) Influenza A (H3) PCR Not Detected (Not Detect) Influenza A Untype (PCR) Not Detected (Not Detect) Influenza Type B (PCR) Not Detected (Not Detect) M.pneumoniae DNA (PCR) Not Detected (Not Detect) Parainfluenza 1 (PCR) Not Detected (Not Detect) Parainfluenza 2 (PCR) Not Detected (Not Detect) Parainfluenza 3 (PCR) Not Detected (Not Detect) Parainfluenza 4 (PCR) Not Detected (Not Detect) RSV (PCR) Not Detected (Not Detect) Entero/Rhino (PCR) Not Detected (Not Detect) - Impressions Impressions Chest X-Ray 11/29/17 13:30 IMPRESSION: Worsening infection or edema. D/ / Alejandra Hernandez MD / Alejandra Hernandez MD Interpreting Provider: Alejandra Hernandez MD Head CT 11/30/17 10:00 IMPRESSION: 1. Motion artifact decreases the diagnostic value of the exam. Possible fracture of the left mandibular ramus. Recommend facial bone CT. 2. New 1.2 cm thick left frontal parietal temporal scalp hematoma. New 0.7 cm thick right parietal scalp hematoma. 3. No acute intracranial abnormality. D/ / Sujata Miller MD / Sujata Miller MD Interpreting Provider: Sujata Miller MD Exam - Constitutional Vitals: Temp Pulse Resp BP Pulse Ox 99.5 F 71 18 134/57 96 11/30/17 11:28 11/30/17 11:28 11/30/17 11:28 11/30/17 11:28 11/30/17 11:28 General appearance: morbidly obese, no acute distress, no febrile - Head Head exam: Present: atraumatic, normal inspection, normocephalic - Eye Additional comments: Unable to assess. - ENT ENT exam: Present: mucous membranes dry - Neck Neck exam: Present: normal inspection - Respiratory Respiratory exam: Present: CTAB. Absent: rales, respiratory distress, rhonchi, wheezes - Cardiovascular Cardiovascular exam: Present: RRR, +S1, +S2 - GI/Abdominal GI/Abdominal exam: Present: distended (obese), normal bowel sounds, soft. Absent: tenderness Additional comments: Thibodeaux catheter noted to be draining clear yellow urine. - Extremities Exam Extremities exam: Absent: joint swelling, normal inspection (Venous stasis dermatitis noted to BLE), pedal edema, tenderness - Neurological Exam Neurological exam: Present: altered Additional comments: Resting quietly. Does not participate in the exam. - Skin Skin exam: Present: dry, intact, normal color, warm - VTE Documentation of Mechanical Device: Intermittent pneumatic compression device Consult Discharge Plan - Plan Referrals: Corina Lynch MD [Primary Care Provider] - - Attending Attestation I examined this patient and my medical decision-making was reviewed with the Resident Physician. I agree with the documented findings, disposition and treatment plan as described except to the extent set forth below.
[2017-11-30] MEDS: MetroNIDAZOLE 500 MG/100 ML 500 MG/100 ML BAG IVPB SCH (16:06)
--- NOTE | 2017-11-30 16:24 | Electrocardiograph Report ---
[place] [id number] Test Date: 2017-11-29 Pat Name: Jayne Asif Department: 111 Room: [id number] Gender: F Fine Sander: : 1955 Requested By: Ally Worthy Order Number: [id number] Reading MD: Jessie Payne Measurements Intervals [place] Rate: 84 P: 47 MS: 161 QRS: -27 QRSD: 103 T: 41 QT: 387 QTc: 428 Interpretive Statements SINUS RHYTHM BORDERLINE LEFT AXIS DEVIATION ARTIFACT Electronically Signed On 11-30-2017 16:22:51 EDT by Jessie Payne
[2017-11-30] MEDS: Cefepime HCl 2,000 MG in Water for inj. (sterile) 20 ML 20 ML IVP SCH (18:01)
[2017-11-30] MEDS: Lithium Carbonate 300 MG CAPSULE PO SCH (21:37)
[2017-11-30] MEDS: Melatonin 3 MG TABLET PO SCH (21:38)
[2017-11-30] MEDS ORDERED: Haloperidol Lactate 5 MG/ML VIAL IVP PRN (21:44)
[2017-11-30] MEDS ORDERED: Dexamethasone 10 MG/ML VIAL IVP SCH (22:00)
[2017-12-01] MEDS: MetroNIDAZOLE 500 MG/100 ML 500 MG/100 ML BAG IVPB SCH ×3 (00:06→18:59)
[2017-12-01] MEDS: Acyclovir 750 MG in D5% in Water 250 ML IVPB SCH ×3 (00:07→16:18)
[2017-12-01] MEDS: D5% in Water 1,000 ML IVC SCH (00:08)
[2017-12-01] MEDS: *HR* Morphine 2 MG/ML SYRINGE IVP PRN ×2 (02:44→08:36)
[2017-12-01] MEDS: OXYCODONE Oral CONC 10 MG/0.5 ML ORAL.SYG SL PRN ×2 (05:20→14:50)
[2017-12-01] MEDS: Dexamethasone 10 MG/ML VIAL IVP SCH ×2 (05:20→12:18)
[2017-12-01] MEDS: Cefepime HCl 2,000 MG in Water for inj. (sterile) 20 ML 20 ML IVP SCH ×2 (05:21→19:00)
[2017-12-01 05:51] LABS: Basophils % 0.1 %; Hematocrit 37.8 % (35.3-44.9); Hemoglobin 11.7 g/dL (11.5-15.4); Immature Granulocytes % 0.9 % (0-4); Lymphocytes # 0.8 K/mcL (0.6-4.6); Mean Corpuscular Hemoglobin 25.4 pg (28.0-33.3); Mean Platelet Volume 11.8 fL (9.4-12.4); Monocytes # 0.7 K/mcL (0.0-1.3); Monocytes % 4.6 %; Neutrophils # 13.5 K/mcL (1.6-8.9); Platelet Count 299 K/mcL (140-400); Red Blood Count 4.61 M/mcL (3.82-4.97); Red Cell Distribution Width 18.2 % (11.5-14.5); Segmented Neutrophils % 89.4 %
[2017-12-01 06:09] LABS: BUN/Creatinine Ratio 18 (6-26); Blood Urea Nitrogen 18 mg/dL (8-23); Carbon Dioxide 23 mEq/L (23-29); Chloride 113 mEq/L (98-107); Potassium 3.3 mEq/L (3.5-5.1); Sodium 146 mEq/L (136-145)
[2017-12-01 06:10] LABS: Calcium 9.2 mg/dL (8.6-10.3); Glucose 254 mg/dL (70-105); Magnesium 2.3 mg/dL (1.6-2.6); Osmolality,Calculated 313 (280-300); Phosphorous 3.3 mg/dL (2.7-4.5); eGFR For Non-African Americans 58 (> 60)
[2017-12-01] MEDS: Levothyroxine Sodium 200 MCG VIAL IVP SCH (08:37)
[2017-12-01] MEDS: Insulin LISPRO 300 UNITS/3 ML VIAL SQ SCH ×3 (08:59→19:02)
--- NOTE | 2017-12-01 09:47 | Neurology Progress Note ---
Date of Encounter: 12/01/17 Time of Encounter: 09:44 Assessment and Plan (1) Altered mental status Current Visit: Yes Status: Acute Qualifiers: Altered mental status type: unspecified Qualified Code(s): R41.82 - Altered mental status, unspecified (2) Toxic metabolic encephalopathy Current Visit: Yes Status: Acute At this point I am considering the possibility of neuroleptic malignant syndrome. I will check ALTs/AST and CPK levels. Recommend discontinuing neuroleptics for now. We will recheck lithium level. Subjective Interval history: The chart was reviewed, the patient was seen and examined. She is not changed from a clinical perspective. She still moans incessantly and is very restless. WBCs are elevating. Repeat CT scan of the head was unrevealing. Cultures are yet pending. Med list again reviewed. She is on Haldol, Abilify, and lithium. I am therefore considering the possibility of neuroleptic malignant syndrome. I will check CPK levels and AST/ALT. Objective - Constitutional Vitals: Temp Pulse Resp BP Pulse Ox 98.5 F 75 20 154/85 97 12/01/17 07:41 12/01/17 07:41 12/01/17 07:41 12/01/17 07:41 12/01/17 07:41 - Neurological Exam Sensorimotor examination: Present: intact Motor Examination: Present: other (Equal tone in all 4 extremities. She does have some type of tremor of the left foot which I feel may be volitional.) Mental Status Examination: Present: does not follow commands, drowsy, delerious , agitated, opens eyes to noxious stimulation Cranial nerve examination: Present: PERRL, EOMI (Doll's eyes are intact.), corneal reflexes brisk symmetrically - VTE Documentation of Mechanical Device: Venous foot pump, device Results - Laboratory Findings CBC and BMP: 12/01/17 05:18 12/01/17 05:18 Abnormal lab findings: Abnormal lab results WBC 15.0 K/mcL (4.3-11.1) H 12/01/17 05:18 MCV 82.0 fL (83.0-100.0) L 12/01/17 05:18 MCH 25.4 pg (28.0-33.3) L 12/01/17 05:18 MCHC 31.0 g/dL (31.6-35.5) L 12/01/17 05:18 RDW 18.2 % (11.5-14.5) H 12/01/17 05:18 Neutrophils # 13.5 K/mcL (1.6-8.9) H 12/01/17 05:18 Immature Plt Fraction 7.2 % (1.1-6.1) H 11/28/17 06:52 PT 13.9 Seconds (9.4-12.1) H 11/26/17 09:15 ABG pCO2 47 mmHg (35-45) H 11/27/17 16:28 ABG pO2 84 mmHg (85-104) L 11/27/17 16:28 ABG HCO3 30 mEq/L (21-27) H 11/27/17 16:28 ABG Total CO2 31 mEq/L (20-26) H 11/27/17 16:28 ABG Base Excess 4 mEq/L (-2 to 3) H 11/27/17 16:28 VBG pH 7.31 pH Units (7.32-7.42) L 11/26/17 09:31 VBG pCO2 62 mmHg (41-51) H 11/26/17 09:31 VBG pO2 52 mmHg (25-50) H 11/26/17 09:31 VBG HCO3 31 mEq/L (21-27) H 11/26/17 09:31 Sodium 146 mEq/L (136-145) H 12/01/17 05:18 Potassium 3.3 mEq/L (3.5-5.1) L 12/01/17 05:18 Chloride 113 mEq/L (98-107) H 12/01/17 05:18 Est GFR (Non-Af Amer) 58 (> 60) L 12/01/17 05:18 Glucose 254 mg/dL (70-105) H 12/01/17 05:18 POC Glucose 188 mg/dL (70-99) H 11/30/17 15:48 Hemoglobin A1c 7.0 % (-5.6) H 11/27/17 05:30 Calculated Osmolality 313 (280-300) H 12/01/17 05:18 AST 11 Units/L (13-39) L 11/26/17 09:15 Serum Total Protein 6.3 g/dL (6.4-8.9) L 11/26/17 09:15 Vitamin B12 204 pg/mL (250-1100) L 11/29/17 13:30 Urine Clarity Cloudy (Clear) A 11/26/17 16:15 Ur Specific [place] 1.006 (1.010-1.025) L 11/26/17 16:15 Urine Microscopic RBC 3-5 per hpf (0-3) H 11/26/17 16:15 Ur Squamous Epith Cells Many per lpf (None-Few) H 11/26/17 16:15 Vancomycin Trough 14 mcg/mL (5-10) H 11/30/17 07:51 Salicylates < 2.5 mg/dL (15.0-30.0) L 11/26/17 16:44 Acetaminophen < 10 mcg/mL (10-20) L 11/26/17 16:44 Consult Discharge Plan - Plan Referrals: Corina Lynch MD [Primary Care Provider] -
--- NOTE | 2017-12-01 10:11 | EEG/EMG/Oth Biometrics Report ---
EEG Procedure Report Date of procedure: 12/01/17 EEG Procedure: Routine EEG Procedure Note: This is a report of a 21 channel bipolar and referential montage EEG the patient suspected of having a metabolic encephalopathy. There is no posterior dominant rhythm identified at any time during the recording. The resting rhythm consists primarily of delta frequencies in all leads bilaterally with an erratic pattern. Triphasic waves are identified intermittently. There is no normal sleep architecture identified during the recording. Hyperventilation is not performed during the recording. The EKG rhythm strip reveals normal sinus rhythm at 90 bpm. Impressions: This EEG recording is abnormal and is consistent with a severe generalized metabolic encephalopathy. There is no evidence of epileptiform activity identified during the study. Comment: Triphasic waves are frequently encountered in the instance of severe metabolic encephalopathy frequently associated with hepatic or renal etiologies. Please correlate clinically.
[2017-12-01 10:37] LABS: Alanine Aminotransferase 11 Units/L (7-52); Aspartate Amino Transferase 14 Units/L (13-39); Creatine Kinase 43 Units/L (30-223)
[2017-12-01 10:51] LABS: Thyroid Stimulating Hormone 2.465 mcIU/mL (0.340-5.600)
[2017-12-01] MEDS ORDERED: Haloperidol Lactate 5 MG/ML VIAL IVP PRN (10:53)
--- NOTE | 2017-12-01 12:58 | Infectious Disease Progress No ---
Date of Encounter: 12/01/17 Time of Encounter: 12:56 - Assessment and Plan (1) Altered mental status Current Visit: Yes Status: Acute Etiology unclear: polypharmacy vs. medication withdrawal vs. metabolic encephalopathy vs. infectious vs. other. No obvious infectious etiology noted. Leukocytosis improving. Patient was on acyclovir prior to admission for possible shingles, so VZV encephalitis is theoretically feasible, although unlikely as she has not improved since starting Acyclovir. MRI of the brain was negative. CT of the head done today negative as well. EEG showed findings consistent with severe metabolic encephalopathy. Per neurology, concerning for NMS. RIP negative. UATs negative. Blood cultures drawn 11/26/17 are NGTD x 2 sets. Repeat blood cultures drawn 11/29/17 are NGTD x 2 sets. Ideally, an LP should be done, but I am not sure the patient will tolerate the procedure and it may require anesthesia. Neurology consulted and following. Appreciate recommendations. Continue acyclovir 10mg/kg Q8H. Continue Vancomycin IV. Pharmacy to dose. Goal trough ~15. Continue Cefepime 2 grams IV Q12H. Duration of treatment depends on the clinical picture. Monitor renal function and for drug toxicity and dose-adjust antibiotics. Qualifiers: Altered mental status type: unspecified Qualified Code(s): R41.82 - Altered mental status, unspecified (2) Pneumonia Current Visit: No Status: Ruled-out Location: Bilateral. Causative organism unclear. CXR completed 11/29/17 showed scattered parenchymal opacities most prominent centrally on the lung bases, consistent with worsening infection of edema. Due to the patient's mental status change, she is at risk for aspiration. Additionally, she is unable to provide any ROS information. RIP negative. Check S. pneumo and [place] UATs.--> negative. Continue Vancomycin IV. Pharmacy to dose. Goal trough ~15. Continue Cefepime 2 grams IV Q12H. Continue Flagyl 500mg IV TID. Duration of treatment depends on the clinical picture. Monitor renal function and for drug toxicity and dose-adjust antibiotics. Qualifiers: Pneumonia type: due to Pneumococcus Laterality: unspecified laterality Lung location: unspecified part of lung Qualified Code(s): J13 - Pneumonia due to Streptococcus pneumoniae (3) Cellulitis Current Visit: No Status: Acute Location: Abdominal wall. CT of the abdomen and pelvis completed infiltration of the fat within the pannus overlying the pelvis. Clinically, no evidence of cellulitis on exam. Continue antibiotics as above. Qualifiers: Site of cellulitis: extremity Site of cellulitis of extremity: lower extremity Laterality: unspecified laterality Qualified Code(s): L03.119 - Cellulitis of unspecified part of limb (4) Acute kidney injury Current Visit: Yes Status: Resolved Resolved. (5) [place] poisoning Current Visit: Yes Status: Resolved Resolved. Qualifiers: Encounter type: initial encounter Injury intent: undetermined intent Qualified Code(s): T56.894A - Toxic effect of other metals, undetermined, initial encounter (6) Bipolar disorder Current Visit: No Status: Chronic The patient has been without her medications for several days due to her AMS. Consider NG tube placement to assist allow for administration of her home medications. Qualifiers: Active/Remission status: remission status unspecified Qualified Code(s): F31.9 - Bipolar disorder, unspecified (7) Chronic venous insufficiency Current Visit: No Status: Chronic Location: BLE. No clinical evidence of cellulitis. (8) Hypothyroidism Current Visit: No Status: Chronic The patient has been without her medications for several days due to her AMS. Transitioned to IV yesterday. Qualifiers: Hypothyroidism type: unspecified Qualified Code(s): E03.9 - Hypothyroidism , unspecified (9) Morbid obesity Current Visit: No Status: Chronic (10) Type 2 diabetes mellitus Current Visit: No Status: Chronic Qualifiers: Diabetes mellitus senior living insulin use: without termite treater helper use Diabetes mellitus complication status: with unspecified complications Qualified Code(s) : E11.8 - Type 2 diabetes mellitus with unspecified complications - Subjective Interval history: Patient seen and examined with nursing staff at the bedside. No acute events noted overnight. Per nursing staff, the patient continues to moan incessantly. Moves all extremities x4 spontaneously, but nothing purposeful. No new issues per nursing. No diarrhea. [place] catheter patent. Discussed with the primary team. Infect Dis PN-Objective Data - Labs CBC & Chem 7: 12/01/17 05:18 12/01/17 05:18 Labs: Laboratory Results - last 24 hr 11/30/17 11/30/17 11/30/17 07:24 11:55 15:48 WBC RBC Hgb Hct MCV MCH MCHC RDW Plt Count MPV Immature Gran % Seg Neutrophils % Lymphocytes % Monocytes % Eosinophils % Basophils % Neutrophils # Lymphocytes # Monocytes # Eosinophils # Basophils # Sodium Potassium Chloride Carbon Dioxide BUN Creatinine Est GFR ( Amer) Est GFR (Non-Af Amer) BUN/Creatinine Ratio Glucose POC Glucose 202 H 183 H 188 H Calculated Osmolality Lactic Acid Calcium Phosphorus Magnesium AST ALT Creatine Kinase TSH 12/01/17 12/01/17 12/01/17 05:18 05:18 10:39 WBC 15.0 H RBC 4.61 Hgb 11.7 Hct 37.8 MCV 82.0 L MCH 25.4 L MCHC 31.0 L RDW 18.2 H Plt Count 299 MPV 11.8 Immature Gran % 0.9 Seg Neutrophils % 89.4 Lymphocytes % 5.0 Monocytes % 4.6 Eosinophils % 0.0 Basophils % 0.1 Neutrophils # 13.5 H Lymphocytes # 0.8 Monocytes # 0.7 Eosinophils # 0.0 Basophils # 0.0 Sodium 146 H Potassium 3.3 L Chloride 113 H Carbon Dioxide 23 BUN 18 Creatinine 0.98 Est GFR ( Amer) > 60 Est GFR (Non-Af Amer) 58 L BUN/Creatinine Ratio 18 Glucose 254 H POC Glucose Calculated Osmolality 313 H Lactic Acid 1.0 Calcium 9.2 Phosphorus 3.3 Magnesium 2.3 AST 14 ALT 11 Creatine Kinase 43 TSH 2.465 Cultures: Cultures 12/01/17 06:25 Legionella Antigen - Final Urine,[place] Streptococcus pneumoniae Antigen (M - Final 11/26/17 18:00 Stool Culture - Final Stool 11/29/17 13:40 Blood Culture - Preliminary Peripheral Venipuncture Culture is incubating and being continuously monitored for growth. Final report to follow. 11/29/17 13:40 Blood Culture - Preliminary Peripheral Venipuncture Culture is incubating and being continuously monitored for growth. Final report to follow. Serology 11/29/17 11/29/17 Range/Units 18:01 13:30 T.pallidum Ab Interpret Negative (NEGATIVE) Chlamy pneumoniae PCR Not Detected (Not Detect) Adenovirus (PCR) Not Detected (Not Detect) B. pertussis DNA (PCR) Not Detected (Not Detect) B.parapertussis DNA PCR Not Detected (Not Detect) Coronavirus OC43 (PCR) Not Detected (Not Detect) Coronavirus HKU1 (PCR) Not Detected (Not Detect) Coronavirus 229E (PCR) Not Detected (Not Detect) Coronavirus NL63 (PCR) Not Detected (Not Detect) Human Metapneumovir PCR Not Detected (Not Detect) Influenza A (H1) PCR Not Detected (Not Detect) Influ A (H1N1/09) PCR Not Detected (Not Detect) Influenza A (H3) PCR Not Detected (Not Detect) Influenza A Untype (PCR) Not Detected (Not Detect) Influenza Type B (PCR) Not Detected (Not Detect) M.pneumoniae DNA (PCR) Not Detected (Not Detect) Parainfluenza 1 (PCR) Not Detected (Not Detect) Parainfluenza 2 (PCR) Not Detected (Not Detect) Parainfluenza 3 (PCR) Not Detected (Not Detect) Parainfluenza 4 (PCR) Not Detected (Not Detect) RSV (PCR) Not Detected (Not Detect) Entero/Rhino (PCR) Not Detected (Not Detect) - Impressions Impressions Cervical Spine CT 11/27/17 12:05 IMPRESSION: Suboptimal evaluation of the mid to distal cervical spine, due to patient habitus and motion. Within these limitations, there is no displaced cervical spine fracture. D/ / 11/27/2017 13:41:19 Jennifer Samuels MD / harpreet Interpreting Provider: Jennifer Samuels MD Head CT 11/27/17 12:05 IMPRESSION: Motion degraded study. No acute intracranial abnormality. D/ / 11/27/2017 13:27:28 Jennifer Samuels MD / harpreet Interpreting Provider: Jennifer Samuels MD Exam - Constitutional Vitals: Temp Pulse Resp BP Pulse Ox 99.2 F 79 20 154/87 97 12/01/17 11:28 12/01/17 11:28 12/01/17 11:28 12/01/17 11:28 12/01/17 11:28 General appearance: morbidly obese, no febrile, no cooperative - Head Head exam: Present: atraumatic, normal inspection, normocephalic Additional comments: Scabbed lesion noted to the nasal bridge. - Eye Eye exam: Present: normal appearance, PERRL Pupils: Present: normal accommodation - ENT ENT exam: Present: mucous membranes dry - Neck Neck exam: Present: normal inspection. Absent: meningismus - Respiratory Respiratory exam: Present: CTAB. Absent: rales, respiratory distress, rhonchi, wheezes Additional comments: Difficult to adequately auscultate lung sounds due to patient moaning. - Cardiovascular Cardiovascular exam: Present: RRR, +S1, +S2 - GI/Abdominal GI/Abdominal exam: Present: distended (obese), normal bowel sounds, soft. Absent: tenderness Additional comments: No erythema noted to the abdominal wall. [place] catheter patent draining clear yellow urine. - Extremities Exam Extremities exam: Absent: joint swelling, normal inspection (Venous stasis dermatitis noted to the BLE.), pedal edema, tenderness - Neurological Exam Neurological exam: Present: altered (Moans constantly, MORALES x 4 spontaneously, but not purposefully. Opens eyes to verbal stimuli, but does not follow commands.) - Skin Skin exam: Present: dry, intact, normal color, warm - VTE Documentation of Mechanical Device: Venous foot pump, device Consult Discharge Plan - Plan Referrals: Corina Lynch MD [Primary Care Provider] - - Attending Attestation I examined this patient and my medical decision-making was reviewed with Yas Slade CNP. I agree with the documented findings, disposition and treatment plan as described except to the extent set forth below.
[2017-12-01] MEDS ORDERED: D5% in 0.45% NACL 1,000 ML IVC SCH (14:15)
[2017-12-01] MEDS: *HR* Repaglinide 1 MG TABLET PO SCH (14:26)
[2017-12-01] MEDS: Cholestyramine 4 GM POWD.PACK PO SCH (14:26)
[2017-12-01] MEDS: Aspirin 81 MG TAB.CHEW PO SCH (14:26)
[2017-12-01] MEDS: Lactobacillus 1 EACH CAP.SPRINK PO SCH (14:26)
[2017-12-01] MEDS: Gabapentin 300 MG CAPSULE PO SCH ×3 (14:26→21:31)
[2017-12-01] MEDS: Verapamil ER (24 HR) 240 MG TABLET.ER PO SCH (14:26)
--- NOTE | 2017-12-01 14:32 | Discharge Summary ---
Orders not resulted at time of discharge: Pending orders 11/28/17 15:34 Pain Mgt Urine Drug Screen Routine 11/29/17 13:40 Culture,Blood [BC] Routine 12/02/17 04:00 Basic Metabolic Panel AM 0400 CBC [Complete Blood Count] [HEME] AM 0400 Magnesium AM 0400 Phosphorous AM 0400 12/03/17 04:00 Basic Metabolic Panel AM 0400 CBC [Complete Blood Count] [HEME] AM 0400 Magnesium AM 0400 Phosphorous AM 0400 Date of Encounter: 12/01/17 Time of Encounter: 14:30 - Discharge Diagnosis (1) Acute metabolic encephalopathy Priority: Primary Status: Acute (2) Sepsis Priority: Primary Status: Acute Qualifiers: Sepsis type: sepsis due to unspecified organism Qualified Code(s): A41.9 - Sepsis, unspecified organism (3) Acute and chronic respiratory failure with hypoxia Priority: Primary Status: Acute (4) Type 2 diabetes mellitus Priority: Secondary Status: Chronic Qualifiers: Diabetes mellitus halfway insulin use: without halfway use Diabetes mellitus complication status: with unspecified complications Qualified Code(s) : E11.8 - Type 2 diabetes mellitus with unspecified complications (5) Bipolar disorder Priority: Secondary Status: Chronic Qualifiers: Active/Remission status: remission status unspecified Qualified Code(s): F31.9 - Bipolar disorder, unspecified (6) Hypothyroidism Priority: Secondary Status: Chronic Qualifiers: Hypothyroidism type: unspecified Qualified Code(s): E03.9 - Hypothyroidism , unspecified (7) Herpes zoster Priority: Secondary Status: Chronic Qualifiers: Herpes zoster complications: without complications Qualified Code(s): B02.9 - Zoster without complications (8) Hypertension Priority: Secondary Status: Chronic Qualifiers: Hypertension type: essential hypertension Qualified Code(s): I10 - Essential (primary) hypertension (9) DVT prophylaxis Priority: Secondary Status: Acute (10) Morbid obesity with BMI of 60.0-69.9, adult Priority: Secondary Status: Chronic (11) Cellulitis Priority: Secondary Status: Acute Qualifiers: Site of cellulitis: extremity Site of cellulitis of extremity: lower extremity Laterality: left Qualified Code(s): L03.116 - Cellulitis of left lower limb (12) [place] poisoning Priority: Primary Status: Resolved Qualifiers: Encounter type: initial encounter Injury intent: undetermined intent Qualified Code(s): T56.894A - Toxic effect of other metals, undetermined, initial encounter (13) Hypokalemia Priority: Secondary Status: Acute (14) Acute kidney injury Priority: Primary Status: Resolved (15) Hypernatremia Priority: Secondary Status: Acute Hospital course: Ms. Asif is a 62 year old female with a PMH of diastolic cHF, diabetes, COPD , bipolar disorder with previous psych in patient hospitalization in [place], presented [facility] with complaints of fall, altered mental status and slurred speech which was sudden onset. Pt was admitted here and started her on empirical abx since her CXR showed pneumonia also concerning for acute toxic encephaloapthy / enecephalitis. Pt was placed on Cefepime and Vancomycin. She did have slightly elevated Hoven level initially @ 1.8 which improved right away and does not look like she had any lithium toxicity symptoms. Pt was evaluated by Neurology, her CT of head and Brain MRI done initially which did not show any acute infraction. She happened to have a fall here during this hospitalization her repeat CT of head showed Left 1.2 CM thick left frontal parietal temporal scalp hematoma and 0.7 cm thick Rt parietal scalp hematoma. Pt was seen and examined by ID who recommend to continue empirical abx Cefepime, Vancomycin, Acyclovir and Flagyl. Also recommend LP to rule out any infectious pathology for her worsening acute delirium / altered mental status. Pt is non verbal, kept on moaning most of the time. Also she is not following any commands, not taking any PO intake. Our IR unable to do LP since she does not stay still, so at this point ID recommend to transfer the pt to tertiary care center for further higher level of care for LP under sedation. I did talk to [facility] transfer center, who gracefully accepted the pt for further care, however we are waiting on bed. I did talk to pt's brother Tyler Asif @ [phone] and updated him about current care. - Time Spent with Patient Total time spent providing and/or coordinating discharge services: Greater than 30 minutes (Spent 45 minutes on this patient's discharge summary due to complex medical problems) - Discharge Medications Home Medications: Cholestyramine (with Sugar) [Cholestyramine Bulk Powder] 2 scoop PO DAILY [History] Hoven Carbonate 900 mg PO HS 08/24/16 [History] Pantoprazole Sodium 40 mg PO DAILY 08/24/16 [History] Saxagliptin HCl [Onglyza] 5 mg PO DAILY 08/24/16 [History] Sertraline [Zoloft] 200 mg PO DAILY 08/24/16 [History] Verapamil HCl [Verapamil ER] 240 mg PO DAILY 08/24/16 [History] Brimonidine 0.2% [Alphagan] 1 drop BOTH EYES TID 08/25/16 [History] L. Acidophilus/Pectin, Trigg [Acidophilus Caplet] 1 each PO DAILY 08/25/16 [ History] Fluticasone Propionate Nasal [Flonase] 50 mcg NS DAILY bottle 08/28/16 [Rx] Furosemide [Lasix] 40 mg PO BID #60 tablet 08/28/16 [Rx] Losartan [Cozaar] 50 mg PO DAILY tablet 08/28/16 [Rx] Pentoxifylline [TRENtal] 400 mg PO TIDWM tablet.er 08/28/16 [Rx] ARIPiprazole [Abilify] 2 mg PO DAILY 09/02/17 [History] Acyclovir [Zovirax] 800 mg PO BID 09/02/17 [History] Dicyclomine [Bentyl] 10 mg PO QID #20 capsule 09/02/17 [Rx] Ondansetron ODT [Zofran ODT] 4 mg SL Q6HR #20 tab.rapdis 09/02/17 [Rx] Pravastatin Sodium [Pravachol] 40 mg PO HS 09/02/17 [History] Repaglinide [Prandin] 1 mg PO DAILY 09/02/17 [History] Levothyroxine Sodium [Synthroid] 300 mcg PO DAILY@0630 09/22/17 [History] Loperamide [Imodium] 2 mg PO QID PRN 09/22/17 [History] Albuterol Sulfate [Albuterol Inhaler] 2 puff IH Q4HR PRN 30 Days #1 hfa.aer.[email or web address] 09/24/17 [Rx] Fluticasone/Vilanterol [Breo Ellipta 200-25 Mcg INH] 1 puff IH DAILY 10/22/17 [ History] Melatonin [Melatin] 3 mg PO DAILY 10/22/17 [History] Gabapentin [Neurontin] 600 mg PO TID 4 Days #12 tablet 10/24/17 [Rx] Allergies/Adverse Reactions: 3 Allergy/AdvReac Type Severity Reaction Status Date / Time sulfamethoxazole Allergy Rash Verified 09/22/17 08:16 [From Bactrim] trimethoprim [From Bactrim] Allergy Rash Verified 09/22/17 08:16 celecoxib [From Celebrex] AdvReac Gastrointestinal Verified 09/22/17 08:16 Upset Penicillins AdvReac Swelling Verified 09/22/17 08:16 of the Eye trazodone AdvReac Fainting Verified 09/22/17 08:16 Serazone AdvReac Swelling Uncoded 09/22/17 08:16 of Lip/Tongue/Throat Date of admission: 11/26/17 16:36 Primary care physician: Corina Lynch Consults: 11/29/17 10:26 Consult to Neurology [CONS] Routine Consulting Provider: [facility] Reason for Consult: persistent ams, agitation Call Completed: Yes 11/29/17 11:46 Consult to Infectious Diseases [CONS] Routine Consulting Provider: [facility] [place] Reason for Consult: persistent leukocytosis, altered mental status Call Completed: Yes 11/29/17 15:04 Consult to Cloth Trimmer Hand [CONS] Routine Reason for SW Consult: From [facility] 11/30/17 12:33 Consult to Interpret Exam [CONS] Routine Consulting Provider: Mateo Silva Consult to Interpret Exam: Interpret EEG - Constitutional Vitals: Temp Pulse Resp BP Pulse Ox 99.2 F 79 20 154/87 97 12/01/17 11:28 12/01/17 11:28 12/01/17 11:28 12/01/17 11:28 12/01/17 11:28 General appearance: Present: A&O X 0. Absent: cooperative, answers questions appropriately Exam: a - Head Head exam: Present: normocephalic - Neck Neck exam general surgery: Present: supple - Respiratory Respiratory exam: Present: decreased breath sounds, wheezes. Absent: rales, respiratory distress, rhonchi - Cardiovascular Cardiovascular exam: Present: RRR, +S1, +S2. Absent: tachycardia - GI/Abdominal GI/Abdominal exam: Present: normal bowel sounds, soft. Absent: rebound, rigid, tenderness - Extremities Exam Extremities exam: Present: pedal edema. Absent: calf tenderness, tenderness - Neurological Exam Neurological exam: Present: altered - Psychiatric Additional comments: non verbal - Patient Status Disposition: Transfer Other Condition: Fair Overall status at discharge: patient is back to baseline - Discharge Instructions Follow Up With: Corina Lynch MD [Primary Care Provider] - Forms: ED Satisfaction Letter - Diet and Activity Diet: low salt diet - VTE Documentation of Mechanical Device: Venous foot pump, device
[2017-12-01] MEDS ORDERED: *HR* Morphine 2 MG/ML SYRINGE IVP STA (18:16)
[2017-12-01] MEDS: Fluticasone Propionate Nasal 50 MCG/SPRAY BOTTLE NS SCH (18:55)
[2017-12-01 20:29] VITALS: BP 176/91
[2017-12-01] MEDS: Lithium Carbonate 300 MG CAPSULE PO SCH (21:31)
[2017-12-01] MEDS: Melatonin 3 MG TABLET PO SCH (21:31)
[2017-12-01] MEDS ORDERED: Aminoglycoside Consult 1 EACH MC ONE (22:19)
== END 2017-12-01 22:20 | disposition other institution (70) | DRG 871 ==
LOC: EMEROOARM 08:31 → 2ANU 08:31 → 2NENU 11-27 22:31
PROVIDERS: ADMIT Internal Medicine; ATTEND Internal Medicine